=== PATIENT | female | born 1955 | race Caucasian/White ===

== ENCOUNTER 2019-04-13 07:10 | Outpatient (CLI) | payer MEDICARE, BC, SELFPAY ==
[2019-04-13 09:17] LABS: ALT 90 U/L (12-78); AST 57 U/L (15-37); Albumin 3.9 g/dL (3.4-5.0); Alkaline Phosphatase 153 U/L (46-116); Anion Gap 12.7 mmol/L (3-11); BUN 15 mg/dL (7-18); Bilirubin, Total 0.6 mg/dL (0.2-1.0); CO2 25.3 mmol/L (21.0-32.0); CREATININE 0.82 mg/dL (0.55-1.02); Calcium 9.5 mg/dL (8.5-10.1); Chloride 101 mmol/L (98-107); Cholesterol 261 mg/dL (50-200); GGT 368 U/L (5-55); Glucose 166 mg/dL (70-100); HDL Cholesterol 50 mg/dL (40-60); LDL CHOLESTEROL 171 mg/dL (<100); Potassium 4.4 mmol/L (3.5-5.1); Sodium 139 mmol/L (136-145); Total Protein 7.8 g/dL (6.4-8.2); Triglyceride 168 mg/dL (30-150)
[2019-04-13 15:01] LABS: HCT 42.1 % (36.0-46.0); HGB 14.2 g/dL (12.0-15.5); Mean Corp. HGB Concentration 33.7 g/dL (32.0-36.0); Mean Corpuscular Volume 100.7 fL (80-95); Platelet Count 162 x1000/uL (130-400); RBC 4.18 m/cumm (4.00-5.20); RBC Distribution Width 12.4 % (11.7-14.6); White Blood Cell Count 6.72 k/cumm (4.4-10.8)
== END 2019-04-13 07:30 ==
PROVIDERS: PCP Family Medicine; Visit Provider Family Medicine
DX: R03.0 Elevated blood-pressure reading, without diagnosis of hypertension (principal); R94.5 Abnormal results of liver function studies; R71.8 Other abnormality of red blood cells; R74.8 Abnormal levels of other serum enzymes; E78.89 Other lipoprotein metabolism disorders
CPT/HCPCS: 36415; 80053; 80061; 83721; 85027; 82977

== ENCOUNTER 2020-01-14 14:40 | Outpatient (CLI) | payer MEDICARE, BC, SELFPAY ==
--- NOTE | 2020-01-14 15:30 | DI.RAD_ITS ---
EXAM: XR HIP RT COMPLETE AP PELVIS INDICATION: PAIN. COMPARISON: LUMBAR SPINE COMPLETE from 06/22/2016 TECHNIQUE: 2D digital imaging was performed. FINDINGS: Hips show moderately severe degenerative changes characterized by joint space narrowing, subchondral sclerosis and periarticular spurring. No acute fracture or dislocation is present. The soft tissues are unremarkable. IMPRESSION: Osteoarthritis of the hips.
== END 2020-01-14 15:00 ==
PROVIDERS: PCP Family Medicine; Referring Provider Family Medicine; Visit Provider Student in an Organized Health Care Education/Training Program
DX: M25.551 Pain in right hip (principal); M16.11 Unilateral primary osteoarthritis, right hip
CPT/HCPCS: 99213; 73502

== ENCOUNTER 2020-01-30 13:50 | Outpatient (CLI) | payer MEDICARE, BC, SELFPAY | END 2020-01-30 14:10 | PROVIDERS: PCP Family Medicine; Visit Provider Student in an Organized Health Care Education/Training Program | DX: Z01.818 Encounter for other preprocedural examination (principal); M16.11 Unilateral primary osteoarthritis, right hip ==

== ENCOUNTER 2020-01-31 11:40 | Outpatient (CLI) | payer MEDICARE, BC, SELFPAY ==
[2020-01-31 12:18] LABS: HCT 40.8 % (36.0-46.0); Mean Corp. HGB Concentration 34.3 g/dL (32.0-36.0); Mean Corpuscular Hemoglobin 33.6 pg (27.0-33.0); Mean Corpuscular Volume 97.8 fL (80-95); Mean Platelet Volume 10.7 fL (8.0-11.0); Platelet Count 148 x1000/uL (130-400); RBC 4.17 m/cumm (4.00-5.20); RBC Distribution Width 12.1 % (11.7-14.6); White Blood Cell Count 6.86 k/cumm (4.4-10.8)
[2020-01-31 12:44] LABS: Anion Gap 10.4 mmol/L (3-11); BUN 13 mg/dL (7-18); CO2 26.6 mmol/L (21.0-32.0); CREATININE 0.78 mg/dL (0.55-1.02); Calcium 8.9 mg/dL (8.5-10.1); Chloride 97 mmol/L (98-107); Glucose 335 mg/dL (74-106); Potassium 4.1 mmol/L (3.5-5.1); Sodium 134 mmol/L (136-145)
[2020-01-31 17:01] LABS: ALT 69 U/L (14-59); AST 38 U/L (15-37); Albumin 3.8 g/dL (3.4-5.0); Alkaline Phosphatase 178 U/L (46-116); Anion Gap 12.7 mmol/L (3-11); BUN 14 mg/dL (7-18); Bilirubin, Total 0.8 mg/dL (0.2-1.0); CO2 25.3 mmol/L (21.0-32.0); CREATININE 0.84 mg/dL (0.55-1.02); Calcium 9.1 mg/dL (8.5-10.1); Chloride 96 mmol/L (98-107); GGT 346 U/L (5-55); Glucose 338 mg/dL (74-106); Potassium 4.1 mmol/L (3.5-5.1); Sodium 134 mmol/L (136-145); Total Protein 7.5 g/dL (6.4-8.2)
[2020-01-31 17:08] LABS: Hemoglobin A1C 7.9 % (3.8-5.6)
== END 2020-01-31 12:00 ==
PROVIDERS: PCP Family Medicine; Visit Provider Student in an Organized Health Care Education/Training Program
DX: M25.551 Pain in right hip (principal); M16.11 Unilateral primary osteoarthritis, right hip; R74.8 Abnormal levels of other serum enzymes; R71.8 Other abnormality of red blood cells; R94.5 Abnormal results of liver function studies; R73.9 Hyperglycemia, unspecified; Z01.818 Encounter for other preprocedural examination; Z01.812 Encounter for preprocedural laboratory examination
CPT/HCPCS: 36415; 80048; 80053; 85027; 86850; 86900; 86901; 82977; 83036; 85025

== ENCOUNTER 2020-03-31 09:29 | Outpatient (REF) | payer MEDICARE, BC, SELFPAY ==
--- NOTE | 2020-03-31 09:20 | PAPFT_PTH ---
PATIENT: Jennifer Traore LOC: [facility] U#:[id number] AGE/SX: 64/F ROOM: RE03/31/[address]: MERLE Gotti : 1955 BED: DIS: 03/31/2020 SPEC #: [id number] RECD: 03/31/20 12:57 STATUS: OTTONIEL REQ #: [id number] BREANNE: 03/31/20 09:[address]: Arelis Hameed DEPT: [facility] Cytology RECD BY: Turner Kohli ENTERED: 03/31/20 12:58 SP TYPE: PAPFT OTHR DR: Priscilla Brantley MD, DC Tissues: 1 - CX/ENDOCX FOR PAP SMEARS Procedures: PAP THIN PREP/UVM Screening HPV DNA PROBE Comments: [id number]
== END 2020-03-31 09:49 ==
LOC: LBN 09:29
PROVIDERS: PCP Family Medicine; Visit Provider Nurse Practitioner Family
DX: Z12.4 Encounter for screening for malignant neoplasm of cervix (principal)
CPT/HCPCS: 88142; 87624

== ENCOUNTER 2020-05-14 04:09 | Outpatient (CLI) | payer MEDICARE, BC, SELFPAY ==
[2020-05-14 11:23] LABS: Hemoglobin A1C 5.9 % (3.8-5.6)
[2020-05-14 12:26] LABS: COMMENT (LAB VIEW ONLY) 60.41 mg/dL; Microalb ug/mg Crea 4.6 ug/mg Cr
== END 2020-05-14 04:29 ==
PROVIDERS: PCP Family Medicine; Visit Provider Family Medicine
DX: E11.9 Type 2 diabetes mellitus without complications (principal)
CPT/HCPCS: 36415; 80053; 82043; 82570; 83036

== ENCOUNTER 2020-06-12 14:00 | Outpatient (CLI) | payer MEDICARE, BC, SELFPAY | END 2020-06-12 14:20 | PROVIDERS: PCP Family Medicine; Visit Provider Student in an Organized Health Care Education/Training Program | DX: Z01.818 Encounter for other preprocedural examination (principal); M16.11 Unilateral primary osteoarthritis, right hip; I10 Essential (primary) hypertension; E11.9 Type 2 diabetes mellitus without complications; Z79.84 Long term (current) use of oral hypoglycemic drugs ==

== ENCOUNTER 2020-06-14 07:00 | Outpatient (CLI) | payer MEDICARE, BC, SELFPAY | END 2020-06-14 07:20 | PROVIDERS: PCP Family Medicine; Visit Provider Student in an Organized Health Care Education/Training Program | DX: Z11.59 Encounter for screening for other viral diseases (principal) | CPT/HCPCS: U0003 ==

== ENCOUNTER 2020-06-16 02:11 | Outpatient (CLI) | payer MEDICARE, BC, SELFPAY ==
[2020-06-16 10:02] LABS: HCT 39.3 % (36.0-46.0); HGB 13.2 g/dL (12.0-15.5); Mean Corp. HGB Concentration 33.6 g/dL (32.0-36.0); Mean Corpuscular Hemoglobin 34.1 pg (27.0-33.0); Mean Corpuscular Volume 101.6 fL (80-95); Mean Platelet Volume 10.1 fL (8.0-11.0); Platelet Count 169 x1000/uL (130-400); RBC 3.87 m/cumm (4.00-5.20); RBC Distribution Width 12.3 % (11.7-14.6); White Blood Cell Count 6.42 k/cumm (4.4-10.8)
[2020-06-16 10:51] LABS: Anion Gap 11.8 mmol/L (3-11); BUN 14 mg/dL (7-18); CO2 24.2 mmol/L (21.0-32.0); CREATININE 0.99 mg/dL (0.55-1.02); Calcium 9.5 mg/dL (8.5-10.1); Chloride 100 mmol/L (98-107); Estimated GFR 55.95 (mL/min/1.73m2); Glucose 176 mg/dL (74-106); Potassium 4.5 mmol/L (3.5-5.1); Sodium 136 mmol/L (136-145)
== END 2020-06-16 02:31 ==
PROVIDERS: PCP Family Medicine; Visit Provider Student in an Organized Health Care Education/Training Program
DX: M16.11 Unilateral primary osteoarthritis, right hip (principal); R19.7 Diarrhea, unspecified; Z01.818 Encounter for other preprocedural examination
CPT/HCPCS: 36415; 80048; 85027; 86850; 86900; 86901; U0003

== ENCOUNTER 2020-06-16 08:59 | Outpatient (CLI) | payer MEDICARE, BC, SELFPAY ==
[2020-06-18 17:24] LABS: COVID-19 RT-PCR Result NEGATIVE (Negative)
== END 2020-06-16 09:19 ==
PROVIDERS: PCP Family Medicine; Visit Provider Student in an Organized Health Care Education/Training Program
DX: Z01.818 Encounter for other preprocedural examination (principal)
CPT/HCPCS: U0003

== ENCOUNTER 2020-06-18 06:15 | Observation (INO) | payer MEDICARE, BC, SELFPAY ==
[2020-06-18] VITALS (12 sets, daily range): BP systolic 83–168; BP diastolic 43–96; PULSE 65–86; RESP 10–20; TEMP 36–36.7; O2SAT 94–99
[2020-06-18] MEDS: Celecoxib 200 MG CAP 400 MG PO (07:07)
[2020-06-18] MEDS: Acetaminophen 500 MG TAB 1000 MG PO ×2 (07:08→13:46)
[2020-06-18] MEDS: Lactated Ringers 1,000 ML 80 ML IV (07:08)
--- NOTE | 2020-06-18 07:37 | W.PM.DS.N ---
Date of service: 06/18/20 DS: Diagnosis Discharge Diagnosis (1) Primary osteoarthritis of right hip: Status: Acute Discharge Plan Disposition Patient Disposition: HOME Condition: Good Discharge Details Reason For Visit: R HIP DJD Admit Date/Time: 06/18/20 06:15 Admit Provider: Chucky gN Attending Provider: Chucky Ng Primary Care Provider: Priscilla Brantley [facility] Hospital Course Hospital Course: Patient was admitted to the medical/surgical floor following the procedure. The surgery was tolerated well without any notable medical, surgical, or anesthetic complications. Mobilization began postoperatively. The clifford catheter was removed and voiding spontaneously. Vitals were stable. Physical therapy worked with the patient and was cleared for discharge home. No acute medical issues. Pain was controlled on oral regimen. Home Meds and New Rx's Prescriptions: New aspirin 81 mg tablet,delayed release (DR/EC) 81 mg PO BID Qty: 60 RF: 0 acetaminophen 500 mg tablet 1,000 mg PO Q8H PRN (Reason: pain) Qty: 90 RF: 3 pantoprazole 40 mg tablet,delayed release (DR/EC) 40 mg PO DAILY Qty: 30 RF: 0 docusate sodium [Colace] 100 mg capsule 100 mg PO BID PRNQty: 10 RF: 0 oxycodone 5 mg tablet 5 mg PO Q4H Qty: 15 RF: 0 Continued magnesium 250 mg tablet 250 mg PO .Every other day RF: 0 losartan 100 mg tablet 100 mg PO DAILY Qty: 90 RF: 4 metformin 500 mg tablet 500 mg PO BID Qty: 180 RF: 5 multivitamin [Daily Vitamin] 1 EACH tablet 1 tab PO DAILY RF: 0 betamethasone valerate 15 GM cream 15 gm Topical BID PRNQty: 80 RF: 2 lidocaine 5 % adhesive patch,medicated 1 patch TP DAILY Qty: 30 RF: 2 vitamin I56-qullw acid 500-400 mcg Tablet 1 tab PO DAILY RF: 0 ibuprofen 600 mg tablet 600 mg PO TID Qty: 270 RF: 1 Discontinued sulfamethoxazole-trimethoprim [Bactrim] 400-80 mg tablet 1 tab PO DAILY PRNRF: 0 No Action (DME) blood sugar diagnostic [Blood Glucose Test] Strip See Rx Instructions .ROUTE .MEDSUPPLY Qty: 100 RF: 5 Discharge Instructions Additional Instructions: Dr. Ng's Total Hip Discharge Instructions Activity: The most important activity is to walk. You should try to take short walks a few times a day. You have no restrictions on movement or positioning, but do not try to force what you do. You will find some stiffness and weakness with hip flexion (lifting your knee). Do not try to strengthen this too early, continue to practice walking and stairs and this will come. - Outpatient physical therapy can be helpful to help return you to a normal gait and improve your flexibility and strength. This can start around 2 weeks. For most patients, it?s not necessary. Usually this is determined at the time of discharge or at the first post-operative visit. - You should wear the JONAH hose on both legs for 2 weeks. You may remove those at night. These prevent blood pooling and swelling. Dressing: Keep the surgical dressing in place for at least one week, although it may stay in place untill follow-up. It may get wet after 3 days but avoid soaking the dressing. If it gets wet, just lightly pat dry. Most people prefer to cover the dressing with some ClingWrap, Saran Wrap, to keep it dry. After the first week it may be removed if desired and then replaced with light gauze and tape or nothing. It is important to always keep some gauze or the dressing between skin folds, especially when you are sitting, so the incision is not folded over on itself at the belly fold. Medications: - You should take Tylenol and an anti-inflammatory Ibuprofen as your primary pain control medications - You have been prescribed a stronger pain medication Oxycodone for breakthrough pain, take as needed as prescribed. - You have also been prescribed a stomach acid reduction agent Pantoprozole to help reduce stomach acid and reflux. - You will be taking Aspirin 81mg twice a day for DVT prevention unless instructed otherwise. - If you have constipation you should take Colace or Miralax (both [id number]). It takes most people 3-4 days to have a bowel movement. Follow-up: 2 weeks. If you have any acute concerns or questions, please do not hesitate to contact the office at [phone]. You may contact Dr. Ng with any questions after hours through the hospital at [phone] or on his cell phone at [phone]. Referrals: Chucky Ng MD [ [facility] STAFF PHYSICIAN] - Activity:: Activity as Tolerated Equipment/Supplies:: Walker Diet:: As Tolerated Discharge Orders Discharge Orders: Discharge Order (Routine); Ordered 06/18/20 Ordered By: Chucky Ng DS: Summary Status at Discharge Functional status at discharge: uses cane/walker Overall status at discharge: patient is progressing back to baseline Mental Status: mental status grossly normal Speech and Movement: speech and movement normal Mood: congruent mood Affect: normal affect Exam Psych Mental Status: mental status grossly normal Speech and Movement: speech and movement normal Mood: congruent mood Affect: normal affect DS: Data Vitals/I&O Vitals and I&O: Vital Signs Temperature 36.7 C 06/18/20 06:49 Pulse 86 06/18/20 06:49 Pulse Rhythm Regular 06/18/20 06:49 Respiratory Rate 18 06/18/20 06:49 Respiratory Effort 06/18/20 06:49 Blood Pressure 168/96 H 06/18/20 06:49 Pulse Oximetry 98 06/18/20 06:49 Oxygen Delivery Method Room Air 06/18/20 06:49 Oxygen Flow Rate 0 06/18/20 06:49 Intake & Output 06/17/20 06/17/20 06/18/20 11:59 23:59 11:59 Weight 76.5 kg [facility] Medical History Achilles tendinitis of left lower extremity (Resolved 09/11/15) Alcohol intake above recommended sensible limits (Chronic 01/07/17) elevated GGT, LFT and MCV Diverticulosis of colon without diverticulitis (Chronic) sigmoid colon Elevated LFTs (Chronic 01/06/17) Elevated MCV (Chronic 01/06/17) Epicondylitis (Resolved) History of ectopic (Resolved) right Hx of fracture of ankle (Acute) Hx of hypoglycemia (Acute) Hx of spina bifida (Acute) States hx of Spina Bifida Occulta Hx of tension headache (Acute) Hx of transient ischemic attack (TIA) (Acute) Pt. states she had a TIA when she was 22 that was control related Pt. states she has never had an recurrence, and does not f/u with a neurologist and states she never had to. Left foot pain (Resolved 08/05/15) Lichen planus (Chronic) Low back pain radiating to left leg (Chronic 06/10/16) Patellofemoral arthritis of right knee (Chronic 09/12/17) Shoulder pain (Chronic 03/24/15) Trochanteric bursitis of right hip (Resolved 09/11/15) bilateral Surgical History H/O section (Resolved) x2 History of back surgery (Acute) Microdisectomy, L5-S1. Pt. states nerves damage with numbness to left foot. History of bilateral ligation of fallopian tubes (Inactive) History of bilateral tubal ligation (Resolved) History of section (Inactive) History of ectopic (Inactive) History of open reduction and internal fixation (ORIF) procedure (Acute) left ankle with plates and screws present Hx of appendectomy (Chronic) Family History Mother , 54 Uterine cancer Colon cancer Father , 80 Prostate cancer Alcohol abuse Daughter Diabetes Depression Sister No problems noted. Sister No problems noted. Brother No problems noted. Son No problems noted. Brother Depression Social History Smoking/Tobacco Use Status: Never Alcohol Intake: current Alcohol Intake frequency: 0-2 drinks per day Alcohol type: wine Drug use: Occasionally Substance use type: unknown Caregiver/Support person: No Household members: spouse Housing: house Communication Needs: None Do you need help understanding health information?: Never Pets and animals: No Sexually active: Yes Do you think of yourself as: straight/heterosexual Current gender identity: female What is your relationship status?: How often do you talk on the phone with friends or family?: decline to answer How often do you get together with friends or relatives?: decline to answer How often do you attend scientology or yarsani services?: decline to answer Do you belong to any clubs or organized social groups?: decline to answer Panel score (0-1 are the most socially isolated patients): 1 What type of physical activity do you participate in: decline to answer Duration: decline to answer Frequency: decline to answer Niru/Hinduism: Restorationism Special niru needs: No Seatbelt use: always Drive intox or ride w/intox intermodal truck driver: No
[2020-06-18] MEDS: ceFAZolin 2 GM/50 ML BAG IVPB (07:41)
[2020-06-18] MEDS: Ketorolac 30 MG/ML VIAL (08:26)
[2020-06-18] MEDS: Bupivacaine 0.25% Pres-Free 30 ML VIAL (08:26)
--- NOTE | 2020-06-18 09:15 | DI.RAD_ITS ---
EXAM: XR HIP RT IN OR CLINICAL HISTORY: Primary osteoarthritis of right hip TECHNIQUE: 2D and realtime digital imaging was performed. CONTRAST MATERIAL: Refer to procedure report. COMPARISON: No exams were available for comparison FINDINGS: Fluoroscopy was provided for Dr. Ng during the performance of a right hip arthroplasty. Angelina friedman refer to the procedure report for complete details. Fluoro time: 53.8 seconds IMPRESSION: RADIATION DOSE DELIVERED:
--- NOTE | 2020-06-18 10:12 | ROE_ITS ---
Date of service: 06/18/20 Operative Note Operative Note DATE OF PROCEDURE: 06/18/20 PRE-OP DIAGNOSIS: Right Hip DJD POST-OP DIAGNOSIS: same PROCEDURE: Right Anterior Total Hip Arthroplasty SURGEON: Chucky Ng LOCOMOTIVE INSPECTOR: Rosalina Boyle ANESTHESIA: spinal ESTIMATED BLOOD LOSS: 250 PATHOLOGY: none sent TOURNIQUET TIME: 0 COMPLICATIONS: None Patient was transported to: PACU Patient's condition: stable Implants: 1. Depuy [place] Acetabular Component, 48mm 2. [employer]uy Acetabular Liner, [id number] 3. Depuy Corail Standard 125 Collared Femoral Stem, Size 9 4. Depuy Altrx Ceramic Femoral Head, Size 32+1mm Indications: I have seen Belinda in clinic for symptoms of hip arthritis, confirmed with radiographic findings. Belinda has exhausted nonoperative methods and was having significant limitations in daily function and desired better function and less pain. I discussed the technical details of a hip replacement. I explained the risks of the procedure to include, but not limited to, bleeding, infection, pain, stiffness, fracture, damage to nerves and vessels, damage to muscles and tendons, loosening, instability, leg length inequality, need for repeat procedure, blood clot and cardiopulmonary demise. Despite these risks, Belinda elected to proceed. Findings: There was significant signs of arthritis throughout the hip, mostly around the femoral neck and centrally within the acetabulum. Procedure Description: Belinda was greeted in the preoperative holding area where the correct side was identified and marked. The consent was reviewed with the patient and signed. The history and physical was updated. All questions were answered. She was taken back to the operating room. A spinal anesthestic was then administered. The patient was placed into the supine position on the operating room table. The patient was then positioned onto the ARCH table. Both feet were wrapped with Webrill cotton wrap along with Coban. The feet were placed in specialized boots for the ARCH table, well seated within the boot and secured. SCDs were applied. The patient was then slid down onto a peroneal post and the nonoperative leg was secured in a leg hallman attached to the table. The operative side was placed into the ARCH table attachment and bed height and positioning was secured. A preoperative AP pelvis was obtained to serve as a reference for determining leg lengths. Prophylactic antibiotics in the form of Cefazolin were administered. 1g of Tranxemic Acid was given intravenously within 30 minutes of incision. The right leg was then prepped with Chloraprep and draped in a standard fashion. A second prep with Chloraprep was performed prior to placement of a shower-curtain type drape with Iodine impregnated skin protection. A timeout to confirm correct identity, side and site, procedure, allergies, anesthesia, and medical concerns was performed. An obliquely oriented incision was made starting lateral to the ASIS and running distal over the Tensor Fascia More (TFL) muscle belly toward the fibular head, approximately 10cm. The skin and soft tissue was dissected sharply, through Nannette?s fascia, and to the fascia of the TFL. With the fascia and superior border of the IT band identified, the fascia was incised with a new knife just above any perforators from the IT band. The TFL muscle belly was bluntly dissected away from the fascia and moved laterally. The fat between TFL and rectus was identified to ensure the dissection was not within the TFL. Blunt dissection created space between abductors and the capsule and retractor was placed over the lateral femoral neck. The fibers of the rectus femoris tendon were identified and these were freed from the anterior capsule. A second cobra retractor was placed around the medial femoral neck. The TFL was further retracted laterally to show the deep fascia. Careful dissection through this layer identified three main crossing vessels of the lateral femoral circumflex. These were cauterized in multiple locations and then cut without any noticeable bleeding. The TFL was further released bluntly from the deep fascia to expose anterior hip capsule and fat The Sukhi orthopaedic retractor was then placed b eneath the TFL and against sartorius and medial soft tissues to protect and retract the soft tissues. A T-capsulotomy was then performed starting at the superior lateral acetabulum and moving distally to the intertrochanteric ridge. These capsular flaps were tagged with a No. 1 Ethibond and elevated from within. The capsular flaps were released to the shoulder of the lateral neck and to the lesser trochanter to give excellent visualization of the proximal femur. A neck osteotomy was performed using an oscillating saw based on preoperative templates. This cut started in the shoulder and of the lateral neck and exited medially. The saw was at all times directed medially to avoid injury to the greater trochanter. 6cm of traction was applied to the leg and the osteotomy opened. The femoral head was removed with a corkscrew, making sure to protect the TFL on its exit. This was measured on the back table to determing the starting reamer size. Portions of the rectus obscuring visualization were minimally elevated off the superior acetabulum. An anterior retractor was placed over the anterior wall between capsule and labrum and attached to the Gripper retraction system. A posterior retractor was placed similarly. This provided excellent visualization. The contents of the cotyloid fossa were removed with electrocautery and the labrum was removed with a knife. There was a notable floor osteophyte. Osteophytes were seen around the lateral femoral neck. Acetabular reaming began with a 44mm reamer. This first reaming was directed anterior to posterior and medial to get down to the true floor. This was inspected and reamed until the true floor was reached. The anterior retractor was then released and entry and exit was provided by traction on the capsular flaps. I then reamed sequentially up to a 48mm reamer where good fit was obtained. The larger reamers were oriented based on anatomical reference of the anterior and lateral unger to ensure proper abduction and anteversion. Positioning and size was confirmed with the fluoroscopy. A 48mm Depuy [place] acetabular component was selected. The acetabulum was reamed around the periphery with the selected acetabular size to prevent a rim fit. The deep tissues were irrigated. The acetabular component was then impacted in a position of about 40-45 degrees of abduction and 15-20 degrees of anteversion, using the patient?s anatomy as the ultimate landmark. Fluoroscopy was used to confirm this. Initially there was less than ideal telecommunications facility examiner and expected. Therefore, remove the acetabular component and ream the acetabulum once again. There was some remaining acetabular floor. So I medialized with a 46 mm reamer another 2 to 3 mm. I then reamed with a 47 mm reamer with excellent purchase. The 48 mm acetabular component was then once again inserted with excellent telecommunications facility examiner. The inserting handle was removed. The acetabular liner, Depuy 48x32 mm polyethylene liner, was inserted and lined up with the tines of the acetabular component. There was no soft tissue interposition. The liner was then impacted into position and confirmed to be well-seated. A portion of the erica-articular cocktail was then injected around the acetabulum into the capsule and periosteum. This cocktail consisted of 50cc of 0.25% Bupivicaine and 20cc of Exparel, expanded to a total of 120cc. Traction was released from the femur. The leg was rotated to 120 degrees. Any remaining medial capsule was released until the lesser trochanter was easily palpable. A Duncan retractor was placed medially. The lateral capsule was further released into the shoulder to allow access to the greater trochanter. A Duncan retractor was placed over the greater trochanter which allowed the trochanter to flip in front of the capsule for excellent exposure. The leg was brought down into maximal extension and 20 degrees of adduction while ensuring there was no impingement on the acetabulum. Any remnant capsule within the trochanter was released. Piriformis and obturator externis were identified and protected. There was excellent access to the proximal femur. The lateral neck remnant was removed with a rongeur. A blunt canal probe was used to identify the canal and trajectory for later broaching. A box osteotome initiated the broach course. A small curved rasp and a curved curette were used to work laterally. Broaching then began with a size 8 Corail broach. This was inserted manually around the trochanter and into the canal before mallet blows. The broach was seated to a few millimeters below the cut level based on the neck cut and the preoperative template. Sequential broaching was continued with the [employer] pneumatic broaching device until a tight fit was obtained with good rotational control of the femur. Upon broaching with the size 8 there is noted to be a small crack medially along the calcar. There is no gapping. There is no loose piece. It was inspected and seem to be contained. Broaching then continued manually. Throughout the entire broaching there was no displacement of the fracture fragment and no diastases of the fracture line. The neck was planed down without difficulty. A trial standard 125 neck was inserted along with a +1 trial head. The leg was brought out of extension and adduction and then reduced with traction and internal rotation. The leg was stable anteriorly in a position of 30 degrees of extension and 90 degrees of external rotation. Fluoroscopy was used to ensure there was no fracture and the stem was seated well. Leg lengths were checked with an AP pelvis and pelvic reference points. Xiam navigation system was used to confirm appropriate positioning and leg length and offset. Once content with the desired offset and leg lengths, the leg was brought back into extension, external rotation and adduction. The periosteum and surrounding tissue was injected with remaining portion of the erica-articular cocktail. The proximal femur was irrigated as well as the deep tissues. The Depuy Cor[place] standard 125 collared stem, size 9, was then manually inserted into the proximal femur making sure to control rotation. It was then malleted into position with light blows, giving breaks to allow bone expansion and decrease risk of fracture. There is no displacement of the fracture line. The selected Depuy Altrx Ceramic Head, size 32+1 mm, was then placed onto the clean and dry trunnion and secured with impaction onto the tapered fit. The leg was brought back out of extension and adduction and reduced with traction and internal rotation. Stability was confirmed with no shuck at 90 degrees of external rotation and 30 degrees of extension. No impingement through range of motion arc. Final x-ray images were obtained with fluoroscopy to confirm adequate positioning. There is no visible fracture line. The deep tissues were thoroughly irrigated with Irrisept chlorhexadine solution. The second dose of TXA 1g was administered intravenously. The capsule was then reapproximated with the previously placed Ethibond sutures. The TFL fascia was finally closed with a No. 2 Stratafix, barbed suture. Deep tissues were then reapproximated with 0 Vicryl and a running 2-0 Vicryl. The skin was closed with a running 4-0 Monocryl in a subcuticular fashion. This was reinforced with skin glue. A Mepilex silver dressing was applied. At the end of the case, all counts were correct. Belinda was transferred to the hospital bed without difficulty and suffering no apparent complication. Belinda has a good prognosis. Physical therapy will start today and without restrictions, weight-bearing as tolerated. Aspirin 81mg BID will be used for DVT prophylaxis.
--- NOTE | 2020-06-18 11:30 | PT.INIE ---
Date of service: 06/18/20 Time of Service: 11:30 PT Notes Visit Reasons: OA R HIP Physical Therapy Inpatient Initial Evaluation Date: 06/18/2020 Referring Doctor: Chucky Ng MD PT Orders: PT CONSULT: Status post Ortho surgery. Status was right WALT. Precautions: Fall. Standard. WBAT on right LE Patient Profile/Admitting Diagnosis: Belinda is a 65-year-old female with primary unilateral osteoarthritis of the right hip and is status post right total hip arthroplasty postoperative day 0. PMHX: Medical History Achilles tendinitis of left lower extremity (Resolved 09/11/15) Alcohol intake above recommended sensible limits (Chronic 01/07/17) elevated GGT, LFT and MCV Diverticulosis of colon without diverticulitis (Chronic) sigmoid colon Elevated LFTs (Chronic 01/06/17) Elevated MCV (Chronic 01/06/17) Epicondylitis (Resolved) History of ectopic (Resolved) right Hx of hypoglycemia (Acute) Hx of spina bifida (Acute) States hx of Spina Bifida Occulta Hx of tension headache (Acute) Hx of transient ischemic attack (TIA) (Acute) Pt. states she had a TIA when she was 22 that was control related Pt. states she has never had an recurrence, and does not f/u with a neurologist and states she never had to. Left foot pain (Resolved 08/05/15) Lichen planus (Chronic) Low back pain radiating to left leg (Chronic 06/10/16) Patellofemoral arthritis of right knee (Chronic 09/12/17) Shoulder pain (Chronic 03/24/15) Trochanteric bursitis of right hip (Resolved 09/11/15) bilateral Surgical History H/O section (Resolved) x2 History of back surgery (Acute) Microdisectomy, L5-S1. Pt. states nerves damage with numbness to left foot. History of bilateral ligation of fallopian tubes (Inactive) History of bilateral tubal ligation (Resolved) History of section (Inactive) History of ectopic (Inactive) Hx of appendectomy (Chronic) Social History/Home Situation: Lives alone with in a two-story private home to enter and a rail on the left side. Independent with all aspects of ADLs without the need for an assistive ambulatory device nor adaptive equipment. She states that her bedroom is on the second for but she has set up her residence so that everything she needs it is on the main floor. Works from home. Equipment Owned/DME: None Subjective: Prefers to be called Belinda. Belinda says she still could not feel her buttocks but was motivated to try sit up and get out of bed. She complained of mild dizziness upon sitting up on edge of bed but issue dissipated with ambulation activity. Denied headache, chest pain, and pain throughout PT consult. She hopes to go home today. Objective: General Observation: IV in the right UE. Bilateral TEDS on. Mepilex Ag over surgical incision. Mental Status: Alert and oriented x4 Pain: 0/10 Vital Signs: 116/60 8 mmHg, 98% oxygen saturation on room air, 82 bpm as measured by WHEELCHAIR RENTAL CLERK at the start of PT consult ROM: Right Upper Extremity: Shoulder Flexion WFL. Shoulder abduction WFL. Elbow flexion WFL. Wrist flexion WFL. Opening and closing of hand WFL. Left Upper Extremity: Shoulder Flexion WFL. Shoulder abduction WFL. Elbow flexion WFL. Wrist flexion WFL. Opening and closing of hand WFL. Right Lower Extremity: Hip flexion WFL. Hip abduction WFL. Knee flexion WFL. Ankle dorsiflexion WFL. Ankle plantarflexion WFL. Left Lower Extremity: Hip flexion WFL. Hip abduction WFL. Knee flexion WFL. Ankle dorsiflexion WFL. Ankle plantarflexion WFL. Strength: Right Upper Extremity: Shoulder flexors 5/5. Shoulder abductors 5/5. Elbow flexors 5/5. Elbow extensors 5/5. Child Protective Services Specialist strong. Left Upper Extremity: Shoulder flexors 5/5. Shoulder abductors 5/5. Elbow flexors 5/5. Elbow extensors 5/5. Child Protective Services Specialist strong. Right Lower Extremity: Hip flexors 4/5. Hip abductors 4/5. Knee flexors 5/5. Knee extensors 5/5. Ankle dorsiflexors 5/5. Ankle plantarflexors 5/5. Left Lower Extremity:Hip flexors 5/5. Hip abductors 5/5. Knee flexors 5/5. Knee extensors 5/5. Ankle dorsiflexors 5/5. Ankle plantarflexors 5/5. Sensation: Intact as to pain and pressure on bilateral lower extremities. No neuropathic pain complaint on left leg and foot from pre-existing L4-L5 microdiscectomy. Bed Mobility/Transfers: Supine to sit supervision Sit to supine supervision Sit to stand contact-guard assist Stand to sit contact-guard assist Bed to chair contact-guard assist Chair to bed contact-guard assist Gait: 120 feet using front wheeled walker with contact-guard assist. Step-through gait pattern. Mi reports increased control of legs but does not feel that she has achieved full control of them, states that her buttocks are still numb. Dizziness subsided with ambulation activity. Balance: Static Sitting: Normal Dynamic Sitting: Normal Static Standing: Fair Dynamic Standing: Fair Special Tests: Mobility Limitations Standardized Measure [facility] AM-PAC 6 clicks Basic Mobility Inpatient Short Form: Raw Score: 18 CMS Score: 42% deficit Informed Consent/Education: Patient instructed in purpose of PT consult and plan of care. Assessment: Belinda demonstrates functional mobility decline requiring the use of front wheeled walker for all mobility ADL performance, altered with, balance impairment, and weakness of right hip major muscle groups due to postoperative status. Belinda is a 65-year-old female with primary unilateral osteoarthritis of the right hip and is status post right total hip arthroplasty postoperative day 0. Patient presents with clinical signs and symptoms consistent with current/admitting diagnoses that have resulted to mobility limitations, gait instability, generalized weakness, and impairment of motor control as demonstrated by the following impairment level findings: 1. Decreased strength to right hip major muscle groups 2. Impaired tanding balance 3. Impaired activity tolerance Impairments are contributing to the following functional limitations: 1. Inability to safely ambulate without assistive device and physical assistance 2. Increase completion time for mobility ADL performance 3. Increased fall risk 4. Inability to negotiate steps alone safely Patient is assessed as a 55232 moderate 6-7 complexity based on the following: History: -year-old female with impairment level findings, functional limitations, and past medical history as indicated above Examination: Demonstrable impairment in strength, balance, and mobility level with underlying impairments and functional limitations as documented above Presentation: Evolving Decision Makin moderate complexity Goals: Goals X1 session today 1. Supine-Sit independent 2. Sit-Supine independent 3. Sit-Stand supervision 4. Stand-Sit supervision 5. Bed-Chair supervision 6. Chair-Bed supervision 7. Supervision gait on level surface with use of least restrictive device for at least 300 feet without report of pain nor dyspnea 8. Supervision stair negotiation while holding onto bilateral rails for at least 5 steps without report of pain nor dyspnea 9. Independent with home exercise program 10. Good static and dynamic standing balance/tolerance Plan of Care/Treatment Plan: 1-2x/day, 7 days/week x 1 week. Plan of care has been reviewed with the CASH APPLICATIONS ANALYST providing the service under Physical Therapy direction. Initiate Physical Therapy intervention for strengthening, bed mobility, transfers, gait, stairs, balance training, use of assistive device. PT intervention: Session today consisted of initial physical therapy evaluation as well as education and training on mobility ADL performance using front wheeled walker. Patient was also instructed to do room seated level exercises consisting of LAQs x10 and gluteal sets x10 every hour or so. DISCHARGE RECOMMENDATIONS: Home when medically cleared by orthopedic surgeon. May benefit from OP PT services to regain independent premorbid level. TREATMENT CODE/TIME: 70721 x 25 minutes, 56144 x 15 minutes beginning at 11:30 AM. Thank you for the opportunity to participate in the care of this patient. Jessie Rush PT, DPT, CLT [facility] [place], [place]
[2020-06-18] MEDS: ceFAZolin 1 GM/50 ML BAG IVPB (13:46)
--- NOTE | 2020-06-18 15:06 | PT.INTREAT ---
Date of service: 06/18/20 Time of Service: 15:06 PT Notes Visit Reasons: R HIP DJD Inpatient Physical Therapy Treatment Note [facility] Date: 06/18/20 PRECAUTIONS: Fall, WBAT R SUBJECTIVE: Belinda is pleasant and agreeable to PT. She is excited to be going home today. OBJECTIVE: PAIN: Minimal c/o muscle soreness on R LE BED MOBILITY/TRANSFERS Sit-stand: I Stand-sit: I Bed?chair: I Chair?bed: I GAIT: Assistive Device: FWW Weight Bearing: WBAT R Assist: S Distance: 250' Deviation: Step-through gait pattern utilized STAIRS: Up/down 3x4 and 2x6 using L rail and a step-to pattern with supervision TOILETING: Patient toileted independently ASSESSMENT: Patient tolerated session well with minimal complaints of muscle soreness on right LE. She tolerated a progression in gait distance with FWW support and supervision. She would benefit from continued mobilization and strengthening to return to baseline level of function. PLAN: As per primary PT TREATMENT CODE/TIME: 30 minutes; 12828, [id number]
--- NOTE | 2020-06-18 15:06 | PDOC.CMPRO ---
- If Service Date Differs Date of service: 06/18/20 Time of Service: 15:06 Care Management Progress Note Pt requested that CM provide Jennifer with a walker, which was done. Jennifer was sitting up in bed, smiling when CM entered the room and said she feels great. She stated that she anticipates being discharged today and does not feel she needs any services.
--- NOTE | 2020-06-20 17:38 | INDS_ITS ---
Date of service: 06/20/20 PT Notes Visit Reasons: R HIP DJD Inpatient Physical Therapy Discharge Summary Dates: 06/20/2020 Dates of Service: 06/18/2020 only This is a clinical summary of care provided on the duration of dates listed above. No charge was made in the completion of this documentation. Referring Doctor: Chucky Ng MD PT Orders: PT CONSULT: Status post Ortho surgery. Status was right WALT. Precautions: Fall. Standard. WBAT on right LE Patient Profile/Admitting Diagnosis: Belinda is a 65-year-old female with primary unilateral osteoarthritis of the right hip and is status post right total hip arthroplasty postoperative day 0. PMHX: Medical History Achilles tendinitis of left lower extremity (Resolved 09/11/15) Alcohol intake above recommended sensible limits (Chronic 01/07/17) elevated GGT, LFT and MCV Diverticulosis of colon without diverticulitis (Chronic) sigmoid colon Elevated LFTs (Chronic 01/06/17) Elevated MCV (Chronic 01/06/17) Epicondylitis (Resolved) History of ectopic (Resolved) right Hx of hypoglycemia (Acute) Hx of spina bifida (Acute) States hx of Spina Bifida Occulta Hx of tension headache (Acute) Hx of transient ischemic attack (TIA) (Acute) Pt. states she had a TIA when she was 22 that was control related Pt. states she has never had an recurrence, and does not f/u with a neurologist and states she never had to. Left foot pain (Resolved 08/05/15) Lichen planus (Chronic) Low back pain radiating to left leg (Chronic 06/10/16) Patellofemoral arthritis of right knee (Chronic 09/12/17) Shoulder pain (Chronic 03/24/15) Trochanteric bursitis of right hip (Resolved 09/11/15) bilateral Surgical History H/O section (Resolved) x2 History of back surgery (Acute) Microdisectomy, L5-S1. Pt. states nerves damage with numbness to left foot. History of bilateral ligation of fallopian tubes (Inactive) History of bilateral tubal ligation (Resolved) History of section (Inactive) History of ectopic (Inactive) Hx of appendectomy (Chronic) Social History/Home Situation: Lives alone with in a two-story private home to enter and a rail on the left side. Independent with all aspects of ADLs without the need for an assistive ambulatory device nor adaptive equipment. She states that her bedroom is on the second for but she has set up her residence so that everything she needs it is on the main floor. Works from home. Equipment Owned/DME: None Subjective: NT. See most recent BIOINFORMATICS TECHNICIAN notes. Objective: General Observation: NT. See most recent BIOINFORMATICS TECHNICIAN notes. Mental Status: NT. See most recent BIOINFORMATICS TECHNICIAN notes. Pain: NT. See most recent BIOINFORMATICS TECHNICIAN notes. Vital Signs: NT. See most recent BIOINFORMATICS TECHNICIAN notes. ROM: Right Upper Extremity: Shoulder Flexion WFL. Shoulder abduction WFL. Elbow flexion WFL. Wrist flexion WFL. Opening and closing of hand WFL. Left Upper Extremity: Shoulder Flexion WFL. Shoulder abduction WFL. Elbow flexion WFL. Wrist flexion WFL. Opening and closing of hand WFL. Right Lower Extremity: Hip flexion WFL. Hip abduction WFL. Knee flexion WFL. Ankle dorsiflexion WFL. Ankle plantarflexion WFL. Left Lower Extremity: Hip flexion WFL. Hip abduction WFL. Knee flexion WFL. Ankle dorsiflexion WFL. Ankle plantarflexion WFL. Strength: Right Upper Extremity: Shoulder flexors 5/5. Shoulder abductors 5/5. Elbow flexors 5/5. Elbow extensors 5/5. Tank Builder Helper strong. Left Upper Extremity: Shoulder flexors 5/5. Shoulder abductors 5/5. Elbow flexors 5/5. Elbow extensors 5/5. Tank Builder Helper strong. Right Lower Extremity: Hip flexors 4/5. Hip abductors 4/5. Knee flexors 5/5. Knee extensors 5/5. Ankle dorsiflexors 5/5. Ankle plantarflexors 5/5. Left Lower Extremity:Hip flexors 5/5. Hip abductors 5/5. Knee flexors 5/5. Knee extensors 5/5. Ankle dorsiflexors 5/5. Ankle plantarflexors 5/5. Sensation: Intact as to pain and pressure on bilateral lower extremities. No neuropathic pain complaint on left leg and foot from pre-existing L4-L5 microdiscectomy. Bed Mobility/Transfers: Supine to sit independent Sit to supine independent Sit to stand independent Stand to sit independent Bed to chair independent Chair to bed independent Gait: 250 feet using front wheeled walker with supervision. Step-through gait pattern. Balance: Static Sitting: Normal Dynamic Sitting: Normal Static Standing: Fair Dynamic Standing: Fair Assessment: Belinda demonstrates functional mobility decline requiring the use of front wheeled walker for all mobility ADL performance, altered with, balance impairment, and weakness of right hip major muscle groups due to postoperative status. Belinda is a 65-year-old female with primary unilateral osteoarthritis of the right hip and is status post right total hip arthroplasty postoperative day 0. Patient continues to present with clinical signs and symptoms consistent with current/admitting diagnoses that have resulted to mobility limitations, gait instability, generalized weakness, and impairment of motor control as demonstrated by the following impairment level findings: 1. Decreased strength to right hip major muscle groups 2. Impaired tanding balance 3. Impaired activity tolerance Impairments are continuing to contribute to the following functional limitations: 1. Inability to safely ambulate without assistive device and physical assistance 2. Increase completion time for mobility ADL performance 3. Increased fall risk 4. Inability to negotiate steps alone safely Goals: Goals X1 session today 1. Supine-Sit independent MET 2. Sit-Supine independent MET 3. Sit-Stand supervision MET 4. Stand-Sit supervision MET 5. Bed-Chair supervision MET 6. Chair-Bed supervision MET 7. Supervision gait on level surface with use of least restrictive device for at least 300 feet without report of pain nor dyspnea MET 8. Supervision stair negotiation while holding onto bilateral rails for at least 5 steps without report of pain nor dyspnea MET 9. Independent with home exercise program MET 10. Good static and dynamic standing balance/tolerance NOT MET DISCHARGE RECOMMENDATIONS: Home when medically cleared by orthopedic surgeon. May benefit from OP PT services to regain independent premorbid level. TREATMENT CODE/TIME: NC. Thank you for the opportunity to participate in the care of this patient. Jesise Rush PT, DPT, CLT [facility] [place], [place]
== END 2020-06-18 17:26 | disposition home or self-care (01) ==
LOC: PDS 10:24 → MS 10:25
PROVIDERS: Admitting Provider Student in an Organized Health Care Education/Training Program; PCP Family Medicine; Visit Provider Student in an Organized Health Care Education/Training Program
PROC: 0SR904A Replacement of Right Hip Joint with Ceramic on Polyethylene Synthetic Substitute, Uncemented, Open Approach (ICD-10-PCS; CPT 27130; principal; 2020-06-18 07:30)
DX: M16.11 Unilateral primary osteoarthritis, right hip (principal); M25.551 Pain in right hip; Z96.641 Presence of right artificial hip joint; Q05.9 Spina bifida, unspecified; I10 Essential (primary) hypertension; E11.9 Type 2 diabetes mellitus without complications
CPT/HCPCS: 27130; C1776; 97110; 97162; 97530; NC; 73501; G0378; J0690; J1100; J1885; J2001; J2250; J2370; J2405; J2704

== ENCOUNTER 2020-07-04 12:22 | Outpatient (CLI) | payer MEDICARE, BC, SELFPAY ==
--- NOTE | 2020-07-04 12:00 | DI.RAD_ITS ---
EXAM: XR HIP RT COMPLETE AP PELVIS CLINICAL HISTORY: 1st post op TECHNIQUE: COMPARISON: CR XR HIP RT COMPLETE AP PELVIS from 01/14/2020 FINDINGS: Two views were obtained and show total hip joint replacement in position the right. The components a ppear well seated. Note is made of severe degenerative change of the left hip with marked loss of the cartilaginous join t space, prominent osteophyte formation, and subchondral sclerosis of femoral head and acetabulum. IMPRESSION:
== END 2020-07-04 12:42 ==
PROVIDERS: PCP Family Medicine; Referring Provider Family Medicine; Visit Provider Student in an Organized Health Care Education/Training Program
DX: Z96.641 Presence of right artificial hip joint (principal); M16.2 Bilateral osteoarthritis resulting from hip dysplasia; Z47.1 Aftercare following joint replacement surgery
CPT/HCPCS: 73502

== ENCOUNTER 2020-07-14 09:11 | Outpatient (CLI) | payer MEDICARE, BC, SELFPAY ==
[2020-07-16 21:32] LABS: SARS-CoV-2 RNA Undetected (Undetected); SARS-CoV-2 Specimen Source Nasopharynx
== END 2020-07-14 09:31 ==
PROVIDERS: PCP Family Medicine; Visit Provider Family Medicine
DX: Z11.59 Encounter for screening for other viral diseases (principal)
CPT/HCPCS: U0003

== ENCOUNTER 2020-07-14 11:45 | Outpatient (REF) | payer MEDICARE, BC, SELFPAY | END 2020-07-14 12:05 | LOC: LBN 11:45 | PROVIDERS: PCP Family Medicine; Visit Provider Family Medicine | DX: R19.7 Diarrhea, unspecified (principal) | CPT/HCPCS: 87329; 87324; 87798 ==

== ENCOUNTER → 2020-08-01 08:34 | Outpatient (BNVA) | payer MEDICARE, BC, SELFPAY | PROVIDERS: PCP Family Medicine; Referring Provider Family Medicine; Visit Provider Student in an Organized Health Care Education/Training Program | DX: Z96.641 Presence of right artificial hip joint (principal); Z47.1 Aftercare following joint replacement surgery ==

== ENCOUNTER 2020-10-02 00:51 | Outpatient (CLI) | payer MEDICARE, BC, SELFPAY | END 2020-10-02 01:11 | PROVIDERS: PCP Family Medicine; Visit Provider Family Medicine | DX: E11.9 Type 2 diabetes mellitus without complications (principal) | CPT/HCPCS: 36415; 83036 ==

== ENCOUNTER 2021-03-23 09:38 | Outpatient (CLI) | payer MEDICARE, BC, SELFPAY ==
--- NOTE | 2021-03-23 13:30 | DI.RAD_ITS ---
EXAM: XR RIBS RT W PA LAT CHEST CLINICAL HISTORY: fall on r ribs. Hurting more - 7 days later, [id number] TECHNIQUE: 2D digital imaging was performed. COMPARISON: No exams were available for comparison FINDINGS: There are no obvious acute rib fractures evident. No lytic rib lesions identified. No lung contusion or pneumothorax. There is no pleural effusion evident. Heart size is normal and there is no significant mediastinal widening. IMPRESSION: 1. No rib fractures evident. Also no obvious rib lesions. 2. No ipsilateral lung nor pleural abnormality evident. No pneumothorax. DATA REPOSITORY: RADIATION DOSE DELIVERED:
== END 2021-03-23 09:58 ==
PROVIDERS: PCP Family Medicine; Visit Provider Family Medicine
DX: R07.81 Pleurodynia (principal); Z91.81 History of falling
CPT/HCPCS: 71046; 71100

== ENCOUNTER → 2021-03-26 08:52 | Outpatient (BNVA) | payer MEDICARE, BC, SELFPAY | PROVIDERS: PCP Family Medicine; Referring Provider Family Medicine; Visit Provider Student in an Organized Health Care Education/Training Program | DX: M17.11 Unilateral primary osteoarthritis, right knee (principal) | CPT/HCPCS: 20610; J1040 ==

== ENCOUNTER 2021-06-19 08:52 | Outpatient (CLI) | payer MEDICARE, BC, SELFPAY ==
--- NOTE | 2021-06-19 08:30 | DI.RAD_ITS ---
Exam(s) XR HIP RT AP LAT ONLY EXAM: XR HIP RT AP LAT ONLY INDICATION: annual f/u R WALT. COMPARISON: No exams were available for comparison TECHNIQUE: 2D digital imaging was performed. FINDINGS: There has been no change in the right total hip prosthesis or appearance of the surrounding bone. No new abnormalities. DATA REPOSITORY: RADIATION DOSE DELIVERED:
== END 2021-06-19 08:53 | disposition home or self-care (01) ==
LOC: DIORS 08:52
PROVIDERS: PCP Family Medicine; Referring Provider Family Medicine; Visit Provider Student in an Organized Health Care Education/Training Program
DX: Z47.1 Aftercare following joint replacement surgery (principal); Z96.641 Presence of right artificial hip joint
CPT/HCPCS: 99212; 73502

== ENCOUNTER 2021-07-31 03:05 | Outpatient (CLI) | payer MEDICARE, BC, SELFPAY ==
[2021-07-31 13:36] LABS: Hemoglobin A1C 5.5 % (<5.7)
[2021-07-31 13:57] LABS: COMMENT (LAB VIEW ONLY) 142.81 mg/dL; Microalb ug/mg Crea 4.8 ug/mg Cr
[2021-07-31 14:26] LABS: ALT 54 U/L (14-59); AST 33 U/L (15-37); Albumin 4.1 g/dL (3.4-5.0); Alkaline Phosphatase 134 U/L (46-116); Anion Gap 9.3 mmol/L (3-11); BUN 19 mg/dL (7-18); Bilirubin, Total 0.5 mg/dL (0.2-1.0); CO2 26.7 mmol/L (21.0-32.0); CREATININE 1.2 mg/dL (0.55-1.02); Calcium 9.3 mg/dL (8.5-10.1); Calculated LDL 156 mg/dL (<100); Chloride 103 mmol/L (98-107); Cholesterol 251 mg/dL (<200); Estimated GFR 44.68 (mL/min/1.73m2); Glucose 92 mg/dL (74-106); HDL Cholesterol 57 mg/dL (40-60); Potassium 4.2 mmol/L (3.5-5.1); Sodium 139 mmol/L (136-145); Total Protein 7.8 g/dL (6.4-8.2); Triglyceride 192 mg/dL (<150)
== END 2021-07-31 03:06 | disposition home or self-care (01) ==
LOC: LBO 03:05
PROVIDERS: PCP Family Medicine; Visit Provider Family Medicine
DX: E11.9 Type 2 diabetes mellitus without complications (principal); R94.5 Abnormal results of liver function studies; Z00.00 Encounter for general adult medical examination without abnormal findings
CPT/HCPCS: 36415; 80053; 80061; 82043; 82570; 83036

== ENCOUNTER 2022-02-23 02:49 | Outpatient (CLI) | payer MEDICARE, BC, SELFPAY ==
[2022-02-23 11:50] LABS: Hemoglobin A1C 6.3 % (<5.7)
== END 2022-02-23 02:50 | disposition home or self-care (01) ==
LOC: LBO 02:50
PROVIDERS: PCP Family Medicine; Visit Provider Family Medicine
DX: E11.9 Type 2 diabetes mellitus without complications (principal)
CPT/HCPCS: 36415; 83036

== ENCOUNTER 2022-03-26 00:29 | Outpatient (CLI) | payer MEDICARE, BC, SELFPAY ==
--- NOTE | 2022-03-26 06:45 | DI.DEXA_ITS ---
Exam(s) XR DEXA BONE DENSITY W/WO PORSHA EXAM: XR DEXA BONE DENSITY W/WO PORSHA CLINICAL HISTORY: OSTEOPOROSIS,M81.0 TECHNIQUE: [employer] C densitometer COMPARISON: CR XR HIP RT COMPLETE AP PELVIS from 07/04/2020 CR XR HIP RT AP LAT ONLY from 06/19/2021 FINDINGS: Lateral view of the thoracic and lumbar spine shows no evidence of compression fractures. Bone mineral density measurements of the lumbar spine correspond to a total T-score of 1.1, in the n ormal range. Bone mineral density measurements of the left hip correspond to a total T-score of 0.9. The femoral neck T-score is 0.9 . There is severe degenerative changes of the left hip which could falsely elev ate bone mineral density measurements. The left forearm bone mineral density measurements correspond to a T-score of the distal 3rd of -0.6 , in the normal range.. IMPRESSION: Normal bone mineral density.
== END 2022-03-26 00:49 ==
PROVIDERS: PCP Family Medicine; Visit Provider Family Medicine
DX: M81.0 Age-related osteoporosis without current pathological fracture (principal); M16.12 Unilateral primary osteoarthritis, left hip
CPT/HCPCS: 77080

== ENCOUNTER → 2022-05-10 14:38 | Outpatient (BNVA) | payer MEDICARE, BC, SELFPAY | PROVIDERS: PCP Family Medicine; Referring Provider Family Medicine; Visit Provider Student in an Organized Health Care Education/Training Program | DX: M16.12 Unilateral primary osteoarthritis, left hip (principal) | CPT/HCPCS: 99214 ==

== ENCOUNTER 2022-07-28 08:57 | Outpatient (CLI) | payer MEDICARE, BC, SELFPAY ==
--- NOTE | 2022-07-28 08:30 | DI.RAD_ITS ---
Exam(s) XR PELVIS AP EXAM: XR PELVIS AP CLINICAL HISTORY: left hip pain. TECHNIQUE: 2D digital imaging was performed. COMPARISON: CR XR HIP RT COMPLETE AP PELVIS from 07/04/2020 FINDINGS: There are no pelvic nor hip fractures. Right hip prosthesis appears stable. Advanced degenerative o steoarthritic changes in the left hip are again noted, unchanged from 2 years ago. IMPRESSION: Advanced OA left hip. DATA REPOSITORY: RADIATION DOSE DELIVERED:
== END 2022-07-28 08:58 | disposition home or self-care (01) ==
LOC: DIORS 08:58
PROVIDERS: PCP Family Medicine; Referring Provider Family Medicine; Visit Provider Physician Assistant
DX: M16.12 Unilateral primary osteoarthritis, left hip (principal); Z01.818 Encounter for other preprocedural examination; M16.11 Unilateral primary osteoarthritis, right hip; E11.9 Type 2 diabetes mellitus without complications
CPT/HCPCS: 72170

== ENCOUNTER 2022-08-16 03:26 | Outpatient (CLI) | payer MEDICARE, BC, SELFPAY ==
[2022-08-16 09:56] LABS: HCT 32.4 % (36.0-46.0); HGB 10.1 g/dL (11.2-15.7); MCH 27.1 pg (27.0-33.0); MCHC 31.2 % (32.0-36.0); MCV 87 fL (80-95); MPV 10.3 fL (8.0-11.0); Platelet Count 198 10^3/uL (130-400); RBC 3.73 10^6/uL (3.93-5.22); RDW 13.7 % (11.7-14.6); RDW-SD 42.8 fL; WBC 6.58 10^3/uL (4.4-10.8)
[2022-08-16 10:16] LABS: Hemoglobin A1C 6.3 % (<5.7)
[2022-08-16 10:27] LABS: Anion Gap 8.9 mmol/L (3-11); BUN 15 mg/dL (7-18); CO2 28.1 mmol/L (21.0-32.0); Calcium 9.5 mg/dL (8.5-10.1); Chloride 101 mmol/L (98-107); Estimated GFR 60.98 (mL/min/1.73m2); Glucose 119 mg/dL (74-106); Sodium 138 mmol/L (136-145)
== END 2022-08-16 03:27 | disposition home or self-care (01) ==
LOC: LBO 03:26
PROVIDERS: Physician Assistant; PCP Family Medicine; Visit Provider Student in an Organized Health Care Education/Training Program
DX: E11.9 Type 2 diabetes mellitus without complications (principal); M16.12 Unilateral primary osteoarthritis, left hip; Z01.818 Encounter for other preprocedural examination
CPT/HCPCS: 36415; 80048; 85027; 83036

== ENCOUNTER 2022-08-17 05:52 | Day surgery (SDC) | payer MEDICARE, BC, SELFPAY ==
[2022-08-17] VITALS (8 sets, daily range): BP systolic 99–142; BP diastolic 50–72; PULSE 61–78; RESP 15–18; TEMP 36–36.7; O2SAT 93–98; BMI 25.7
[2022-08-17] MEDS: Celecoxib 200 MG CAP 400 MG PO (06:32)
[2022-08-17] MEDS: Acetaminophen 500 MG TAB 1000 MG PO (06:32)
--- NOTE | 2022-08-17 06:57 | W.ANESPRE ---
General Info Date of Service Date Performed: 08/17/22 Height: 5 ft 7 in Weight: 74.4 kg Body Mass Index (BMI): 25.7 Surgical Procedure: Operation Date: 08/17/22 07:50 Proposed Procedure Side Surgeon p Hip Total Hip Anterior Left Chucky Ng MD s Knee Injection Right Chucky Ng MD Meds Allergies and Home Medications Allergies Allergy/AdvReac Type Severity Reaction Status Date / Time amoxicillin trihydrate AdvReac Intermediate itching Unverified 08/17/22 06:12 [From Augmentin] and swelling of palms and soles of feet potassium clavulanate AdvReac Intermediate itching Unverified 08/17/22 06:12 [From Augmentin] and swelling of palms and soles of feet Home Medication Medication Instructions Recorded multivitamin (Daily Vitamin tablet) 1 tab PO DAILY 07/10/13 betamethasone valerate 0.1 % 15 gm topical BID PRN #80 grams 06/27/17 topical cream losartan 100 mg tablet 50 mg PO DAILY 07/28/22 acetaminophen 500 mg tablet 1,000 mg PO Q8H PRN pain #90 tabs 08/17/22 aspirin 81 mg tablet,delayed 81 mg PO BID #60 tabs 08/17/22 release ibuprofen 600 mg tablet 600 mg PO TID PRN pain #100 tabs 08/17/22 oxycodone 5 mg tablet 5 mg PO Q4H #15 tabs 08/17/22 pantoprazole 40 mg tablet,delayed 40 mg PO DAILY #30 tabs 08/17/22 release Current Visit Medications: Current Medications Generic Name Dose Route Start Last Admin Trade Name Abril PRN Reason Stop Dose Admin Acetaminophen 1,000 mg 08/17/22 06:00 08/17/22 06:32 Acetaminophen 500 Mg Tab PO 08/17/22 16:00 1,000 mg PREOP REBEKAH Administration Acetaminophen 1,000 mg 08/17/22 08:30 Acetaminophen 500 Mg Tab PO TID REBEKAH Aspirin 81 mg 08/17/22 08:30 Aspirin E.C. 81 Mg Tabec PO BID REBEKAH Celecoxib 400 mg 08/17/22 06:00 08/17/22 06:32 Celecoxib 200 Mg Cap PO 08/17/22 16:00 400 mg PREOP REBEKAH Administration Celecoxib 200 mg 08/17/22 08:30 Celecoxib 200 Mg Cap PO BID REBEKAH Docusate Sodium 100 mg 08/17/22 06:42 Docusate Sodium 100 Mg Cap PO BID PRN PRN Constipation Hydromorphone HCl 0.5 mg 08/17/22 06:42 Hydromorphone 2 Mg/Ml Syr IVP Q2H PRN PRN Tranexamic Acid 1,000 mg/ 60 mls @ 360 mls/hr 08/17/22 06:00 Sodium Chloride IV 08/17/22 16:00 PREOP REBEKAH Ringer's Solution 1,000 mls @ 80 mls/hr 08/17/22 06:00 IV 09/15/22 23:59 INFUSION REBEKAH Cefazolin Sodium/Dextrose 2 gm in 50 mls @ 100 mls/hr 08/17/22 06:00 Ancef Duplex IVPB 08/17/22 16:00 PREOP REBEKAH Cefazolin Sodium/Dextrose 1 gm in 50 mls @ 100 mls/hr 08/17/22 15:30 Ancef Duplex IVPB 08/18/22 07:59 Q8H REBEKAH IV Miscellaneous Supplies 1 each 08/17/22 06:00 Iv Access IV 09/15/22 23:59 DIRECTED REBEKAH Ondansetron HCl 4 mg 08/17/22 06:42 Ondansetron 4 Mg/2 Ml Vial IVP Q6H PRN PRN Nausea Oxycodone HCl 0 mg 08/17/22 06:42 Oxycodone 5 Mg Tab PO Q3H PRN PRN Pain Pantoprazole Sodium 40 mg 08/17/22 07:30 Pantoprazole 40 Mg Tabcr PO DAILY@0730 REBEKAH Sodium Chloride 0 ml 08/17/22 06:00 Normal Saline Flush 10 Ml Syr IV 09/15/22 23:59 PRN PRN Sodium Chloride 0 ml 08/17/22 06:00 Normal Saline 10 Ml Vial IJ 09/15/22 23:59 DIRECTED PRN Sterile Water 0 ml 08/17/22 06:00 Water,Injection,Sterile 10 Ml Vial IJ 09/15/22 23:59 DIRECTED PRN PFSH Active Problems Active Problems: Problem Status Onset Code Alcohol intake above recommended sensible limits 01/07/17 Z72.89 Diverticulosis of colon without diverticulitis K57.30 Elevated LFTs 01/06/17 R94.5 Elevated MCV 01/06/17 R71.8 Lichen planus L43.9 Low back pain radiating to left leg 06/10/16 M54.5, M79.605 Patellofemoral arthritis of right knee 09/12/17 M17.11 Shoulder pain 03/24/15 M25.519 Elevated blood pressure reading R03.0 Diabetes mellitus E11.9 Status post total hip replacement, right Z96.641 Diarrhea R19.7 Encounter for annual physical exam Z00.00 Encounter for screening colonoscopy Z12.11 Hypertension I10 Osteoarthritis of left hip M16.12 Medical History Medical History Achilles tendinitis of left lower extremity (09/11/15) Epicondylitis History of ectopic right Hx of fracture of ankle Hx of hypoglycemia Hx of spina bifida States hx of Spina Bifida Occulta Hx of tension headache 1 time event Hx of transient ischemic attack (TIA) Pt. states she had a TIA when she was 22 that was control related Pt. states she has never had an recurrence, and does not f/u with a neurologist and states she never had to. Left foot pain (08/05/15) Trochanteric bursitis of right hip (09/11/15) bilateral Medical History Comments:: 1 st c section came out uneven, unable to move Surgical History Surgical History (Updated 08/17/22 @ 06:17 by Cassidy Mcrae) H/O section x2 History of back surgery Microdisectomy, L5-S1. Pt. states nerves damage with numbness to left foot. History of bilateral tubal ligation History of ectopic History of open reduction and internal fixation (ORIF) procedure left ankle with plates and screws present Some hardware was removed History of total right hip replacement Hx of appendectomy Hx of section x 2 Hx of exploratory laparotomy ectopic S/P tonsillectomy Status post arthroscopy of right knee Tobacco Smoking/Tobacco Use Status: Never Passive smoking exposure: Yes Second hand exposure: Yes Alcohol Alcohol Intake: current Alcohol intake frequency: 0-2 drinks per day Alcohol type: wine Substance Use Substance use: Rarely Substance use type: marijuana Details: alcohol: t-3, couple. Marijuana: 6 months, smoking Vital Signs and Lab Results Vital Signs Most Recent Vital Signs in EMR: Most Recent Vital Signs Temp Pulse Resp BP Pulse Ox 36.7 C 78 16 132/66 98 08/17/22 06:25 08/17/22 06:25 08/17/22 06:25 08/17/22 06:25 08/17/22 06:25 Lab Results Blood Type / Crossmatch: No Data to Display Complete Blood Count: White Blood Count 6.58 10^3/uL (4.4-10.8) 08/16/22 09:40 Red Blood Count 3.73 10^6/uL (3.93-5.22) L 08/16/22 09:40 Hemoglobin 10.1 g/dL (11.2-15.7) L 08/16/22 09:40 Hematocrit 32.4 % (36.0-46.0) L 08/16/22 09:40 Platelet Count 198 10^3/uL (130-400) 08/16/22 09:40 Complete Metabolic Panel: Sodium Level 138 mmol/L (136-145) 08/16/22 09:40 Potassium Level 4.0 mmol/L (3.5-5.1) 08/16/22 09:40 Chloride Level 101 mmol/L (98-107) 08/16/22 09:40 Carbon Dioxide Level 28.1 mmol/L (21.0-32.0) 08/16/22 09:40 Blood Urea Nitrogen 15 mg/dL (7-18) 08/16/22 09:40 Creatinine 1.0 mg/dL (0.55-1.02) 08/16/22 09:40 Calcium Level 9.5 mg/dL (8.5-10.1) 08/16/22 09:40 Glucose Level 119 mg/dL (74-106) H 08/16/22 09:40 Hemoglobin A1c 6.3 % (<5.7) H 08/16/22 09:40 Liver Function Panel: No Data to Display Coagulation Panel: No Data to Display Cardiac Panel: No Data to Display Arterial Blood Gas: No Data to Display Venous Blood Gas: No Data to Display Pancreas Panel: No Data to Display Thyroid Panel: No Data to Display Infectious Disease: No Data to Display Blood Cultures: No Data to Display Toxicology Panel: No Data to Display Imaging and Studies Imaging and Studies Study information below may be from another EMR and interpreted by another provider. Please see original notes in EMR for more complete details. EKG Summary: Conclusion Sinus rhythm...normal P axis, V-rate 50- 99 Normal Electrocardiogram 08/16/22 Anesthesia Assessment and Plan Anesthesia History Personal History: No History of Anesthesia Complications Family History: No Family History of Anesthesia Complications Exercise Tolerance Exercise Tolerance: Metabolic Equivalents>4 Pertinent Negatives Pertinent Negatives: No Symptoms of GERD, No Major Cardiovascular Symptoms or Complaints, No Major Pulmonary Symptoms or Complaints and Other (TIA age 22, control related, no symptoms) Cardiac & Pulmonary Exam Cardiac Exam: Normal S1/S2 Heart Sounds Pulmonary Exam: Clear Bilateral Breath Sounds Implantable Cardiac Device Does patient have a Pacemaker or an ICD?: No Airway Exam Known Difficult Airway: No Mallampati Class: 2 Mouth Opening: Normal (> 3cm) Thyromental Distance: Greater than 3 cm Neck Range of Motion: Full ROM Neck Circumference: Normal Teeth Condition: Normal Dentition ASA Classification ASA Score: ASA 2 Emergency Case?: No NPO Status NPO Status: NPO Clears >2 hours, Solids >8 hours Anesthesia Plan Resuscitation Status: Full Code Anesthesia Technique: Spinal Anesthesia Airway Planned: Natural Airway Monitors Used: Standard Monitors
--- NOTE | 2022-08-17 07:00 | DI.RAD_ITS ---
Exam(s) XR HIP LT IN OR EXAM: XR HIP LT IN OR CLINICAL HISTORY: left total hip. TECHNIQUE: 2D digital imaging was performed. COMPARISON: No exams were available for comparison FINDINGS: Intraoperative fluoroscopy was provided during left hip arthroplasty. See procedure report for details. Total fluoroscopy time 21.8 seconds. Total cumulative dose 2.12mGy IMPRESSION: As above. DATA REPOSITORY: RADIATION DOSE DELIVERED:
[2022-08-17] MEDS: Lactated Ringers 1,000 ML 80 ML IV (07:15)
--- NOTE | 2022-08-17 07:18 | W.PM.DSUDISC ---
Discharge Plan Disposition Patient Disposition: HOME Condition: Good Discharge Details Reason For Visit: Left hip DJD Attending Provider: Chucky Ng Primary Care Provider: Priscilla Brantley Home Meds and New Rx's Prescriptions: New aspirin 81 mg tablet,delayed release (DR/EC) 81 mg PO BID Qty: 60 0RF acetaminophen 500 mg tablet 1,000 mg PO Q8H PRN (Reason: pain) Qty: 90 3RF pantoprazole 40 mg tablet,delayed release (DR/EC) 40 mg PO DAILY Qty: 30 0RF oxycodone 5 mg tablet 5 mg PO Q4H Qty: 15 0RF Continued losartan 100 mg tablet 50 mg PO DAILY multivitamin [Daily Vitamin] 1 EACH tablet 1 tab PO DAILY betamethasone valerate 15 GM cream 15 gm Topical BID PRNQty: 80 Rx Instructions: dispense large tube; lichen planus ibuprofen 600 mg tablet 600 mg PO TID PRN (Reason: pain) Qty: 100 1RF Discontinued ibuprofen [Advil] 200 mg tablet 200 mg PO Q6H PRN Discharge Instructions Additional Instructions: Total Hip Discharge Instructions Activity: The most important activity is to walk. You should try to take short walks a few times a day. You have no restrictions on movement or positioning, but do not try to force what you do. You will find some stiffness and weakness with hip flexion (lifting your knee). Do not try to strengthen this too early, continue to practice walking and stairs and this will come. - Outpatient physical therapy can be helpful to help return you to a normal gait and improve your flexibility and strength. This can start around 2 weeks. For some patients, it?s not necessary. Usually this is determined at the time of discharge or at the first post-operative visit. - You should wear the JONAH hose on both legs for 2 weeks. Dressing: Keep the surgical dressing in place for at least one week. After the first week it may be removed and replace with light gauze and tape or nothing. It may get wet after 3 days but avoid soaking the dressing. If it gets wet, just lightly pat dry. It is important to always keep some gauze between skin folds, especially when you are sitting. Spend some time with the wound exposed when you are lying flat as the incision does wrinkle onto itself. Medications: - You should take Tylenol and an anti-inflammatory Ibuprofen as your primary pain control medications. - You have been prescribed a stronger pain medication Oxycodone for breakthrough pain, take as needed as prescribed. - You have also been prescribed a stomach acid reduction agent Pantoprozole to help reduce stomach acid and reflux. - You will be taking Aspirin 81mg twice a day for DVT prevention unless instructed otherwise. - If you have constipation you should take Colace or Miralax (both [id number]). It takes most people 3-4 days to have a bowel movement. Follow-up: 2 weeks If you have any acute concerns or questions, please do not hesitate to contact the office at [phone]. You may contact Dr. Ng with any questions after hours through the hospital at [phone] or on his cell phone at [phone]. Referrals: Chucky Ng MD [ [facility] STAFF PHYSICIAN] - Equipment/Supplies: Walker Activity:: Activity as Tolerated Remove Dressings/Wound Care:: Do Not Remove Shower/Bathe:: Cover Diet:: As Tolerated Discharge Orders Discharge Orders: Discharge Order (Routine); Ordered 08/17/22 Ordered By: Chucky Ng
[2022-08-17] MEDS: ceFAZolin 2 GM/50 ML BAG IVPB (07:28)
[2022-08-17] MEDS: Bupivacaine 0.5% Pres-Free 30 ML VIAL (08:03)
[2022-08-17] MEDS: methylPREDNISolone ACETATE 80 MG/ML VIAL (08:04)
--- NOTE | 2022-08-17 09:06 | ROE_ITS ---
Date of service: 08/17/22 Time of Service: 08:50 Operative Note Operative Note DATE OF PROCEDURE: 08/17/22 PRE-OP DIAGNOSIS: Left Hip Osteoarthritis POST-OP DIAGNOSIS: same PROCEDURE: Left Anterior Total Hip Arthroplasty with Intraoperative Navigation SURGEON: Chucky Ng RN ADVICE: Val Alcantar ANESTHESIA TYPE: Spinal Refer to Anesthesia Record ESTIMATED BLOOD LOSS: 100 PATHOLOGY: none sent TOURNIQUET TIME: 0 COMPLICATIONS: None Patient was transported to: PACU Patient's condition: stable Implants: 1. Depuy [place] Acetabular Component, 48mm 2. Depuy Acetabular Liner, [id number] 3. Depuy Corail Standard 125 degree Collared Femoral Stem, Size 9 4. Depuy Altrx Ceramic Femoral Head, Size 32+1mm Indications: I have seen Belinda in clinic for symptoms of hip arthritis, confirmed with radiographic findings. She has exhausted nonoperative methods and was having significant limitations in daily function and desired better function and less pain. I discussed the technical details of a hip replacement. I explained the risks of the procedure to include, but not limited to, bleeding, infection, pain, stiffness, fracture, damage to nerves and vessels, damage to muscles and tendons, loosening, instability, leg length inequality, need for repeat procedure, blood clot and cardiopulmonary demise. Despite these risks, Belinda elected to proceed. Findings: There was significant signs of arthritis throughout the hip with large osteophytes about the acetabulum and deformity of the femoral head with medialization. Procedure Description: Belinda was greeted in the preoperative holding area where the correct side was identified and marked. The consent was reviewed with the patient and signed. The history and physical was updated. All questions were answered. She was taken back to the operating room. A spinal anesthestic was then administered. The feet were wrapped with cast padding and Coban and then placed into the boot liners and then into the boots. Care was taken to protect the skin and make sure the heels were fully down and the boots were stable. The patient was then positioned onto the HANA table. Both legs were held in a neutral position. SCDs were applied. The patient was then slid down onto a peroneal post. Prophylactic antibiotics in the form of Cefazolin were administered. 1g of Tranxemic Acid was given intravenously within 30 minutes of incision. The left leg was then prepped with Chloraprep and draped in a standard fashion. A second prep with Chloraprep was performed prior to placement of a shower-curtain type drape with Iodine impregnated skin protection. A timeout to confirm correct identity, side and site, procedure, allergies, anesthesia, and medical concerns was performed. An obliquely oriented incision was made starting lateral to the ASIS and running distal over the Tensor Fascia More (TFL) muscle belly toward the fibular head, approximately 10cm. The skin and soft tissue was dissected sharply, through Nannette?s fascia, and to the fascia of the TFL. With the fascia and superior border of the IT band identified, the fascia was incised with a new knife just above any perforators from the IT band. The TFL muscle belly was bluntly dissected away from the fascia and moved laterally. The fat between TFL and rectus was identified to ensure the dissection was not within the TFL. Blunt dissection created space between abductors and the capsule and retractor was placed over the lateral femoral neck. The fibers of the rectus femoris tendon were identified and these were freed from the anterior capsule. A second cobra retractor was placed around the medial femoral neck. The TFL was further retracted laterally to show the deep fascia. Careful dissection through this layer identified three main crossing vessels of the lateral femoral circumflex. These were cauterized in multiple locations and then cut without any noticeable bleeding. The TFL was further released bluntly from the deep fascia to expose anterior hip capsule and fat The Sukhi orthopaedic retractor was then placed beneath the TFL and against sartorius and medial soft tissues to protect and retract the soft tissues. A T-capsulotomy was then performed starting at the superior lateral acetabulum and moving distally to the intertrochanteric ridge. These capsular flaps were tagged with a No. 1 Ethibond and elevated from within. The capsular flaps were released to the shoulder of the lateral neck and to the lesser trochanter to give excellent visualization of the proximal femur. A neck osteotomy was performed using an oscillating saw based on preoperative templates. This cut started in the shoulder and of the lateral neck and exited medially. The saw was at all times directed medially to avoid injury to the greater trochanter. Gross traction was applied to the leg and the osteotomy opened. The femoral head was removed with a corkscrew, making sure to protect the TFL on its exit. The femoral head had a bullet type shape to it with complete loss of cartilage throughout. Traction was released after head removal. This was measured on the back table to determine the starting reamer size. Portions of the rectus obscuring visualization were minimally elevated off the superior acetabulum. An anterior retractor was placed over the anterior wall between capsule and labrum and attached to the Gripper retraction system. The femur was rotated to 90 degrees and medial capsule was fully released until the lesser trochanter was palpable and visible; the femur was returned to 30 degrees. A posterior retractor was placed similarly between capsule and labrum. This provided excellent visualization. The contents of the cotyloid fossa were removed with electrocautery and the labrum was removed with a knife. There was significant chondromalacia of the superior acetabulum. Calcified portions of labrum and acetabular osteophytes were removed with a rongeur. Acetabular reaming began with a 42mm reamer. This first reaming was directed anterior to posterior and medial to get down to the true floor. This was inspected and reamed until the true floor was reached. The anterior retractor was then released and entry and exit was provided by traction on the capsular flaps. I then reamed sequentially up to a 48mm reamer where good fit was obtained. The larger reamers were oriented based on anatomical reference of the anterior and lateral unger to ensure proper abduction and anteversion. Positioning and size was confirmed with the fluoroscopy. A 48mm Depuy [place] acetabular component was selected. The acetabulum was reamed around the periphery with the selected acetabular size to prevent a rim fit. The deep tissues were irrigated. The acetabular component was then impacted in a position of about 40-45 degrees of abduction and 15-20 degrees of anteversion, using the patient?s anatomy as the ultimate landmark. Fluoroscopy was used to confirm this. There was excellent transaction coordinator of the acetabular component and the inserting handle was removed. The acetabular liner, Depuy [id number] polyethylene liner, was inserted and lined up with the tines of the acetabular component. There was no soft tissue interposition. The liner was then impacted into position and confirmed to be well-seated. A portion of the erica-articular cocktail was then injected around the acetabulum into the capsule and periosteum. This cocktail consisted of 123mg of Ropivacaine, 0.25mg of Epinephrine, 0.04mg of Clonidine, and 15mg of Ketorolac, diluted to 50cc. The leg was rotated to 120 degrees. Any remaining medial capsule was released until the lesser trochanter was easily palpable. A retractor was placed medially. The lateral capsule was further released into the shoulder to allow access to the greater trochanter. A Duncan retractor was placed over the greater trochanter which allowed the trochanter to flip in front of the capsule for excellent exposure. The leg was brought down into maximal extension and 20 degrees of adduction while ensuring there was no impingement on the acetabulum. Any remnant capsule within the trochanter was released. Piriformis and obturator externis were identified and protected. There was excellent access to the proximal femur. The lateral neck remnant was removed with a rongeur. A blunt canal probe was used to identify the canal and trajectory for later broaching. A box osteotome initiated the broach course. A small curved rasp and a curved curette were used to work laterally. Broaching then began with a size 8 Corail broach. This was inserted manually around the trochanter and into the canal before mallet blows. The broach was seated to a few millimeters below the cut level based on the neck cut and the preoperative template. Sequential broaching was continued with the [employer] pneumatic broaching device until a tight fit was obtained with good rotational control of the femur. A trial stand garrett 125 degree neck was inserted along with a +5 trial head. The leg was brought out of extension and adduction and then reduced with traction and internal rotation. The leg was stable anteriorly in a position of 30 degrees of extension and 90 degrees of external rotation. Fluoroscopy was used to ensure there was no fracture and the stem was seated well. Leg lengths were checked with an AP pelvis and pelvic reference points. [employer] navigation system was used to confirm appropriate positioning and leg length and offset. This slightly over-corrected the offset and leg length but would be as desired with a +1 head. Once content with the desired offset and leg lengths, the leg was brought back into extension, external rotation and adduction. The periosteum and surrounding tissue was injected with remaining portion of the erica-articular cocktail. The proximal femur was irrigated as well as the deep tissues. The [employer] Corail standard 125 degee collared stem, size 9, was then manually inserted into the proximal femur making sure to control rotation. It was then malleted into position with light blows, giving breaks to allow bone expansion and decrease risk of fracture. The selected Depuy Altrx Ceramic Head, size 32+1mm, was then placed onto the clean and dry trunnion and secured with impaction onto the tapered fit. The leg was brought back out of extension and adduction and reduced with traction and internal rotation. Stability was confirmed with no shuck at 90 degrees of external rotation and 30 degrees of extension. No impingement through range of motion arc. Final x-ray images were obtained with fluoroscopy to confirm adequate positioning and no intraoperative fracture. The deep tissues were thoroughly irrigated with Surgiphor, betadine solution. This was allowed to sit in the wound for 3 minutes before being thoroughly irrigated out with normal saline. The capsule was then reapproximated with the previously placed Ethibond sutures. The TFL fascia was finally closed with a No. 2 Stratafix, barbed suture. Deep tissues were then reapproximated with 0 Vicryl and a running 2-0 Vicryl. The skin was closed with a running 4-0 Monocryl in a subcuticular fashion. This was reinforced with skin glue. A Mepilex silver dressing was applied. At the end of the case, all counts were correct. Belinda was transferred to the hospital bed without difficulty and suffering no apparent complication. Belinda has a good prognosis. Physical therapy will start today and without restrictions, weight-bearing as tolerated. Aspirin 81mg BID will be used for DVT prophylaxis.
--- NOTE | 2022-08-17 10:38 | PT.INIE ---
Date of service: 08/17/22 Time of Service: 10:38 PT Notes Visit Reasons: Left hip DJD Physical Therapy Day Surgery Initial Evaluation Date: 08/25/2022 Referring Doctor: ANGEL Leon PT Orders: PT CONSULT: S/p Ortho surgery Precautions: WBAT on left LE with AD. Patient Profile/Admitting Diagnosis: Belinda is a 67-year-old female patient with degenerative joint disease of the left hip and patella pain femoral arthritis of the right knee status post left hip anterior total hip arthroplasty and R knee injection on postoperative day 0. PMHX: Medical History?(Updated 07/28/22 @ 08:25 by Rosalina Boyle) Achilles tendinitis of left lower extremity (09/11/15) Epicondylitis History of ectopic rightHx of fracture of ankle Hx of hypoglycemia Hx of spina bifida States hx of Spina Bifida Occulta Hx of tension headache 1 time event Hx of transient ischemic attack (TIA) Pt. states she had a TIA when she was 22 that was control related Pt. states she has never had an recurrence, and does not f/u with a neurologist and states she never had to.Left foot pain (08/05/15) Trochanteric bursitis of right hip (09/11/15) bilateral Surgical History?(Updated 07/28/22 @ 08:26 by Rosalina Boyle) H/O section x2 History of back surgery Microdisectomy, L5-S1. Pt. states nerves damage with numbness to left foot. History of bilateral tubal ligation History of ectopic History of open reduction and internal fixation (ORIF) procedure left ankle with plates and screws present Some hardware was removed History of total right hip replacement Hx of appendectomy S/P tonsillectomy Status post arthroscopy of right knee Social History/Home Situation: Lives with hubby in a private home with 4 steps to enter with 1 rail. Has 13 steps to the bedroom but patient states that she will be staying in a makeshift bedroom on the main floor. 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 Denies headache, chest pain, and lightheadedness throughout session. Objective: General Observation: Supin in bed. Mepilex Ag over surgical incision. TEDS to B legs. Mental Status: A and O x 4 Pain: 4/10 in L hip and L lateral thigh, R knee 0/10 ROM: Right Lower Extremity: Hip flexion WFL. Hip abduction WFL. Knee flexion WFL. Ankle dorsiflexion WFL. Ankle plantarflexion WFL. Left Lower Extremity: Hip flexion WFL. Hip abduction WFL. Knee flexion WFL. Ankle dorsiflexion WFL. Ankle plantarflexion WFL. Strength: Right Lower Extremity: Hip flexors 5/5. Hip abductors 5/5. Knee flexors 5/5. Knee extensors 5/5. Ankle dorsiflexors 5/5. Ankle plantarflexors 5/5. Left Lower Extremity:Hip flexors 4/5. Hip abductors 4/5. Knee flexors 5/5. Knee extensors 4/5. Ankle dorsiflexors 5/5. Ankle plantarflexors 5/5. Sensation: Intact as to pain and light pressure in B LE Bed Mobility/Transfers: Supine to sit standby assist Sit to stand contact-guard assist Stand to sit standby assist Bed to chair standby assist Gait: Able to tolerate level surface ambulation of 150 feet using front wheeled walker with step through gait pattern with report of 2/10 pain in the left hip and lateral thigh. Denies headache, chest pain, and lightheadedness throughout activity. Balance: Static Sitting: Normal Dynamic Sitting: Normal Static Standing: Fair Dynamic Standing: Fair Special Tests: Mobility Limitations Standardized Measure [facility] 6 clicks Basic Mobility Inpatient Short Form: Raw Score: 23 CMS Score: 11% deficit Informed Consent/Education: Patient instructed in purpose of PT consult. Education and training on initial set of exercises that can be done at home have been completed with patient with reference to the [employer] yolette. Assessment: Patient requires the use of front wheeled walker to maximize independence and reduce fall risk. Patient presents with clinical signs and symptoms consistent with current/admitting diagnoses that have resulted to mobility limitations, gait instability, generalized weakness, and impairment of motor control as demonstrated by the following impairment level findings: 1. Decreased strength to left hip major muscle groups 2. Impaired standing balance Impairments are contributing to the following functional limitations: 1. Inability to safely ambulate without assistive device 2. Increase completion time for mobility ADL performance 3. Increased fall risk Patient is assessed as a 19025 moderate complexity based on the following: History: 67-year-old female with impairment level findings, functional limitations, and past medical history as indicated above Examination: Demonstrable impairment in strength, balance, and mobility level with underlying impairments and functional limitations as documented above Presentation: Evolving Decision Makin moderate complexity Goals: N/A. PT evaluation and 1-2 treatment sessions only for functional mobility training using recommended AD and for HEP instruction. Plan of Care/Treatment Plan: N/A. PT evaluation and 1-2 treatment session only for functional mobility training using recommended AD and for HEP instruction. DISCHARGE RECOMMENDATIONS: [] Home with no services [] [X] Home with services. Home when medically cleared by orthopedic surgeon. Patient will benefit from outpatient PT services in order to maximize functional outcomes and facilitate independent community ambulation without an assistive device. [] Home with outpatient PT [] [] SNF for continued rehabilitation [] [] [facility] Care [] [] SNF versus LTC based on ability to participate and progress [] TREATMENT CODE/TIME: 73676 x 26 minutes beginning at 10:38 AM. Thank you for the opportunity to participate in the care of this patient. Jessie Rush PT, DPT, CLT [facility] [place], [place]
--- NOTE | 2022-08-17 11:07 | W.ANESPOSTOP ---
Postoperative Evaluation Date, Time and Location Date Performed: 08/17/22 Time Performed: 10:14 Patient Location: Day Surgery Unit Vital Signs Most Recent Imported Vital Signs: Most Recent Vital Signs Temp Pulse Resp BP Pulse Ox 36.0 C L 61 16 142/72 H 98 08/17/22 10:05 08/17/22 10:05 08/17/22 10:05 08/17/22 10:05 08/17/22 10:05 Pain Score Most Recent Pain Score: Most Recent Pain Score Pain Level 3 08/17/22 10:05 Assessment Mental Status: Awake (Alert & Oriented to Patient Baseline) Airway and Respiratory Function: Patent airway with normal (patient baseline) respiratory exam Cardiovascular Function: Hemodynamically Stable Hydration Status: Adequately Hydrated Nausea & Vomiting: No Nausea or Vomiting Pain: Pain is tolerable per patient Peripheral Nerve Block: Patient did not receive a nerve block
== END 2022-08-17 12:12 | disposition home or self-care (01) ==
PROVIDERS: PCP Family Medicine; Visit Provider Student in an Organized Health Care Education/Training Program
PROC: (CPT 27130; principal; 2022-08-17 07:30)
PROC: (CPT 20985; 2022-08-17 07:30)
DX: M16.12 Unilateral primary osteoarthritis, left hip (principal); I10 Essential (primary) hypertension; E11.9 Type 2 diabetes mellitus without complications
CPT/HCPCS: 20985; 27130; C1776; 97162; 73501; J0690; J1040; J2250; J2370; J2405

== ENCOUNTER 2022-08-30 11:39 | Outpatient (CLI) | payer MEDICARE, BC, SELFPAY ==
--- NOTE | 2022-08-30 10:45 | DI.RAD_ITS ---
Exam(s) XR HIP LT COMPLETE AP PELVIS EXAM: XR HIP LT COMPLETE AP PELVIS INDICATION: 1st post op. COMPARISON: CR XR PELVIS AP from 07/28/2022 XA XR HIP LT IN OR from 08/17/2022 TECHNIQUE: 2D digital imaging was performed. Three views. FINDINGS: There has been no change in the alignment of the bilateral hip prostheses or appearance of bone. DATA REPOSITORY: RADIATION DOSE DELIVERED:
== END 2022-08-30 11:40 | disposition home or self-care (01) ==
LOC: DIORS 11:40
PROVIDERS: PCP Family Medicine; Referring Provider Family Medicine; Visit Provider Physician Assistant Surgical
DX: Z96.642 Presence of left artificial hip joint (principal); Z47.1 Aftercare following joint replacement surgery
CPT/HCPCS: 73502

== ENCOUNTER 2022-09-27 11:45 | Outpatient (CLI) | payer MEDICARE, BC, SELFPAY ==
--- NOTE | 2022-09-27 11:00 | DI.RAD_ITS ---
Exam(s) XR KNEE RT 3V AP,LAT,LELA EXAM: XR KNEE RT 3V AP,LAT,LELA CLINICAL HISTORY: eval R knee pain. TECHNIQUE: 2D digital imaging was performed. Three views. COMPARISON: CR RIGHT KNEE 3 VIEWS from 06/06/2017 FINDINGS: BONES: No acute fracture is present. No bony destructive lesion is seen. JOINTS: Is severe narrowing of the patellofemoral joint.. Femoral tibial joint spaces are well maint ained. There is mild periarticular spurring. Chondrocalcinosis is present. A small joint effusion is seen. SOFT TISSUE: Normal. IMPRESSION: Severe degenerative changes of the patellofemoral joint. Chondrocalcinosis. DATA REPOSITORY: RADIATION DOSE DELIVERED:
== END 2022-09-27 11:46 | disposition home or self-care (01) ==
LOC: DIORS 11:46
PROVIDERS: PCP Family Medicine; Referring Provider Family Medicine; Visit Provider Student in an Organized Health Care Education/Training Program
DX: Z47.1 Aftercare following joint replacement surgery (principal); Z96.642 Presence of left artificial hip joint; M17.11 Unilateral primary osteoarthritis, right knee
CPT/HCPCS: 73562

== ENCOUNTER 2022-11-05 01:41 | Outpatient (CLI) | payer MEDICARE, BC, SELFPAY ==
[2022-11-05 10:56] LABS: HCT 27.6 % (36.0-46.0); HGB 8.5 g/dL (11.2-15.7); MCH 24.5 pg (27.0-33.0); MCHC 30.8 % (32.0-36.0); MCV 80 fL (80-95); MPV 9.4 fL (8.0-11.0); Platelet Count 230 10^3/uL (130-400); RBC 3.47 10^6/uL (3.93-5.22); RDW 15.5 % (11.7-14.6); WBC 7.62 10^3/uL (4.4-10.8)
== END 2022-11-05 01:42 | disposition home or self-care (01) ==
LOC: LBO 01:41
PROVIDERS: PCP Family Medicine; Visit Provider Family Medicine
DX: D64.9 Anemia, unspecified (principal); R71.8 Other abnormality of red blood cells
CPT/HCPCS: 36415; 85027

== ENCOUNTER 2022-11-08 03:15 | Outpatient (CLI) | payer MEDICARE, BC, SELFPAY ==
[2022-11-08 15:22] LABS: Abs Immature Grans 0.02 10^3/uL (0.0-0.06); Absolute Basophil Count 0.04 10^3/uL (0.0-0.2); Absolute Eosinophil Count 0.16 10^3/uL (0.0-0.7); Absolute Lymphocyte Count 2.39 10^3/uL (1.2-3.4); Absolute Neutrophil Count 4.19 10^3/uL (1.2-6.7); Basophils % 0.5; Eosinophils % 2.1; HCT 28.2 % (36.0-46.0); HGB 8.5 g/dL (11.2-15.7); Immature Grans % 0.3; MCH 23.9 pg (27.0-33.0); MCHC 30.1 % (32.0-36.0); MCV 79 fL (80-95); MPV 9.6 fL (8.0-11.0); Monocytes % 11.7; Neutrophils % 54.4; Platelet Count 236 10^3/uL (130-400); RBC 3.56 10^6/uL (3.93-5.22); RDW 15.5 % (11.7-14.6); RDW-SD 44.9 fL; Reticulocyte 1.8 % (0.5-2.4)
[2022-11-08 15:37] LABS: Prothrombin Time 10.4 sec (9.3-11.0)
[2022-11-08 15:48] LABS: Diff Comment RBC Morph Reviewed; Hypochromasia 1+; Microcytosis 1+; Polychromasia Present
[2022-11-08 15:49] LABS: Poikilocytes 1+
[2022-11-08 16:08] LABS: Hemoglobin A1C 6.8 % (<5.7)
[2022-11-08 16:25] LABS: Iron 15 ug/dL (50-170)
[2022-11-08 16:28] LABS: ALT 51 U/L (14-59); AST 45 U/L (15-37); Albumin 3.7 g/dL (3.4-5.0); Alkaline Phosphatase 177 U/L (46-116); Anion Gap 10.1 mmol/L (3-11); BUN 20 mg/dL (7-18); Bilirubin, Total 0.4 mg/dL (0.2-1.0); CO2 25.9 mmol/L (21.0-32.0); Calcium 9.5 mg/dL (8.5-10.1); Chloride 99 mmol/L (98-107); Estimated GFR 60.98 (mL/min/1.73m2); GGT 290 U/L (5-55); Glucose 122 mg/dL (74-106); Potassium 3.9 mmol/L (3.5-5.1); Sodium 135 mmol/L (136-145); Total Protein 8.3 g/dL (6.4-8.2)
[2022-11-08 16:53] LABS: Ferritin 14 ng/mL (8-252)
[2022-11-11 13:48] LABS: Helicobacter pylori Ag, Feces Negative (Negative)
== END 2022-11-08 03:16 | disposition home or self-care (01) ==
PROVIDERS: PCP Family Medicine; Visit Provider Family Medicine
DX: E11.9 Type 2 diabetes mellitus without complications (principal); D64.9 Anemia, unspecified; I10 Essential (primary) hypertension; R94.5 Abnormal results of liver function studies
CPT/HCPCS: 36415; 80053; 87338; 82728; 82977; 83036; 83540; 85025; 85045; 85610

== ENCOUNTER 2022-11-18 02:20 | Outpatient (CLI) | payer MEDICARE, BC, SELFPAY ==
[2022-11-18 09:20] LABS: Abs Immature Grans 0.05 10^3/uL (0.0-0.06); Absolute Basophil Count 0.03 10^3/uL (0.0-0.2); Absolute Eosinophil Count 0.17 10^3/uL (0.0-0.7); Absolute Lymphocyte Count 2.41 10^3/uL (1.2-3.4); Absolute Monocyte Count 0.59 10^3/uL (0.1-0.8); Absolute Neutrophil Count 3.86 10^3/uL (1.2-6.7); Basophils % 0.4; Eosinophils % 2.4; HCT 31.8 % (36.0-46.0); HGB 9.6 g/dL (11.2-15.7); Immature Grans % 0.7; Lymphocytes % 33.9; MCH 24.9 pg (27.0-33.0); MCHC 30.2 % (32.0-36.0); MCV 83 fL (80-95); MPV 9.5 fL (8.0-11.0); Monocytes % 8.3; Neutrophils % 54.3; Nucleated RBC 0.3 % (0.0-0.3); Platelet Count 264 10^3/uL (130-400); RBC 3.85 10^6/uL (3.93-5.22); RDW 20.6 % (11.7-14.6); RDW-SD 47.4 fL; WBC 7.11 10^3/uL (4.4-10.8)
[2022-11-18 09:38] LABS: Anisocytosis 2+; Diff Comment RBC Morph Reviewed
== END 2022-11-18 02:21 | disposition home or self-care (01) ==
LOC: LBO 02:20
PROVIDERS: PCP Family Medicine; Visit Provider Surgery
DX: D64.9 Anemia, unspecified (principal)
CPT/HCPCS: 36415; 85025

== ENCOUNTER → 2022-11-19 09:45 | Outpatient (BNVA) | payer MEDICARE, BC, SELFPAY | PROVIDERS: PCP Family Medicine; Referring Provider Family Medicine; Visit Provider Surgery | DX: D50.9 Iron deficiency anemia, unspecified (principal); E11.9 Type 2 diabetes mellitus without complications | CPT/HCPCS: 99204; 99243 ==

== ENCOUNTER 2022-12-17 01:23 | Outpatient (CLI) | payer MEDICARE, BC, SELFPAY ==
[2022-12-17 08:58] LABS: Abs Immature Grans 0.05 10^3/uL (0.0-0.06); Absolute Basophil Count 0.05 10^3/uL (0.0-0.2); Absolute Eosinophil Count 0.28 10^3/uL (0.0-0.7); Absolute Lymphocyte Count 1.97 10^3/uL (1.2-3.4); Absolute Monocyte Count 1.06 10^3/uL (0.1-0.8); Absolute Neutrophil Count 5.56 10^3/uL (1.2-6.7); Basophils % 0.6; Eosinophils % 3.1; HCT 36.6 % (36.0-46.0); HGB 12.2 g/dL (11.2-15.7); Immature Grans % 0.6; MCH 29.5 pg (27.0-33.0); MCHC 33.3 % (32.0-36.0); MCV 89 fL (80-95); MPV 9.6 fL (8.0-11.0); Monocytes % 11.8; Neutrophils % 61.9; Platelet Count 227 10^3/uL (130-400); RBC 4.13 10^6/uL (3.93-5.22); WBC 8.97 10^3/uL (4.4-10.8)
[2022-12-17 09:31] LABS: ALT 110 U/L (14-59); AST 118 U/L (15-37); Albumin 3.2 g/dL (3.4-5.0); Alkaline Phosphatase 206 U/L (46-116); Bilirubin, Direct 0.3 mg/dL (0.0-0.2); Bilirubin, Total 0.7 mg/dL (0.2-1.0); C-Reactive Protein 4.78 mg/dL (0.0-0.3); LDH 178 U/L (81-234); TSH (W/Ref FT4) 2.36 uIU/mL (0.36-3.74); Total Protein 8.1 g/dL (6.4-8.2)
[2022-12-17 10:08] LABS: Anisocytosis 1+; Diff Comment Diff Reviewed; Folate 15.7 ng/mL (8.6-20.0); Vitamin B12 928 pg/mL (193-986)
[2022-12-20 09:24] LABS: Haptoglobin 271 mg/dL (32-197)
[2022-12-20 14:00] LABS: ANA Interpretation Positive (Negative); ANA Titer Pattern 1:80 Homogeneous
== END 2022-12-17 01:24 | disposition home or self-care (01) ==
LOC: LBO 01:24
PROVIDERS: PCP Family Medicine; Visit Provider Surgery
DX: D64.9 Anemia, unspecified (principal); D50.9 Iron deficiency anemia, unspecified; E11.9 Type 2 diabetes mellitus without complications; R94.5 Abnormal results of liver function studies; K74.60 Unspecified cirrhosis of liver; Z79.899 Other long term (current) drug therapy; R79.89 Other specified abnormal findings of blood chemistry
CPT/HCPCS: 36415; 80076; 82607; 82746; 83010; 83615; 84443; 85025; 86038; 86140; 86880

== ENCOUNTER 2022-12-17 10:13 | Emergency (ER) | payer MEDICARE, BC, SELFPAY ==
[2022-12-17 10:21] VITALS: BP 156/70; PULSE 60; RESP 16; TEMP 36.9; O2SAT 100
[2022-12-17 10:41] LABS: Bilirubin Negative (Negative); Blood Negative (Negative); Clarity Clear (Clear); Glucose Negative (Negative); Ketones Negative (Negative); Leukocyte Esterase Negative (Negative); Nitrite Negative (Negative); Specific Gravity 1.015 (1.005-1.025)
--- NOTE | 2022-12-17 10:45 | DI.US_ITS ---
Exam(s) US ABDOMEN LIMITED EXAM: US ABDOMEN LIMITED CLINICAL HISTORY: ruq pain high lfts TECHNIQUE: Ultrasound abdomen performed using standard protocol. COMPARISON: No exams were available for comparison FINDINGS: PANCREAS: Normal where visualized. LIVER: There is increased echogenicity of the liver suggesting fatty infiltration. Hepatopedal flow in the Portal Vein. The liver measures in 15.1 cm length. GALLBLADDER: No evidence of cholelithiasis. No evidence of wall thickening. No pericholecystic fluid identified. BILIARY SYSTEM: Common bile duct measures < 7 mm. No intrahepatic biliary ductal dilation. WADSWORTH'S SIGN: Negative. RIGHT KIDNEY: Kidney is normal in size. No evidence of renal calculi. No evidence of hydronephrosis. No renal mass or cyst identified. ASCITES: None seen. IMPRESSION: 1. Hepatic steatosis. 2. No evidence of cholelithiasis or biliary ductal dilatation. DATA REPOSITORY:
--- NOTE | 2022-12-17 10:45 | DI.CT_ITS ---
Exam(s) CT ABDOMEN PELVIS W EXAM: CT ABDOMEN PELVIS W CLINICAL HISTORY: rlq pain TECHNIQUE: Imaging Protocol: Axial computed tomography images with coronal and sagittal reformatted images were created and reviewed CONTRAST MATERIAL: Intravenous: Omnipaque 350 Contrast volume:100 mL Oral: No COMPARISON: US US ABDOMEN LIMITED from 12/17/2022 FINDINGS: ABDOMEN: Lung Bases: There is mild dependent atelectasis. Liver: The liver has a nodular contour raising the question of hepatic cirrhosis. There is an enlarg ed left lobe of the liver. No measurable mass. Portal, Superior Mesenteric, and Splenic Veins: Unremarkable. Gallbladder and Biliary Tract: No radiodense calculus or dilation. Pancreas: Normal density, no abnormal calcifications or inflammatory process. Spleen: Normal. Adrenals: There is nodularity of the left adrenal gland. The right adrenal gland is unremarkable. Kidneys: Normal size, contour and axis. No radiodense stones or obstructive uropathy. No masses seen. Abdominal Aorta: Abdominal portion non-dilated. Atherosclerosis is present. Bowel: There is diverticulosis seen in the colon. There is bowel wall thickening seen in the termina l ileum cecum and there is surrounding inflammation. Proximal ascending colon. No focal fluid colle ction is seen to suggest an abscess. No evidence of appendicitis. Peritoneal Cavity: No ascites, collection or mesenteric inflammatory response. No free air. Lymph Nodes: Mildly enlarged lymph nodes seen in the right lower quadrant which are likely reactive. Bones: Within normal limits for the patient's age. The patient has bilateral total hip replacements. Soft Tissues: There is a small umbilical hernia. PELVIS: Bladder: The urinary bladder is largely obscured by artifact from the patient's orthopedic hardware. Reproductive Organs: Unremarkable as visualized. Lymph Nodes: Within normal limits. Bones: Within normal limits for the patient's age. IMPRESSION: 1. Bowel wall thickening involving the cecum and the terminal ileum. There are surrounding inflammat ory changes in the soft tissues and mildly enlarged lymph nodes in the region. Primary concern is fo r an infectious/inflammatory colitis or diverticulitis. Neoplasm cannot be entirely excluded. Follo wing treatment, colonoscopy or barium enema should be considered for further evaluation. 2. Status post appendectomy. 3. Findings in the liver suggestive of hepatic cirrhosis. 4. Findings were discussed with Dr. Landeros at 1:07 p.m. on 12/17/2022. RADIATION DOSE DELIVERED: 923.03mGy.cm Total DLP DATA REPOSITORY: All CT scans at this facility are submitted to the National Radiology Data Registry (NRDR) Dose Index Registry (DIR) with the [employer] (ACR). RADIATION OPTIMIZATION: All CT scans at this facility use at least one of these dose optimization te chniques: automated exposure control; mA and/or kV adjustment per patient size (includes targeted exa ms where dose is matched to clinical indication); or iterative reconstruction.
--- NOTE | 2022-12-17 10:45 | W.ED.GENAD ---
Discharge Plan Discharge Details Chief Complaint: Abd Prob Primary Care Provider: Priscilla Brantley ED Provider: Long Landerso Home Meds and New Rx's Prescriptions: No Action polyethylene glycol 3350 17 gram/dose powder 238 g PO ONCE Qty: 238 0RF Rx Instructions: take per colonoscopy instructions bisacodyl [Dulcolax (bisacodyl)] 5 mg tablet,delayed release (DR/EC) 5 mg PO ONCE Qty: 4 0RF Rx Instructions: take per colonoscopy instructions losartan 100 mg tablet 100 mg PO DAILY Qty: 90 5RF ibuprofen 600 mg tablet 600 mg PO TID PRN (Reason: pain) Qty: 100 1RF Medical Decision Making The patient's left from this morning was removed to be retrieved. This a normal CBC but liver function tests demonstrated elevation of the transaminases. Given these findings, the ultrasound of the right upper quadrant was ordered. The ultrasound resulted negative. As such a CT scan of abdomen pelvis was ordered and a BNP was added to the work-up. The patient creatinine returned at 1.1. CT scan of the abdomen pelvis with IV contrast demonstrated bowel wall thickening involving the cecum and the terminal ileum. This raises concern of infectious versus inflammatory colitis or diverticulitis. Given the history of diverticulosis I think it is prudent to start the patient on antibiotic. Unfortunately she is allergic to amoxicillin therefore medicine cannot be used. She will be sent home with a course of ciprofloxacin with Flagyl. The patient does endorse a history of alcohol consumption. She states that she usually would drink 2 alcoholic beverages a day. Approximately 10 days ago she decided to cut down on this. She has had 1 drink in the past 10 days. This ordered plain the elevated LFTs in the fatty liver and changes seen on the CAT scan in regards to the nodular contour suggestive of hepatic cirrhosis. HPI General Date/Time Provider Initiated Documentation: 12/17/22 10:44. HPI Narrative: Patient presents to the emergency department with a 5-day history of diffuse abdominal pain that became localized to the right lower quadrant 2 days ago. This has been associated with fevers and chills the first 2 days. She has been afebrile for the past 3 days. Decreased appetite for the past week. Decreased weight this past week. No radiation of the pain. No nausea no vomiting Did notice an increase in her cough which is chronic approximately 5 days ago but that has seemed to calm down. She gets a daily morning productive cough secondary to her postnasal drip. She is being worked up by her primary care doctor for some anemia and had blood work done prior to being sent to the emergency department by the urgent care Related Data Home Medications Medication Instructions Recorded Confirmed ibuprofen 600 mg tablet 600 mg PO TID PRN pain #100 tabs 08/17/22 12/17/22 bisacodyl 5 mg tablet,delayed 5 mg PO ONCE colonscopy bowel prep 11/24/22 12/17/22 release (Dulcolax (bisacodyl)) #4 tabs polyethylene glycol 3350 17 238 g PO ONCE colonoscopy prep 11/24/22 12/17/22 gram/dose oral powder #238 grams losartan 100 mg tablet 100 mg PO DAILY #90 tabs 12/13/22 12/17/22 Previous Rx's Medication Instructions Recorded ibuprofen 600 mg tablet 600 mg PO TID PRN pain #100 tabs 08/17/22 bisacodyl 5 mg tablet,delayed 5 mg PO ONCE colonscopy bowel prep 11/24/22 release (Dulcolax (bisacodyl)) #4 tabs polyethylene glycol 3350 17 238 g PO ONCE colonoscopy prep 11/24/22 gram/dose oral powder #238 grams losartan 100 mg tablet 100 mg PO DAILY #90 tabs 12/13/22 Allergies Allergy/AdvReac Type Severity Reaction Status Date / Time amoxicillin trihydrate AdvReac Intermediate itching Verified 12/17/22 09:22 [From Augmentin] and swelling of palms and soles of feet potassium clavulanate AdvReac Intermediate itching Verified 12/17/22 09:22 [From Augmentin] and swelling of palms and soles of feet General Stated Complaint: Abd Prob NIRANJAN: 3 Review of Systems Narrative: Constitutional see HPI HEENT negative Cardiovascular no chest pain no chest pressure Respiratory no shortness of breath see HPI GI see HPI no dysuria no frequency no hematuria MSK no myalgias or arthralgias Skin no rashes Neuro no headaches. No focal weakness no paresthesias Psych normal mood and affect Endocrine see HPI Hematological no blood thinners PFSH All Active Problems Chronic iron deficiency anemia (Acute) Anemia (Chronic) Degenerative joint disease of right knee (Acute) Injection 08/17/2022 Right knee pain (Acute) Status post total hip replacement, left (Acute 08/17/22) Anemia (Chronic) Alcohol intake above recommended sensible limits (Chronic 01/07/17) elevated GGT, LFT and MCV Diverticulosis of colon without diverticulitis (Chronic) sigmoid colon Elevated LFTs (Chronic 01/06/17) Elevated MCV (Chronic 01/06/17) Lichen planus (Chronic) Low back pain radiating to left leg (Chronic 06/10/16) Patellofemoral arthritis of right knee (Chronic 09/12/17) Shoulder pain (Chronic 03/24/15) Elevated blood pressure reading (Acute) Diabetes mellitus (Chronic) Status post total hip replacement, right (Acute) Diarrhea (Acute) Encounter for annual physical exam (Acute) Encounter for screening colonoscopy (Acute) Hypertension (Chronic) Osteoarthritis of left hip (Acute) Medical History Achilles tendinitis of left lower extremity (09/11/15) Epicondylitis History of ectopic right Hx of fracture of ankle Hx of hypoglycemia Hx of spina bifida States hx of Spina Bifida Occulta Hx of tension headache 1 time event Hx of transient ischemic attack (TIA) Pt. states she had a TIA when she was 22 that was control related Pt. states she has never had an recurrence, and does not f/u with a neurologist and states she never had to. Left foot pain (08/05/15) Trochanteric bursitis of right hip (09/11/15) bilateral Surgical History H/O section x2 History of back surgery Microdisectomy, L5-S1. Pt. states nerves damage with numbness to left foot. History of bilateral tubal ligation History of ectopic History of open reduction and internal fixation (ORIF) procedure left ankle with plates and screws present Some hardware was removed History of total right hip replacement Hx of appendectomy Hx of section x 2 Hx of exploratory laparotomy ectopic S/P tonsillectomy Status post arthroscopy of right knee Family History Mother , 54 Uterine cancer Colon cancer Father , 80 Prostate cancer Alcohol abuse Daughter Diabetes Depression Sister No problems noted. Sister No problems noted. Brother No problems noted. Son No problems noted. Brother Depression Social History Smoking/Tobacco Use Status: Never Second Hand Exposure: Yes Smoking risk assessment performed?: Yes Alcohol Intake: current Alcohol Intake frequency: 0-2 drinks per day Alcohol type: wine Drug use: Rarely Substance use type: marijuana Details: alcohol: t-3, couple. Marijuana: 6 months, smoking Caregiver/Support person: No Household members: spouse Housing: house Communication Needs: None Do you need help understanding health information?: Never Pets and animals: No Sexually active: Yes Do you think of yourself as: straight/heterosexual Current gender identity: female What is your relationship status?: How often do you talk on the phone with friends or family?: decline to answer How often do you get together with friends or relatives?: decline to answer How often do you attend cheondoism or christian services?: decline to answer Do you belong to any clubs or organized social groups?: decline to answer Panel score (0-1 are the most socially isolated patients): 1 What type of physical activity do you participate in: decline to answer Duration: decline to answer Frequency: decline to answer Niru/Judaism: Jehovah'S Witness Special niru needs: No Seatbelt use: always Drive intox or ride w/intox wheelchair van driver: No Do you feel safe at home: Yes Do you feel safe in your relationship?: Yes Additional Social history: unable assess privately Exam Narrative Exam Narrative: Awake alert [place] x3 calm no acute distress pleasant cooperative Normocephalic atraumatic PERRLA EOMI MMM anicteric Heart regular rhythm and rate Chest is clear to auscultation bilaterally Abdomen soft nondistended. Positive right-sided discomfort no rebound Back no CVAT Extremities no edema full range of motion Neuro grossly intact Psych normal mood and affect Course Vital Signs Vital signs: Vital Signs Temperature 36.9 C 12/17/22 10:21 Pulse 60 12/17/22 10:21 Respiratory Rate 16 12/17/22 10:21 Blood Pressure 156/70 H 12/17/22 10:21 Pulse Oximetry 100 12/17/22 10:21 Temperature 36.9 C 12/17/22 10:21 Temperature Source Temporal Artery Scan 12/17/22 10:21 Pulse 60 12/17/22 10:21 Respiratory Rate 16 12/17/22 10:21 Blood Pressure 156/70 H 12/17/22 10:21 Pulse Oximetry 100 12/17/22 10:21 Oxygen Delivery Method Room Air 12/17/22 10:21 Oxygen Flow Rate 0 12/17/22 10:21
[2022-12-17 11:12] LABS: Anion Gap 11.1 mmol/L (3-11); BUN 12 mg/dL (7-18); CO2 23.9 mmol/L (21.0-32.0); CREATININE 1.1 mg/dL (0.55-1.02); Calcium 9.3 mg/dL (8.5-10.1); Chloride 101 mmol/L (98-107); Estimated GFR 54.39 (mL/min/1.73m2); Glucose 177 mg/dL (74-106); Potassium 3.5 mmol/L (3.5-5.1); Sodium 136 mmol/L (136-145)
[2022-12-17 11:13] LABS: Lipase 121 U/L (73-393)
[2022-12-17] MEDS: Normal Saline 1,000 ML 1000 ML IV (11:34)
[2022-12-17] MEDS: Normal Saline - Diluent 50 ML VIAL IV (12:57)
[2022-12-17] MEDS: Omnipaque 350 MG/ML 100 ML BTL IV (12:57)
[2022-12-17] MEDS: Normal Saline Flush 10 ML SYR IVP (12:58)
[2022-12-17] MEDS: metroNIDAZOLE 500 MG TAB PO (13:29)
[2022-12-17] MEDS: Ciprofloxacin 500 MG TAB PO (13:29)
[2022-12-17 13:35] VITALS: BP 147/72; PULSE 90; RESP 12; O2SAT 97
== END 2022-12-17 18:25 | disposition home or self-care (01) ==
PROVIDERS: Emergency Provider Emergency Medicine; PCP Family Medicine
DX: K57.12 Diverticulitis of small intestine without perforation or abscess without bleeding (principal); R79.89 Other specified abnormal findings of blood chemistry; D64.9 Anemia, unspecified; D50.9 Iron deficiency anemia, unspecified; E11.9 Type 2 diabetes mellitus without complications; R94.5 Abnormal results of liver function studies; K74.60 Unspecified cirrhosis of liver; Z79.899 Other long term (current) drug therapy
CPT/HCPCS: 36415; 80048; 80076; 83690; 96360; 96361; 99285; 74177; 76705; 81003; 82607; 82746; 83010; 83615; 84443; 85025; 86038; 86140; 86880; 99284; J3490

== ENCOUNTER 2022-12-23 09:06 | Outpatient (CLI) | payer MEDICARE, BC, SELFPAY ==
[2022-12-23 08:55] LABS: HGB 12.1 g/dL (11.2-15.7); MCH 29.5 pg (27.0-33.0); MCHC 32.7 % (32.0-36.0); MCV 90 fL (80-95); MPV 9.4 fL (8.0-11.0); Platelet Count 254 10^3/uL (130-400); WBC 8.52 10^3/uL (4.4-10.8)
[2022-12-23 09:26] LABS: ALT 53 U/L (14-59); AST 59 U/L (15-37); Albumin 3.1 g/dL (3.4-5.0); Alkaline Phosphatase 139 U/L (46-116); Anion Gap 10.2 mmol/L (3-11); BUN 12 mg/dL (7-18); Bilirubin, Total 0.4 mg/dL (0.2-1.0); CO2 23.8 mmol/L (21.0-32.0); CREATININE 1.2 mg/dL (0.55-1.02); Calcium 9.1 mg/dL (8.5-10.1); Chloride 101 mmol/L (98-107); Ferritin 210 ng/mL (8-252); Glucose 148 mg/dL (74-106); Potassium 3.5 mmol/L (3.5-5.1); Sodium 135 mmol/L (136-145); Total Protein 7.6 g/dL (6.4-8.2)
[2022-12-23 10:03] LABS: Iron 64 ug/dL (50-170)
== END 2022-12-23 09:07 | disposition home or self-care (01) ==
LOC: LBO 09:07
PROVIDERS: PCP Family Medicine; Visit Provider Family Medicine
DX: D50.9 Iron deficiency anemia, unspecified (principal); K74.60 Unspecified cirrhosis of liver
CPT/HCPCS: 36415; 80053; 85027; 82728; 83540

== ENCOUNTER → 2023-01-13 10:49 | Outpatient (BNVA) | payer MEDICARE, BC, SELFPAY | PROVIDERS: PCP Family Medicine; Referring Provider Family Medicine; Visit Provider Physical Therapy Assistant | DX: Z12.11 Encounter for screening for malignant neoplasm of colon (principal) ==

== ENCOUNTER 2023-02-17 06:09 | Day surgery (SDC) | payer MEDICARE, BC, SELFPAY ==
--- NOTE | 2023-02-16 20:45 | HPE_ITS ---
Date of service: 02/17/23 Time of Service: 07:27 Assessment and Plan Assessment and plan (1) Encounter for screening colonoscopy: Status: Acute Assessment and plan: We discussed the role of screening colonoscopy in routine health maintenance. We discussed the risks and the benefits of the proceedure. We can proceed with colonoscopy today History of Present Illness History of Present Illness Chief Complaint: Screening colonoscopy Narrative: 67 y/o female with history of cirrhosis, chronic anemia, diverticulosis, DM type 2, distant hx of TIA (secondary to oral contraceptive)? and HTN presents for colonoscopy screening pre-op. Her last screening was in 2010 , which was unremarkable. She denies a family history of colon cancer. She denies any changes in bowel habits including bloody or black tarry stools, abdominal pain, diarrhea or constipation. She denies constitutional symptoms. Denies use of marijuana or any other recreational or illegal drugs. Of note patient was seen in the ER in 2022 for a 5 day history of abdominal pain at which time abd/pelvis CT scan showed bowel wall thickening at the cecum and terminal ileum.? Surrounding inflammatory changes was noted in the soft tissues and mildly enlarged lymph nodes in the region. She was treated w ith a 10 day course of cipro and metronidazole. Her symptoms have improved with some residual RLQ soreness. She denies chest pain, palpitations, dyspnea or dyspnea with exertion. She denies prior history or family history of adverse reactions or complications with anesthesia. The patient denies any history of stroke, SD, seizures, bleeding or clotting disorders. She has metal implanted in bilateral hips and left ankle. We talked for a while about the previous plan to proceed with gastroscopy to help with her diagnosis of iron deficiency anemia. Belinda has had a favorable response to treatment, and she denies any worrisome symptoms of gastritis or gastroesophageal disease. Even in the absence of medical therapy. In that regard, I think it is reasonable to forego gastroscopy today. She is in agreement with Plan. PFSH All Active Problems Alcohol intake above recommended sensible limits (Chronic 01/07/17) elevated GGT, LFT and MCV Diverticulosis of colon without diverticulitis (Chronic) sigmoid colon Elevated LFTs (Chronic 01/06/17) Elevated MCV (Chronic 01/06/17) Lichen planus (Chronic) Low back pain radiating to left leg (Chronic 06/10/16) Patellofemoral arthritis of right knee (Chronic 09/12/17) Shoulder pain (Chronic 03/24/15) Elevated blood pressure reading (Acute) Diabetes mellitus (Chronic) Status post total hip replacement, right (Acute) Diarrhea (Acute) Encounter for annual physical exam (Acute) Encounter for screening colonoscopy (Acute) Hypertension (Chronic) Osteoarthritis of left hip (Acute) Anemia (Chronic) Status post total hip replacement, left (Acute 08/17/22) Right knee pain (Acute) Degenerative joint disease of right knee (Acute) Injection 08/17/2022 Anemia (Chronic) Chronic iron deficiency anemia (Acute) Fatty liver (Acute) Cirrhosis (Acute) Screening for colon cancer (Acute) Medical History Achilles tendinitis of left lower extremity (09/11/15) Diverticulitis was in ER 11/2022 Epicondylitis History of ectopic right Hx of fracture of ankle Hx of hypoglycemia Hx of spina bifida States hx of Spina Bifida Occulta Hx of tension headache 1 time event Hx of transient ischemic attack (TIA) Pt. states she had a TIA when she was 22 that was control related Pt. states she has never had an recurrence, and does not f/u with a neurologist and states she never had to. Left foot pain (08/05/15) Trochanteric bursitis of right hip (09/11/15) bilateral Surgical History H/O section x2 History of back surgery Microdisectomy, L5-S1. Pt. states nerves damage with numbness to left foot. History of bilateral tubal ligation History of ectopic History of left hip replacement History of open reduction and internal fixation (ORIF) procedure left ankle with plates and screws present Some hardware was removed History of total right hip replacement Hx of appendectomy Hx of section x 2 Hx of exploratory laparotomy ectopic S/P tonsillectomy Status post arthroscopy of right knee Family History Mother , 54 Uterine cancer Colon cancer Father , 80 Prostate cancer Alcohol abuse Daughter Diabetes Depression Sister No problems noted. Sister No problems noted. Brother No problems noted. Son No problems noted. Brother Depression Social History Smoking/Tobacco Use Status: Never Second Hand Exposure: Yes Smoking risk assessment performed?: Yes Alcohol Intake: current Alcohol Intake frequency: 0-2 drinks per day Alcohol type: wine Details: Recently stopped ETOH use since Drug use: Rarely Substance use type: marijuana Caregiver/Support person: No Household members: spouse Housing: house Communication Needs: None Do you need help understanding health information?: Never Pets and animals: No Sexually active: Yes Do you think of yourself as: straight/heterosexual Current gender identity: female What is your relationship status?: How often do you talk on the phone with friends or family?: decline to answer How often do you get together with friends or relatives?: decline to answer How often do you attend yazdanism or bahai services?: decline to answer Do you belong to any clubs or organized social groups?: decline to answer Panel score (0-1 are the most socially isolated patients): 1 What type of physical activity do you participate in: decline to answer Duration: decline to answer Frequency: decline to answer Niru/Moravian: Evangelical Special niru needs: No Seatbelt use: always 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 Do you feel safe at home: Yes Do you feel safe in your relationship?: Yes Meds Allergies and Home Medications Allergies Allergy/AdvReac Type Severity Reaction Status Date / Time amoxicillin trihydrate AdvReac Intermediate itching Verified 02/17/23 06:29 [From Augmentin] and swelling of palms and soles of feet potassium clavulanate AdvReac Intermediate itching Verified 02/17/23 06:29 [From Augmentin] and swelling of palms and soles of feet Home Medications Medication Instructions Recorded Confirmed Type ibuprofen 600 mg tablet 600 mg PO TID PRN pain #100 tabs 08/17/22 02/16/23 Rx bisacodyl 5 mg tablet,delayed 5 mg PO ONCE colonscopy bowel prep 11/24/22 02/17/23 Rx release (Dulcolax (bisacodyl)) #4 tabs polyethylene glycol 3350 17 238 g PO ONCE colonoscopy prep 11/24/22 02/17/23 Rx gram/dose oral powder #238 grams losartan 100 mg tablet 100 mg PO DAILY #90 tabs 01/16/23 03/23/23 Rx Exam Const General: cooperative, healthy appearing and comfortable Orientation: awake and oriented x3 Eyes General: appearance normal, both eyes and all related structures Conjunctivae: conjunctivae normal Sclera: sclerae normal Resp Effort & Inspection: normal respiratory effort and able to speak in complete sentences Auscultation: clear to auscultation bilaterally Cardio Jugular venous pressure: no JVD Rate: regular rate Rhythm: regular rhythm Heart Sounds: S1 normal and S2 normal GI Inspection: non-distended Palpation: soft, no guarding, no hernias and nontender Auscultation: normal bowel sounds Skin General skin exam: normal turgor Neuro General: patient alert, patient awake and patient oriented x3 Cognition: normal cognition Extrem Right lower extremity: no edema Left lower extremity: no edema Time Spent Time spent with Patient: 40-54 minutes Time was spent: preparing to see the patient(eg.review tests) and care coordination
--- NOTE | 2023-02-16 20:48 | W.PM.DSUDISC ---
Date of service: 02/17/23 Time of Service: 08:23 Discharge Plan Disposition Patient Disposition: Home Condition: Good Discharge Details Reason For Visit: Screening colonoscopy Attending Provider: Bret Diego Primary Care Provider: Priscilla Brantley Home Meds and New Rx's Prescriptions: Continued losartan 100 mg tablet 100 mg PO DAILY Qty: 90 5RF ibuprofen 600 mg tablet 600 mg PO TID PRN (Reason: pain) Qty: 100 1RF Discontinued polyethylene glycol 3350 17 gram/dose powder 238 g PO ONCE Qty: 238 0RF Rx Instructions: take per colonoscopy instructions bisacodyl [Dulcolax (bisacodyl)] 5 mg tablet,delayed release (DR/EC) 5 mg PO ONCE Qty: 4 0RF Rx Instructions: take per colonoscopy instructions Discharge Instructions Instructions: Colorectal Polyps (GEN) Additional Instructions: Belinda, we were able to complete your colonoscopy without any difficulty today. The quality of your preparation was excellent. Like we talked about, I found a mass in the cecum (which is the first part of your large intestine). It is too large to remove with a colonoscope, and as I mentioned, I have some concerns that this may represent a colon cancer. I was able to obtain a good piece of tissue to help clarify the diagnosis. You also had a polyp in your rectum that I was able to remove completely. As I mentioned, I would like to see you in the office on March 02 at 1:15 PM to discuss the next steps in your care. If I have the pathology results prior to that I will call you. 1. If tolerated, consume a soft, low fiber diet for 1-2 days. 2[address] Do not drive, drink alcohol, operate machinery, make critical decisions, or do activities that require coordination or balance for 24 hours. 3. Because air was put into your colon during the procedure, expelling air from your rectum (passing gas or farting) is normal. 4. You may not have a bowel movement for 1-3 days because of the colonoscopy prep. This is normal. 5. Go directly to the emergency room if you notice any of the following: Develop chills (warm to touch), or if you have a thermometer and your temperature is above 101 Difficulty breathing or difficultly swallowing Persistent vomiting Severe abdominal pain, other than gas cramps Severe chest pain Black, tarry stools Any bleeding ? exceeding one tablespoon 6. Call your physician if the site where your intravenous was started becomes red, swollen, painful, and warm to touch. 7. Your physician has reviewed your pre-procedure medications. Please continue to take those medications as previously ordered. You will be given specific information/education regarding any changes to your medications before leaving. Stand Alone Forms: Anesthesia Discharge InstTracee Barfield (DSU) Activity:: Activity as Tolerated Diet:: As Tolerated Discharge Orders Discharge Orders: Discharge Order (Routine); Ordered 02/16/23 Ordered By: Bret Diego DS: Diagnosis Discharge Diagnosis (1) Encounter for screening colonoscopy: Status: Acute Asessment and Plan: Follow-up on pathology results
--- NOTE | 2023-02-16 20:49 | COLE_ITS ---
Date of service: 02/17/23 Time of Service: 08:15 Colonoscopy Report Date of procedure: 02/17/23 Pre-op diagnosis general: Screening colonoscopy Post-op diagnosis procedure note: other (Colorectal polyps) Procedure: Colonoscopy with polypectomy Surgeon: Bret Diego Anesthesia Type: General:No Airway Estimated blood loss (mL): 15 Pathology: other (Rectal polyp, cecal mass) Complications: None Disposition: same day Indications: Jennifer is a 67 year old woman here for follow up screening colonoscopy Prep: Miralax/Dulcolax Procedure Start Time: 07:47 Procedure End Time: 08:12 Retraction Time: 16 Findings: Rectal polyp, cecal mass Procedure Description: After the induction of monitored anesthetic care, and with the patient in left lateral decubitus position, I began by performing an external anorectal exam.? Perineum and skin were normal, as was the anal verge.? There was no evidence of external hemorrhoids.? Next, I performed a digital rectal exam.? I did not appreciate any abnormal findings.? Next, I advanced a colonoscope into the rectal vault.? I performed retroflexion.? This appeared normal to me. As I advanced the scope into the rectum, there was a single pedunculated polyp. It was approximately 0.75 cm. I removed it with snare polypectomy without any difficulty. There was minimal bleeding.? Using insufflation, I then advanced the colonoscope beyond the rectal folds and into the sigmoid colon before a dvancing towards the cecum.? The quality of the prep was excellent.? The scope was noted to be in the cecum by identification of the ileocecal valve and appendiceal orifice.? Just above the cecum, essentially at the junction between the cecum and the ascending colon was a large slightly fungating sessile mass that accounted for nearly 75% of the circumference of the colon at this point. The central lumen was preserved. I was able to navigate beyond it without any difficulty. Clinical features are suspicious for cancer. Certainly, based on the size of this, it is not amenable to colonoscopic resection. Therefore, I obtained a large specimen of it using energized snare polypectomy. I also tattooed the area. I then began withdrawing the colonoscope using repeated irrigation as necessary for full evaluation of the colonic mucosa. ?Once the scope was withdrawn to the level of the rectum, great care was taken to examine portions of the rectal folds.? Finally, the scope was withdrawn and the patient was brought to the same-day surgery recovery unit as the anesthetic wore off. ?The findings and instructions were shared with the patient prior to discharge.
[2023-02-17 06:15] VITALS: BP 115/79; PULSE 88; RESP 18; TEMP 36.3; O2SAT 99
[2023-02-17] MEDS: Lactated Ringers 1,000 ML 80 ML IV (06:36)
--- NOTE | 2023-02-17 07:06 | W.ANESPRE ---
General Info Date of Service Date Performed: 02/17/23 Height: 5 ft 7.5 in Weight: 72.8 kg Body Mass Index (BMI): 24.7 Surgical Procedure: Operation Date: 02/17/23 07:35 Proposed Procedure Side Surgeon p Colonoscopy/Gastroscopy Bret Diego MD Meds Allergies and Home Medications Allergies Allergy/AdvReac Type Severity Reaction Status Date / Time amoxicillin trihydrate AdvReac Intermediate itching Verified 02/17/23 06:29 [From Augmentin] and swelling of palms and soles of feet potassium clavulanate AdvReac Intermediate itching Verified 02/17/23 06:29 [From Augmentin] and swelling of palms and soles of feet Home Medication Medication Instructions Recorded ibuprofen 600 mg tablet 600 mg PO TID PRN pain #100 tabs 08/17/22 bisacodyl 5 mg tablet,delayed 5 mg PO ONCE colonscopy bowel prep 11/24/22 release (Dulcolax (bisacodyl)) #4 tabs polyethylene glycol 3350 17 238 g PO ONCE colonoscopy prep 11/24/22 gram/dose oral powder #238 grams losartan 100 mg tablet 100 mg PO DAILY #90 tabs 12/13/22 Current Visit Medications: Current Medications Generic Name Dose Route Start Last Admin Trade Name Freq PRN Reason Stop Dose Admin Hyoscyamine Sulfate 0.125 mg 02/16/23 20:50 Hyoscyamine 0.125 Mg Sl/Oral/Chew SL DIRECTED PRN Ringer's Solution 1,000 mls @ 80 mls/hr 02/17/23 06:00 02/17/23 06:36 IV 03/18/23 23:59 80 mls/hr INFUSION REBEKAH Administration IV Miscellaneous Supplies 1 each 02/17/23 06:00 Iv Access IV 03/18/23 23:59 DIRECTED REBEKAH Ondansetron HCl 4 mg 02/16/23 20:50 Ondansetron 4 Mg/2 Ml Vial IVP Q4H PRN PRN Nausea / Vomiting Sodium Chloride 0 ml 02/17/23 06:00 Normal Saline Flush 10 Ml Syr IV 03/18/23 23:59 PRN PRN Sodium Chloride 0 ml 02/17/23 06:00 Normal Saline 10 Ml Vial IJ 03/18/23 23:59 DIRECTED PRN Sterile Water 0 ml 02/17/23 06:00 Water,Injection,Sterile 10 Ml Vial IJ 03/18/23 23:59 DIRECTED PRN PFSH Active Problems Active Problems: Problem Status Onset Code Alcohol intake above recommended sensible limits 01/07/17 Z72.89 Diverticulosis of colon without diverticulitis K57.30 Elevated LFTs 01/06/17 R94.5 Elevated MCV 01/06/17 R71.8 Lichen planus L43.9 Low back pain radiating to left leg 06/10/16 M54.5, M79.605 Patellofemoral arthritis of right knee 09/12/17 M17.11 Shoulder pain 03/24/15 M25.519 Elevated blood pressure reading R03.0 Diabetes mellitus E11.9 Status post total hip replacement, right Z96.641 Diarrhea R19.7 Encounter for annual physical exam Z00.00 Encounter for screening colonoscopy Z12.11 Hypertension I10 Osteoarthritis of left hip M16.12 Anemia D64.9 Status post total hip replacement, left 08/17/22 Z96.642 Right knee pain M25.561 Degenerative joint disease of right knee M17.11 Anemia D64.9 Chronic iron deficiency anemia D50.9 Fatty liver K76.0 Cirrhosis K74.60 Screening for colon cancer Z12.11 Medical History Medical History Achilles tendinitis of left lower extremity (09/11/15) Diverticulitis was in ER 11/2022 Epicondylitis History of ectopic right Hx of fracture of ankle Hx of hypoglycemia Hx of spina bifida States hx of Spina Bifida Occulta Hx of tension headache 1 time event Hx of transient ischemic attack (TIA) Pt. states she had a TIA when she was 22 that was control related Pt. states she has never had an recurrence, and does not f/u with a neurologist and states she never had to. Left foot pain (08/05/15) Trochanteric bursitis of right hip (09/11/15) bilateral Surgical History Surgical History H/O section x2 History of back surgery Microdisectomy, L5-S1. Pt. states nerves damage with numbness to left foot. History of bilateral tubal ligation History of ectopic History of left hip replacement History of open reduction and internal fixation (ORIF) procedure left ankle with plates and screws present Some hardware was removed History of total right hip replacement Hx of appendectomy Hx of section x 2 Hx of exploratory laparotomy ectopic S/P tonsillectomy Status post arthroscopy of right knee Tobacco Smoking/Tobacco Use Status: Never Passive smoking exposure: Yes Second hand exposure: Yes Alcohol Alcohol Intake: current Alcohol intake frequency: 0-2 drinks per day Alcohol type: wine Details: Recently stopped ETOH use since Substance Use Substance use: Rarely Substance use type: marijuana Vital Signs and Lab Results Vital Signs Most Recent Vital Signs in EMR: Most Recent Vital Signs Temp Pulse Resp BP Pulse Ox 36.3 C L 88 18 115/79 99 02/17/23 06:15 02/17/23 06:15 02/17/23 06:15 02/17/23 06:15 02/17/23 06:15 Lab Results Blood Type / Crossmatch: No Data to Display Complete Blood Count: No Data to Display Complete Metabolic Panel: No Data to Display Liver Function Panel: No Data to Display Coagulation Panel: No Data to Display Cardiac Panel: No Data to Display Arterial Blood Gas: No Data to Display Venous Blood Gas: No Data to Display Pancreas Panel: No Data to Display Thyroid Panel: No Data to Display Infectious Disease: No Data to Display Blood Cultures: No Data to Display Toxicology Panel: No Data to Display Imaging and Studies Imaging and Studies Study information below may be from another EMR and interpreted by another provider. Please see original notes in EMR for more complete details. EKG Summary: Conclusion Sinus rhythm...normal P axis, V-rate 50- 99 Normal Electrocardiogram 08/16/22 Anesthesia Assessment and Plan Anesthesia History Personal History: No History of Anesthesia Complications Family History: No Family History of Anesthesia Complications Exercise Tolerance Exercise Tolerance: Metabolic Equivalents>4 Pertinent Negatives Pertinent Negatives: No Symptoms of GERD, No Major Cardiovascular Symptoms or Complaints and No Major Pulmonary Symptoms or Complaints Cardiac & Pulmonary Exam Cardiac Exam: Normal S1/S2 Heart Sounds Pulmonary Exam: Clear Bilateral Breath Sounds Implantable Cardiac Device Does patient have a Pacemaker or an ICD?: No Airway Exam Known Difficult Airway: No Mallampati Class: 2 Mouth Opening: Normal (> 3cm) Thyromental Distance: Greater than 3 cm Neck Range of Motion: Full ROM Neck Circumference: Normal Teeth Condition: Normal Dentition ASA Classification ASA Score: ASA 3 Emergency Case?: No NPO Status NPO Status: NPO Clears >2 hours, Solids >8 hours Anesthesia Plan Resuscitation Status: Full Code Anesthesia Technique: General Anesthesia Airway Planned: Natural Airway Monitors Used: Standard Monitors Preoperative Comments:: Chronic nerve pain and parenthesis to left leg, also get shoulder pain, may be due to cervical issue. Will get comfortable before going to sleep.
[2023-02-17 07:11] VITALS: BMI 24.7
--- NOTE | 2023-02-17 08:00 | BOWEL_PTH ---
PATIENT: Jennifer Traore LOC: [facility] U#:[id number] AGE/SX: 67/F ROOM: RE02/17/[address]: Bret Diego MD : 1955 BED: DIS: 02/17/2023 SPEC #: [id number] RECD: 02/17/23 12:26 STATUS: OTTONIEL REQ #: [id number] BREANNE: 02/17/23 08:[address]: Bret Diego DEPT: Surgical Specimen RECD BY: Conchis Hutson ENTERED: 02/17/23 12:27 SP TYPE: Bowel OTHR DR: Priscilla Brantley MD, DC Tissues: 1 - BIOPSY BOWEL 2 - BIOPSY BOWEL Procedures: GROSS AND MICRO LEVEL 4 Comments: [id number]
[2023-02-17] MEDS: Endoscopic Tattoo 5 ML SYR IJ (08:10)
[2023-02-17 08:22] VITALS: BP 96/63; PULSE 90; RESP 14; TEMP 36.2; O2SAT 97
[2023-02-17 08:52] VITALS: BP 112/65; PULSE 68; RESP 18; TEMP 36.4; O2SAT 98
--- NOTE | 2023-02-17 08:59 | W.ANESPOSTOP ---
Postoperative Evaluation Date, Time and Location Date Performed: 02/17/23 Time Performed: 08:33 Patient Location: Day Surgery Unit Vital Signs Most Recent Imported Vital Signs: Most Recent Vital Signs Temp Pulse Resp BP Pulse Ox 36.2 C L 90 14 96/63 L 97 02/17/23 08:22 02/17/23 08:22 02/17/23 08:22 02/17/23 08:22 02/17/23 08:22 Pain Score Most Recent Pain Score: Most Recent Pain Score Pain Level 0 02/17/23 08:22 Assessment Mental Status: Arousable with meaningful communication Airway and Respiratory Function: Patent airway with normal (patient baseline) respiratory exam Cardiovascular Function: Hemodynamically Stable Hydration Status: Adequately Hydrated Nausea & Vomiting: No Nausea or Vomiting Pain: Pt. Denies Any Pain Peripheral Nerve Block: Patient did not receive a nerve block
== END 2023-02-17 09:40 | disposition home or self-care (01) ==
PROVIDERS: PCP Family Medicine; Visit Provider Surgery
PROC: (CPT 45385; principal; 2023-02-17 07:30)
DX: Z12.11 Encounter for screening for malignant neoplasm of colon (principal); K63.5 Polyp of colon
CPT/HCPCS: 45385; 45381; 88305; J2704

== ENCOUNTER → 2023-03-02 13:02 | Outpatient (BNVA) | payer MEDICARE, BC, SELFPAY | PROVIDERS: PCP Family Medicine; Referring Provider Family Medicine; Visit Provider Surgery | DX: K63.5 Polyp of colon (principal) | CPT/HCPCS: 99215 ==

== ENCOUNTER 2023-03-30 02:31 | Outpatient (CLI) | payer MEDICARE, BC, SELFPAY | END 2023-03-30 02:32 | disposition home or self-care (01) | LOC: LBO 02:31 | PROVIDERS: PCP Family Medicine; Visit Provider Family Medicine | DX: D36.9 Benign neoplasm, unspecified site (principal); Z01.818 Encounter for other preprocedural examination; Z90.49 Acquired absence of other specified parts of digestive tract | CPT/HCPCS: 36415; 86850; 86900; 86901 ==

== ENCOUNTER 2023-04-01 06:13 | Inpatient (IN) | payer MEDICARE, BC, SELFPAY ==
--- NOTE | 2023-03-31 15:14 | ROE_ITS ---
Date of service: 04/01/23 Time of Service: 10:35 Operative Note Operative Note DATE OF PROCEDURE: 04/01/23 PRE-OP DIAGNOSIS: Tubular ademona POST-OP DIAGNOSIS: same PROCEDURE: Open right hemicolectomy SURGEON: Bret Diego ASSISTING SURGEON: Estephania Infante PAPER NOVELTY MAKER: Dina Tatum ANESTHESIA TYPE: General LMA/ETT and Other (Intraoperative open tap blocks) Refer to Anesthesia Record ESTIMATED BLOOD LOSS: 100 PATHOLOGY: other (Right colon) COMPLICATIONS: None Patient was transported to: PACU Patient's condition: stable Indications: Belinda is a 67-year-old woman who was undergoing colonoscopy when a large mass was found in the cecum adjacent to the ileocecal valve. It was not amenable to colonoscopic resection. Multiple biopsies were taken, and a tattoo was used to alexsandra the location. Pathology results demonstrated tubular adenoma. We talked about the risks and benefits of referral for advanced colonoscopic resection, versus an operation to remove the right side of her colon. She prefers to proceed with surgery with a planned right hemicolectomy. Findings: Large cecal mass with serosal inflammatory changes adherent to the right anterior abdominal wall, and terminal ileum Procedure Description: After the induction of general endotracheal anesthesia, and the insertion of a Pisano using aseptic technique, I prepped and draped the anterior abdominal wall in the usual fashion. I started with a supraumbilical midline incision. I dissected down to the fascia and grasped it with Michael clamps. This was elevated into the operative field and incised sharply. The peritoneum was enter ed under direct vision. A 12 mm Mobley operating port was affixed to the fascia with an interrupted Vicryl stitch. Pneumoperitoneum was established, and a 5 mm 30 degree scope was gently advanced. There was no injury to the underlying viscera from insertion of the port. The abdomen was quickly surveyed. There was macronodular cirrhosis. There were no other gross lesions. Next, under the vision laparoscope, a 5 mm suprapubic position, as well as 1 in the left lower quadrant. The patient was placed in some gentle Trendelenburg positioning, with the left side down. Began dissecting the right hemiabdomen. As previously mentioned, there were thick inflammatory adhesions to the anterior abdominal wall and lateral sidewall. These were divided with the LigaSure device, taking great care to ensure appropriate dissection away from the cecum. Once this was mobilized, I attempted to pull the cecum medially. However, there was some inflammation on the medial side as well, and what appeared to be a loop of small bowel densely adherent to the terminal ileum. It was difficult to identify the true terminal ileum, in which a loop of bowel was adherent to this. Gentle dissection was used to explore it, but the inflammation was quite thick, and it was clear that the adhesion of the small bowel to the cecum would not be easily taken down. Furthermore, given ongoing concerns that this may represent malignancy, I felt the safest thing to do at this point was open, for better visualization and mobilization. Therefore, the 5 mm ports were removed, the 12 mm Mobley port was used, and the midline fascia was opened enough for adequate exposure. A wound protector was then placed. The transverse colon was reflected cephalad, and the small bowel was run along its length. The adhesions of the small bowel to the cecum appeared to involve the terminal ileum, essentially creating a loop several centimeters proximal to where the terminal ileum inserts onto the cecum. In light of the planned right hemicolectomy, we were able to identify an appropriate to divide the distal ileum. Small defect was created in the mesenteric border, and the bowel was divided with a single fire of the JIMMY stapler. Next, the LigaSure device was used to divide the mesentery of the small bowel towards its root. Dissection was carried down around the cecum and the ascending colon, elevating it off the retroperitoneal structures including the duodenum. Great care was taken to avoid injury to the ureter or other aspects of the retroperitoneum. Again, the mesentery of the colon was divided with the LigaSure device. The ileocecal pedicle was identified and suture controlled. The dissection continued up just to the right side of the middle colic artery. The greater omentum was gently dissected off of the antimesenteric border of the large intestine. The mid transverse colon was divided with a JIMMY stapler. The remainder of the attachments were dissected with the LigaSure device, and the specimen of the right colon which included the terminal ileum was passed off the field. The surgical field was examined. It was hemostatic. Small bowel was gently reoriented to ensure an appropriate anastomosis. It was well-seated with [id number] antimesenteric anastomosis. Therefore the JIMMY staple lines were grasped, and the corners were cut free. A 60 mm JIMMY stapler was used to create the enteroenterostomy. There was no significant bleeding. Common enterotomy was closed in 2 layers with a running Vicryl stitch, and interrupted silk sutures the mesenteric defect was closed with a running Vicryl stitch. The surgical field was irrigated. It was hemostatic. Gloves were changed. again, attention was paid to the orientation of the small bowel to ensure that it was all appropriate. The greater omentum was then laid over the viscera, and the fascia was closed with running 2-0 PDS stitches. The superficial soft tissue was irrigated, and the deep skin and soft tissue was approximated with interrupted Vicryl stitches. Skin was closed with a running Monocryl suture, and the 2 other port sites were also closed after irrigation. Bandages were applied, the patient was allowed awaken from anesthesia and transferred to the recovery unit. Pisano catheter was also removed prior to transfer.
[2023-04-01] VITALS (44 sets, daily range): BP systolic 81–144; BP diastolic 44–81; PULSE 68–97; RESP 14–24; TEMP 36.5–36.8; O2SAT 90–100; BMI 25.2
[2023-04-01] MEDS: Lactated Ringers 1,000 ML 80 ML IV (07:00)
--- NOTE | 2023-04-01 07:00 | ANES.PREOP_ITS ---
General Info Date of Service Date Performed: 04/01/23 Height: 5 ft 7.5 in Weight: 74.1 kg Body Mass Index (BMI): 25.2 Surgical Procedure: Operation Date: 04/01/23 07:50 Proposed Procedure Side Surgeon p Right Hemicolectomy Laparoscopic Right Bret Diego MD Meds Allergies and Home Medications Allergies Allergy/AdvReac Type Severity Reaction Status Date / Time amoxicillin trihydrate AdvReac Intermediate itching Verified 04/01/23 06:33 [From Augmentin] and swelling of palms and soles of feet potassium clavulanate AdvReac Intermediate itching Verified 04/01/23 06:33 [From Augmentin] and swelling of palms and soles of feet Home Medication Medication Instructions Recorded ibuprofen 600 mg tablet 600 mg PO TID PRN pain #100 tabs 08/17/22 losartan 100 mg tablet 100 mg PO DAILY #90 tabs 12/13/22 bisacodyl 5 mg tablet,delayed 5 mg PO ONCE colonscopy bowel prep 03/08/23 release (Dulcolax (bisacodyl)) #8 tabs metronidazole 500 mg tablet 500 mg PO .COMPLEX #8 tabs 03/08/23 neomycin 500 mg tablet 500 mg PO .COMPLEX #8 tabs 03/08/23 ondansetron HCl 8 mg tablet 8 mg PO Q12H #3 tabs 03/08/23 polyethylene glycol 3350 17 238 g PO ONCE colonoscopy prep 03/08/23 gram/dose oral powder #238 grams Current Visit Medications: Current Medications Generic Name Dose Route Start Last Admin Trade Name Freq PRN Reason Stop Dose Admin Acetaminophen 1,000 mg 04/01/23 06:00 Acetaminophen 500 Mg Tab PO 04/01/23 23:59 PREOP REBEKAH Celecoxib 200 mg 04/01/23 06:00 Celecoxib 200 Mg Cap PO 04/01/23 23:59 PREOP REBEKAH Gabapentin 600 mg 04/01/23 06:00 Gabapentin 300 Mg Cap PO 04/01/23 23:59 PREOP REBEKAH Heparin Sodium (Porcine) 5,000 units 04/01/23 06:00 Heparin 5,000 Units/Ml Vial SC 04/01/23 16:00 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 [facility] Ringer's Solution 1,000 mls @ 80 mls/hr 04/01/23 06:00 IV 04/01/23 23:59 INFUSION [facility] Cefazolin Sodium/Dextrose 2 gm in 50 mls @ 100 mls/hr 04/01/23 06:00 Ancef Duplex IVPB 04/01/23 16:00 PREOP REBEKAH IV Miscellaneous Supplies 1 each 04/01/23 06:00 Iv Access IV 04/01/23 23:59 DIRECTED REBEKAH Sodium Chloride 0 ml 04/01/23 06:00 Normal Saline Flush 10 Ml Syr IV 04/01/23 23:59 PRN PRN Sodium Chloride 0 ml 04/01/23 06:00 Normal Saline 10 Ml Vial IJ 04/01/23 23:59 DIRECTED PRN Sterile Water 0 ml 04/01/23 06:00 Water,Injection,Sterile 10 Ml Vial IJ 04/01/23 23:59 DIRECTED PRN PFSH Active Problems Active Problems: Problem Status Onset Code Alcohol intake above recommended sensible limits 01/07/17 Z72.89 Diverticulosis of colon without diverticulitis K57.30 Elevated LFTs 01/06/17 R94.5 Elevated MCV 01/06/17 R71.8 Lichen planus L43.9 Low back pain radiating to left leg 06/10/16 M54.5, M79.605 Patellofemoral arthritis of right knee 09/12/17 M17.11 Shoulder pain 03/24/15 M25.519 Elevated blood pressure reading R03.0 Diabetes mellitus E11.9 Status post total hip replacement, right Z96.641 Diarrhea R19.7 Encounter for annual physical exam Z00.00 Encounter for screening colonoscopy Z12.11 Hypertension I10 Osteoarthritis of left hip M16.12 Anemia D64.9 Status post total hip replacement, left 08/17/22 Z96.642 Right knee pain M25.561 Degenerative joint disease of right knee M17.11 Anemia D64.9 Chronic iron deficiency anemia D50.9 Fatty liver K76.0 Cirrhosis K74.60 Screening for colon cancer Z12.11 Medical History Medical History Achilles tendinitis of left lower extremity (09/11/15) Diverticulitis was in ER 11/2022 Epicondylitis History of ectopic right Hx of fracture of ankle Hx of hypoglycemia Hx of spina bifida States hx of Spina Bifida Occulta Hx of tension headache 1 time event Hx of transient ischemic attack (TIA) Pt. states she had a TIA when she was 22 that was control related Pt. states she has never had an recurrence, and does not f/u with a neurologist and states she never had to. Left foot pain (08/05/15) Trochanteric bursitis of right hip (09/11/15) bilateral Surgical History Surgical History H/O section x2 History of back surgery Microdisectomy, L5-S1. Pt. states nerves damage with numbness to left foot. History of bilateral tubal ligation History of ectopic History of left hip replacement bilat History of open reduction and internal fixation (ORIF) procedure left ankle with plates and screws present Some hardware was removed History of total right hip replacement Hx of appendectomy Hx of section x 2 Hx of exploratory laparotomy ectopic S/P tonsillectomy Status post arthroscopy of right knee Tobacco Smoking/Tobacco Use Status: Never Passive smoking exposure: Yes Second hand exposure: Yes Alcohol Alcohol Intake: current Alcohol intake frequency: a few times a week Alcohol type: wine Details: Recently stopped ETOH use since Substance Use Substance use: Rarely Substance use type: marijuana Vital Signs and Lab Results Vital Signs Most Recent Vital Signs in EMR: Most Recent Vital Signs Temp Pulse Resp BP Pulse Ox 36.5 C 89 18 127/73 100 04/01/23 06:15 04/01/23 06:15 04/01/23 06:15 04/01/23 06:15 04/01/23 06:15 Lab Results Blood Type / Crossmatch: Patient ABO/Rh AB Positive 03/30/23 Antibody Screen NEGATIVE 03/30/23 Complete Blood Count: No Data to Display Complete Metabolic Panel: No Data to Display Liver Function Panel: No Data to Display Coagulation Panel: 2 No Data to Display Cardiac Panel: No Data to Display Arterial Blood Gas: No Data to Display Venous Blood Gas: No Data to Display Pancreas Panel: No Data to Display Thyroid Panel: No Data to Display Infectious Disease: No Data to Display Blood Cultures: No Data to Display Toxicology Panel: No Data to Display Imaging and Studies Imaging and Studies Study information below may be from another EMR and interpreted by another provider. Please see original notes in EMR for more complete details. EKG Summary: Conclusion Sinus rhythm...normal P axis, V-rate 50- 99 Normal Electrocardiogram 08/16/22 Anesthesia Assessment and Plan Anesthesia History Personal History: No History of Anesthesia Complications Family History: No Family History of Anesthesia Complications Exercise Tolerance Exercise Tolerance: Metabolic Equivalents>4 Pertinent Negatives Pertinent Negatives: No Major Cardiovascular Symptoms or Complaints and No Major Pulmonary Symptoms or Complaints Cardiac & Pulmonary Exam Cardiac Exam: Normal S1/S2 Heart Sounds Pulmonary Exam: Clear Bilateral Breath Sounds Implantable Cardiac Device Does patient have a Pacemaker or an ICD?: No Airway Exam Known Difficult Airway: No Mallampati Class: 2 Mouth Opening: Normal (> 3cm) Thyromental Distance: Greater than 3 cm Neck Range of Motion: Full ROM Neck Circumference: Normal Teeth Condition: Normal Dentition ASA Classification ASA Score: ASA 2 Emergency Case?: No NPO Status NPO Status: NPO Clears >2 hours, Solids >8 hours Anesthesia Plan Resuscitation Status: Full Code Anesthesia Technique: General Anesthesia Airway Planned: Endotracheal Tube Monitors Used: Standard Monitors and SedLine
[2023-04-01] MEDS: Gabapentin 300 MG CAP 600 MG PO (07:01)
[2023-04-01] MEDS: Celecoxib 200 MG CAP PO (07:01)
[2023-04-01] MEDS: ceFAZolin 2 GM/50 ML BAG IVPB (07:58)
--- NOTE | 2023-04-01 09:04 | BOWEL_PTH ---
PATIENT: Jennifer Traore LOC: U#:[id number] AGE/SX: 67/F [facility]: Bret Diego MD : [id number] BED: A DIS: 04/04/2023 SPEC #: [id number] RECD: 04/01/23 12:46 STATUS: OTTONIEL REQ #: [id number] BREANNE: 04/01/23 09:[address]: Bret Diego DEPT: Surgical Specimen RECD BY: Conchis Hutson ENTERED: 04/01/23 12:47 SP TYPE: Bowel OTHR DR: Priscilla Brantley MD, DC Tissues: 1 - BOWEL RESECTION(OTHER) Procedures: IMMUNOPEROXIDASE STAIN GROSS AND MICRO LEVEL 5 Comments: [id number]
[2023-04-01] MEDS: Bupivacaine 0.25% Pres-Free 30 ML VIAL ×2 (09:24→09:46)
[2023-04-01] MEDS: Bupivacaine LIPOSOME/PF 133 MG/10 ML VIAL IJ (09:46)
--- NOTE | 2023-04-01 12:15 | W.ANESPOSTOP ---
Postoperative Evaluation Date, Time and Location Date Performed: 04/01/23 Time Performed: 10:55 Patient Location: PACU Vital Signs Most Recent Imported Vital Signs: Most Recent Vital Signs Temp Pulse Resp BP Pulse Ox 36.6 C 71 16 94/44 L 98 04/01/23 11:35 04/01/23 11:35 04/01/23 11:35 04/01/23 11:05 04/01/23 11:35 Pain Score Most Recent Pain Score: Most Recent Pain Score Pain Level 4 04/01/23 11:35 Assessment Mental Status: Arousable with meaningful communication Airway and Respiratory Function: Patent airway with normal (patient baseline) respiratory exam Cardiovascular Function: Hemodynamically Stable and Receiving care as an inpatient Hydration Status: Adequately Hydrated Nausea & Vomiting: No Nausea or Vomiting Pain: Pain is tolerable per patient Peripheral Nerve Block: Patient did not receive a nerve block
[2023-04-01] MEDS: Lactated Ringers 1,000 ML 75 ML IV (15:35)
[2023-04-01] MEDS: Heparin 5,000 UNITS/ML VIAL 5000 UNITS SC (21:44)
[2023-04-01] MEDS: Normal Saline Flush 10 ML SYR IV (21:46)
[2023-04-02] VITALS (11 sets, daily range): BP systolic 90–137; BP diastolic 54–83; PULSE 68–91; RESP 15–20; TEMP 36.5–37.4; O2SAT 86–96
[2023-04-02] MEDS: MORPHine 2 MG/ML SYR IVP (03:08)
[2023-04-02 06:48] LABS: HCT 33.6 % (36.0-46.0); HGB 11.5 g/dL (11.2-15.7); MCH 32.9 pg (27.0-33.0); MCHC 34.2 % (32.0-36.0); MCV 96 fL (80-95); Platelet Count 220 10^3/uL (130-400); RDW 13.3 % (11.7-14.6); RDW-SD 46.9 fL; WBC 10.92 10^3/uL (4.4-10.8)
[2023-04-02 08:01] LABS: Anion Gap 8.9 mmol/L (3-11); BUN 14 mg/dL (7-18); CO2 23.1 mmol/L (21.0-32.0); CREATININE 1.2 mg/dL (0.55-1.02); Calcium 8.8 mg/dL (8.5-10.1); Chloride 101 mmol/L (98-107); Glucose 156 mg/dL (74-106); Potassium 4.1 mmol/L (3.5-5.1); Sodium 133 mmol/L (136-145)
--- NOTE | 2023-04-02 08:53 | PDOC.CMIN ---
- If Service Date Differs Date of service: 04/02/23 Time of Service: 08:53 Care Management Initial Assess REASON FOR HOSPITALIZATION:: Colon Mass PAST MEDICAL HISTORY/PAST SURGICAL HISTORY:: All Active Problems: Anemia (Chronic), Degenerative joint disease of right knee (Acute), Injection 08/17/2022, Right knee pain (Acute), Status post total hip replacement, left (Acute 08/17/22), Alcohol intake above recommended sensible limits (Chronic 01/07/17), Diverticulosis of colon without diverticulitis (Chronic) - sigmoid colon, Elevated LFTs (Chronic 01/06/17), Elevated MCV (Chronic 01/06/17), Lichen planus (Chronic),. Low back pain radiating to left leg (Chronic 06/10/16), Patellofemoral arthritis of right knee (Chronic 09/12/17), Shoulder pain (Chronic 03/24/15), Diabetes mellitus (Chronic), Status post total hip replacement, right (Acute), Diarrhea (Acute), Encounter for annual physical exam (Acute), Encounter for screening colonoscopy (Acute), Hypertension (Chronic), and Osteoarthritis of left hip (Acute). Medical History: Achilles tendinitis of left lower extremity (09/11/15), Epicondylitis, History of ectopic - right, Hx of fracture of ankle,. Hx of hypoglycemia, Hx of spina bifida, States hx of Spina Bifida Occulta,. Hx of tension headache - 1 time event, Hx of transient ischemic attack (TIA), Pt. states she had a TIA when she was 22 that was control related Pt. states she has never had an recurrence, and does not f/u with a neurologist and states she never had to, Left foot pain (08/05/15), and. Trochanteric bursitis of right hip (09/11/15) - bilateral. Surgical History: H/O section x2, History of back surgery,. Microdisectomy, L5-S1. Pt. states nerves damage with numbness to left foot, History of bilateral tubal ligation, History of ectopic ,. History of open reduction and internal fixation (ORIF) procedure. left ankle with plates and screws present, Some hardware was removed,. History of total right hip replacement, Hx of appendectomy, Hx of section x 2, Hx of exploratory laparotomy, ectopic , S/P tonsillectomy, and Status post arthroscopy of right knee. PREVIOUS FUNCTIONAL STATUS/SOCIAL/FAMILY SUPPORTS:: Belinda lives in [place] with her Franklyn. She has two adult children: a daughter in [facility] and a son in [place], [place]. 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 She is independent at baseline and she names her and children as her supports. CURRENT FUNCTIONAL STATUS:: Belinda is lying in bed when CM meets with her. She is pleasant and easily engages in conversation. She states she had surgery yesterday and says she is feeling better. She hopes to be able to go home tomorrow. She met with Dr. Diego from [facility] this morning and says he is in agreement with this plan as long as she continues to do well. ADVANCE DIRECTIVES:: Appointment of a [facility] Care Agent on file; Franklyn Traore is [facility]. Has patient been provided with info about the portal/API?: Yes Did the patient sign up for the portal?: Yes (Previously enrolled) CODE STATUS:: Full Code INSURANCE COVERAGE / FINANCIAL ISSUES:: [facility] ([facility] supplement) and Medicare. CURRENT HOME/COMMUNITY SERVICES/EQUIPMENT:: No home/community services. Belinda has a walker in her basement but does not use it. She needed the walker post-hip replacement surgery a few years ago. PRIMARY CARE PHYSICIAN:: Priscilla Brantley MD POTENTIAL DISCHARGE NEEDS:: Follow up appointments with PCP and surgeon. PATIENT/FAMILY EDUCATION NEEDS:: Review of discharge instructions including medication, limitations and follow up plan of care; discuss Ask Me Three and self management. ANTICIPATED BARRIERS TO DISCHARGE:: None identified at this time. TRANSPORTATION:: Via private vehicle with . PLAN:: Belinda will likely discharge home with no services when medically cleared by provider. She will follow up with her PCP, surgeon, and plan of care as instructed. She will be transported home by her via private vehicle when ready. CM will continue to follow.
[2023-04-02] MEDS: Heparin 5,000 UNITS/ML VIAL 5000 UNITS SC ×2 (09:13→19:30)
[2023-04-02] MEDS: Losartan 50 MG TAB 100 MG PO (09:13)
[2023-04-02] MEDS: Omeprazole 20 MG CAPCR PO (09:14)
--- NOTE | 2023-04-02 12:02 | PGE_ITS ---
Date of Service Date of service: 04/02/23 Time of Service: 12:03 Assessment and Plan Assessment and plan (1) Tubular adenoma: Status: Acute Assessment and plan: Belinda is doing well after her right hemicolectomy. We will make available some nonsteroidal anti-inflammatories today if she needs them for discomfort. I will repeat a CBC and basic met tomorrow to make sure the anemia is stable, and to check on creatinine and electrolytes. Subjective Subjective Interval history since last seen: Belinda is doing great after open right hemicolectomy. She has been up and out of bed. She is tolerating some diet. She denies any nausea or vomiting. She had a small bowel movement, that seems most consistent with evacuation of previous prep. Otherwise not passing flatus yet. Exam GI Other: Abdomen is soft, mildly distended, and a little bit tympanitic. Bandages are all clean. She is not very tender. Objective Last Vital Signs Temp 98.1 F 04/02/23 11:25 Pulse 80 04/02/23 11:25 Resp 18 04/02/23 11:26 BP 113/57 L 04/02/23 11:25 Pulse Ox 93 04/02/23 11:26 Laboratory Results - last 24 hr 04/01/23 04/02/23 07:15 05:40 WBC 10.92 H RBC 3.50 L Hgb 11.5 Hct 33.6 L MCV 96 H MCH 32.9 MCHC 34.2 RDW 13.3 Plt Count 220 MPV 12.0 H Sodium 133 L Potassium 4.1 Chloride 101 Carbon Dioxide 23.1 Anion Gap 8.9 BUN 14 Creatinine 1.2 H Est GFR (CKD-EPI 2020) 49.00 Glucose 156 H Calcium 8.8 PAWSS Have you Been Recently Intoxicated or Drunk Within the Last 30 days?: No Have you Ever Experienced Previous Episodes of Alcohol Withdrawal?: No Have you ever Experienced Withdrawal Seizures?: No Have you ever Experienced Delirium Tremens(DT)s?: No Have you ever undergone Alcohol Rehabilitation Treatment (i.e, inpt ot outpatient treatment programs)?: No Have you ever Experienced Blackouts?: No Have you ever Combined Alcohol with other Downers within the last 90 days?: No Have you ever Combined Alcohol with any other Substance of Abuse during the last 90 days?: No Positive Blood Alcohol level on Presentation? [PCS.BAL]: No Evidence of Increased Autonomic Activity (i.e. HR>120, tremor, sweating, jennifer tation, nausea)?: No Result: 0 Time Spent with Patient Time Spent with Patient: 25-34 minutes Time was spent: preparing to see the patient(eg.review tests), ordering medications,tests, procedures and counseling the patient
[2023-04-02] MEDS: Ketorolac 15 MG/ML VIAL IVP ×2 (13:29→19:57)
[2023-04-02] MEDS: Normal Saline Flush 10 ML SYR (13:34)
--- NOTE | 2023-04-02 13:41 | NUR.NOTE ---
Patient's visits.Nursing Note:
--- NOTE | 2023-04-02 18:11 | NUR.NOTE ---
Report given to Valencia Disla RN. Patient's belongings collected by several RATE CLERK's and taken to room 207. Patient pleased with care in ICU and wanted to remain on the ICU but staffing prohibited same. Patient stable and looking for to discharge in the a.m. tomorrow.Nursing Note:
[2023-04-03 01:10] VITALS: BP 102/65
[2023-04-03 06:22] LABS: HCT 37.5 % (36.0-46.0); HGB 12.6 g/dL (11.2-15.7); MCH 32.2 pg (27.0-33.0); MCHC 33.6 % (32.0-36.0); MCV 96 fL (80-95); MPV 9.8 fL (8.0-11.0); Platelet Count 230 10^3/uL (130-400); RBC 3.91 10^6/uL (3.93-5.22); RDW 13.6 % (11.7-14.6); WBC 11.24 10^3/uL (4.4-10.8)
[2023-04-03 06:37] VITALS: BP 107/71; PULSE 88; RESP 19; TEMP 37.1; O2SAT 94
[2023-04-03 06:50] LABS: Anion Gap 10.8 mmol/L (3-11); BUN 21 mg/dL (7-18); CO2 21.2 mmol/L (21.0-32.0); CREATININE 1.3 mg/dL (0.55-1.02); Calcium 9.2 mg/dL (8.5-10.1); Chloride 100 mmol/L (98-107); Estimated GFR 44.51 (mL/min/1.73m2); Glucose 175 mg/dL (74-106); Potassium 4.3 mmol/L (3.5-5.1); Sodium 132 mmol/L (136-145)
[2023-04-03] MEDS: Omeprazole 20 MG CAPCR PO (08:09)
[2023-04-03] MEDS: Losartan 50 MG TAB 100 MG PO (08:10)
[2023-04-03] MEDS: Heparin 5,000 UNITS/ML VIAL 5000 UNITS SC ×2 (08:11→20:12)
[2023-04-03 11:42] VITALS: BP 125/80; PULSE 100; RESP 20; TEMP 36.6; O2SAT 92
--- NOTE | 2023-04-03 11:52 | PGE_ITS ---
Date of Service Date of service: 04/03/23 Time of Service: 11:54 Assessment and Plan Assessment and plan (1) S/P right hemicolectomy: Status: Acute Assessment and plan: I will give a 500 cc fluid bolus today for the slight elevation in her serum creatinine. Repeat CBC and add CRP tomorrow Requested switching over to Protonix from omeprazole, which I will order, and I will add Tums and Zofran if needed. I will also add some melatonin tonight to help initiate sleep. Subjective Subjective Interval history since last seen: Belinda complains of a little bit of dyspepsia today, with some sour brash type reflux. She also has a little increase in her abdominal pain. However, she has been up and moving around quite a bit. She is having some liquid bowel movements, that are starting to get back to some normal color. Exam GI Other: Abdomen is soft, and remains a little bit distended and tympanitic. However, she feels it is a little less so than yesterday. It seems about the same to me. Bandages are all clean and dry. Objective Last Vital Signs Temp 97.9 F 04/03/23 11:42 Pulse 100 H 04/03/23 11:42 Resp 20 04/03/23 11:42 BP 125/80 04/03/23 11:42 Pulse Ox 92 04/03/23 11:42 Laboratory Results - last 24 hr 04/03/23 04/03/23 06:06 06:06 WBC 11.24 H RBC 3.91 L Hgb 12.6 Hct 37.5 MCV 96 H MCH 32.2 MCHC 33.6 RDW 13.6 Plt Count 230 MPV 9.8 Sodium 132 L Potassium 4.3 Chloride 100 Carbon Dioxide 21.2 Anion Gap 10.8 BUN 21 H Creatinine 1.3 H Est GFR (CKD-EPI 2020) 44.51 Glucose 175 H Calcium 9.2 PAWSS Have you Been Recently Intoxicated or Drunk Within the Last 30 days?: No Have you Ever Experienced Previous Episodes of Alcohol Withdrawal?: No Have you ever Experienced Withdrawal Seizures?: No Have you ever Experienced Delirium Tremens(DT)s?: No Have you ever undergone Alcohol Rehabilitation Treatment (i.e, inpt ot outpatient treatment programs)?: No Have you ever Experienced Blackouts?: No Have you ever Combined Alcohol with other Downers within the last 90 days?: No Have you ever Combined Alcohol with any other Substance of Abuse during the last 90 days?: No Positive Blood Alcohol level on Presentation? [PCS.BAL]: No Evidence of Increased Autonomic Activity (i.e. HR>120, tremor, sweating, agitation, nausea)?: No Result: 0 Time Spent with Patient Time Spent with Patient: 25-34 minutes Time was spent: preparing to see the patient(eg.review tests), ordering m edications,tests, procedures and counseling the patient
[2023-04-03] MEDS: Lactated Ringers 500 ML IV (12:08)
[2023-04-03] MEDS: Calcium Carbonate *TUMS* 500 MG CHEW PO ×2 (12:18→18:31)
[2023-04-03 12:49] LABS: C-Reactive Protein 4.88 mg/dL (0.0-0.3)
[2023-04-03 14:51] VITALS: BP 115/70; PULSE 105; RESP 18; TEMP 37.5; O2SAT 96
[2023-04-03] MEDS: Ketorolac 15 MG/ML VIAL IVP ×2 (15:06→21:08)
[2023-04-03] MEDS: Normal Saline Flush 10 ML SYR IVP ×2 (15:06→21:08)
[2023-04-03 19:53] VITALS: BP 133/83; PULSE 102; RESP 16; TEMP 37.1; O2SAT 94
[2023-04-03] MEDS: Melatonin 3 MG TAB PO (21:08)
[2023-04-04 00:09] VITALS: BP 113/66; PULSE 90; RESP 18; TEMP 36.5; O2SAT 95
[2023-04-04] MEDS: Ondansetron 4 MG/2 ML VIAL IVP (02:28)
[2023-04-04] MEDS: Normal Saline Flush 10 ML SYR IVP (02:29)
[2023-04-04 03:45] VITALS: BP 121/73; PULSE 92; RESP 17; TEMP 36.9; O2SAT 96
[2023-04-04 06:44] LABS: HCT 39.9 % (36.0-46.0); HGB 13.4 g/dL (11.2-15.7); MCH 32.2 pg (27.0-33.0); MCHC 33.6 % (32.0-36.0); MCV 96 fL (80-95); MPV 10.2 fL (8.0-11.0); Platelet Count 287 10^3/uL (130-400); RBC 4.16 10^6/uL (3.93-5.22); RDW 13.3 % (11.7-14.6); RDW-SD 47.9 fL
[2023-04-04 07:14] LABS: Anion Gap 10.5 mmol/L (3-11); BUN 21 mg/dL (7-18); CO2 21.5 mmol/L (21.0-32.0); CREATININE 1.3 mg/dL (0.55-1.02); Calcium 9.7 mg/dL (8.5-10.1); Chloride 97 mmol/L (98-107); Estimated GFR 44.51 (mL/min/1.73m2); Glucose 176 mg/dL (74-106); Sodium 129 mmol/L (136-145)
--- NOTE | 2023-04-04 07:28 | W.PM.PROGNOT ---
Date of Service Date of service: 04/04/23 Time of Service: 07:28 Assessment and Plan Assessment and plan (1) S/P right hemicolectomy: Status: Acute Assessment and plan: CRP yesterday was only 4, and white blood cell count trend has been reassuring. I will repeat her labs today. If everything is normal, we can work to get her home today. Subjective Subjective Interval history since last seen: Belinda feels pretty good this morning. She was able to sleep better last night. She is more comfortable this morning. She did have an episode of nausea, and bilious emesis today. She felt better immediately afterwards. She also had a large bowel movement. Exam GI Other: Bandages are clean and dry. Abdomen is soft and less distended. She is less tympanitic today. Objective Last Vital Signs Temp 98.4 F 04/04/23 03:45 Pulse 92 H 04/04/23 03:45 Resp 17 04/04/23 03:45 BP 121/73 04/04/23 03:45 Pulse Ox 96 04/04/23 03:45 Laboratory Results - last 24 hr 04/03/23 04/04/23 06:06 06:07 WBC 11.10 H RBC 4.16 Hgb 13.4 Hct 39.9 MCV 96 H MCH 32.2 MCHC 33.6 RDW 13.3 Plt Count 287 MPV 10.2 C-Reactive Protein 4.88 H PAWSS Have you Been Recently Intoxicated or Drunk Within the Last 30 days?: No Have you Ever Experienced Previous Episodes of Alcohol Withdrawal?: No Have you ever Experienced Withdrawal Seizures?: No Have you ever Experienced Delirium Tremens(DT)s?: No Have you ever undergone Alcohol Rehabilitation Treatment (i.e, inpt ot outpatient treatment programs)?: No Have you ever Experienced Blackouts?: No Have you ever Combined Alcohol with other Downers within the last 90 days?: No Have you ever Combined Alcohol with any other Substance of Abuse during the last 90 days?: No Positive Blood Alcohol level on Presentation? [PCS.BAL]: No Evidence of Increased Autonomic Activity (i.e. HR>120, tremor, sweating, agitation, nausea)?: No Result: 0 Time Spent with Patient Time Spent with Patient: 25-34 minutes Time was spent: preparing to see the patient(eg.review tests), indepentently interpreting results and counseling the patient
[2023-04-04 07:30] VITALS: BP 105/68; PULSE 84; RESP 16; TEMP 36.7; O2SAT 96
[2023-04-04] MEDS: Heparin 5,000 UNITS/ML VIAL 5000 UNITS SC (07:44)
[2023-04-04] MEDS: Pantoprazole 20 MG TABCR PO (07:44)
[2023-04-04] MEDS: Losartan 50 MG TAB 100 MG PO (08:26)
--- NOTE | 2023-04-04 09:22 | PDOC.CMPRO ---
Date of service: 04/04/23 Time of Service: 09:24 Care Management Progress Note Progress Note Text Progress Note Text: S/O:Belinda was sitting up in a chair when CM met with her. She was smiling and engaged easily with CM. Belinda stated that she is feeling much better than she was last night. When CM asked her what happened, she explained that she had terrible heartburn last night then vomited this morning. She added that after vomiting she felt a lot better, and continues to do so. Belinda informed CM that she hopes to be able to go home soon unless there is evidence of a collection in her abdomen. Her provider has ordered additional tests which should help make that determination. In the meantime she is tolerating a liquid diet which is likely to be advanced later today. A: Belinda is a 67 year old woman admitted with a mass in her colon on 04/01/23 P:Belinda will likely discharge home with no services when medically cleared by provider.? She will follow up with her PCP, surgeon, and plan of care as instructed.? She will be transported home by her via private vehicle when ready.? CM will continue to follow.
[2023-04-04 11:00] VITALS: BP 118/77; PULSE 104; RESP 16; TEMP 37.3; O2SAT 97
--- NOTE | 2023-04-04 13:13 | DSE_ITS ---
Date of service: 04/04/23 Time of Service: 13:13 DS: Diagnosis Discharge Diagnosis (1) S/P right hemicolectomy: Status: Acute Discharge Plan Disposition Condition: Good Condition: Good Discharge Details Reason For Visit: Colon Mass Admit Date/Time: 04/01/23 06:13 Admit Provider: Bret Diego Attending Provider: Bret Diego Primary Care Provider: Priscilla Brantley [facility] Hospital Course Hospital Course: Belinda is a 67-year-old woman with a large tubular adenoma found on colonoscopy. It was not amenable to colonoscopic resection. Therefore, she underwent a hemicolectomy with primary anastomosis. She did well postoperatively, diet was advanced, and her labs were all reassuring. She was discharged home on the [facility] with outpatient follow-up scheduled Home Meds and New Rx's Prescriptions: Continued losartan 100 mg tablet 100 mg PO DAILY Qty: 90 5RF ibuprofen 600 mg tablet 600 mg PO TID PRN (Reason: pain) Qty: 100 1RF Discontinued polyethylene glycol 3350 17 gram/dose powder 238 g PO ONCE Qty: 238 0RF Rx Instructions: take per colonoscopy instructions bisacodyl [Dulcolax (bisacodyl)] 5 mg tablet,delayed release (DR/EC) 5 mg PO ONCE Qty: 8 0RF Rx Instructions: take per colonoscopy instructions neomycin 500 mg tablet 500 mg PO .COMPLEX Qty: 8 0RF Rx Instructions: 500 mg orally Per bowel surgery instructions; metronidazole 500 mg tablet 500 mg PO .COMPLEX Qty: 8 0RF Rx Instructions: 500 mg orally Per bowel surgery instructions; ondansetron HCl 8 mg tablet 8 mg PO Q12H Qty: 3 0RF Discharge Instructions Additional Instructions: Belinda, you are making a nice recovery from your right hemicolectomy. Like we talked about while you are in the hospital, I hope you have a good transition to home. You should be up and walking around every day, and feeling a little bit stronger day by day. Expect to have some abdominal discomfort, and it would be fine to use the ibuprofen to help treat that pain. If you need a little bit of Tylenol as well I think that would be very reasonable. If you find that the pain is more severe than you anticipated, please let me know, and we can provide another prescription. Please be mindful of your lifting, and strenuous activity across her torso. You can remove the 2 small Band-Aids, and leave the larger white suction dressing in place. You should shower at least once daily with warm soapy water and pat the incision sites dry. If you notice that the blinking light on the dressing changes from green to orange, please give us a call in the office and we can walk you through if you need to make any changes. We have made an appointment for you at 1 PM this upcoming Tuesday. We will remove the white dressing at that time. It is fine for you to resume your multivitamin. Call the office (or go directly to the emergency room after hours) if you notice any of the following: Develop chills (warm to touch), or if you have a thermometer and your temperature is above 101 Difficulty breathing or difficultly swallowing Persistent vomiting Any bleeding ? exceeding one tablespoon Referrals: Dina Tatum PA [PH[facility]ICI[facility] FINISHED GARMENT INSPECTOR] - (April 08 at 1 PM) Activity:: No heavy lifting Equipment/Supplies:: No Equipment Needed Diet:: As Tolerated Discharge Data Discharge Physician: Bret Diego DS: Summary Time Spent with Patient providing and/or coordinating discharge services: Less than 30 minutes Status at Discharge Functional status at discharge: independent ambulation Overall status at discharge: patient is progressing back to baseline Mental Status: mental status grossly normal Speech and Movement: speech and movement normal Mood: congruent mood Affect: normal affect Exam Const General: cooperative, healthy appearing and comfortable Orientation: alert, awake and oriented x3 Neck Neck: normal visual inspection and full ROM Cardio Rate: regular rate Rhythm: regular rhythm GI Inspection: normal to inspection and incision Palpation: soft and nontender Percussion: normal to percussion Other: Dressings are clean Extrem Right lower extremity: no edema Left lower extremity: no edema Psych Mental Status: mental status grossly normal Speech and Movement: speech and movement normal Mood: congruent mood Affect: normal affect DS: Data Vitals/I&O Vitals and I&O: Vital Signs Temperature 99.1 F 04/04/23 11:00 Temperature Source Tympanic 04/04/23 11:00 Pulse 104 H 04/04/23 11:00 Pulse Rhythm Regular 04/04/23 07:12 Pulse 68 04/02/23 00:00 Respiratory Rate 16 04/04/23 11:00 Respiratory Effort Normal 04/04/23 07:12 Respiratory Depth Normal 04/04/23 07:12 Respiratory Pattern Normal 04/04/23 07:12 Blood Pressure 118/77 04/04/23 11:00 Blood Pressure Mean 79 04/02/23 07:49 Blood Pressure Position Supine 04/01/23 15:30 Pulse Oximetry 97 04/04/23 11:00 Respiratory End-tidal CO2 27 04/01/23 11:05 Oxygen Delivery Method Room Air 04/04/23 11:00 Oxygen Flow Rate 0 04/04/23 11:00 Pain Level 0 04/04/23 11:00 Comment RN Notified 04/03/23 01:10 Intake & Output 04/03/23 04/04/23 04/04/23 23:59 11:59 23:59 Intake Total 1490 / 1490 500 / 500 Output Total 300 / 900 200 / 200 Balance 1190 / 590 300 / 300 Intake: IV 1000 / 1000 500 / 500 Oral 490 / 490 Output: Urine 300 / 600 100 / 100 Emesis 100 / 100 Other: Urine Color Yellow Yellow Urine Appearance Cloudy Clear Comment Emptied 125cc's from hat in toilet. Some BM mixed in. Stool Size Small Large Stool Characteristics Liquid Liquid Emesis Description Bile Voiding Methods Toilet Toilet Data Completed and Pending Labs on day of discharge: Labs from last 24 hours 04/04/23 04/04/23 06:07 06:07 WBC 11.10 H RBC 4.16 Hgb 13.4 Hct 39.9 MCV 96 H MCH 32.2 MCHC 33.6 RDW 13.3 Plt Count 287 MPV 10.2 Sodium 129 L Potassium 4.0 Chloride 97 L Carbon Dioxide 21.5 Anion Gap 10.5 BUN 21 H Creatinine 1.3 H Est GFR (CKD-EPI 2020) 44.51 Glucose 176 H Calcium 9.7 PFSH All Active Problems S/P right hemicolectomy (Acute) Alcohol intake above recommended sensible limits (Chronic 01/07/17) elevated GGT, LFT and MCV Diverticulosis of colon without diverticulitis (Chronic) sigmoid colon Elevated LFTs (Chronic 01/06/17) Elevated MCV (Chronic 01/06/17) Lichen planus (Chronic) Low back pain radiating to left leg (Chronic 06/10/16) Patellofemoral arthritis of right knee (Chronic 09/12/17) Shoulder pain (Chronic 03/24/15) Elevated blood pressure reading (Acute) Diabetes mellitus (Chronic) Status post total hip replacement, right (Acute) Diarrhea (Acute) Encounter for annual physical exam (Acute) Encounter for screening colonoscopy (Acute) Hypertension (Chronic) Osteoarthritis of left hip (Acute) Anemia (Chronic) Status post total hip replacement, left (Acute 08/17/22) Right knee pain (Acute) Degenerative joint disease of right knee (Acute) Injection 08/17/2022 Anemia (Chronic) Chronic iron deficiency anemia (Acute) Fatty liver (Acute) Cirrhosis (Acute) Screening for colon cancer (Acute) Medical History Achilles tendinitis of left lower extremity (09/11/15) Diverticulitis was in ER 11/2022 Epicondylitis History of ectopic right Hx of fracture of ankle Hx of hypoglycemia Hx of spina bifida States hx of Spina Bifida Occulta Hx of tension headache 1 time event Hx of transient ischemic attack (TIA) Pt. states she had a TIA when she was 22 that was control related Pt. states she has never had an recurrence, and does not f/u with a neurologist and states she never had to. Left foot pain (08/05/15) Trochanteric bursitis of right hip (09/11/15) bilateral Tubular adenoma Surgical History H/O section x2 History of back surgery Microdisectomy, L5-S1. Pt. states nerves damage with numbness to left foot. History of bilateral tubal ligation History of ectopic History of left hip replacement bilat History of open reduction and internal fixation (ORIF) procedure left ankle with plates and screws present Some hardware was removed History of total right hip replacement Hx of appendectomy Hx of section x 2 Hx of exploratory laparotomy ectopic S/P tonsillectomy Status post arthroscopy of right knee Family History Mother , 54 Uterine cancer Colon cancer Father , 80 Prostate cancer Alcohol abuse Daughter Diabetes Depression Sister No problems noted. Sister No problems noted. Brother No problems noted. Son No problems noted. Brother Depression Social History Smoking/Tobacco Use Status: Never Second Hand Exposure: Yes Smoking risk assessment performed?: Yes Alcohol Intake: current Alcohol Intake frequency: a few times a week Alcohol type: wine Details: Recently stopped ETOH use since Drug use: Rarely Substance use type: marijuana Caregiver/Support person: No Household members: spouse Housing: house Communication Needs: None Do you need help understanding health information?: Never Pets and animals: No Sexually active: Yes Do you think of yourself as: straight/heterosexual Current gender identity: female What is your relationship status?: How often do you talk on the phone with friends or family?: decline to answer How often do you get together with friends or relatives?: decline to answer How often do you attend islam or sabianist services?: decline to answer Do you belong to any clubs or organized social groups?: decline to answer Panel score (0-1 are the most socially isolated patients): 1 What type of physical activity do you participate in: decline to answer Duration: decline to answer Frequency: decline to answer Niru/Mandaeism: Gnosticism Special niru needs: No Seatbelt use: always 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
== END 2023-04-04 14:01 | disposition home or self-care (01) | DRG 331 ==
LOC: PDS 11:30 → ICU 11:31 → MS 04-02 18:05
PROVIDERS: Admitting Provider Surgery; PCP Family Medicine; Visit Provider Surgery
PROC: 0DTF0ZZ Resection of Right Large Intestine, Open Approach (ICD-10-PCS; CPT 44140; principal; 2023-04-01 07:30)
DX: D12.0 Benign neoplasm of cecum (principal); K57.30 Diverticulosis of large intestine without perforation or abscess without bleeding; M54.50 Low back pain, unspecified; E11.9 Type 2 diabetes mellitus without complications; Z96.641 Presence of right artificial hip joint; I10 Essential (primary) hypertension; M16.12 Unilateral primary osteoarthritis, left hip; M17.11 Unilateral primary osteoarthritis, right knee; D50.9 Iron deficiency anemia, unspecified; K74.60 Unspecified cirrhosis of liver; Z86.73 Personal history of transient ischemic attack (TIA), and cerebral infarction without residual deficits; Q76.0 Spina bifida occulta
CPT/HCPCS: 44140; 36415; 80048; 85027; 86140; 88307; 88361; J0690; J1100; J1644; J1885; J2250; J2270; J2405; J2704

== ENCOUNTER → 2023-04-08 12:54 | Outpatient (BNVA) | payer MEDICARE, BC, SELFPAY | PROVIDERS: PCP Family Medicine; Referring Provider Family Medicine; Visit Provider Physical Therapy Assistant | DX: Z48.815 Encounter for surgical aftercare following surgery on the digestive system (principal); Z90.49 Acquired absence of other specified parts of digestive tract ==

== ENCOUNTER → 2023-04-13 07:55 | Outpatient (BNVA) | payer MEDICARE, BC, SELFPAY | PROVIDERS: PCP Family Medicine; Referring Provider Family Medicine; Visit Provider Surgery | DX: Z48.815 Encounter for surgical aftercare following surgery on the digestive system (principal); C18.9 Malignant neoplasm of colon, unspecified ==

== ENCOUNTER 2023-04-22 08:02 | Day surgery (SDC) | payer MEDICARE, BC, SELFPAY ==
--- NOTE | 2023-04-21 19:05 | PDOC.DSDIS_ITS ---
Date of service: 04/22/23 Time of Service: 11:49 Discharge Plan Disposition Patient Disposition: Home Condition: Good Discharge Details Reason For Visit: Port-a-cath insertion Attending Provider: Bret Diego Primary Care Provider: Priscilla Brantley Home Meds and New Rx's Prescriptions: Continued losartan 100 mg tablet 50 mg PO DAILY Patient Comments: 04/13/23 pt currently taking 1/2 tab due to low BP, states she has done this in the past. Tl,RN ibuprofen 600 mg tablet 600 mg PO TID PRN (Reason: pain) Qty: 100 1RF Patient Comments: 04/22/23 reports over a week since last taking med Discharge Instructions Instructions: Implanted Venous Access Port (GEN), How to Care for Your Implanted Venous Access Port (GEN) Additional Instructions: Belinda, we were able to insert the Port-A-Cath without any difficulty today. Demi bernardo we discussed in the office, the incisions are dressed with skin glue. You can shower with regular soapy water as soon as tonight if you would like. Your shoulder and chest wall may be a little bit sore over the next 48 to 72 hours, but there are no specific restrictions. Feel free to do what ever you like. Please notify me if you see any changes in the skin like bright red discoloration, or drainage. If you have any questions at all, please do not hesitate to call. Activity:: Activity as Tolerated Shower/Bathe:: 24 hours Diet:: As Tolerated Discharge Orders Discharge Orders: Discharge Order (Routine); Ordered 04/21/23 Ordered By: Bret Diego DS: Diagnosis Discharge Diagnosis (1) Colon cancer: Status: Chronic Asessment and Plan: No Port-A-Cath placed without difficulty. We will follow-up with [facility], and staging CAT scans, with referral to [facility] oncology.
--- NOTE | 2023-04-21 19:06 | W.PM.OP ---
Date of service: 04/22/23 Time of Service: 11:52 Operative Note Operative Note DATE OF PROCEDURE: 04/22/23 PRE-OP DIAGNOSIS: Colon cancer POST-OP DIAGNOSIS: same PROCEDURE: port-a-cath insertion SURGEON: Bret Diego REAL ESTATE PARALEGAL: Dina Tatum ANESTHESIA TYPE: Local By Surgeon and MAC Refer to Anesthesia Record ESTIMATED BLOOD LOSS: 5 PATHOLOGY: none sent COMPLICATIONS: None Patient was transported to: same day Patient's condition: stable Implants: 8 [employer] [employer] PowerPort Indications: Belinda is a 67-year-old woman with a new diagnosis of stage III colon cancer. She is undergoing insertion of a subcutaneous PowerPort for chemotherapy Procedure Description: After the initiation of anesthesia, I prepped and draped the left neck and chest wall in the usual fashion. Next, I anesthetized the trajectory of the left subclavian vein approach. Then, with the assistance of real-time ultrasonography, I advanced the needle into the left axillary vein in the area of the axilla subclavian junction. Guidewire was then advanced through the needle, and position was confirmed with fluoroscopy. Initially, the guidewire appeared to advance into the right subclavian system. Under fluoroscopy, the wire was gently backed out, and then advanced back down to the atriocaval junction. Again, with real-time ultrasonography, I asked the introducer dilator set from a [employer] injectable kit over the guidewire maintaining the appropriate position at the atriocaval junction once this was complete, I estimated the measurement of the Port-A-Cath catheter again with the fluoroscope. Enough length was maintained to ensure appropriate position and a left anterior chest wall pocket. Once this was complete, I anesthetized the left chest wall using local anesthetic to establish field block. Made a small skin incision and dissected out a pocket superficial to the pectoralis muscle. Once this was complete, the catheter was advanced from the pocket site up to the percutaneous access site by way of a tunneling device. The distal end of the catheter was then removed from the tunneler, and it was advanced into the introducer sheath. The peel-away introducer was then removed with gentle pressure on the catheter to ensure appropriate positioning. Once this was complete, the catheter was trimmed to fit, and the Port-A-Cath access device was attached according to the try on baster's instructions. The Port-A-Cath was then accessed with a Mera needle, and withdrew blood without any difficulty. Catheter was flushed with saline followed by instillation of heparin. Once this was complete, the Port-A-Cath access was secured down to the left chest wall with interrupted Prolene sutures. The skin was closed with running subcuticular stitches, and the percutaneous access site, as well as the incision were closed with skin affix. Patient was awoken from her anesthetic and transferred to the recovery unit
[2023-04-22 08:20] VITALS: BP 118/68; PULSE 85; RESP 16; TEMP 36.7; O2SAT 99
[2023-04-22] MEDS: Lactated Ringers 1,000 ML 80 ML IV (09:14)
--- NOTE | 2023-04-22 09:17 | ANES.PREOP_ITS ---
General Info Date of Service Date Performed: 04/22/23 Height: 5 ft 7.5 in Weight: 70 kg Body Mass Index (BMI): 23.8 Surgical Procedure: Operation Date: 04/22/23 09:40 Proposed Procedure Side Surgeon p Port-A-Cath Placement Bret Diego MD Meds Allergies and Home Medications Allergies Allergy/AdvReac Type Severity Reaction Status Date / Time amoxicillin trihydrate AdvReac Intermediate itching Verified 04/22/23 08:28 [From Augmentin] and swelling of palms and soles of feet potassium clavulanate AdvReac Intermediate itching Verified 04/22/23 08:28 [From Augmentin] and swelling of palms and soles of feet Home Medication Medication Instructions Recorded ibuprofen 600 mg tablet 600 mg PO TID PRN pain #100 tabs 08/17/22 losartan 100 mg tablet 50 mg PO DAILY 04/13/23 Current Visit Medications: Current Medications Generic Name Dose Route Start Last Admin Trade Name Freq PRN Reason Stop Dose Admin Acetaminophen 1,000 mg 04/22/23 06:00 Acetaminophen 500 Mg Tab PO 04/22/23 23:59 PREOP [facility] Ringer's Solution 1,000 mls @ 80 mls/hr 04/22/23 06:00 IV 04/22/23 23:59 INFUSION [facility] IV Miscellaneous Supplies 1 each 04/22/23 06:00 Iv Access IV 04/22/23 23:59 DIRECTED REBEKAH Morphine Sulfate 2 mg 04/21/23 19:07 Morphine 4 Mg/Ml Syr IVP 05/21/23 19:06 Q1H PRN PRN Sodium Chloride 0 ml 04/22/23 06:00 Normal Saline Flush 10 Ml Syr IV 04/22/23 23:59 PRN PRN Sodium Chloride 0 ml 04/22/23 06:00 Normal Saline 10 Ml Vial IJ 04/22/23 23:59 DIRECTED PRN Sterile Water 0 ml 04/22/23 06:00 Water,Injection,Sterile 10 Ml Vial IJ 04/22/23 23:59 DIRECTED PRN Tramadol HCl 50 mg 04/21/23 19:07 Tramadol 50 Mg Tab PO 05/21/23 19:06 Q6H PRN PRN Pain PFSH Active Problems Active Problems: Problem Status Onset Code Colon cancer C18.9 S/P right hemicolectomy Z90.49 Alcohol intake above recommended sensible limits 01/07/17 Z72.89 Diverticulosis of colon without diverticulitis K57.30 Elevated LFTs 01/06/17 R94.5 Elevated MCV 01/06/17 R71.8 Lichen planus L43.9 Low back pain radiating to left leg 06/10/16 M54.5, M79.605 Patellofemoral arthritis of right knee 09/12/17 M17.11 Shoulder pain 03/24/15 M25.519 Elevated blood pressure reading R03.0 Diabetes mellitus E11.9 Status post total hip replacement, right Z96.641 Diarrhea R19.7 Encounter for annual physical exam Z00.00 Encounter for screening colonoscopy Z12.11 Hypertension I10 Osteoarthritis of left hip M16.12 Anemia D64.9 Status post total hip replacement, left 08/17/22 Z96.642 Right knee pain M25.561 Degenerative joint disease of right knee M17.11 Anemia D64.9 Chronic iron deficiency anemia D50.9 Fatty liver K76.0 Cirrhosis K74.60 Screening for colon cancer Z12.11 Medical History Medical History Achilles tendinitis of left lower extremity (09/11/15) Diverticulitis was in ER 11/2022 Epicondylitis History of ectopic right Hx of fracture of ankle Hx of hypoglycemia Hx of spina bifida States hx of Spina Bifida Occulta Hx of tension headache 1 time event Hx of transient ischemic attack (TIA) Pt. states she had a TIA when she was 22 that was control related Pt. states she has never had an recurrence, and does not f/u with a neurologist and states she never had to. Left foot pain (08/05/15) Trochanteric bursitis of right hip (09/11/15) bilateral Tubular adenoma Surgical History Surgical History H/O section x2 History of back surgery Microdisectomy, L5-S1. Pt. states nerves damage with numbness to left foot. History of bilateral tubal ligation History of ectopic History of left hip replacement bilat History of open reduction and internal fixation (ORIF) procedure left ankle with plates and screws present Some hardware was removed History of total right hip replacement Hx of appendectomy Hx of section x 2 Hx of exploratory laparotomy ectopic S/P tonsillectomy Status post arthroscopy of right knee Tobacco Smoking/Tobacco Use Status: Never Passive smoking exposure: Yes Second hand exposure: Yes Alcohol Alcohol Intake: former Details: Recently stopped ETOH use since Substance Use Substance use: Rarely Substance use type: marijuana Vital Signs and Lab Results Vital Signs Most Recent Vital Signs in EMR: Most Recent Vital Signs Temp Pulse Resp BP Pulse Ox 36.7 C 85 16 118/68 99 04/22/23 08:20 04/22/23 08:20 04/22/23 08:20 04/22/23 08:20 04/22/23 08:20 Lab Results Blood Type / Crossmatch: Patient ABO/Rh AB Positive 03/30/23 Antibody Screen NEGATIVE 03/30/23 Complete Blood Count: White Blood Count 11.10 10^3/uL (4.4-10.8) H 04/04/23 06:07 Red Blood Count 4.16 10^6/uL (3.93-5.22) 04/04/23 06:07 Hemoglobin 13.4 g/dL (11.2-15.7) 04/04/23 06:07 Hematocrit 39.9 % (36.0-46.0) 04/04/23 06:07 Platelet Count 287 10^3/uL (130-400) 04/04/23 06:07 Complete Metabolic Panel: Sodium 129 mmol/L (136-145) L 04/04/23 06:07 Potassium 4.0 mmol/L (3.5-5.1) 04/04/23 06:07 Chloride 97 mmol/L (98-107) L 04/04/23 06:07 Carbon Dioxide 21.5 mmol/L (21.0-32.0) 04/04/23 06:07 BUN 21 mg/dL (7-18) H 04/04/23 06:07 Creatinine 1.3 mg/dL (0.55-1.02) H 04/04/23 06:07 Est GFR (CKD-EPI 2020) 44.51 (mL/min/1.73m2) 04/04/23 06:07 Calcium 9.7 mg/dL (8.5-10.1) 04/04/23 06:07 Glucose 176 mg/dL (74-106) H 04/04/23 06:07 C-Reactive Protein 4.88 mg/dL (0.0-0.3) H 04/03/23 06:06 Liver Function Panel: No Data to Display Coagulation Panel: No Data to Display Cardiac Panel: No Data to Display Arterial Blood Gas: No Data to Display Venous Blood Gas: No Data to Display Pancreas Panel: No Data to Display Thyroid Panel: No Data to Display Infectious Disease: No Data to Display Blood Cultures: No Data to Display Toxicology Panel: No Data to Display Imaging and Studies Imaging and Studies Study information below may be from another EMR and interpreted by another provider. Please see original notes in EMR for more complete details. EKG Summary: Conclusion Sinus rhythm...normal P axis, V-rate 50- 99 Normal Electrocardiogram 08/16/22 Anesthesia Assessment and Plan Anesthesia History Personal History: No History of Anesthesia Complications Family History: No Family History of Anesthesia Complications Exercise Tolerance Exercise Tolerance: Metabolic Equivalents>4 Pertinent Negatives Pertinent Negatives: No Symptoms of GERD Cardiac & Pulmonary Exam Cardiac Exam: Normal S1/S2 Heart Sounds Pulmonary Exam: Clear Bilateral Breath Sounds Implantable Cardiac Device Does patient have a Pacemaker or an ICD?: No Airway Exam Known Difficult Airway: No Mallampati Class: 2 Mouth Opening: Normal (> 3cm) Thyromental Distance: Greater than 3 cm Neck Range of Motion: Full ROM Neck Circumference: Normal Teeth Condition: Normal Dentition ASA Classification ASA Score: ASA 2 Emergency Case?: No NPO Status NPO Status: NPO Clears >2 hours, Solids >8 hours Anesthesia Plan Resuscitation Status: Full Code Anesthesia Technique: General Anesthesia Airway Planned: Natural Airway Monitors Used: Standard Monitors
[2023-04-22 09:18] VITALS: BMI 23.8
[2023-04-22] MEDS: ceFAZolin 2 GM/50 ML BAG IVPB (11:12)
[2023-04-22] MEDS: Heparin 5,000 UNITS/ML VIAL 5000 UNITS (11:20)
--- NOTE | 2023-04-22 11:25 | DI.RAD_ITS ---
Exam(s) RF LINE PLACEMENT OR EXAM: RF LINE PLACEMENT OR CLINICAL HISTORY: SURGERY TECHNIQUE: 2D and realtime digital imaging was performed. CONTRAST MATERIAL: Refer to procedure report. COMPARISON: No exams were available for comparison FINDINGS: Fluoroscopy was provided for Dr. Bret Diego in the OR. Please refer to the procedure report for co mplete details. Ka,r=1.01 mGy IMPRESSION: RADIATION DOSE DELIVERED:
[2023-04-22 11:51] VITALS: BP 111/60; PULSE 78; RESP 18; TEMP 36.4; O2SAT 98
--- NOTE | 2023-04-22 12:09 | W.ANESPOSTOP ---
Postoperative Evaluation Date, Time and Location Date Performed: 04/22/23 Time Performed: 12:09 Patient Location: Day Surgery Unit Vital Signs Most Recent Imported Vital Signs: Most Recent Vital Signs Temp Pulse Resp BP Pulse Ox 36.7 C 85 16 118/68 99 04/22/23 08:20 04/22/23 08:20 04/22/23 08:20 04/22/23 08:20 04/22/23 08:20 Pain Score Most Recent Pain Score: Most Recent Pain Score Pain Level 1 04/22/23 08:20 Assessment Mental Status: Awake (Alert & Oriented to Patient Baseline) Airway and Respiratory Function: Patent airway with normal (patient baseline) respiratory exam Cardiovascular Function: Hemodynamically Stable Hydration Status: Adequately Hydrated Nausea & Vomiting: No Nausea or Vomiting Pain: Pt. Denies Any Pain Peripheral Nerve Block: Patient did not receive a nerve block
[2023-04-22 12:30] VITALS: BP 102/60; PULSE 78; RESP 17; TEMP 36.5; O2SAT 99
[2023-04-22 12:34] LABS: CREATININE 1.1 mg/dL (0.55-1.02); Estimated GFR 54.39 (mL/min/1.73m2)
[2023-04-25 08:50] LABS: CEA 40.6 ng/mL (See Note)
== END 2023-04-22 13:00 | disposition home or self-care (01) ==
PROVIDERS: PCP Family Medicine; Visit Provider Surgery
PROC: (CPT 36561; principal; 2023-04-22 09:30)
DX: C18.9 Malignant neoplasm of colon, unspecified; E11.9 Type 2 diabetes mellitus without complications; K74.60 Unspecified cirrhosis of liver
CPT/HCPCS: 36561; 36415; 77001; 82378; 82565; C1788; J0690; J1100; J1644; J2001; J2250; J2405; J2704; J3010

== ENCOUNTER → 2023-04-27 09:17 | Outpatient (BNVA) | payer MEDICARE, BC, SELFPAY | PROVIDERS: PCP Family Medicine; Referring Provider Family Medicine; Visit Provider Surgery | DX: Z48.817 Encounter for surgical aftercare following surgery on the skin and subcutaneous tissue (principal) ==

== ENCOUNTER 2023-05-06 02:06 | Outpatient (CLI) | payer MEDICARE, BC, SELFPAY ==
[2023-05-06 12:31] LABS: Abs Immature Grans 0.03 10^3/uL (0.0-0.06); Absolute Basophil Count 0.04 10^3/uL (0.0-0.2); Absolute Lymphocyte Count 2.43 10^3/uL (1.2-3.4); Absolute Monocyte Count 0.89 10^3/uL (0.1-0.8); Absolute Neutrophil Count 4.92 10^3/uL (1.2-6.7); Basophils % 0.5; Eosinophils % 1.2; HCT 35.3 % (36.0-46.0); HGB 11.6 g/dL (11.2-15.7); Immature Grans % 0.4; Lymphocytes % 28.9; MCH 31.2 pg (27.0-33.0); MCHC 32.9 % (32.0-36.0); MCV 95 fL (80-95); MPV 9.3 fL (8.0-11.0); Monocytes % 10.6; Neutrophils % 58.4; Platelet Count 276 10^3/uL (130-400); RBC 3.72 10^6/uL (3.93-5.22); RDW 13.6 % (11.7-14.6); RDW-SD 47.2 fL; WBC 8.41 10^3/uL (4.4-10.8)
[2023-05-06 13:27] LABS: ALT 37 U/L (14-59); AST 27 U/L (15-37); Albumin 3.3 g/dL (3.4-5.0); Alkaline Phosphatase 253 U/L (46-116); Anion Gap 9.4 mmol/L (3-11); BUN 13 mg/dL (7-18); Bilirubin, Total 0.5 mg/dL (0.2-1.0); CO2 26.6 mmol/L (21.0-32.0); Calcium 9.4 mg/dL (8.5-10.1); Chloride 101 mmol/L (98-107); Estimated GFR 60.98 (mL/min/1.73m2); Glucose 134 mg/dL (74-106); Sodium 137 mmol/L (136-145); Total Protein 7.9 g/dL (6.4-8.2)
[2023-05-06 22:27] LABS: CEA 15.2 ng/mL (See Note)
[2023-05-10 09:52] LABS: DPYD Phenotype Normal metabolizer
== END 2023-05-06 02:07 | disposition home or self-care (01) ==
PROVIDERS: PCP Family Medicine; Visit Provider Internal Medicine Hematology & Oncology
DX: C18.2 Malignant neoplasm of ascending colon (principal)
CPT/HCPCS: 36415; 80053; 81232; 82378; 85025

== ENCOUNTER 2023-05-11 02:24 | Outpatient (CLI) | payer MEDICARE, BC, SELFPAY ==
--- NOTE | 2023-05-11 07:30 | DI.CT_ITS ---
Exam(s) CT CHEST/ABD/PEL W EXAM: CT CHEST/ABD/PEL W CLINICAL HISTORY: new colon cancer,c18.9. TECHNIQUE: Imaging Protocol: Axial computed tomography images with coronal and sagittal reformatted images were created and reviewed CONTRAST MATERIAL: Intravenous: Omnipaque 350 Contrast volume:100 ml Oral: None COMPARISON: CT CT ABDOMEN PELVIS W from 12/17/2022 FINDINGS: CHEST: LUNGS: No infiltrates nor pleural effusions. There are no metastatic appearing nodules in either elva g field.. No findings in trachea and mainstem bronchi.. MEDIASTINUM: There is no hilar nor mediastinal adenopathy. Visualized thyroid unremarkable. CARDIAC: Heart size is normal. There is no pericardial effusion.Caliber of the thoracic aorta is wit hin normal limits. OSSEOUS: No significant osseous lesions.No fractures.. ABDOMEN: There is a small amount of perihepatic ascites now evident. LIVER: Liver again appears cirrhotic. Subtle hypodensity in the dome the liver measuring 1 cm by 1 c m is again noted, unchanged. Doubtful for metastatic lesion. There are no dilated intrahepatic duct s. GALLBLADDER/BILIARY: Tiny calcification noted in the gallbladder which may be a calculus. No obvious evidence of acute cholecystitis. CBD is not dilated. PANCREAS: No evidence of pancreatic mass nor dilatation of the pancreatic duct. SPLEEN: Spleen is not enlarged. There are no intrasplenic lesions. Splenic and portal veins are shah nt. ADRENALS: Right adrenal gland unremarkable. There is nodular density in the left adrenal gland, unch anged, measuring 1.2 x 1.3 cm and probably a small adenoma. KIDNEYS: No calculi nor hydronephrosis. No solid renal masses. No cysts evident. ABDOMINAL AORTA: Abdominal aorta is not enlarged. LYMPH NODES: There is no retroperitoneal nor paraaortic adenopathy. ABDOMINAL WALL: No evidence of significant anterior abdominal wall nor inguinal hernia. GI: There is evidence of partial right hemicolectomy. No evidence of small-bowel obstruction. Oral contrast is passed into the remaining colon. There is extensive sigmoid diverticulosis again noted. No evidence of obvious acute diverticulitis. Abundant beam hardening artifact from the bilateral hip prostheses. PELVIS: LYMPH NODES: There is no intrapelvic nor inguinal adenopathy. GI: Appendix surgically absent.Abundant sigmoid diverticulosis. No obvious acute diverticulitis. URINARY BLADDER: Urinary bladder is mostly obscured by beam hardening artifact from bilateral hip pro stheses. REPRODUCTIVE: Endometrium appears thickened for this age group. Should be further studied with ultra sound. No obvious adnexal masses although partially obscured by hip prostheses. No obvious free flu id. OSSEOUS: Bilateral hip prostheses. No fractures. No significant osseous lesions identified. Advanced disc space narrowing L5-S1. IMPRESSION: 1. There is evidence of previous partial right colectomy. There is no bowel obstruction nor evidence of abscess but there is a small amount of ascites. This, however, may be related to the cirrhotic a ppearing liver more so than the right abdominal anastomosis. 2. No intrathoracic metastatic disease evident. 3. Thickened endometrium for this age group. This should be further studied with ultrasound to deter mine if endometrial biopsy is warranted. 4. Urinary bladder and adnexal regions are obscured by beam hardening artifact from the bilateral hip prostheses. 5. Extensive sigmoid diverticulosis but no obvious acute diverticulitis. Other findings as above. RADIATION DOSE DELIVERED: 1,602.49mGy.cm Total DLP DATA REPOSITORY: All CT scans at this facility are submitted to the National Radiology Data Registry (NRDR) Dose Index Registry (DIR) with the [employer] (ACR). RADIATION OPTIMIZATION: All CT scans at this facility use at least one of these dose optimization te chniques: automated exposure control; mA and/or kV adjustment per patient size (includes targeted exa ms where dose is matched to clinical indication); or iterative reconstruction.
[2023-05-11] MEDS: Barium Sulfate 2% W/V-Berry Smoothie 450 ML BTL PO ×2 (08:01→08:02)
[2023-05-11] MEDS: Omnipaque 350 MG/ML 500 ML BTL-Imaging package IJ (09:42)
[2023-05-11] MEDS: Normal Saline - Diluent 50 ML VIAL IJ (09:44)
== END 2023-05-11 02:44 ==
LOC: DI 02:25
PROVIDERS: PCP Family Medicine; Visit Provider Surgery
DX: Z96.643 Presence of artificial hip joint, bilateral; K57.30 Diverticulosis of large intestine without perforation or abscess without bleeding; C18.9 Malignant neoplasm of colon, unspecified; R93.5 Abnormal findings on diagnostic imaging of other abdominal regions, including retroperitoneum
CPT/HCPCS: 74177; 96523; 71260

== ENCOUNTER 2023-05-16 01:23 | Outpatient (CLI) | payer MEDICARE, BC, SELFPAY ==
--- NOTE | 2023-05-16 08:30 | DI.US_ITS ---
Exam(s) US PELVIS TRANSVAGINAL EXAM: US PELVIS TRANSVAGINAL CLINICAL HISTORY: abnl CT - increased endometrial strip, R93.5 TECHNIQUE: Transabdominal and transvaginal imaging was performed using standard protocol. COMPARISON: CT CT ABDOMEN PELVIS W from 12/17/[address] CHEST/ABD/PEL W from 05/11/2023 FINDINGS: UTERUS: Anteverted. 8.5 x 3.5 x 3.7 cm Endometrium: Large amount of fluid within the endometrial and endocervical canals. Exophytic polyp m easuring 5 millimeters. Myometrium: Unremarkable. Cervix: Unremarkable. OVARIES: Right: Cyst or mass: None. Left: Not visualized on this exam. Located directly adjacent to sigmoid colon on CT. CUL-DE-SAC: Free fluid: None. IMPRESSION: Large amount of fluid within the endometrial endocervical canals. 5 millimeter endometrial polyp. Left ovary not visualized. DATA REPOSITORY:
== END 2023-05-16 01:43 ==
LOC: DI 01:24
PROVIDERS: PCP Family Medicine; Visit Provider Family Medicine
DX: M48.02 Spinal stenosis, cervical region (principal); N84.0 Polyp of corpus uteri; R93.5 Abnormal findings on diagnostic imaging of other abdominal regions, including retroperitoneum
CPT/HCPCS: 76830; 76856

== ENCOUNTER 2023-05-27 00:36 | Outpatient (RCR) | payer MEDICARE, BC, SELFPAY ==
[2023-05-11] MEDS: Normal Saline Flush 10 ML SYR IVP (08:34)
[2023-05-11] MEDS: Heparin 500 UNITS/5 ML SYRINGE IV (08:35)
[2023-05-15] MEDS: Normal Saline Flush 10 ML SYR IVP (11:37)
[2023-05-15] MEDS: Heparin 500 UNITS/5 ML SYRINGE IV (11:37)
[2023-05-27] MEDS: Normal Saline Flush 10 ML SYR IVP (08:18)
[2023-05-27 08:28] LABS: Absolute Basophil Count 0.03 10^3/uL (0.0-0.2); Absolute Eosinophil Count 0.08 10^3/uL (0.0-0.7); Absolute Lymphocyte Count 1.52 10^3/uL (1.2-3.4); Absolute Monocyte Count 0.49 10^3/uL (0.1-0.8); Basophils % 1.2; Eosinophils % 3.1; HCT 31.8 % (36.0-46.0); HGB 10.6 g/dL (11.2-15.7); Lymphocytes % 59.8; MCH 31.7 pg (27.0-33.0); MCHC 33.3 % (32.0-36.0); MCV 95 fL (80-95); MPV 9.5 fL (8.0-11.0); Monocytes % 19.3; Neutrophils % 16.6; Platelet Count 174 10^3/uL (130-400); RBC 3.34 10^6/uL (3.93-5.22); RDW 13.5 % (11.7-14.6); RDW-SD 47.2 fL; WBC 2.54 10^3/uL (4.4-10.8)
[2023-05-27 08:33] LABS: Absolute Neutrophil Count 0.42 10^3/uL (1.2-6.7)
[2023-05-27 08:43] LABS: Diff Comment Diff Reviewed
[2023-05-27 08:54] LABS: ALT 39 U/L (14-59); AST 27 U/L (15-37); Albumin 3.1 g/dL (3.4-5.0); Alkaline Phosphatase 196 U/L (46-116); Anion Gap 12.9 mmol/L (3-11); BUN 11 mg/dL (7-18); Bilirubin, Total 0.4 mg/dL (0.2-1.0); CO2 23.1 mmol/L (21.0-32.0); CREATININE 1.2 mg/dL (0.55-1.02); Calcium 8.7 mg/dL (8.5-10.1); Chloride 102 mmol/L (98-107); Glucose 232 mg/dL (74-106); Potassium 3.7 mmol/L (3.5-5.1); Sodium 138 mmol/L (136-145); Total Protein 7.7 g/dL (6.4-8.2)
[2023-05-27 20:42] LABS: CEA 6.3 ng/mL (See Note)
== END 2023-05-27 23:59 | disposition home or self-care (01) ==
LOC: INF 00:36
PROVIDERS: PCP Family Medicine; Visit Provider Internal Medicine Hematology & Oncology
DX: C18.2 Malignant neoplasm of ascending colon (principal); Z45.2 Encounter for adjustment and management of vascular access device
CPT/HCPCS: 36591; 80053; 96523; 82378; 85025

== ENCOUNTER 2023-06-22 03:21 | Outpatient (RCR) | payer MEDICARE, BC, SELFPAY ==
[2023-06-08] MEDS: Normal Saline Flush 10 ML SYR IVP (10:16)
[2023-06-08 10:31] LABS: Abs Immature Grans 0.04 10^3/uL (0.0-0.06); Absolute Basophil Count 0.08 10^3/uL (0.0-0.2); Absolute Lymphocyte Count 2.56 10^3/uL (1.2-3.4); Absolute Monocyte Count 0.79 10^3/uL (0.1-0.8); Absolute Neutrophil Count 4.99 10^3/uL (1.2-6.7); Basophils % 0.9; Eosinophils % 1.2; HCT 33.8 % (36.0-46.0); HGB 11.3 g/dL (11.2-15.7); Immature Grans % 0.5; Lymphocytes % 29.9; MCH 31.5 pg (27.0-33.0); MCHC 33.4 % (32.0-36.0); MCV 94 fL (80-95); MPV 9.4 fL (8.0-11.0); Monocytes % 9.2; Neutrophils % 58.3; Platelet Count 227 10^3/uL (130-400); RBC 3.59 10^6/uL (3.93-5.22); RDW 14.4 % (11.7-14.6); RDW-SD 49.1 fL; WBC 8.56 10^3/uL (4.4-10.8)
[2023-06-08 10:46] LABS: ALT 38 U/L (14-59); AST 29 U/L (15-37); Albumin 3.4 g/dL (3.4-5.0); Alkaline Phosphatase 284 U/L (46-116); Anion Gap 11.2 mmol/L (3-11); BUN 14 mg/dL (7-18); Bilirubin, Total 0.4 mg/dL (0.2-1.0); CO2 22.8 mmol/L (21.0-32.0); CREATININE 1.2 mg/dL (0.55-1.02); Calcium 9.4 mg/dL (8.5-10.1); Chloride 102 mmol/L (98-107); Glucose 129 mg/dL (74-106); Potassium 3.9 mmol/L (3.5-5.1); Sodium 136 mmol/L (136-145); Total Protein 7.9 g/dL (6.4-8.2)
[2023-06-08 10:53] LABS: Hemoglobin A1C 6.9 % (<5.7)
[2023-06-08 20:05] LABS: CEA 3.9 ng/mL (See Note)
[2023-06-22] MEDS: Normal Saline Flush 10 ML SYR IVP (08:41)
[2023-06-22 08:49] LABS: HCT 31.8 % (36.0-46.0); HGB 10.4 g/dL (11.2-15.7); MCH 30.9 pg (27.0-33.0); MCHC 32.7 % (32.0-36.0); MCV 94 fL (80-95); MPV 9.6 fL (8.0-11.0); Platelet Count 223 10^3/uL (130-400); RBC 3.37 10^6/uL (3.93-5.22); RDW 14.6 % (11.7-14.6); RDW-SD 49.8 fL; WBC 12.86 10^3/uL (4.4-10.8)
[2023-06-22 09:09] LABS: ALT 43 U/L (14-59); AST 45 U/L (15-37); Albumin 2.9 g/dL (3.4-5.0); Alkaline Phosphatase 241 U/L (46-116); Anion Gap 9.7 mmol/L (3-11); BUN 14 mg/dL (7-18); Bilirubin, Total 0.4 mg/dL (0.2-1.0); CO2 25.3 mmol/L (21.0-32.0); Calcium 8.7 mg/dL (8.5-10.1); Chloride 103 mmol/L (98-107); Estimated GFR 60.61 (mL/min/1.73m2); Glucose 144 mg/dL (74-106); Potassium 3.4 mmol/L (3.5-5.1); Sodium 138 mmol/L (136-145); Total Protein 7.3 g/dL (6.4-8.2)
[2023-06-22 09:14] LABS: Absolute Eosinophil Count 0.13 10^3/uL (0.0-0.7); Absolute Monocyte Count 1.16 10^3/uL (0.1-0.8); Absolute Neutrophil Count 7.84 10^3/uL (1.2-6.7); Bands % 1; Diff Comment Manual Differential; Metamyelocytes % 1; RBC Morphology Normal
== END 2023-06-27 23:59 | disposition home or self-care (01) ==
LOC: INF 03:21
PROVIDERS: PCP Family Medicine; Visit Provider Internal Medicine Hematology & Oncology
DX: C18.2 Malignant neoplasm of ascending colon (principal); E11.9 Type 2 diabetes mellitus without complications; Z45.2 Encounter for adjustment and management of vascular access device
CPT/HCPCS: 36591; 80053; 82378; 83036; 85025

== ENCOUNTER 2023-06-30 09:03 | Outpatient (CLI) | payer MEDICARE, BC, SELFPAY ==
--- NOTE | 2023-06-30 08:30 | DI.RAD_ITS ---
Exam(s) XR KNEE RT 4V AP,LAT,LELA,PAT EXAM: XR KNEE RT 4V AP,LAT,LELA,PAT CLINICAL HISTORY: R KNEE INJURY. TECHNIQUE: 2D digital imaging was performed. Four views. COMPARISON: CR XR KNEE RT 3V AP,LAT,LELA from 09/27/2022 FINDINGS: BONES: No acute fracture is present. No bony destructive lesion is seen. JOINTS: The femoral tibial joint spaces are maintained. There is spurring at the medial femoral cond yle medial tibial. No joint effusion is seen. There are severe degenerative changes of the lateral patellofemoral joint, with a [id number] appearance. There is prominent spurring laterally as well as lateral subluxation. Chondrocalcinosis faintly visible. SOFT TISSUE: Normal. IMPRESSION: Severe degenerative changes of the lateral patellofemoral joint. No acute abnormality. DATA REPOSITORY: RADIATION DOSE DELIVERED:
== END 2023-06-30 09:04 | disposition home or self-care (01) ==
LOC: DIORS 09:04
PROVIDERS: PCP Family Medicine; Referring Provider Family Medicine; Visit Provider Student in an Organized Health Care Education/Training Program
DX: M17.11 Unilateral primary osteoarthritis, right knee (principal)
CPT/HCPCS: 99213; 73564

== ENCOUNTER 2023-07-13 11:06 | Outpatient (REF) | payer MEDICARE, BC, SELFPAY ==
[2023-07-13 10:37] LABS: Bilirubin Negative (Negative); Blood Negative (Negative); Clarity Cloudy (Clear); Glucose Negative (Negative); Ketones Negative (Negative); Leukocyte Esterase Trace (Negative); Nitrite Positive (Negative); Specific Gravity 1.025 (1.005-1.025); Urobilinogen 0.2 mg/dL (Up to 0.2); pH 5.5 (5-8)
[2023-07-13 10:45] LABS: Bacteria Many HPF (Negative); C & S Indicated? Yes; Casts 0-2 Hyaline LPF (Negative); Crystals Negative HPF (Negative); Epithelial Cells Few HPF (Negative); Mucus Negative (Negative); RBC Negative HPF (0-2); WBC 20-50 HPF (0-5)
== END 2023-07-13 11:07 | disposition home or self-care (01) ==
LOC: LBN 11:06
PROVIDERS: PCP Family Medicine; Visit Provider Family Medicine
DX: N39.0 Urinary tract infection, site not specified (principal); R82.79 Other abnormal findings on microbiological examination of urine; B96.29 Other Escherichia coli [E. coli] as the cause of diseases classified elsewhere
CPT/HCPCS: 87077; 81003; 81015; 87086; 87186

== ENCOUNTER 2023-07-27 01:32 | Outpatient (RCR) | payer MEDICARE, BC, SELFPAY ==
[2023-07-05] MEDS: Normal Saline Flush 10 ML SYR IVP (08:34)
[2023-07-05 08:48] LABS: Abs Immature Grans 1.91 10^3/uL (0.0-0.06); HCT 33.7 % (36.0-46.0); HGB 11.2 g/dL (11.2-15.7); MCH 30.5 pg (27.0-33.0); MCHC 33.2 % (32.0-36.0); MCV 92 fL (80-95); MPV 9.6 fL (8.0-11.0); Platelet Count 214 10^3/uL (130-400); RBC 3.67 10^6/uL (3.93-5.22); RDW 14.9 % (11.7-14.6); RDW-SD 49.5 fL; WBC 18.52 10^3/uL (4.4-10.8)
[2023-07-05 09:03] LABS: ALT 33 U/L (14-59); AST 26 U/L (15-37); Alkaline Phosphatase 241 U/L (46-116); BUN 19 mg/dL (7-18); Bilirubin, Total 0.6 mg/dL (0.2-1.0); CREATININE 1.1 mg/dL (0.55-1.02); Calcium 9.4 mg/dL (8.5-10.1); Chloride 98 mmol/L (98-107); Estimated GFR 54.06 (mL/min/1.73m2); Glucose 157 mg/dL (74-106); Sodium 133 mmol/L (136-145); Total Protein 7.5 g/dL (6.4-8.2)
[2023-07-05 09:08] LABS: Bands % 3
[2023-07-05 09:09] LABS: Absolute Basophil Count 0.19 10^3/uL (0.0-0.2); Absolute Eosinophil Count 0.19 10^3/uL (0.0-0.7); Absolute Lymphocyte Count 4.07 10^3/uL (1.2-3.4); Absolute Monocyte Count 1.48 10^3/uL (0.1-0.8); Absolute Neutrophil Count 12.04 10^3/uL (1.2-6.7); Atypical Lymphocytes % 1; Diff Comment Manual Differential; Metamyelocytes % 2; Myelocytes % 1; Polychromasia Present
[2023-07-05 09:14] LABS: Potassium 2.8 mmol/L (3.5-5.1)
[2023-07-05 19:45] LABS: CEA 3.4 ng/mL (See Note)
[2023-07-13] MEDS: Normal Saline Flush 10 ML SYR IVP (09:37)
[2023-07-13 10:08] LABS: Abs Immature Grans 0.09 10^3/uL (0.0-0.06); Absolute Basophil Count 0.08 10^3/uL (0.0-0.2); Absolute Eosinophil Count 0.06 10^3/uL (0.0-0.7); Absolute Lymphocyte Count 2.69 10^3/uL (1.2-3.4); Absolute Monocyte Count 1.38 10^3/uL (0.1-0.8); Absolute Neutrophil Count 7.07 10^3/uL (1.2-6.7); Basophils % 0.7; Eosinophils % 0.5; HCT 32.2 % (36.0-46.0); HGB 10.8 g/dL (11.2-15.7); Immature Grans % 0.8; Lymphocytes % 23.7; MCH 31.5 pg (27.0-33.0); MCHC 33.5 % (32.0-36.0); MCV 94 fL (80-95); MPV 9.2 fL (8.0-11.0); Monocytes % 12.1; Neutrophils % 62.2; Platelet Count 336 10^3/uL (130-400); RBC 3.43 10^6/uL (3.93-5.22); RDW 17.1 % (11.7-14.6); RDW-SD 56.4 fL; WBC 11.37 10^3/uL (4.4-10.8)
[2023-07-13 10:18] LABS: ALT 22 U/L (14-59); AST 23 U/L (15-37); Albumin 2.7 g/dL (3.4-5.0); Alkaline Phosphatase 246 U/L (46-116); Anion Gap 10.9 mmol/L (3-11); BUN 16 mg/dL (7-18); Bilirubin, Total 0.6 mg/dL (0.2-1.0); CO2 24.1 mmol/L (21.0-32.0); Calcium 8.8 mg/dL (8.5-10.1); Chloride 103 mmol/L (98-107); Estimated GFR 60.61 (mL/min/1.73m2); Glucose 125 mg/dL (74-106); Potassium 3.5 mmol/L (3.5-5.1); Sodium 138 mmol/L (136-145); Total Protein 7.3 g/dL (6.4-8.2)
[2023-07-13 19:12] LABS: CEA 4.9 ng/mL (See Note)
[2023-07-27] MEDS: Normal Saline Flush 10 ML SYR IVP (09:34)
[2023-07-27 10:13] LABS: Abs Immature Grans 0.23 10^3/uL (0.0-0.06); Absolute Eosinophil Count 0.19 10^3/uL (0.0-0.7); Absolute Lymphocyte Count 4.67 10^3/uL (1.2-3.4); Absolute Monocyte Count 1.38 10^3/uL (0.1-0.8); Basophils % 0.8; Eosinophils % 1.3; HCT 33.1 % (36.0-46.0); HGB 10.6 g/dL (11.2-15.7); Immature Grans % 1.6; Lymphocytes % 32.6; MCH 30.7 pg (27.0-33.0); MCV 96 fL (80-95); MPV 10.3 fL (8.0-11.0); Monocytes % 9.6; Neutrophils % 54.1; Nucleated RBC 0.3 % (0.0-0.3); Platelet Count 158 10^3/uL (130-400); RBC 3.45 10^6/uL (3.93-5.22); RDW 18.8 % (11.7-14.6); RDW-SD 64.5 fL; WBC 14.34 10^3/uL (4.4-10.8)
[2023-07-27 10:14] LABS: Absolute Basophil Count 0.11 10^3/uL (0.0-0.2); Absolute Neutrophil Count 7.76 10^3/uL (1.2-6.7)
[2023-07-27 10:22] LABS: ALT 27 U/L (14-59); AST 32 U/L (15-37); Albumin 2.9 g/dL (3.4-5.0); Alkaline Phosphatase 308 U/L (46-116); Anion Gap 12.1 mmol/L (3-11); BUN 12 mg/dL (7-18); Bilirubin, Total 0.6 mg/dL (0.2-1.0); CO2 22.9 mmol/L (21.0-32.0); CREATININE 0.9 mg/dL (0.55-1.02); Chloride 101 mmol/L (98-107); Estimated GFR 68.77 (mL/min/1.73m2); Glucose 140 mg/dL (74-106); Potassium 3.3 mmol/L (3.5-5.1); Sodium 136 mmol/L (136-145); Total Protein 7.2 g/dL (6.4-8.2)
[2023-07-27 19:07] LABS: CEA 5.1 ng/mL (See Note)
== END 2023-07-28 23:59 | disposition home or self-care (01) ==
LOC: INF 01:32
PROVIDERS: PCP Family Medicine; Visit Provider Internal Medicine Hematology & Oncology
DX: C18.2 Malignant neoplasm of ascending colon (principal); Z45.2 Encounter for adjustment and management of vascular access device
CPT/HCPCS: 36591; 80053; 82378; 85025

== ENCOUNTER 2023-07-28 09:21 | Outpatient (REF) | payer MEDICARE, BC, SELFPAY ==
[2023-07-29 13:51] LABS: Campylobacter PCR Negative (Negative); Salmonella PCR Negative (Negative); Shiga Toxin PCR Negative (Negative); Shigella/Enteroinvasive Ecoli Negative (Negative)
== END 2023-07-28 09:22 | disposition home or self-care (01) ==
LOC: LBN 09:21
PROVIDERS: PCP Family Medicine; Visit Provider Nurse Practitioner Family
DX: R19.5 Other fecal abnormalities (principal); R19.7 Diarrhea, unspecified
CPT/HCPCS: 87505

== ENCOUNTER 2023-08-11 16:45 | Outpatient (REF) | payer MEDICARE, BC, SELFPAY ==
[2023-08-13 16:47] LABS: Pancreatic Elastase, F >500 mcg/g
== END 2023-08-11 16:46 | disposition home or self-care (01) ==
LOC: LBN 16:45
PROVIDERS: PCP Family Medicine; Visit Provider Internal Medicine Hematology & Oncology
DX: C18.2 Malignant neoplasm of ascending colon (principal)
CPT/HCPCS: 82656

== ENCOUNTER 2023-08-18 08:43 | Outpatient (CLI) | payer MEDICARE, BC, SELFPAY ==
--- NOTE | 2023-08-18 08:30 | RT.EKG_ITS ---
APPROVED REPORT Exam: Resting ECG Reason for Exam: Hysterectomy scheduled Patient Location: O HR:77 bpm ECG Measurements Heart Rate 77 AXIS WI 142 P 60 QRSd 93 QRS 50 QT 371 T 60 QTc 420 Conclusion Sinus rhythm...normal P axis, V-rate 50- 99 Probable left atrial enlargement...P >50mS, <-0.10mV V1 Otherwise normal ECG
== END 2023-08-18 08:44 | disposition home or self-care (01) ==
LOC: DI.CM 08:44
PROVIDERS: PCP Family Medicine; Visit Provider Family Medicine
DX: Z01.818 Encounter for other preprocedural examination (principal)
CPT/HCPCS: 93010

== ENCOUNTER 2023-08-18 10:06 | Outpatient (CLI) | payer MEDICARE, BC, SELFPAY ==
--- NOTE | 2023-08-18 09:45 | DI.RAD_ITS ---
Exam(s) XR HIP LT AP LAT ONLY EXAM: XR HIP LT AP LAT ONLY CLINICAL HISTORY: HISTORY L WALT. TECHNIQUE: 2D digital imaging was performed of the left hip. Two views were obtained. AP and later al views were obtained. COMPARISON: CR XR HIP LT COMPLETE AP PELVIS from 08/30/2022 FINDINGS: BONES: No acute fracture is present. No bony destructive lesion is seen. JOINTS: No dislocation present. There are stable postsurgical changes of a left total hip replacement . No suspicious lucencies are seen in or about the orthopedic hardware to suggest loosening or infec tion. SOFT TISSUE: Normal. IMPRESSION: Stable left WALT. DATA REPOSITORY: RADIATION DOSE DELIVERED:
== END 2023-08-18 10:07 | disposition home or self-care (01) ==
LOC: DIORS 10:06
PROVIDERS: PCP Family Medicine; Visit Provider Student in an Organized Health Care Education/Training Program
DX: Z47.1 Aftercare following joint replacement surgery (principal); Z96.642 Presence of left artificial hip joint
CPT/HCPCS: 99213; 73502

== ENCOUNTER → 2023-08-22 00:33 | Outpatient (CLI) | payer MEDICARE, BC, SELFPAY ==
--- NOTE | 2023-08-22 | DI.CT_ITS ---
Exam(s) CT CHEST/ABD/PEL W EXAM: CT CHEST/ABD/PEL W CLINICAL HISTORY: NEOPLASM ASCENDING COLON, C18.2, S/P HEMICOLECTOMY, INC CEA. TECHNIQUE: Imaging Protocol: Axial computed tomography images with coronal and sagittal reformatted images were created and reviewed CONTRAST MATERIAL: Intravenous: Omnipaque 350 Contrast volume:100 ml Oral: None COMPARISON: CT CT CHEST/ABD/PEL W from 05/11/2023 FINDINGS: CHEST: Distal tip of the Port-A-Cath is at the SVC-RA junction. LUNGS: Lungs remain clear with no infiltrates nor pleural effusions and no new metastatic lung nodule s. MEDIASTINUM: There is no hilar nor mediastinal adenopathy. Visualized thyroid unremarkable. CARDIAC: Heart size is normal. There is no pericardial effusion.Caliber of the thoracic aorta is wit hin normal limits. OSSEOUS: No significant osseous lesions.No fractures.. ABDOMEN: There is a very small amount of perihepatic ascites, decreased in amount from the scan of 05/11/2023. LIVER: Liver again appears somewhat cirrhotic. Subtle area of hypodensity in the dome of the liver r emains unchanged and doubtful for metastatic disease. There are no new hepatic lesions evident. No dilated intrahepatic ducts. GALLBLADDER/BILIARY: Previously described tiny density in the gallbladder is less evident on the pres ent study. No gallbladder wall edema evident. CBD is not dilated. PANCREAS: No evidence of pancreatic mass nor dilatation of the pancreatic duct. SPLEEN: Spleen is not enlarged. There are no intrasplenic lesions. Splenic and portal veins are shah nt. ADRENALS: Small nodule in left adrenal gland is unchanged and is probably an incidental adenoma. Rig ht adrenal gland remains unremarkable KIDNEYS: Unremarkable. No cysts nor solid masses. No calculi. No hydronephrosis. ABDOMINAL AORTA: Calcified but not enlarged. LYMPH NODES: There is no retroperitoneal nor paraaortic adenopathy. ABDOMINAL WALL: Small fat containing anterior abdominal wall umbilical hernia noted, similar to previ ous. Does not contain bowel loops. GI: Again noted is evidence of partial right hemicolectomy. Small bowel loop diameters are upper nor mal.There is, however, a small amount of abnormal mesenteric fluid subjacent to the right pelvic anas tomosis site, this fluid collection not previously present on the CT scan of 05/11/2023 and measuring approximately 1.6 cm AP by 1.2 cm wide by 1.7 cm cephalocaudal. Does not contain gas bubbles nor ex hibit rim enhancement. PELVIS: LYMPH NODES: There is no intrapelvic nor inguinal adenopathy. GI: Appendix surgically absent.Thickened sigmoid wall over a distance of 5 cm is probably related to diverticulosis URINARY BLADDER: Obscured by beam hardening artifact from bilateral hip prostheses. Not distended. REPRODUCTIVE: Endometrium is thickened and should be further studied with ultrasound. OSSEOUS: No significant osseous lesions. No fractures. IMPRESSION: 1. Again noted is evidence of previous partial right colectomy. Small bowel loop diameters are upper normal with no true obstruction. However, there is a triangular shaped fluid collection in the mese ntery just below the right-side ileocolic anastomosis, this measuring approximately 16 x 12 x 17 mm. Does not contain gas bubbles no rim enhancement. Previously present perihepatic fluid-ascites has d ecreased but not completely resolved 2. Thickened endometrium which should be further study with ultrasound rule out neoplasm. No obvious ovarian masses. 3. Extensive sigmoid diverticulosis. 4. No evidence of intrathoracic metastatic disease. 5. Other findings as above. RADIATION DOSE DELIVERED: 1,340.67mGy.cm Total DLP DATA REPOSITORY: All CT scans at this facility are submitted to the National Radiology Data Registry (NRDR) Dose Index Registry (DIR) with the [employer] (ACR). RADIATION OPTIMIZATION: All CT scans at this facility use at least one of these dose optimization te chniques: automated exposure control; mA and/or kV adjustment per patient size (includes targeted exa ms where dose is matched to clinical indication); or iterative reconstruction.
[2023-08-22] MEDS: Barium Sulfate 2% W/V-Berry Smoothie 450 ML BTL 900 ML PO (09:15)
[2023-08-22] MEDS: Omnipaque 350 MG/ML 500 ML BTL-Imaging package IJ (11:40)
[2023-08-22] MEDS: Normal Saline - Diluent 50 ML VIAL IJ (11:41)
== END ==
PROVIDERS: PCP Family Medicine; Visit Provider Internal Medicine Hematology & Oncology
DX: C18.2 Malignant neoplasm of ascending colon (principal); Z90.49 Acquired absence of other specified parts of digestive tract; K57.30 Diverticulosis of large intestine without perforation or abscess without bleeding
CPT/HCPCS: 36591; 74177; 80053; 71260; 82378; 85025

== ENCOUNTER 2023-08-22 01:55 | Outpatient (RCR) | payer MEDICARE, BC, SELFPAY ==
[2023-08-09] MEDS: Normal Saline Flush 10 ML SYR IVP (07:31)
[2023-08-09 08:05] LABS: Abs Immature Grans 0.01 10^3/uL (0.0-0.06); Absolute Basophil Count 0.02 10^3/uL (0.0-0.2); Absolute Eosinophil Count 0.07 10^3/uL (0.0-0.7); Absolute Lymphocyte Count 3.72 10^3/uL (1.2-3.4); Absolute Monocyte Count 0.56 10^3/uL (0.1-0.8); Absolute Neutrophil Count 1.11 10^3/uL (1.2-6.7); Basophils % 0.4; Eosinophils % 1.3; HCT 31.3 % (36.0-46.0); HGB 10.2 g/dL (11.2-15.7); Immature Grans % 0.2; Lymphocytes % 67.8; MCH 31.7 pg (27.0-33.0); MCHC 32.6 % (32.0-36.0); MCV 97 fL (80-95); MPV 9.5 fL (8.0-11.0); Monocytes % 10.2; Neutrophils % 20.1; RBC 3.22 10^6/uL (3.93-5.22); RDW 18.9 % (11.7-14.6); WBC 5.49 10^3/uL (4.4-10.8)
[2023-08-09 08:17] LABS: ALT 39 U/L (14-59); AST 38 U/L (15-37); Albumin 3.1 g/dL (3.4-5.0); Alkaline Phosphatase 289 U/L (46-116); Anion Gap 11.3 mmol/L (3-11); BUN 12 mg/dL (7-18); Bilirubin, Total 0.8 mg/dL (0.2-1.0); CO2 22.7 mmol/L (21.0-32.0); CREATININE 0.9 mg/dL (0.55-1.02); Chloride 101 mmol/L (98-107); Estimated GFR 68.77 (mL/min/1.73m2); Glucose 149 mg/dL (74-106); Potassium 3.2 mmol/L (3.5-5.1); Sodium 135 mmol/L (136-145); Total Protein 7.6 g/dL (6.4-8.2)
[2023-08-09 08:24] LABS: Platelet Count 99 10^3/uL (130-400)
[2023-08-09 08:25] LABS: Hypochromasia 1+
[2023-08-09 20:17] LABS: CEA 3.8 ng/mL (See Note)
[2023-08-22] MEDS: Normal Saline Flush 10 ML SYR IVP ×2 (09:06→12:02)
[2023-08-22 09:36] LABS: Abs Immature Grans 0.01 10^3/uL (0.0-0.06); Absolute Basophil Count 0.03 10^3/uL (0.0-0.2); Absolute Eosinophil Count 0.03 10^3/uL (0.0-0.7); Absolute Lymphocyte Count 3.88 10^3/uL (1.2-3.4); Absolute Monocyte Count 0.69 10^3/uL (0.1-0.8); Absolute Neutrophil Count 2.11 10^3/uL (1.2-6.7); Basophils % 0.4; Eosinophils % 0.4; HCT 33.6 % (36.0-46.0); HGB 10.8 g/dL (11.2-15.7); Immature Grans % 0.1; Lymphocytes % 57.5; MCHC 32.1 % (32.0-36.0); MCV 99 fL (80-95); MPV 10.6 fL (8.0-11.0); Monocytes % 10.2; Neutrophils % 31.4; Platelet Count 125 10^3/uL (130-400); RBC 3.38 10^6/uL (3.93-5.22); RDW 18.3 % (11.7-14.6); WBC 6.75 10^3/uL (4.4-10.8)
[2023-08-22 09:55] LABS: ALT 40 U/L (14-59); AST 30 U/L (15-37); Albumin 3.2 g/dL (3.4-5.0); Alkaline Phosphatase 242 U/L (46-116); Anion Gap 13.8 mmol/L (3-11); BUN 12 mg/dL (7-18); CO2 23.2 mmol/L (21.0-32.0); CREATININE 0.9 mg/dL (0.55-1.02); Calcium 9.3 mg/dL (8.5-10.1); Chloride 99 mmol/L (98-107); Estimated GFR 68.77 (mL/min/1.73m2); Glucose 145 mg/dL (74-106); Potassium 3.8 mmol/L (3.5-5.1); Sodium 136 mmol/L (136-145); Total Protein 7.5 g/dL (6.4-8.2)
[2023-08-22] MEDS: Heparin 500 UNITS/5 ML SYRINGE IV (12:02)
[2023-08-22 18:27] LABS: CEA 3.5 ng/mL (See Note)
== END 2023-08-27 23:59 | disposition home or self-care (01) ==
LOC: INF 01:55
PROVIDERS: PCP Family Medicine; Visit Provider Internal Medicine Hematology & Oncology
DX: C18.2 Malignant neoplasm of ascending colon (principal); Z45.2 Encounter for adjustment and management of vascular access device
CPT/HCPCS: 36591; 80053; 82378; 85025

== ENCOUNTER 2023-08-28 04:02 | Emergency (ER) | payer MEDICARE, BC, SELFPAY ==
--- NOTE | 2023-08-28 04:04 | ED.GENADUL_ITS ---
Discharge Plan Disposition Patient Disposition: Home Discharge Details Clinical Impression: Left facial pain Primary Care Provider: Priscilla Brantley ED Provider: Ally Groves Home Meds and New Rx's Prescriptions: New diazepam [Valium] 5 mg tablet 5 mg PO TID PRN (Reason: muscle spasm) Qty: 15 0RF Continued ondansetron 4 mg tablet,disintegrating 4 mg PO Q8H PRN prochlorperazine maleate 10 mg tablet 10 mg PO Q8H PRN FOLFOX IV ibuprofen 600 mg tablet 600 mg PO TID PRN (Reason: pain) Qty: 90 1RF Patient Comments: 04/22/23 reports over a week since last taking med prednisone 5 mg tablet 5 mg PO DAILY Qty: 15 0RF Rx Instructions: Take 2 pills (1omg) for 5 days and then 1 pill (5mg) for 5 days. losartan 100 mg tablet 50 mg PO DAILY Hold Instructions: Adverse Reaction Patient Comments: 04/13/23 pt currently taking 1/2 tab due to low BP, states she has done this in the past. TlRN lorazepam 0.5 mg tablet 0.5 mg PO DAILY PRN (Reason: anxiety) Qty: 30 3RF cephalexin 500 mg capsule 500 mg PO TID Qty: 21 4RF potassium chloride 10 mEq tablet extended release 20 meq PO BID Discharge Instructions Instructions: Atypical Facial Pain (ED) Additional Instructions: Try heat to the affected area 20 minutes on and 20 minutes off. Take ibuprofen 600 mg every 6 hours and oral Valium 5 mg every 8 hours as needed for pain and spasm. Call your oncologist Tuesday to be seen Tuesday or Tuesday in follow-up. Return to ED for fever of 100.4 or above, red swollen face, lockjaw, any other concerns. Medical Decision Making Patient told me that it almost felt like she was having spasms. I will try some IV Valium. She also states that Toradol worked for her in the past so we will try that IV as well. 06 patient is sleeping soundly and much more comfortable. We will discharge her home with a small amount of Valium and have her call for her doctor for follow-up appointment on Tuesday. Medical Records Medical records reviewed: Yes I reviewed the patient's medical records. Lab Data Lab results reviewed: Yes I reviewed the patient's lab results. ECG Data Attestation: I personally reviewed and interpreted this ECG (s) as follows: (Normal sinus rhythm at 90, normal intervals and EKG) HPI General Date/Time Provider Initiated Documentation: 08/28/23 04:03 . HPI Narrative: This 68-year-old female patient presents with a chief complaint of left-sided facial pain that began several days ago. The patient reports she is currently being treated for both endometrial and colon cancer. She is on a triple chemotherapy regimen and states that one of the side effects is that it can cause jaw pain. She has not had any chemo for multiple weeks because she is scheduled to have a hysterectomy on Tuesday. She states that a couple of days ago she began having some vague jaw pain. She points to the area of her TMJ. She states that trying to open her mouth wide makes this worse. There is no pain precipitated by wind, cold, or toothbrushing. Palpation of the same area is tender. She says that her ear hurts a little bit on that side as well. She has no dental pain. There is no fever or URI symptoms. She has no swollen glands. There is no chest pain or shortness of breath. There is no redness or rash. She is speaking easily and can in fact open her mouth. There is no locked jaw. Related Data Home Medications Medication Instructions Recorded Confirmed losartan 100 mg tablet 50 mg PO DAILY 04/13/23 08/18/23 lorazepam 0.5 mg tablet 0.5 mg PO DAILY PRN anxiety #30 05/10/23 08/28/23 tabs cephalexin 500 mg capsule 500 mg PO TID #21 caps 06/09/23 08/18/23 ibuprofen 600 mg tablet 600 mg PO TID PRN pain #90 tabs 06/30/23 08/28/23 prednisone 5 mg tablet 5 mg PO DAILY #15 tabs 06/30/23 08/18/23 FOLFOX IV 08/18/23 08/18/23 ondansetron 4 mg disintegrating 4 mg PO Q8H PRN 08/18/23 08/28/23 tablet prochlorperazine maleate 10 mg 10 mg PO Q8H PRN 08/18/23 08/18/23 tablet diazepam 5 mg tablet (Valium) 5 mg PO TID PRN muscle spasm #15 08/28/23 tabs potassium chloride 10 mEq 20 meq PO BID 08/28/23 08/28/23 tablet,extended release Previous Rx's Medication Instructions Recorded lorazepam 0.5 mg tablet 0.5 mg PO DAILY PRN anxiety #30 05/10/23 tabs cephalexin 500 mg capsule 500 mg PO TID #21 caps 06/09/23 ibuprofen 600 mg tablet 600 mg PO TID PRN pain #90 tabs 06/30/23 prednisone 5 mg tablet 5 mg PO DAILY #15 tabs 06/30/23 diazepam 5 mg tablet (Valium) 5 mg PO TID PRN muscle spasm #15 08/28/23 tabs Allergies Allergy/AdvReac Type Severity Reaction Status Date / Time amoxicillin trihydrate AdvReac Intermediate itching Verified 08/28/23 04:13 [From Augmentin] and swelling of palms and soles of feet potassium clavulanate AdvReac Intermediate itching Verified 08/28/23 04:13 [From Augmentin] and swelling of palms and soles of feet General NIRANJAN: 3 Review of Systems Constitutional Constitutional: Denies chills, Denies fever(s), Denies headache(s) and Denies weakness Eyes Eyes: Denies diplopia and Reports other (no redness) ENT Ears, Nose, Mouth, and Throat: Denies otalgia, Reports facial pain (right jaw), Denies headache(s), Denies nasal congestion, Denies nasal discharge, Denies neck pain and Denies sore throat Cardiovascular Cardiovascular: Denies chest pain, Denies palpitations and Denies dyspnea Respiratory Respiratory: Denies cough and Denies dyspnea Gastrointestinal Gastrointestinal: Denies abdominal pain, Denies diarrhea, Denies nausea and Denies vomiting Genitourinary Genitourinary: Denies dysuria Musculoskeletal Musculoskeletal: Denies myalgias, Denies muscle weakness, Denies neck pain, Denies numbness and Reports other (edema) Integumentary/Breasts Skin/Breast: Denies change in pigmentation and Denies rash Neurologic Neurologic: Denies headache(s), Denies numbness and Denies weakness Endocrine Endocrine: Denies palpitations PFSH All Active Problems (Updated 08/28/23 @ 06:06 by Ally Groves MD) Left facial pain (Acute) Abnormal CT of the abdomen (Acute) Colon cancer (Chronic) S/P right hemicolectomy (Acute) Alcohol intake above recommended sensible limits (Chronic 01/07/17) elevated GGT, LFT and MCV Diverticulosis of colon without diverticulitis (Chronic) sigmoid colon Elevated LFTs (Chronic 01/06/17) Elevated MCV (Chronic 01/06/17) Lichen planus (Chronic) Low back pain radiating to left leg (Chronic 06/10/16) Patellofemoral arthritis of right knee (Chronic 09/12/17) Shoulder pain (Chronic 03/24/15) Elevated blood pressure reading (Acute) Diabetes mellitus (Chronic) Status post total hip replacement, right (Acute) Diarrhea (Acute) Encounter for annual physical exam (Acute) Encounter for screening colonoscopy (Acute) Hypertension (Chronic) Osteoarthritis of left hip (Acute) Anemia (Chronic) Right knee pain (Acute) Degenerative joint disease of right knee (Acute) Injection 08/17/2022 Anemia (Chronic) Chronic iron deficiency anemia (Acute) Fatty liver (Acute) Cirrhosis (Acute) Screening for colon cancer (Acute) Medical History Achilles tendinitis of left lower extremity (09/11/15) Diverticulitis was in ER 11/2022 Epicondylitis History of ectopic right Hx of fracture of ankle Hx of hypoglycemia Hx of spina bifida States hx of Spina Bifida Occulta Hx of tension headache 1 time event Hx of transient ischemic attack (TIA) Pt. states she had a TIA when she was 22 that was control related Pt. states she has never had an recurrence, and does not f/u with a neurologist and states she never had to. Left foot pain (08/05/15) Trochanteric bursitis of right hip (09/11/15) bilateral Tubular adenoma Surgical History H/O section x2 History of back surgery Microdisectomy, L5-S1. Pt. states nerves damage with numbness to left foot. History of bilateral tubal ligation History of ectopic History of left hip replacement bilat History of open reduction and internal fixation (ORIF) procedure left ankle with plates and screws present Some hardware was removed History of total right hip replacement Hx of appendectomy Hx of section x 2 Hx of exploratory laparotomy ectopic S/P tonsillectomy Status post arthroscopy of right knee Status post total hip replacement, left (08/17/22) Family History Mother , 54 Uterine cancer Colon cancer Father , 80 Prostate cancer Alcohol abuse Daughter Diabetes Depression Sister No problems noted. Sister No problems noted. Brother No problems noted. Son No problems noted. Brother Depression Social History Smoking/Tobacco Use Status: Never Second Hand Exposure: Yes Smoking risk assessment performed?: Yes Alcohol Intake: former Details: Recently stopped ETOH use since Drug use: Rarely Substance use type: marijuana Caregiver/Support person: No Household members: spouse Housing: house Communication Needs: None Do you need help understanding health information?: Never Pets and animals: No Sexually active: Yes Do you think of yourself as: straight/heterosexual Current gender identity: female What is your relationship status?: How often do you talk on the phone with friends or family?: decline to answer How often do you get together with friends or relatives?: decline to answer How often do you attend mu-ism or pentecostalism services?: decline to answer Do you belong to any clubs or organized social groups?: decline to answer Panel score (0-1 are the most socially isolated patients): 1 What type of physical activity do you participate in: decline to answer Duration: decline to answer Frequency: decline to answer Niru/Pentecostalism: Restorationist Special niru needs: No Seatbelt use: always Drive 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: No Do you feel safe at home: Yes Do you feel safe in your relationship?: Yes Exam Const General: no acute distress, well developed, well groomed and not in acute distress Nutritional Appearance: well nourished Orientation: alert and oriented x3 HENMT Head: normocephalic and atraumatic Ears: external ears normal Face and sinus: normal facial exam, face symmetric, no crepitus, no ecchymosis, no erythema, no edema and other (Patient has TTP just above the angle of jaw on the right) Mouth: oropharynx normal and moist mucous membranes Teeth and gingiva: dentition normal, gingiva normal and other (no TMJ click) Throat: posterior oropharynx normal Eyes Conjunctivae: conjunctivae normal Neck Neck: full ROM, supple and no lymphadenopathy noted Chest Chest: normal inspection of the chest Resp Effort & Inspection: normal respiratory effort Auscultation: clear to auscultation bilaterally Cardio Rate: regular rate Rhythm: regular rhythm Heart Sounds: no murmurs and no rubs GI Inspection: normal to inspection Palpation: soft, nontender and other (non distended) Auscultation: normal bowel sounds Skin General skin exam: no rashes or lesions noted, no ecchymosis, no erythema and other (pink, warm, dry) Neuro General: patient alert, patient awake and patient oriented x3 Speech: speech normal Motor: other (THOMAS) Sensory Exam: no sensory deficits noted Extrem General: normal to inspection, full ROM and pedal edema present Psych Mental Status: mental status grossly normal Speech and Movement: speech and movement normal Affect: normal affect
[2023-08-28 04:07] VITALS: BP 195/91; PULSE 99; RESP 18; TEMP 36.5; O2SAT 100
--- NOTE | 2023-08-28 04:15 | RT.EKG_ITS ---
APPROVED REPORT Exam: Resting ECG Reason for Exam: jaw pain Patient Location: E HR:92 bpm ECG Measurements Heart Rate 92 AXIS ME 144 P 61 QRSd 81 QRS 47 QT 364 T 61 QTc 451 Conclusion Sinus rhythm...normal P axis, V-rate 60- 99
[2023-08-28] MEDS: Normal Saline 1,000 ML 1000 ML IV (05:11)
[2023-08-28] MEDS: diazePAM 10 MG/2 ML SYR 2.5 MG IVP (05:12)
[2023-08-28] MEDS: Ketorolac 15 MG/ML VIAL IVP (05:12)
[2023-08-28 05:13] LABS: Abs Immature Grans 0.02 10^3/uL (0.0-0.06); Absolute Basophil Count 0.03 10^3/uL (0.0-0.2); Absolute Eosinophil Count 0.04 10^3/uL (0.0-0.7); Absolute Lymphocyte Count 1.48 10^3/uL (1.2-3.4); Absolute Monocyte Count 0.78 10^3/uL (0.1-0.8); Absolute Neutrophil Count 1.32 10^3/uL (1.2-6.7); Basophils % 0.8; Eosinophils % 1.1; HCT 32.6 % (36.0-46.0); HGB 10.6 g/dL (11.2-15.7); Immature Grans % 0.5; Lymphocytes % 40.3; MCH 32.4 pg (27.0-33.0); MCHC 32.5 % (32.0-36.0); MCV 100 fL (80-95); MPV 10.5 fL (8.0-11.0); Monocytes % 21.3; Platelet Count 147 10^3/uL (130-400); RBC 3.27 10^6/uL (3.93-5.22); RDW 17.2 % (11.7-14.6); RDW-SD 63.8 fL; WBC 3.67 10^3/uL (4.4-10.8)
[2023-08-28 05:30] LABS: Troponin I < 50 ng/L (<or=60)
[2023-08-28 10:59] LABS: ESR (LRH) 82 mm/hr
== END 2023-08-28 06:21 | disposition home or self-care (01) ==
PROVIDERS: Emergency Provider Emergency Medicine; PCP Family Medicine
DX: R51.9 Headache, unspecified; C54.1 Malignant neoplasm of endometrium; C18.9 Malignant neoplasm of colon, unspecified; Z79.899 Other long term (current) drug therapy; I10 Essential (primary) hypertension; E11.9 Type 2 diabetes mellitus without complications; Z88.1 Allergy status to other antibiotic agents; Z88.8 Allergy status to other drugs, medicaments and biological substances
CPT/HCPCS: 85652; 93005; 96361; 96374; 96375; 99284; 84484; 85025; 93010; 99285; J1885; J3360

== ENCOUNTER 2023-09-07 01:35 | Outpatient (RCR) | payer MEDICARE, BC, SELFPAY ==
[2023-09-07] MEDS: Normal Saline Flush 10 ML SYR IVP (10:30)
[2023-09-07 10:44] LABS: Abs Immature Grans 0.02 10^3/uL (0.0-0.06); Absolute Basophil Count 0.04 10^3/uL (0.0-0.2); Absolute Eosinophil Count 0.17 10^3/uL (0.0-0.7); Absolute Monocyte Count 0.67 10^3/uL (0.1-0.8); Absolute Neutrophil Count 3.24 10^3/uL (1.2-6.7); Basophils % 0.6; Eosinophils % 2.3; HCT 34.2 % (36.0-46.0); HGB 10.9 g/dL (11.2-15.7); Immature Grans % 0.3; Lymphocytes % 42.8; MCH 32.9 pg (27.0-33.0); MCHC 31.9 % (32.0-36.0); MCV 103 fL (80-95); MPV 10.4 fL (8.0-11.0); Monocytes % 9.3; Neutrophils % 44.7; Platelet Count 211 10^3/uL (130-400); RBC 3.31 10^6/uL (3.93-5.22); RDW 16.1 % (11.7-14.6); WBC 7.24 10^3/uL (4.4-10.8)
[2023-09-07 11:01] LABS: ALT 47 U/L (14-59); AST 48 U/L (15-37); Alkaline Phosphatase 300 U/L (46-116); Anion Gap 5.4 mmol/L (3-11); BUN 11 mg/dL (7-18); Bilirubin, Total 0.7 mg/dL (0.2-1.0); CO2 27.6 mmol/L (21.0-32.0); Calcium 9.1 mg/dL (8.5-10.1); Chloride 103 mmol/L (98-107); Estimated GFR 60.61 (mL/min/1.73m2); Glucose 198 mg/dL (74-106); Potassium 4.5 mmol/L (3.5-5.1); Sodium 136 mmol/L (136-145); Total Protein 7.7 g/dL (6.4-8.2)
[2023-09-07 19:27] LABS: CEA 2.6 ng/mL (See Note)
== END 2023-09-27 23:59 | disposition home or self-care (01) ==
LOC: INF 01:35
PROVIDERS: PCP Family Medicine; Visit Provider Internal Medicine Hematology & Oncology
DX: C18.2 Malignant neoplasm of ascending colon (principal); Z45.2 Encounter for adjustment and management of vascular access device
CPT/HCPCS: 36591; 80053; 82378; 85025

== ENCOUNTER 2023-10-13 04:21 | Outpatient (RCR) | payer MEDICARE, BC, SELFPAY ==
[2023-10-13] MEDS: Normal Saline Flush 10 ML SYR IVP (09:15)
[2023-10-13] MEDS: Heparin 500 UNITS/5 ML SYRINGE IV (09:17)
[2023-10-13 09:29] LABS: Abs Immature Grans 0.01 10^3/uL (0.0-0.06); Absolute Basophil Count 0.03 10^3/uL (0.0-0.2); Absolute Eosinophil Count 0.16 10^3/uL (0.0-0.7); Absolute Lymphocyte Count 3.24 10^3/uL (1.2-3.4); Absolute Monocyte Count 0.58 10^3/uL (0.1-0.8); Absolute Neutrophil Count 2.94 10^3/uL (1.2-6.7); Basophils % 0.4; Eosinophils % 2.3; HCT 37.4 % (36.0-46.0); HGB 12.2 g/dL (11.2-15.7); Immature Grans % 0.1; Lymphocytes % 46.6; MCH 32.2 pg (27.0-33.0); MCHC 32.6 % (32.0-36.0); MCV 99 fL (80-95); MPV 10.5 fL (8.0-11.0); Monocytes % 8.3; Neutrophils % 42.3; Platelet Count 160 10^3/uL (130-400); RBC 3.79 10^6/uL (3.93-5.22); RDW 13.7 % (11.7-14.6); RDW-SD 48.8 fL; WBC 6.96 10^3/uL (4.4-10.8)
[2023-10-13 09:45] LABS: ALT 59 U/L (14-59); AST 54 U/L (15-37); Albumin 3.3 g/dL (3.4-5.0); Alkaline Phosphatase 316 U/L (46-116); Anion Gap 9.3 mmol/L (3-11); BUN 12 mg/dL (7-18); Bilirubin, Total 0.7 mg/dL (0.2-1.0); CO2 25.7 mmol/L (21.0-32.0); CREATININE 0.8 mg/dL (0.55-1.02); Calcium 9.2 mg/dL (8.5-10.1); Chloride 101 mmol/L (98-107); Estimated GFR 79.22 (mL/min/1.73m2); Glucose 135 mg/dL (74-106); Potassium 3.8 mmol/L (3.5-5.1); Sodium 136 mmol/L (136-145); Total Protein 7.8 g/dL (6.4-8.2)
[2023-10-13 19:31] LABS: CEA 2.3 ng/mL (See Note)
== END 2023-10-27 23:59 | disposition home or self-care (01) ==
LOC: INF 04:21
PROVIDERS: PCP Family Medicine; Visit Provider Internal Medicine Hematology & Oncology
DX: C18.2 Malignant neoplasm of ascending colon (principal); Z45.2 Encounter for adjustment and management of vascular access device
CPT/HCPCS: 36591; 80053; 82378; 85025

== ENCOUNTER 2023-11-27 02:29 | Outpatient (RCR) | payer MEDICARE, BC, SELFPAY ==
[2023-11-11] MEDS: Normal Saline Flush 10 ML SYR IVP (08:05)
[2023-11-11 08:32] LABS: Absolute Basophil Count 0.03 10^3/uL (0.0-0.2); Absolute Eosinophil Count 0.22 10^3/uL (0.0-0.7); Absolute Lymphocyte Count 2.46 10^3/uL (1.2-3.4); Absolute Neutrophil Count 1.86 10^3/uL (1.2-6.7); Basophils % 0.6; Eosinophils % 4.4; HCT 36.1 % (36.0-46.0); HGB 11.9 g/dL (11.2-15.7); Lymphocytes % 49.5; MCH 31.1 pg (27.0-33.0); MCV 94 fL (80-95); MPV 10.7 fL (8.0-11.0); Neutrophils % 37.5; Platelet Count 127 10^3/uL (130-400); RBC 3.83 10^6/uL (3.93-5.22); RDW 13.5 % (11.7-14.6); RDW-SD 46.3 fL; WBC 4.97 10^3/uL (4.4-10.8)
[2023-11-11 08:46] LABS: ALT 50 U/L (14-59); AST 45 U/L (15-37); Albumin 3.4 g/dL (3.4-5.0); Alkaline Phosphatase 273 U/L (46-116); Anion Gap 9.9 mmol/L (3-11); BUN 13 mg/dL (7-18); Bilirubin, Total 0.7 mg/dL (0.2-1.0); CO2 25.1 mmol/L (21.0-32.0); CREATININE 0.8 mg/dL (0.55-1.02); Chloride 102 mmol/L (98-107); Estimated GFR 79.22 (mL/min/1.73m2); Glucose 147 mg/dL (74-106); Potassium 3.7 mmol/L (3.5-5.1); Sodium 137 mmol/L (136-145); Total Protein 7.8 g/dL (6.4-8.2)
[2023-11-11 21:09] LABS: CEA 2.2 ng/mL (See Note)
[2023-11-13 09:02] VITALS: BP 156/76; PULSE 74; RESP 18; TEMP 36.7; O2SAT 97
[2023-11-13] MEDS: Normal Saline Flush 10 ML SYR IVP (09:15)
[2023-11-13] MEDS: Heparin 500 UNITS/5 ML SYRINGE IV (09:15)
[2023-11-25] MEDS: Normal Saline Flush 10 ML SYR IVP (08:00)
[2023-11-25 08:29] LABS: Abs Immature Grans 0.01 10^3/uL (0.0-0.06); Absolute Basophil Count 0.03 10^3/uL (0.0-0.2); Absolute Eosinophil Count 0.15 10^3/uL (0.0-0.7); Absolute Lymphocyte Count 2.22 10^3/uL (1.2-3.4); Absolute Monocyte Count 0.46 10^3/uL (0.1-0.8); Absolute Neutrophil Count 1.91 10^3/uL (1.2-6.7); Basophils % 0.6; Eosinophils % 3.1; HCT 36.2 % (36.0-46.0); HGB 11.9 g/dL (11.2-15.7); Immature Grans % 0.2; Lymphocytes % 46.4; MCH 30.8 pg (27.0-33.0); MCHC 32.9 % (32.0-36.0); MCV 94 fL (80-95); MPV 10.1 fL (8.0-11.0); Monocytes % 9.6; Neutrophils % 40.1; Platelet Count 112 10^3/uL (130-400); RBC 3.86 10^6/uL (3.93-5.22); RDW 15.2 % (11.7-14.6); RDW-SD 51.2 fL; WBC 4.78 10^3/uL (4.4-10.8)
[2023-11-25 08:57] LABS: ALT 53 U/L (14-59); AST 44 U/L (15-37); Albumin 3.7 g/dL (3.4-5.0); Alkaline Phosphatase 265 U/L (46-116); Anion Gap 11.9 mmol/L (3-11); BUN 13 mg/dL (7-18); Bilirubin, Total 0.6 mg/dL (0.2-1.0); CO2 24.1 mmol/L (21.0-32.0); CREATININE 0.9 mg/dL (0.55-1.02); Calcium 9.2 mg/dL (8.5-10.1); Chloride 104 mmol/L (98-107); Estimated GFR 68.77 (mL/min/1.73m2); Glucose 137 mg/dL (74-106); Potassium 3.5 mmol/L (3.5-5.1); Sodium 140 mmol/L (136-145); Total Protein 7.8 g/dL (6.4-8.2)
[2023-11-26 13:00] LABS: CEA 3.1 ng/mL (See Note)
[2023-11-27 09:09] VITALS: BP 163/73; PULSE 72; RESP 16; TEMP 36.2; O2SAT 96
[2023-11-27] MEDS: Normal Saline Flush 10 ML SYR IVP (09:24)
[2023-11-27] MEDS: Heparin 500 UNITS/5 ML SYRINGE IV (09:24)
== END 2023-11-27 23:59 | disposition home or self-care (01) ==
LOC: INF 02:29
PROVIDERS: PCP Family Medicine; Visit Provider Internal Medicine Hematology & Oncology
DX: C18.2 Malignant neoplasm of ascending colon (principal); C54.1 Malignant neoplasm of endometrium; Z45.2 Encounter for adjustment and management of vascular access device
CPT/HCPCS: 36591; 80053; 96523; 82378; 85025

== ENCOUNTER 2023-12-25 00:07 | Outpatient (RCR) | payer MEDICARE, BC, SELFPAY ==
[2023-11-28 00:09] VITALS: BP 163/73; PULSE 72; RESP 16; TEMP 36.2
[2023-12-08] MEDS: Normal Saline Flush 10 ML SYR IVP (12:46)
[2023-12-08 12:55] LABS: Abs Immature Grans 0.02 10^3/uL (0.0-0.06); Absolute Basophil Count 0.04 10^3/uL (0.0-0.2); Absolute Eosinophil Count 0.12 10^3/uL (0.0-0.7); Absolute Neutrophil Count 2.28 10^3/uL (1.2-6.7); Basophils % 0.6; Eosinophils % 1.9; HGB 12.2 g/dL (11.2-15.7); Immature Grans % 0.3; Lymphocytes % 49.5; MCH 32.2 pg (27.0-33.0); MCHC 33.9 % (32.0-36.0); MCV 95 fL (80-95); Monocytes % 11.2; Neutrophils % 36.5; Platelet Count 120 10^3/uL (130-400); RBC 3.79 10^6/uL (3.93-5.22); RDW 16.6 % (11.7-14.6); RDW-SD 56.9 fL; WBC 6.26 10^3/uL (4.4-10.8)
[2023-12-08 13:15] LABS: ALT 47 U/L (14-59); AST 36 U/L (15-37); Albumin 3.8 g/dL (3.4-5.0); Alkaline Phosphatase 215 U/L (46-116); Anion Gap 6.9 mmol/L (3-11); BUN 17 mg/dL (7-18); CO2 27.1 mmol/L (21.0-32.0); CREATININE 0.9 mg/dL (0.55-1.02); Calcium 9.4 mg/dL (8.5-10.1); Chloride 103 mmol/L (98-107); Estimated GFR 68.77 (mL/min/1.73m2); Glucose 104 mg/dL (74-106); Potassium 3.7 mmol/L (3.5-5.1); Sodium 137 mmol/L (136-145)
[2023-12-09 19:12] LABS: CEA 3.2 ng/mL (See Note)
[2023-12-11] MEDS: Normal Saline Flush 10 ML SYR IVP (12:09)
[2023-12-23 08:20] LABS: Abs Immature Grans 0.02 10^3/uL (0.0-0.06); Absolute Basophil Count 0.03 10^3/uL (0.0-0.2); Absolute Eosinophil Count 0.17 10^3/uL (0.0-0.7); Absolute Lymphocyte Count 2.71 10^3/uL (1.2-3.4); Absolute Monocyte Count 0.64 10^3/uL (0.1-0.8); Absolute Neutrophil Count 3.89 10^3/uL (1.2-6.7); Basophils % 0.4; Eosinophils % 2.3; HCT 35.5 % (36.0-46.0); HGB 11.9 g/dL (11.2-15.7); Immature Grans % 0.3; Lymphocytes % 36.3; MCH 32.2 pg (27.0-33.0); MCHC 33.5 % (32.0-36.0); MCV 96 fL (80-95); MPV 9.8 fL (8.0-11.0); Monocytes % 8.6; Neutrophils % 52.1; Platelet Count 149 10^3/uL (130-400); RDW 17.9 % (11.7-14.6); RDW-SD 62.4 fL; WBC 7.46 10^3/uL (4.4-10.8)
[2023-12-23 08:40] LABS: ALT 37 U/L (14-59); AST 29 U/L (15-37); Albumin 3.4 g/dL (3.4-5.0); Alkaline Phosphatase 201 U/L (46-116); Anion Gap 10.7 mmol/L (3-11); BUN 17 mg/dL (7-18); Bilirubin, Total 0.8 mg/dL (0.2-1.0); CO2 25.3 mmol/L (21.0-32.0); CREATININE 1.1 mg/dL (0.55-1.02); Calcium 9.3 mg/dL (8.5-10.1); Chloride 103 mmol/L (98-107); Estimated GFR 54.06 (mL/min/1.73m2); Glucose 189 mg/dL (74-106); Potassium 3.7 mmol/L (3.5-5.1); Sodium 139 mmol/L (136-145); Total Protein 7.7 g/dL (6.4-8.2)
[2023-12-23] MEDS: Normal Saline Flush 10 ML SYR IVP (09:08)
[2023-12-23 18:02] LABS: CEA 2.7 ng/mL (See Note)
[2023-12-25] MEDS: Normal Saline Flush 10 ML SYR IVP (08:55)
== END 2023-12-28 23:59 | disposition home or self-care (01) ==
LOC: INF 00:07
PROVIDERS: PCP Family Medicine; Visit Provider Internal Medicine Hematology & Oncology
DX: C18.2 Malignant neoplasm of ascending colon (principal); Z45.2 Encounter for adjustment and management of vascular access device
CPT/HCPCS: 36591; 80053; 96523; 82378; 85025

== ENCOUNTER 2024-01-25 02:37 | Outpatient (RCR) | payer MEDICARE, BC, SELFPAY ==
[2023-12-29 00:06] VITALS: BP 163/73; PULSE 72; RESP 16; TEMP 36.2
[2024-01-06] MEDS: Normal Saline Flush 10 ML SYR IVP (09:35)
[2024-01-06 09:59] LABS: Abs Immature Grans 0.01 10^3/uL (0.0-0.06); Absolute Basophil Count 0.04 10^3/uL (0.0-0.2); Absolute Eosinophil Count 0.11 10^3/uL (0.0-0.7); Absolute Lymphocyte Count 2.76 10^3/uL (1.2-3.4); Absolute Monocyte Count 0.47 10^3/uL (0.1-0.8); Absolute Neutrophil Count 1.54 10^3/uL (1.2-6.7); Basophils % 0.8; Eosinophils % 2.2; HCT 35.4 % (36.0-46.0); HGB 11.9 g/dL (11.2-15.7); Immature Grans % 0.2; MCH 33.1 pg (27.0-33.0); MCHC 33.6 % (32.0-36.0); MCV 99 fL (80-95); MPV 9.7 fL (8.0-11.0); Monocytes % 9.5; Neutrophils % 31.3; Platelet Count 111 10^3/uL (130-400); RBC 3.59 10^6/uL (3.93-5.22); RDW 18.5 % (11.7-14.6); RDW-SD 67.1 fL; WBC 4.93 10^3/uL (4.4-10.8)
[2024-01-06 10:24] LABS: ALT 43 U/L (14-59); AST 32 U/L (15-37); Albumin 3.4 g/dL (3.4-5.0); Alkaline Phosphatase 169 U/L (46-116); Anion Gap 10.3 mmol/L (3-11); BUN 15 mg/dL (7-18); Bilirubin, Total 0.9 mg/dL (0.2-1.0); CO2 25.7 mmol/L (21.0-32.0); Calcium 8.8 mg/dL (8.5-10.1); Chloride 105 mmol/L (98-107); Estimated GFR 60.61 (mL/min/1.73m2); Glucose 182 mg/dL (74-106); Potassium 3.8 mmol/L (3.5-5.1); Sodium 141 mmol/L (136-145); Total Protein 7.3 g/dL (6.4-8.2)
[2024-01-06 10:37] LABS: Vitamin D 25 Total 29.9 ng/mL (30-100)
[2024-01-08 12:47] VITALS: BP 137/80; PULSE 63; RESP 18; TEMP 36.1; O2SAT 98
[2024-01-08] MEDS: Normal Saline Flush 10 ML SYR IVP (12:51)
[2024-01-25] MEDS: Normal Saline Flush 10 ML SYR IVP (14:27)
[2024-01-25 14:33] LABS: Abs Immature Grans 0.01 10^3/uL (0.0-0.06); Absolute Basophil Count 0.04 10^3/uL (0.0-0.2); Absolute Eosinophil Count 0.14 10^3/uL (0.0-0.7); Absolute Lymphocyte Count 2.74 10^3/uL (1.2-3.4); Absolute Monocyte Count 0.77 10^3/uL (0.1-0.8); Absolute Neutrophil Count 3.33 10^3/uL (1.2-6.7); Basophils % 0.6; HCT 36.9 % (36.0-46.0); HGB 12.5 g/dL (11.2-15.7); Immature Grans % 0.1; MCH 34.2 pg (27.0-33.0); MCHC 33.9 % (32.0-36.0); MCV 101 fL (80-95); MPV 9.6 fL (8.0-11.0); Neutrophils % 47.3; Platelet Count 196 10^3/uL (130-400); RBC 3.65 10^6/uL (3.93-5.22); WBC 7.03 10^3/uL (4.4-10.8)
[2024-01-25 14:50] LABS: ALT 42 U/L (14-59); AST 26 U/L (15-37); Albumin 3.6 g/dL (3.4-5.0); Alkaline Phosphatase 234 U/L (46-116); Anion Gap 10.5 mmol/L (3-11); BUN 19 mg/dL (7-18); Bilirubin, Total 0.7 mg/dL (0.2-1.0); CO2 26.5 mmol/L (21.0-32.0); CREATININE 1.2 mg/dL (0.55-1.02); Calcium 9.3 mg/dL (8.5-10.1); Chloride 101 mmol/L (98-107); Glucose 115 mg/dL (74-106); Potassium 3.8 mmol/L (3.5-5.1); Sodium 138 mmol/L (136-145); Total Protein 7.8 g/dL (6.4-8.2)
[2024-01-25 22:24] LABS: CEA 3.6 ng/mL (See Note)
[2024-01-25 22:52] LABS: CA 125 8 U/mL (<30)
== END 2024-01-26 23:59 | disposition home or self-care (01) ==
LOC: INF 02:37
PROVIDERS: PCP Family Medicine; Visit Provider Internal Medicine Hematology & Oncology
DX: C54.1 Malignant neoplasm of endometrium (principal); C18.2 Malignant neoplasm of ascending colon; Z79.899 Other long term (current) drug therapy; Z45.2 Encounter for adjustment and management of vascular access device
CPT/HCPCS: 36591; 80053; 82306; 86304; 96523; 82378; 85025

== ENCOUNTER 2024-02-17 00:57 | Outpatient (RCR) | payer MEDICARE, BC, SELFPAY ==
[2024-01-27 00:04] VITALS: BP 163/73; PULSE 72; RESP 16; TEMP 36.2
[2024-02-17] MEDS: Normal Saline Flush 10 ML SYR IVP (10:25)
[2024-02-17 10:45] LABS: Abs Immature Grans 0.01 10^3/uL (0.0-0.06); Absolute Basophil Count 0.01 10^3/uL (0.0-0.2); Absolute Eosinophil Count 0.09 10^3/uL (0.0-0.7); Absolute Lymphocyte Count 2.33 10^3/uL (1.2-3.4); Absolute Monocyte Count 0.44 10^3/uL (0.1-0.8); Basophils % 0.2; Eosinophils % 1.8; HCT 36.5 % (36.0-46.0); HGB 12.4 g/dL (11.2-15.7); Immature Grans % 0.2; Lymphocytes % 47.7; MCH 35.7 pg (27.0-33.0); MPV 9.4 fL (8.0-11.0); Neutrophils % 41.1; Platelet Count 121 10^3/uL (130-400); RBC 3.47 10^6/uL (3.93-5.22); RDW 14.3 % (11.7-14.6); RDW-SD 56.5 fL; WBC 4.88 10^3/uL (4.4-10.8)
[2024-02-17 10:47] LABS: MCV 105 fL (80-95)
[2024-02-17 11:05] LABS: ALT 49 U/L (14-59); AST 30 U/L (15-37); Albumin 3.6 g/dL (3.4-5.0); Alkaline Phosphatase 204 U/L (46-116); Anion Gap 8.3 mmol/L (3-11); BUN 18 mg/dL (7-18); Bilirubin, Total 0.6 mg/dL (0.2-1.0); CO2 28.7 mmol/L (21.0-32.0); CREATININE 0.9 mg/dL (0.55-1.02); Calcium 9.6 mg/dL (8.5-10.1); Chloride 102 mmol/L (98-107); Estimated GFR 68.77 (mL/min/1.73m2); Glucose 168 mg/dL (74-106); Potassium 3.9 mmol/L (3.5-5.1); Sodium 139 mmol/L (136-145); Total Protein 7.7 g/dL (6.4-8.2)
[2024-02-17 18:35] LABS: CA 125 7 U/mL (<30)
== END 2024-02-26 23:59 | disposition home or self-care (01) ==
LOC: INF 00:57
PROVIDERS: PCP Family Medicine; Visit Provider Internal Medicine Hematology & Oncology
DX: C18.2 Malignant neoplasm of ascending colon (principal); C54.1 Malignant neoplasm of endometrium; Z45.2 Encounter for adjustment and management of vascular access device
CPT/HCPCS: 36591; 80053; 86304; 85025

== ENCOUNTER 2024-03-09 00:42 | Outpatient (RCR) | payer MEDICARE, BC, SELFPAY ==
[2024-02-27 00:03] VITALS: BP 163/73; PULSE 72; RESP 16; TEMP 36.2
[2024-03-09] MEDS: Normal Saline Flush 10 ML SYR IVP (10:34)
[2024-03-09 11:01] LABS: Absolute Basophil Count 0.02 10^3/uL (0.0-0.2); Absolute Eosinophil Count 0.04 10^3/uL (0.0-0.7); Absolute Lymphocyte Count 2.17 10^3/uL (1.2-3.4); Absolute Monocyte Count 0.54 10^3/uL (0.1-0.8); Absolute Neutrophil Count 1.99 10^3/uL (1.2-6.7); Basophils % 0.4; Eosinophils % 0.8; HCT 34.8 % (36.0-46.0); HGB 11.9 g/dL (11.2-15.7); Lymphocytes % 45.6; MCH 36.5 pg (27.0-33.0); MCHC 34.2 % (32.0-36.0); MPV 9.7 fL (8.0-11.0); Monocytes % 11.3; Neutrophils % 41.9; Platelet Count 123 10^3/uL (130-400); RBC 3.26 10^6/uL (3.93-5.22); RDW 13.9 % (11.7-14.6); RDW-SD 54.9 fL; WBC 4.76 10^3/uL (4.4-10.8)
[2024-03-09 11:03] LABS: MCV 107 fL (80-95)
[2024-03-09 11:16] LABS: ALT 54 U/L (14-59); AST 30 U/L (15-37); Albumin 3.6 g/dL (3.4-5.0); Alkaline Phosphatase 207 U/L (46-116); Anion Gap 8.5 mmol/L (3-11); BUN 15 mg/dL (7-18); Bilirubin, Total 0.7 mg/dL (0.2-1.0); CO2 26.5 mmol/L (21.0-32.0); CREATININE 0.8 mg/dL (0.55-1.02); Calcium 8.9 mg/dL (8.5-10.1); Chloride 103 mmol/L (98-107); Estimated GFR 79.22 (mL/min/1.73m2); Glucose 112 mg/dL (74-106); Sodium 138 mmol/L (136-145); Total Protein 7.7 g/dL (6.4-8.2)
[2024-03-09 18:28] LABS: CEA 4.3 ng/mL (See Note)
[2024-03-09 19:53] LABS: CA 125 8 U/mL (<30)
[2024-03-15 11:22] LABS: Estradiol, Mass Spectrometry <10 pg/mL; Estrone 30 pg/mL
== END 2024-03-27 23:59 | disposition home or self-care (01) ==
LOC: INF 00:42
PROVIDERS: PCP Family Medicine; Visit Provider Internal Medicine Hematology & Oncology
DX: C18.2 Malignant neoplasm of ascending colon; C54.1 Malignant neoplasm of endometrium; Z45.2 Encounter for adjustment and management of vascular access device
CPT/HCPCS: 36591; 80053; 86304; 82378; 82670; 82679; 85025

== ENCOUNTER 2024-04-12 05:02 | Outpatient (RCR) | payer MEDICARE, BC, SELFPAY ==
[2024-03-28 00:03] VITALS: BP 163/73; PULSE 72; RESP 16; TEMP 36.2
[2024-03-30] MEDS: Normal Saline Flush 10 ML SYR IVP (11:33)
[2024-03-30 11:47] LABS: Abs Immature Grans 0.01 10^3/uL (0.0-0.06); Absolute Basophil Count 0.02 10^3/uL (0.0-0.2); Absolute Eosinophil Count 0.07 10^3/uL (0.0-0.7); Absolute Lymphocyte Count 2.24 10^3/uL (1.2-3.4); Absolute Monocyte Count 0.53 10^3/uL (0.1-0.8); Absolute Neutrophil Count 2.53 10^3/uL (1.2-6.7); Basophils % 0.4 %; Eosinophils % 1.3 %; HCT 36.2 % (36.0-46.0); HGB 12.4 g/dL (11.2-15.7); Immature Grans % 0.2 %; Lymphocytes % 41.5 %; MCH 36.7 pg (27.0-33.0); MCHC 34.3 % (32.0-36.0); MCV 107 fL (80-95); MPV 9.2 fL (8.0-11.0); Monocytes % 9.8 %; Neutrophils % 46.8 %; Platelet Count 160 10^3/uL (130-400); RBC 3.38 10^6/uL (3.93-5.22); RDW 13.2 % (11.7-14.6); RDW-SD 52.3 fL
[2024-03-30 12:05] LABS: ALT 39 U/L (14-59); AST 28 U/L (15-37); Albumin 3.5 g/dL (3.4-5.0); Alkaline Phosphatase 202 U/L (46-116); Anion Gap 8.9 mmol/L (3-11); BUN 13 mg/dL (7-18); Bilirubin, Total 0.5 mg/dL (0.2-1.0); CO2 27.1 mmol/L (21.0-32.0); CREATININE 0.9 mg/dL (0.55-1.02); Chloride 103 mmol/L (98-107); Estimated GFR 68.77 (mL/min/1.73m2); Glucose 138 mg/dL (74-106); Potassium 3.9 mmol/L (3.5-5.1); Sodium 139 mmol/L (136-145); Total Protein 7.9 g/dL (6.4-8.2)
[2024-03-30 22:18] LABS: CEA 4.3 ng/mL (See Note)
[2024-04-12] MEDS: Normal Saline Flush 10 ML SYR IVP (07:37)
[2024-04-12 08:12] LABS: Abs Immature Grans 0.01 10^3/uL (0.0-0.06); Absolute Basophil Count 0.02 10^3/uL (0.0-0.2); Absolute Eosinophil Count 0.08 10^3/uL (0.0-0.7); Absolute Lymphocyte Count 2.28 10^3/uL (1.2-3.4); Absolute Monocyte Count 0.42 10^3/uL (0.1-0.8); Absolute Neutrophil Count 2.08 10^3/uL (1.2-6.7); Basophils % 0.4 %; Eosinophils % 1.6 %; HCT 36.9 % (36.0-46.0); HGB 12.6 g/dL (11.2-15.7); Immature Grans % 0.2 %; Lymphocytes % 46.6 %; MCH 36.2 pg (27.0-33.0); MCHC 34.1 % (32.0-36.0); MCV 106 fL (80-95); MPV 9.7 fL (8.0-11.0); Monocytes % 8.6 %; Neutrophils % 42.6 %; Platelet Count 111 10^3/uL (130-400); RBC 3.48 10^6/uL (3.93-5.22); RDW 12.7 % (11.7-14.6); RDW-SD 49.4 fL; WBC 4.89 10^3/uL (4.4-10.8)
[2024-04-12 08:45] LABS: ALT 47 U/L (14-59); AST 37 U/L (15-37); Albumin 3.7 g/dL (3.4-5.0); Alkaline Phosphatase 208 U/L (46-116); Anion Gap 12.2 mmol/L (3-11); BUN 14 mg/dL (7-18); Bilirubin, Total 0.6 mg/dL (0.2-1.0); CO2 24.8 mmol/L (21.0-32.0); CREATININE 0.9 mg/dL (0.55-1.02); Calcium 9.1 mg/dL (8.5-10.1); Chloride 103 mmol/L (98-107); Estimated GFR 68.77 (mL/min/1.73m2); Glucose 148 mg/dL (74-106); Potassium 3.8 mmol/L (3.5-5.1); Sodium 140 mmol/L (136-145); Total Protein 7.9 g/dL (6.4-8.2)
[2024-04-12 08:54] LABS: Vitamin D 25 Total 39.6 ng/mL (30-100)
[2024-04-12 09:58] LABS: Vitamin B12 289 pg/mL (193-986)
[2024-04-12 21:32] LABS: CA 125 7 U/mL (<30)
== END 2024-04-27 23:59 | disposition home or self-care (01) ==
LOC: INF 05:02
PROVIDERS: PCP Family Medicine; Visit Provider Internal Medicine Hematology & Oncology
DX: C18.2 Malignant neoplasm of ascending colon (principal); E55.9 Vitamin D deficiency, unspecified; C54.1 Malignant neoplasm of endometrium; Z45.2 Encounter for adjustment and management of vascular access device
CPT/HCPCS: 36591; 80053; 82306; 86304; 82378; 82607; 85025

== ENCOUNTER → 2024-04-16 01:43 | Outpatient (CLI) | payer MEDICARE, BC, SELFPAY ==
--- NOTE | 2024-04-16 | DI.DEXA_ITS ---
Exam(s) XR DEXA BONE DENSITY W/WO PORSHA EXAM: XR DEXA BONE DENSITY W/WO PORSHA CLINICAL HISTORY: C54.1,Z79.899,Z78.0 Endometrial CA,High risk Med use, Post menopausal-new TECHNIQUE: Routine DEXA evaluation of the lumbar spine, hip, or forearm. COMPARISON: CR XR DEXA BONE DENSITY W/WO PORSHA from 03/26/2022 FINDINGS: Performed on a [employer] unit. Lateral image: No compression fracture evident. Lumbar Spine total T-score: 1.1. This is identical reading to prior study of 03/26/2022 Hip total T-score:Not done as there are bilateral hip prostheses. Forearm total T-score: -0.4. Prior reading 2021 was -0.6 IMPRESSION: Bone mineral density measures in the normal range. Fracture risk is low. Note: Any spine fracture indicates 5x risk for subsequent spine fracture and 2x risk for subsequent h ip fracture. World Health Organization criteria for BMD interpretation classify patients: Normal...... T- Score at or above -1.0 Osteopenic... T- Score between -1.0 and -2.5 Osteoporosis... T-Score at or below -2.5
== END ==
PROVIDERS: PCP Family Medicine; Visit Provider Internal Medicine Hematology & Oncology
DX: Z78.0 Asymptomatic menopausal state (principal); Z13.820 Encounter for screening for osteoporosis
CPT/HCPCS: 77080

== ENCOUNTER → 2024-05-22 01:42 | Outpatient (CLI) | payer MEDICARE, BC, SELFPAY ==
--- NOTE | 2024-05-22 08:00 | DI.MAMMO_ITS ---
Exam(s) MAMMO SCREENING EXAM: MAMMO SCREENING CLINICAL HISTORY: screening, Z12.39 TECHNIQUE: Mammograms were interpreted according to the usual protocol including computer analysis w [employer] CAD system, tomosynthesis and C-view imaging. COMPARISON: 2014 through 2020 FINDINGS: The breasts are composed of scattered fibroglandular densities, Breast Density category B. No suspicious masses or suspicious microcalcifications are seen. No skin thickening or abnormal axillary lymph nodes are seen. There has been no significant change from prior exams. IMPRESSION: BI-RADS Category 1, Negative mammogram Yearly screening mammography is recommended. Breast Density - Category B, scattered fibroglandular densities. A negative radiographic report should not delay biopsy if a dominant or clinically suspicious mass is present. Up to ten percent of cancers are not identified on mammography. A negative report may reinforce clinical impression. Adenosis and dense breasts may obscure an underlying neoplasm. False positive reports average 6 to 10%. Patient will receive a letter notifying them of these results.
== END ==
PROVIDERS: PCP Family Medicine; Visit Provider Family Medicine
DX: Z12.31 Encounter for screening mammogram for malignant neoplasm of breast (principal)
CPT/HCPCS: 77063; 77067

== ENCOUNTER 2024-05-25 01:11 | Outpatient (RCR) | payer MEDICARE, BC, SELFPAY ==
[2024-04-28 00:18] VITALS: BP 163/73; PULSE 72; RESP 16; TEMP 36.2
[2024-05-11 12:43] LABS: Abs Immature Grans 0.01 10^3/uL (0.0-0.06); Absolute Basophil Count 0.03 10^3/uL (0.0-0.2); Absolute Eosinophil Count 0.06 10^3/uL (0.0-0.7); Absolute Lymphocyte Count 2.28 10^3/uL (1.2-3.4); Absolute Monocyte Count 0.58 10^3/uL (0.1-0.8); Absolute Neutrophil Count 2.96 10^3/uL (1.2-6.7); Basophils % 0.5 %; HCT 37.9 % (36.0-46.0); HGB 13.3 g/dL (11.2-15.7); Immature Grans % 0.2 %; Lymphocytes % 38.5 %; MCH 36.3 pg (27.0-33.0); MCHC 35.1 % (32.0-36.0); MCV 104 fL (80-95); MPV 9.9 fL (8.0-11.0); Monocytes % 9.8 %; Platelet Count 132 10^3/uL (130-400); RBC 3.66 10^6/uL (3.93-5.22); RDW 11.6 % (11.7-14.6); RDW-SD 44.4 fL; WBC 5.92 10^3/uL (4.4-10.8)
[2024-05-11] MEDS: Normal Saline Flush 10 ML SYR IVP (12:45)
[2024-05-11 13:10] LABS: ALT 47 U/L (14-59); AST 35 U/L (15-37); Albumin 3.6 g/dL (3.4-5.0); Alkaline Phosphatase 186 U/L (46-116); Anion Gap 9.2 mmol/L (3-11); BUN 18 mg/dL (7-18); Bilirubin, Total 0.7 mg/dL (0.2-1.0); CO2 26.8 mmol/L (21.0-32.0); CREATININE 1.1 mg/dL (0.55-1.02); Calcium 8.9 mg/dL (8.5-10.1); Chloride 101 mmol/L (98-107); Estimated GFR 54.06 (mL/min/1.73m2); Glucose 141 mg/dL (74-106); Potassium 3.7 mmol/L (3.5-5.1); Sodium 137 mmol/L (136-145); Total Protein 7.9 g/dL (6.4-8.2)
[2024-05-11 23:25] LABS: CEA 8.3 ng/mL (See Note)
[2024-05-25] MEDS: Normal Saline Flush 10 ML SYR IVP (14:02)
== END 2024-05-27 23:59 | disposition home or self-care (01) ==
LOC: INF 01:11
PROVIDERS: Nurse Practitioner Family; PCP Family Medicine; Visit Provider Internal Medicine Hematology & Oncology
DX: C18.2 Malignant neoplasm of ascending colon (principal); C54.1 Malignant neoplasm of endometrium; C76.3 Malignant neoplasm of pelvis; Z45.2 Encounter for adjustment and management of vascular access device
CPT/HCPCS: 36591; 80053; 82378; 85025

== ENCOUNTER → 2024-06-15 08:55 | Outpatient (CLI) | payer MEDICARE, BC, SELFPAY ==
--- NOTE | 2024-06-15 08:43 | DI.RAD_ITS ---
Exam(s) XR CHEST 2V PA LATERAL EXAM: XR CHEST 2V PA LATERAL CLINICAL HISTORY: cough J18.9 PNEUMONIA. TECHNIQUE: 2D digital imaging was performed. COMPARISON: CR XR RIBS RT W PA LAT CHEST from 03/23/2021 FINDINGS: 2 views: The distal tip of the left subclavian Port-A-Cath is below the SVC-RA junction, within the upper righ t atrium. Heart size is normal. The mediastinum is not widened. Lungs are clear. No infiltrates nor pleural effusions. No ominous pulmonary nodules. No abnormal osseous findings. IMPRESSION: No acute pulmonary findings. Distal tip of the left subclavian Port-A-Cath is in the upper right atrium DATA REPOSITORY: RADIATION DOSE DELIVERED:
== END ==
PROVIDERS: PCP Family Medicine; Visit Provider Family Medicine
DX: J18.9 Pneumonia, unspecified organism (principal)
CPT/HCPCS: 71046

== ENCOUNTER 2024-06-21 11:04 | Outpatient (CLI) | payer MEDICARE, BC, SELFPAY ==
--- NOTE | 2024-06-21 11:00 | RT.EKG_ITS ---
APPROVED REPORT Exam: Resting ECG Reason for Exam: Central Line Patient Location: O HR:78 bpm ECG Measurements Heart Rate 78 AXIS RI 150 P 61 QRSd 91 QRS 59 QT 400 T 64 QTc 456 Conclusion Sinus rhythm...normal P axis, V-rate 50- 99 Atrial premature complexes...SV complexes w/ short R-R intvls Probable left atrial enlargement...P >50mS, <-0.10mV V1
== END 2024-06-21 11:05 | disposition home or self-care (01) ==
LOC: DI.CM 11:06
PROVIDERS: PCP Family Medicine; Visit Provider Family Medicine
DX: Z98.890 Other specified postprocedural states (principal); I49.1 Atrial premature depolarization; I51.7 Cardiomegaly; R05.9 Cough, unspecified
CPT/HCPCS: 93010

== ENCOUNTER 2024-07-24 02:35 | Outpatient (RCR) | payer MEDICARE, BC, SELFPAY ==
[2024-05-28 00:22] VITALS: BP 163/73; PULSE 72; RESP 16; TEMP 36.2
[2024-06-29] MEDS: Normal Saline Flush 10 ML SYR IVP (09:32)
[2024-06-29 09:38] LABS: Abs Immature Grans 0.01 10^3/uL (0.0-0.06); Absolute Basophil Count 0.03 10^3/uL (0.0-0.2); Absolute Lymphocyte Count 2.42 10^3/uL (1.2-3.4); Absolute Monocyte Count 0.61 10^3/uL (0.1-0.8); Absolute Neutrophil Count 2.85 10^3/uL (1.2-6.7); Basophils % 0.5 %; Eosinophils % 4.8 %; HCT 38.4 % (36.0-46.0); HGB 13.1 g/dL (11.2-15.7); Immature Grans % 0.2 %; Lymphocytes % 38.9 %; MCH 34.5 pg (27.0-33.0); MCHC 34.1 % (32.0-36.0); MCV 101 fL (80-95); MPV 9.5 fL (8.0-11.0); Monocytes % 9.8 %; Neutrophils % 45.8 %; Platelet Count 130 10^3/uL (130-400); RDW 12.1 % (11.7-14.6); RDW-SD 45.3 fL; WBC 6.22 10^3/uL (4.4-10.8)
[2024-06-29 10:01] LABS: ALT 52 U/L (14-59); AST 34 U/L (15-37); Albumin 3.6 g/dL (3.4-5.0); Alkaline Phosphatase 191 U/L (46-116); Anion Gap 6.4 mmol/L (3-11); BUN 15 mg/dL (7-18); CO2 29.6 mmol/L (21.0-32.0); CREATININE 1.3 mg/dL (0.55-1.02); Calcium 9.1 mg/dL (8.5-10.1); Chloride 102 mmol/L (98-107); Estimated GFR 43.96 (mL/min/1.73m2); Glucose 119 mg/dL (74-106); Potassium 4.2 mmol/L (3.5-5.1); Sodium 138 mmol/L (136-145)
[2024-06-29 18:14] LABS: CEA 13.7 ng/mL (See Note)
[2024-06-29 18:48] LABS: CA 125 7 U/mL (<30)
[2024-07-24] MEDS: Normal Saline Flush 10 ML SYR IVP (14:19)
== END 2024-07-28 23:59 | disposition home or self-care (01) ==
LOC: INF 02:35
PROVIDERS: Nurse Practitioner Family; PCP Family Medicine; Visit Provider Internal Medicine Hematology & Oncology
DX: C54.1 Malignant neoplasm of endometrium (principal); C18.2 Malignant neoplasm of ascending colon; Z45.2 Encounter for adjustment and management of vascular access device; R91.1 Solitary pulmonary nodule
CPT/HCPCS: 36591; 80053; 86304; 96523; 82378; 85025

== ENCOUNTER 2024-09-11 01:59 | Outpatient (RCR) | payer MEDICARE, BC, SELFPAY ==
[2024-07-29 00:18] VITALS: BP 163/73; PULSE 72; RESP 16; TEMP 36.2
[2024-09-11] MEDS: Normal Saline Flush 10 ML SYR IVP (10:09)
[2024-09-11 10:10] LABS: Abs Immature Grans 0.02 10^3/uL (0.0-0.06); Absolute Basophil Count 0.02 10^3/uL (0.0-0.2); Absolute Eosinophil Count 0.09 10^3/uL (0.0-0.7); Absolute Lymphocyte Count 1.52 10^3/uL (1.2-3.4); Absolute Monocyte Count 0.57 10^3/uL (0.1-0.8); Absolute Neutrophil Count 3.24 10^3/uL (1.2-6.7); Basophils % 0.4 %; Eosinophils % 1.6 %; HCT 37.9 % (36.0-46.0); HGB 12.7 g/dL (11.2-15.7); Immature Grans % 0.4 %; Lymphocytes % 27.8 %; MCH 34.2 pg (27.0-33.0); MCHC 33.5 % (32.0-36.0); MCV 102 fL (80-95); MPV 9.7 fL (8.0-11.0); Monocytes % 10.4 %; Neutrophils % 59.4 %; Platelet Count 111 10^3/uL (130-400); RBC 3.71 10^6/uL (3.93-5.22); RDW 12.4 % (11.7-14.6); RDW-SD 46.6 fL; WBC 5.46 10^3/uL (4.4-10.8)
[2024-09-11 10:24] LABS: ALT 61 U/L (14-59); AST 34 U/L (15-37); Albumin 3.6 g/dL (3.4-5.0); Alkaline Phosphatase 188 U/L (46-116); Anion Gap 11.3 mmol/L (3-11); BUN 18 mg/dL (7-18); Bilirubin, Total 0.61 mg/dL (0.2-1.0); CO2 25.7 mmol/L (21.0-32.0); CREATININE 0.9 mg/dL (0.55-1.02); Calcium 9.2 mg/dL (8.5-10.1); Chloride 103 mmol/L (98-107); Estimated GFR 68.35 (mL/min/1.73m2); Glucose 91 mg/dL (74-106); Sodium 140 mmol/L (136-145); Total Protein 7.8 g/dL (6.4-8.2)
[2024-09-11 18:29] LABS: CEA 12.5 ng/mL (See Note)
[2024-09-11 19:09] LABS: CA 125 6 U/mL (<30)
== END 2024-09-27 23:59 | disposition home or self-care (01) ==
LOC: INF 01:59
PROVIDERS: Nurse Practitioner Family; PCP Family Medicine; Visit Provider Internal Medicine Hematology & Oncology
DX: C54.1 Malignant neoplasm of endometrium (principal); C18.2 Malignant neoplasm of ascending colon; R91.1 Solitary pulmonary nodule; Z45.2 Encounter for adjustment and management of vascular access device
CPT/HCPCS: 36591; 80053; 86304; 96523; 82378; 85025

== ENCOUNTER 2024-10-09 03:29 | Outpatient (RCR) | payer MEDICARE, BC, SELFPAY ==
[2024-09-28 00:22] VITALS: BP 163/73; PULSE 72; RESP 16; TEMP 36.2
[2024-10-09] MEDS: Normal Saline Flush 10 ML SYR IVP (09:43)
== END 2024-10-27 23:59 | disposition home or self-care (01) ==
LOC: INF 03:29
PROVIDERS: PCP Family Medicine; Visit Provider Internal Medicine Hematology & Oncology
DX: Z45.2 Encounter for adjustment and management of vascular access device (principal)
CPT/HCPCS: 96523

== ENCOUNTER 2024-11-05 02:01 | Outpatient (RCR) | payer MEDICARE, BC, SELFPAY ==
[2024-10-28 00:25] VITALS: BP 163/73; PULSE 72; RESP 16; TEMP 36.2
[2024-11-05 08:25] LABS: Absolute Basophil Count 0.06 10^3/uL (0.0-0.2); Absolute Eosinophil Count 0.15 10^3/uL (0.0-0.7); Absolute Lymphocyte Count 1.99 10^3/uL (1.2-3.4); Absolute Monocyte Count 0.52 10^3/uL (0.1-0.8); Absolute Neutrophil Count 1.87 10^3/uL (1.2-6.7); Basophils % 1.3 %; Eosinophils % 3.3 %; HCT 37.2 % (36.0-46.0); HGB 12.7 g/dL (11.2-15.7); Lymphocytes % 43.4 %; MCH 34.3 pg (27.0-33.0); MCHC 34.1 % (32.0-36.0); MCV 101 fL (80-95); MPV 9.5 fL (8.0-11.0); Monocytes % 11.3 %; Neutrophils % 40.7 %; Platelet Count 148 10^3/uL (130-400); RDW 11.9 % (11.7-14.6); RDW-SD 43.6 fL; WBC 4.59 10^3/uL (4.4-10.8)
[2024-11-05] MEDS: Normal Saline Flush 10 ML SYR IVP (08:29)
[2024-11-05 08:47] LABS: ALT 61 U/L (14-59); AST 40 U/L (15-37); Albumin 3.6 g/dL (3.4-5.0); Alkaline Phosphatase 187 U/L (46-116); Anion Gap 11.4 mmol/L (3-11); BUN 10 mg/dL (7-18); Bilirubin, Total 0.55 mg/dL (0.2-1.0); CO2 25.6 mmol/L (21.0-32.0); Calcium 9.1 mg/dL (8.5-10.1); Chloride 104 mmol/L (98-107); Estimated GFR 60.23 (mL/min/1.73m2); Glucose 128 mg/dL (74-106); Potassium 3.7 mmol/L (3.5-5.1); Sodium 141 mmol/L (136-145); Total Protein 7.8 g/dL (6.4-8.2)
[2024-11-05 17:41] LABS: CEA 2.6 ng/mL (See Note)
== END 2024-11-27 23:59 | disposition home or self-care (01) ==
LOC: INF 02:01
PROVIDERS: Nurse Practitioner Family; PCP Family Medicine; Visit Provider Internal Medicine Hematology & Oncology
DX: C18.2 Malignant neoplasm of ascending colon (principal); R91.1 Solitary pulmonary nodule; Z45.2 Encounter for adjustment and management of vascular access device
CPT/HCPCS: 36591; 80053; 82378; 85025

== ENCOUNTER 2024-12-19 01:41 | Outpatient (RCR) | payer MEDICARE, BC, SELFPAY ==
[2024-11-28 00:28] VITALS: BP 163/73; PULSE 72; RESP 16; TEMP 36.2
[2024-12-19] MEDS: Normal Saline Flush 10 ML SYR IVP (13:14)
== END 2024-12-28 23:59 | disposition home or self-care (01) ==
LOC: INF 01:41
PROVIDERS: PCP Family Medicine; Visit Provider Internal Medicine Hematology & Oncology
DX: Z45.2 Encounter for adjustment and management of vascular access device (principal)
CPT/HCPCS: 96523

== ENCOUNTER 2025-02-21 01:12 | Outpatient (CLI) | payer MEDICARE, BC, SELFPAY ==
--- NOTE | 2025-02-21 06:15 | DI.MRI_ITS ---
Exam(s) MR BRAIN WO/W EXAM: MR BRAIN WO/W CLINICAL HISTORY: ? mets to brain,colon and lung ca,polyneuropathy TECHNIQUE: Multiplanar multisequence MRI of the brain was performed. Both noninfused and contrast i nfused sequences were performed. IV Contrast injected was 14 cc Dotarem. COMPARISON: CR XR CHEST 2V PA LATERAL from 06/15/2024 FINDINGS: CEREBRAL PARENCHYMA: No evidence of intracranial hemorrhage, mass effect nor shift of midline structu re. No extraaxial fluid collections. Ventricles are not enlarged nor shifted. There is no significant focal signal abnormality in the cerebellar hemispheres nor within the kristin, m idbrain, and thalami. There are multiple small foci of FLAIR bright signal abnormality in the bilateral frontal lobe white matter, ranging up to 6 mm size. These are not associated with hemorrhage, surrounding edema, restri cted diffusion, nor enhancement. There are no ring enhancing lesions in the brain and there is no ab normal meningeal enhancement, focal nor diffuse. SWI: No microhemorrhages evident. PITUITARY GLAND: No mass nor parasellar abnormality. No obvious abnormality in the cavernous sinuses. FLOW VOIDS: The expected flow void are noted. No evidence of obvious aneurysm nor obvious vascular ma lformation. PARANASAL SINUSES: The visualized paranasal sinuses appear unremarkable. ORBITS: No obvious abnormal findings. IMPRESSION: 1. There are multiple small foci of FLAIR bright signal abnormality in the bilateral white matter, pr edominately in the frontal lobes, the largest of these measuring 6 mm (left frontal lobe). However, these are not associated with hemorrhage, surrounding edema, nor enhancement and are unlikely to be m etastatic disease. These are most probably related to chronic small-vessel disease. 2. No abnormal enhancing intracranial findings. There are no ring enhancing lesions in the brain and there is no abnormal meningeal enhancement. DATA REPOSITORY:
[2025-02-21] MEDS: Gadoterate meglumine 20 ML SYRINGE 14 ML IVP (07:33)
[2025-02-21] MEDS: Normal Saline Flush 10 ML SYR IVP (07:33)
== END 2025-02-21 01:32 ==
LOC: DI 01:12
PROVIDERS: PCP Family Medicine; Visit Provider Family Medicine
DX: R29.898 Other symptoms and signs involving the musculoskeletal system (principal); G62.9 Polyneuropathy, unspecified; C18.9 Malignant neoplasm of colon, unspecified; C78.00 Secondary malignant neoplasm of unspecified lung
CPT/HCPCS: 36591; 70553; 82378; 82607; 83036; 84443

== ENCOUNTER 2025-02-21 02:22 | Outpatient (RCR) | payer MEDICARE, BC, SELFPAY ==
[2025-01-29] MEDS: Normal Saline Flush 10 ML SYR IVP (08:54)
[2025-01-29 09:02] LABS: HCT 38.8 % (36.0-46.0); HGB 13.4 g/dL (11.2-15.7); MCH 34.4 pg (27.0-33.0); MCHC 34.5 % (32.0-36.0); MCV 100 fL (80-95); MPV 9.9 fL (8.0-11.0); Platelet Count 133 10^3/uL (130-400); RDW 12.9 % (11.7-14.6); RDW-SD 46.9 fL; WBC 5.95 10^3/uL (4.4-10.8)
[2025-01-29 09:27] LABS: ALT 60 U/L (14-59); AST 35 U/L (15-37); Albumin 3.6 g/dL (3.4-5.0); Alkaline Phosphatase 182 U/L (46-116); BUN 15 mg/dL (7-18); Bilirubin, Total 0.89 mg/dL (0.2-1.0); CREATININE 0.9 mg/dL (0.55-1.02); Calcium 9.1 mg/dL (8.5-10.1); Calculated LDL 133 mg/dL (<100); Chloride 103 mmol/L (98-107); Cholesterol 229 mg/dL (<200); Estimated GFR 68.35 (mL/min/1.73m2); Glucose 133 mg/dL (74-106); HDL Cholesterol 66 mg/dL (>or=50); Sodium 139 mmol/L (136-145); Triglyceride 150 mg/dL (<150)
[2025-01-29 18:29] LABS: CEA 11.1 ng/mL (See Note)
[2025-01-29 18:52] LABS: Abs Immature Grans 0.01 10^3/uL (0.0-0.06); Absolute Basophil Count 0.04 10^3/uL (0.0-0.2); Absolute Lymphocyte Count 1.81 10^3/uL (1.2-3.4); Absolute Monocyte Count 0.55 10^3/uL (0.1-0.8); Absolute Neutrophil Count 3.66 10^3/uL (1.2-6.7); Basophils % 0.6 %; Eosinophils % 1.6 %; Immature Grans % 0.2 %; Lymphocytes % 29.3 %; Monocytes % 8.9 %; Neutrophils % 59.4 %
[2025-01-29 19:01] LABS: CA 125 6 U/mL (<30)
[2025-01-30 14:07] LABS: Albumin 55.4 % (55.8-66.1); Albumin g/dL 4.2 g/dL (3.6-5.2); Total Protein 7.5 g/dL (6.3-8.2)
[2025-02-21] MEDS: Normal Saline Flush 10 ML SYR IVP ×2 (07:38→10:51)
[2025-02-21 07:59] LABS: Hemoglobin A1C 6.1 % (<5.7)
[2025-02-21 08:26] LABS: TSH (W/Ref FT4) 2.74 uIU/mL (0.36-3.74); Vitamin B12 360 pg/mL (193-986)
[2025-02-21 18:06] LABS: CEA 21.6 ng/mL (See Note)
== END 2025-02-25 23:59 | disposition home or self-care (01) ==
LOC: INF 02:22
PROVIDERS: Nurse Practitioner Family; PCP Family Medicine; Visit Provider Internal Medicine Hematology & Oncology
DX: C18.2 Malignant neoplasm of ascending colon (principal); R91.1 Solitary pulmonary nodule; C78.00 Secondary malignant neoplasm of unspecified lung; C54.1 Malignant neoplasm of endometrium; G62.9 Polyneuropathy, unspecified; E03.9 Hypothyroidism, unspecified; E11.9 Type 2 diabetes mellitus without complications
CPT/HCPCS: 36591; 80053; 80061; 85027; 86304; 82378; 82607; 83036; 84165; 84443; 85007

== ENCOUNTER 2025-03-19 03:16 | Outpatient (RCR) | payer MEDICARE, BC, SELFPAY ==
[2025-03-19 13:13] LABS: Abs Immature Grans 0.02 10^3/uL (0.0-0.06); Absolute Basophil Count 0.03 10^3/uL (0.0-0.2); Absolute Eosinophil Count 0.11 10^3/uL (0.0-0.7); Absolute Lymphocyte Count 1.63 10^3/uL (1.2-3.4); Absolute Monocyte Count 0.56 10^3/uL (0.1-0.8); Absolute Neutrophil Count 4.75 10^3/uL (1.2-6.7); Basophils % 0.4 %; Eosinophils % 1.5 %; HCT 39.1 % (36.0-46.0); HGB 13.3 g/dL (11.2-15.7); Immature Grans % 0.3 %; MCH 34.9 pg (27.0-33.0); MCV 103 fL (80-95); MPV 9.7 fL (8.0-11.0); Monocytes % 7.9 %; Neutrophils % 66.9 %; Platelet Count 122 10^3/uL (130-400); RBC 3.81 10^6/uL (3.93-5.22); RDW 12.5 % (11.7-14.6); RDW-SD 47.3 fL
[2025-03-19] MEDS: Normal Saline Flush 10 ML SYR IVP (13:22)
[2025-03-19 13:31] LABS: ALT 61 U/L (14-59); AST 38 U/L (15-37); Albumin 3.5 g/dL (3.4-5.0); Alkaline Phosphatase 201 U/L (46-116); Anion Gap 7.1 mmol/L (3-11); BUN 14 mg/dL (7-18); Bilirubin, Total 0.7 mg/dL (0.2-1.0); CO2 26.9 mmol/L (21.0-32.0); CREATININE 1.1 mg/dL (0.55-1.02); Calcium 8.7 mg/dL (8.5-10.1); Chloride 105 mmol/L (98-107); Estimated GFR 53.72 (mL/min/1.73m2); Glucose 157 mg/dL (74-106); Potassium 3.8 mmol/L (3.5-5.1); Sodium 139 mmol/L (136-145)
[2025-03-19 23:59] LABS: CEA 36.9 ng/mL (See Note)
== END 2025-03-27 23:59 | disposition home or self-care (01) ==
LOC: INF 03:16
PROVIDERS: PCP Family Medicine; Visit Provider Internal Medicine Hematology & Oncology
DX: C18.9 Malignant neoplasm of colon, unspecified (principal); C78.00 Secondary malignant neoplasm of unspecified lung; Z45.2 Encounter for adjustment and management of vascular access device
CPT/HCPCS: 36591; 80053; 82378; 85025

== ENCOUNTER → 2025-03-27 14:26 | Outpatient (BNVA) | payer MEDICARE, BC, SELFPAY | PROVIDERS: PCP Family Medicine; Referring Provider Family Medicine; Visit Provider Surgery | DX: Z12.11 Encounter for screening for malignant neoplasm of colon (principal); Z85.038 Personal history of other malignant neoplasm of large intestine; Z85.42 Personal history of malignant neoplasm of other parts of uterus ==

== ENCOUNTER 2025-04-01 08:01 | Day surgery (SDC) | payer MEDICARE, BC, SELFPAY ==
--- NOTE | 2025-03-31 06:46 | W.PM.DSUDISC ---
Date of service: 04/01/25 Discharge Plan Disposition Patient Disposition: Home Condition: Good Discharge Details Reason For Visit: colonoscopy Attending Provider: Bret Diego Primary Care Provider: Priscilla Brantley Home Meds and New Rx's Prescriptions: Continued latanoprost 0.005 % drops 1 drp ophthalmic (eye) HS Patient Comments: INSTILL ONE DROP IN EACH EYE AT BEDTIME gabapentin 100 mg capsule 100 mg PO TID Qty: 90 5RF lorazepam [Ativan] 0.5 mg tablet 0.5 mg PO DAILY PRN multivitamin Tablet 1 tab PO DAILY ibuprofen 600 mg tablet See Rx Instructions .ROUTE .COMPLEX Qty: 90 1RF Dose Instruction: TAKE ONE TABLET BY MOUTH THREE TIMES A DAY NEEDED FOR PAIN Rx Instructions: TAKE ONE TABLET BY MOUTH THREE TIMES A DAY NEEDED FOR PAIN mecobalamin (vitamin B12) 1,000 mcg lozenge 1,000 mcg PO DAILY Qty: 60 0RF Rx Instructions: allow to dissolve in mouth OR may chew lightly before swallowing Discontinued polyethylene glycol 3350 17 gram/dose powder 238 g PO ONCE Qty: 238 0RF Rx Instructions: take per colonoscopy instructions bisacodyl [Dulcolax (bisacodyl)] 5 mg tablet,delayed release (DR/EC) 5 mg PO ONCE Qty: 4 0RF Rx Instructions: take per colonoscopy instructions Discharge Instructions Additional Instructions: Belinda, I wish you a quick recovery from the procedure today. I hope you feel well this afternoon and that things go smoothly. I did find, and removed 3 abnormalities during your colonoscopy today. The largest of these was about 60 cm beyond the anal verge, and by its overall appearance, I do have some worries that this may be a colon cancer. I resected this today as widely as I could safely do with the colonoscope. It should certainly be enough for a tissue diagnosis, and we will wait to see the pathology result before making any other decisions. The other 2 abnormalities were smaller, and the clinical features more more consistent with traditional polyps. As soon as I have the information from the pathology report, I will call you with those results. If you need anything at all, please do not hesitate to call. 1. If tolerated, consume a soft, low fiber diet for 1-2 days. 2[address] Do not drive, drink alcohol, operate machinery, make critical decisions, or do activities that require coordination or balance for 24 hours. 3. Because air was put into your colon during the procedure, expelling air from your rectum (passing gas or farting) is normal. 4. You may not have a bowel movement for 1-3 days because of the colonoscopy prep. This is normal. 5. Go directly to the emergency room if you notice any of the following: Develop chills (warm to touch), or if you have a thermometer and your temperature is above 101 Difficulty breathing or difficultly swallowing Persistent vomiting Severe abdominal pain, other than gas cramps Severe chest pain Black, tarry stools Any bleeding ? exceeding one tablespoon 6. Call your physician if the site where your intravenous was started becomes red, swollen, painful, and warm to touch. 7. Your physician has reviewed your pre-procedure medications. Please continue to take those medications as previously ordered. You will be given specific information/education regarding any changes to your medications before leaving. Stand Alone Forms: Anesthesia Discharge InstLico, Tracee Peña (DSU) Activity:: Activity as Tolerated Diet:: As Tolerated Discharge Orders Discharge Orders: Discharge Order (Routine); Ordered 03/31/25 Ordered By: Bret Diego DS: Diagnosis Discharge Diagnosis (1) Encounter for colonoscopy due to history of colon cancer: Status: Acute Asessment and Plan: Follow-up on polypectomy results
--- NOTE | 2025-03-31 06:48 | COLE_ITS ---
Date of service: 04/01/25 Time of Service: 11:16 Colonoscopy Report Date of procedure: 04/01/25 Pre-op diagnosis general: abnormal PET CT scan Post-op diagnosis procedure note: other (Diverticulosis, colon polyps) Procedure: colonoscopy with polypectomy Surgeon: Bret Diego Anesthesia Type: General:No Airway Estimated blood loss (mL): 10 Pathology: other (0.75 cm flat polyp at 70 cm beyond the anal verge, 1 cm polyp at 60 cm, 0.25 cm flat polyp at 45 cm) Complications: None Disposition: same day Indications: Belinda is a 69 year old woman with a history of metastatic colon cancer. She has undergone right hemocectomy. During her last surveillance PET CT scan, abnormalities were found in the sigmoid colon and the area of the splenic flexure. SHe is undergoing colonoscopy for direct visualization and tissue sampling. Prep: Miralax/Dulcolax Procedure Start Time: 10:27 Procedure End Time: 10:55 Retraction Time: 13 Findings: Sigmoid diverticulosis; 0.75 cm flat polyp at 70 cm beyond the anal verge, 1 cm polyp at 60 cm, 0.25 cm flat polyp at 45 cm Procedure Description: After the induction of anesthesia, and with Belinda in left lateral decubitus position, I began by performing an external anorectal exam.? The perineum and skin were normal, as was the anal verge.?Next, I performed a digital rectal exam.? I did not appreciate any abnormal findings.? Next, I advanced a colonoscope into the rectal vault.? I performed retroflexion.? This was normal.? Using irrigation, I then advanced the colonoscope beyond the rectal folds and through the sigmoid colon before advancing towards the anastomosis.? The quality of the prep was excellent.? Distal to the splenic flexure, approximately 60 cm of on the anal verge was a ulcerated, slightly pedunculated mass. Tissue was slightly friable. I was able to encircle this with a medium snare, and using a energize snare polypectomy, I was able to excise this. The specimen was too large to evacuate through the colonoscope, so it was removed along the length of the colon. The camera was reinserted, and advanced up to the resection site. There was a small portion of adjacent polypoid tissue which was removed in piecemeal with cold forceps. I believe the resection at the site was complete. Careful attention was paid to measurements from the anal verge. Again, it seems most consistent about 60 cm beyond the verge, which is higher than I would expect for the abnormality seen on the PET CT scan, but it was certainly distal to the splenic flexure. I advanced beyond this, and across the splenic flexure before the advancing into the distal transverse colon, and up to the anastomosis. The anastomosis was widely patent. It was irrigated clean. Tissue all looked healthy, and I did not see any abnormalities here. I began retracting the colonoscope. Around 70 cm from the anal verge, proximal to the splenic flexure was another lesion. This was about 0.75 cm in its largest dimension. This was flat, and clinical features seemed most consistent with a simple polyp. This was removed with a energize snare polypectomy as well. I believe resection of this was complete. I continued withdrawing the colonoscope to the after mentioned polypectomy site. Again, the measurement was right around 60 cm beyond the anal verge. As I brought the camera distally, another lesion was found around 45 cm from the anal verge. This was about 0.25 cm. This was removed with cold forceps without issues. This was in an area of sigmoid diverticulosis. I took several passes from this distance down through the anal verge, and aside from diverticula, I did not appreciate any other abnormalities. The camera was then removed, Belinda was brought back to the day surgery unit for recovery. [place] Bowel Prep [place] Bowel Prep Right Colon: 3 Left Colon: 3 Transverse Colon: 3 Total Score: 9
--- NOTE | 2025-03-31 12:20 | ANES.PREOP_ITS ---
General Info Date of Service Date Performed: 04/01/25 Height: 5 ft 7.5 in Weight: 73.028 kg Body Mass Index (BMI): 24.8 Surgical Procedure: Operation Date: 04/01/25 09:50 Proposed Procedure Side Surgeon andre Diego MD Meds Allergies and Home Medications Allergies Allergy/AdvReac Type Severity Reaction Status Date / Time amoxicillin trihydrate (From AdvReac Intermediate itching Verified 04/01/25 08:41 Augmentin) and swelling of palms and soles of feet potassium clavulanate (From AdvReac Intermediate itching Verified 04/01/25 08:41 Augmentin) and swelling of palms and soles of feet Home Medication ?Medication ?Instructions ?Recorded ibuprofen 600 mg tablet See Rx Instructions .Route 01/18/24 .COMPLEX #90 tabs latanoprost 0.005 % eye drops 1 drp ophthalmic (eye) HS 12/27/24 gabapentin 100 mg capsule 100 mg PO TID #90 caps 02/04/25 mecobalamin (vitamin B12) 1,000 1,000 mcg PO DAILY #60 ea 02/27/25 mcg lozenges lorazepam 0.5 mg tablet (Ativan) 0.5 mg PO DAILY PRN 03/27/25 multivitamin 1 tab PO DAILY 03/27/25 Current Visit Medications: Current Medications Generic Name Dose Route Start Last Admin Trade Name Freq PRN Reason Stop Dose Admin Ringer's Solution 1,000 mls @ 80 mls/hr 04/01/25 06:00 IV 04/01/25 23:59 [facility] IV Miscellaneous Supplies 1 each 04/01/25 06:00 Iv Access IV 04/01/25 23:59 DIRECTED REBEKAH Ondansetron HCl 4 mg 03/31/25 06:50 Ondansetron 4 Mg/2 Ml Vial IVP 04/30/25 06:49 Q4H PRN PRN Nausea / Vomiting Sodium Chloride 0 ml 04/01/25 06:00 Normal Saline Flush 10 Ml Syr IV 04/01/25 23:59 PRN PRN Sodium Chloride 0 ml 04/01/25 06:00 Normal Saline 10 Ml Vial IJ 04/01/25 23:59 DIRECTED PRN Sterile Water 0 ml 04/01/25 06:00 Water,Injection,Sterile 10 Ml Vial IJ 05/05/25 23:59 DIRECTED PRN PFSH Active Problems Active Problems: Problem Status Onset Code Encounter for colonoscopy due to history of colon cancer Acute Z12.11, Z85.038 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 Acute C18.9, C78.00 Bilateral leg weakness Acute R29.898 Neuropathy Acute G62.9 Lung mass Acute R91.8 History of infusaport central venous catheter insertion Acute Z98.890 Cough Acute R05.9 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 H/O bilateral salpingo-oophorectomy Acute ~10/18/23 Z90.79, Z90.722 History of robot-assisted laparoscopic hysterectomy Acute ~10/18/23 Z90.710 Endometrial cancer Acute ~08/[address] of the abdomen Acute R93.5 Colon cancer Chronic C18.9 S/P right hemicolectomy Acute Z90.49 Screening for colon cancer Acute Z12.11 Cirrhosis Acute K74.60 Fatty liver Acute K76.0 Chronic iron deficiency anemia Acute D50.9 Anemia Chronic D64.9 Degenerative joint disease of right knee Acute M17.11 Right knee pain Acute M25.561 Anemia Chronic D64.9 Osteoarthritis of left hip Acute M16.12 Hypertension Chronic I10 Encounter for screening colonoscopy Acute Z12.11 Encounter for annual physical exam Acute Z00.00 Diarrhea Acute R19.7 Status post total hip replacement, right Acute Z96.641 Diabetes mellitus Chronic E11.9 Elevated blood pressure reading Acute R03.0 Shoulder pain Chronic 03/24/15 M25.519 Patellofemoral arthritis of right knee Chronic 09/12/17 M17.11 Low back pain radiating to left leg Chronic 06/10/16 M54.5, M79.605 Lichen planus Chronic L43.9 Elevated MCV Chronic 01/06/17 R71.8 Elevated LFTs Chronic 01/06/17 R94.5 Diverticulosis of colon without diverticulitis Chronic K57.30 Alcohol intake above recommended sensible limits Chronic 01/07/17 Z72.89 Medical History Medical History Hx of colon cancer, stage III with mets to the right middle lung-last had radiation therapy Fall 2023 Pneumonia Tubular adenoma Diverticulitis was in ER 11/2022 Hx of fracture of ankle Hx of spina bifida States hx of Spina Bifida Occulta Hx of hypoglycemia Hx of tension headache 1 time event Hx of transient ischemic attack (TIA) Pt. states she had a TIA when she was 22 that was control related Pt. states she has never had an recurrence, and does not f/u with a neurologist and states she never had to. History of ectopic right Trochanteric bursitis of right hip (09/11/15) bilateral Left foot pain (08/05/15) Epicondylitis Achilles tendinitis of left lower extremity (09/11/15) Surgical History Surgical History History of right hemicolectomy History of left hip replacement bilat Status post total hip replacement, left (08/17/22) Hx of exploratory laparotomy ectopic Hx of section x 2 Status post arthroscopy of right knee S/P tonsillectomy History of total right hip replacement History of open reduction and internal fixation (ORIF) procedure left ankle with plates and screws present Some hardware was removed Hx of appendectomy History of back surgery Microdisectomy, L5-S1. Pt. states nerves damage with numbness to left foot. History of ectopic History of bilateral tubal ligation H/O section x2 Tobacco Smoking/Tobacco Use Status: Never Passive smoking exposure: Yes Second hand exposure: Yes Alcohol Alcohol Intake: current Alcohol intake frequency: holidays/special occasions only Details: Recently stopped ETOH use since Substance Use Substance use: Never Substance use type: does not use Vital Signs and Lab Results Vital Signs Most Recent Vital Signs in EMR: Temp Pulse Resp BP Pulse Ox 36.3 C L 85 17 159/84 H 97 04/01/25 08:36 04/01/25 08:36 04/01/25 08:36 04/01/25 08:36 04/01/25 08:36 Lab Results Blood Type / Crossmatch: No Data to Display Complete Blood Count: White Blood Count 7.10 10^3/uL (4.4-10.8) 03/19/25 13:00 Red Blood Count 3.81 10^6/uL (3.93-5.22) L 03/19/25 13:00 Hemoglobin 13.3 g/dL (11.2-15.7) 03/19/25 13:00 Hematocrit 39.1 % (36.0-46.0) 03/19/25 13:00 Platelet Count 122 10^3/uL (130-400) L 03/19/25 13:00 Complete Metabolic Panel: Sodium 139 mmol/L (136-145) 03/19/25 13:00 Potassium 3.8 mmol/L (3.5-5.1) 03/19/25 13:00 Chloride 105 mmol/L (98-107) 03/19/25 13:00 Carbon Dioxide 26.9 mmol/L (21.0-32.0) 03/19/25 13:00 BUN 14 mg/dL (7-18) 03/19/25 13:00 Creatinine 1.1 mg/dL (0.55-1.02) H 03/19/25 13:00 Est GFR (CKD-EPI 2020) 53.72 (mL/min/1.73m2) 03/19/25 13:00 Calcium 8.7 mg/dL (8.5-10.1) 03/19/25 13:00 Albumin 3.5 g/dL (3.4-5.0) 03/19/25 13:00 Glucose 157 mg/dL (74-106) H 03/19/25 13:00 Liver Function Panel: Alanine Aminotransferase (ALT/SGPT) 61 U/L (14-59) H 03/19/25 1 3:00 Aspartate Amino Transf (AST/SGOT) 38 U/L (15-37) H 03/19/25 13: 00 Coagulation Panel: No Data to Display Cardiac Panel: No Data to Display Arterial Blood Gas: No Data to Display Venous Blood Gas: No Data to Display Pancreas Panel: No Data to Display Thyroid Panel: No Data to Display Infectious Disease: No Data to Display Blood Cultures: No Data to Display Toxicology Panel: No Data to Display Imaging and Studies Imaging and Studies Study information below may be from another EMR and interpreted by another provider. Please see original notes in EMR for more complete details. EKG Summary: Conclusion Sinus rhythm...normal P axis, V-rate 50- 99 Normal Electrocardiogram 08/16/22 Anesthesia Assessment and Plan Anesthesia History Personal History: No History of Anesthesia Complications Family History: No Family History of Anesthesia Complications Exercise Tolerance Exercise Tolerance: Metabolic Equivalents>4 Pertinent Negatives Pertinent Negatives: No Symptoms of GERD Cardiac & Pulmonary Exam Cardiac Exam: Normal S1/S2 Heart Sounds Pulmonary Exam: Clear Bilateral Breath Sounds Implantable Cardiac Device Does patient have a Pacemaker or an ICD?: No Airway Exam Known Difficult Airway: No Mallampati Class: 2 Mouth Opening: Normal (> 3cm) Thyromental Distance: Greater than 3 cm Neck Range of Motion: Full ROM Neck Circumference: Normal Teeth Condition: Normal Dentition ASA Classification ASA Score: ASA 3 Emergency Case?: No NPO Status NPO Status: NPO Clears >2 hours, Solids >8 hours Anesthesia Plan Resuscitation Status: Full Code Anesthesia Technique: General Anesthesia Airway Planned: Natural Airway Monitors Used: Standard Monitors Preoperative Comments:: 69 yo female for colo due to PET scan. Sig PMHx: HTN, lung mass, cirrhosis/fatty liver, s/p right hemicolectomy for CA with mets to lung (radiation), DM, microdiscectomy with nerve injury ECG: sinus, ?LAE Previous Anes: - port placement, midaz, prop, natural airway, no issues. - hemicolec, easy mask, glide 3 grade 1, no issues. - egd/colo, prop, natural airway, no issues. - WALT x 2, spinal, prop sedation, no issues.
[2025-04-01 08:36] VITALS: BP 159/84; PULSE 85; RESP 17; TEMP 36.3; O2SAT 97
[2025-04-01] MEDS: Lactated Ringers 1,000 ML 80 ML IV (09:07)
[2025-04-01 09:47] VITALS: BMI 24.8
--- NOTE | 2025-04-01 10:34 | BOWEL_PTH ---
PATIENT: Jennifer Traore LOC: [facility] U#:[id number] AGE/SX: 69/F ROOM: RE04/01/[address]: Bret Diego MD : [id number] BED: DIS: 04/01/2025 SPEC #: [id number] RECD: 04/01/25 13:30 STATUS: OTTONIEL REChoco #: [id number] BREANNE: 04/01/25 10:[address]: Bret Diego DEPT: Surgical Specimen RECD BY: Conchis Hutson ENTERED: 04/01/25 13:31 SP TYPE: Bowel OTHR DR: Priscilla Brantley MD, DC Tissues: 1 - BIOPSY BOWEL 2 - BIOPSY BOWEL 3 - BIOPSY BOWEL Procedures: GROSS AND MICRO LEVEL 4 IMMUNOPEROXIDASE STAIN Comments: [id number]
[2025-04-01 11:02] VITALS: BP 109/67; PULSE 91; RESP 17; TEMP 36.4; O2SAT 94
[2025-04-01 11:56] VITALS: BP 129/71; PULSE 69; RESP 16; TEMP 36.5; O2SAT 98
--- NOTE | 2025-04-01 12:09 | W.ANESPOSTOP ---
Postoperative Evaluation Date, Time and Location Date Performed: 04/01/25 Time Performed: 12:00 Patient Location: Day Surgery Unit Vital Signs Most Recent Imported Vital Signs: Most Recent Vital Signs Temp Pulse Resp BP Pulse Ox 36.5 C 69 16 129/71 98 04/01/25 11:56 04/01/25 11:56 04/01/25 11:56 04/01/25 11:56 04/01/25 11:56 Pain Score Most Recent Pain Score: Most Recent Pain Score Pain Level 0 04/01/25 11:56 Assessment Mental Status: Awake (Alert & Oriented to Patient Baseline) Airway and Respiratory Function: Patent airway with normal (patient baseline) respiratory exam Cardiovascular Function: Hemodynamically Stable Hydration Status: Adequately Hydrated Nausea & Vomiting: No Nausea or Vomiting Pain: Pt. Denies Any Pain Peripheral Nerve Block: Patient did not receive a nerve block
== END 2025-04-01 12:05 | disposition home or self-care (01) ==
LOC: SUR 08:02
PROVIDERS: PCP Family Medicine; Visit Provider Surgery
PROC: 0DJD8ZZ Inspection of Lower Intestinal Tract, Via Natural or Artificial Opening Endoscopic (ICD-10-PCS; CPT 45378; principal; 2025-04-01 09:45)
DX: Z12.11 Encounter for screening for malignant neoplasm of colon (principal); K57.30 Diverticulosis of large intestine without perforation or abscess without bleeding; D12.4 Benign neoplasm of descending colon; Z85.038 Personal history of other malignant neoplasm of large intestine; C18.9 Malignant neoplasm of colon, unspecified; D12.5 Benign neoplasm of sigmoid colon
CPT/HCPCS: 45385; 45380; 88305; 88361; J2250; J2371; J2704

== ENCOUNTER 2025-04-25 03:00 | Outpatient (RCR) | payer MEDICARE, BC, SELFPAY ==
[2025-04-01] MEDS: Normal Saline Flush 10 ML SYR IVP (09:54)
[2025-04-25] MEDS: Normal Saline Flush 10 ML SYR IVP (10:24)
[2025-04-25 10:37] LABS: Abs Immature Grans 0.01 10^3/uL (0.0-0.06); Absolute Basophil Count 0.04 10^3/uL (0.0-0.2); Absolute Eosinophil Count 0.11 10^3/uL (0.0-0.7); Absolute Lymphocyte Count 1.42 10^3/uL (1.2-3.4); Absolute Monocyte Count 0.51 10^3/uL (0.1-0.8); Absolute Neutrophil Count 2.46 10^3/uL (1.2-6.7); Basophils % 0.9 %; Eosinophils % 2.4 %; HCT 38.5 % (36.0-46.0); HGB 13.2 g/dL (11.2-15.7); Immature Grans % 0.2 %; Lymphocytes % 31.2 %; MCH 34.6 pg (27.0-33.0); MCHC 34.3 % (32.0-36.0); MCV 101 fL (80-95); MPV 9.8 fL (8.0-11.0); Monocytes % 11.2 %; Neutrophils % 54.1 %; Platelet Count 120 10^3/uL (130-400); RBC 3.81 10^6/uL (3.93-5.22); RDW 12.7 % (11.7-14.6); RDW-SD 47.2 fL; WBC 4.55 10^3/uL (4.4-10.8)
[2025-04-25 11:27] LABS: ALT 60 U/L (14-59); AST 42 U/L (15-37); Albumin 3.6 g/dL (3.4-5.0); Alkaline Phosphatase 168 U/L (46-116); Anion Gap 10.2 mmol/L (3-11); BUN 17 mg/dL (7-18); Bilirubin, Total 0.9 mg/dL (0.2-1.0); CO2 26.8 mmol/L (21.0-32.0); CREATININE 0.7 mg/dL (0.55-1.02); Calcium 9.1 mg/dL (8.5-10.1); Chloride 102 mmol/L (98-107); Estimated GFR 92.41 (mL/min/1.73m2); Glucose 143 mg/dL (74-106); Potassium 3.8 mmol/L (3.5-5.1); Sodium 139 mmol/L (136-145)
[2025-04-25 18:37] LABS: CEA 79.9 ng/mL (See Note)
== END 2025-04-27 23:59 | disposition home or self-care (01) ==
LOC: INF 03:00
PROVIDERS: Nurse Practitioner Family; PCP Family Medicine; Visit Provider Internal Medicine Hematology & Oncology
DX: C54.1 Malignant neoplasm of endometrium (principal); C18.2 Malignant neoplasm of ascending colon; Z45.2 Encounter for adjustment and management of vascular access device
CPT/HCPCS: 36591; 80053; 82378; 85025

== ENCOUNTER 2025-04-26 09:37 | Day surgery (SDC) | payer MEDICARE, BC, SELFPAY ==
--- NOTE | 2025-04-25 16:59 | W.PREOPHP ---
Assessment and Plan Assessment and plan (1) Colon cancer: Status: Chronic Assessment and plan: Repeat colonoscopy today with colonoscopic tattooing History of Present Illness History of Present Illness Chief Complaint: Colon cancer Narrative: Belinda is a 69-year-old woman who is already undergone right hemicolectomy for a colon cancer. During routine surveillance, she had a PET CT scan that demonstrated abnormalities, and a follow-up colonoscopy was recommended. Her last colonoscopy was on March 27. During that procedure, a lesion was found around 60 cm from the anal verge in the area of the splenic flexure. 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 She is followed at [facility] for oncology care, and after multidisciplinary meeting regarding approaches to care, I recommended that she undergo another colonoscopy with tattooing of the area or surveillance. Unfortunately, repeat CEA is quite elevated today compared to testing in February. 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 H/O bilateral salpingo-oophorectomy (Acute ~10/18/23) History of robot-assisted laparoscopic hysterectomy (Acute ~10/18/23) omental biopsy and temporary b/l ureteral stents Endometrial cancer (Acute ~08/2023) Abnormal CT of the abdomen (Acute) Colon cancer (Chronic) S/P right hemicolectomy (Acute) Screening for colon cancer (Acute) Cirrhosis (Acute) Fatty liver (Acute) Chronic iron deficiency anemia (Acute) Anemia (Chronic) Degenerative joint disease of right knee (Acute) Injection 08/17/2022 Right knee pain (Acute) Anemia (Chronic) Osteoarthritis of left hip (Acute) Hypertension (Chronic) Encounter for screening colonoscopy (Acute) Encounter for annual physical exam (Acute) Diarrhea (Acute) Status post total hip replacement, right (Acute) Diabetes mellitus (Chronic) Elevated blood pressure reading (Acute) Shoulder pain (Chronic 03/24/15) Patellofemoral arthritis of right knee (Chronic 09/12/17) Low back pain radiating to left leg (Chronic 06/10/16) Lichen planus (Chronic) Elevated MCV (Chronic 01/06/17) Elevated LFTs (Chronic 01/06/17) Diverticulosis of colon without diverticulitis (Chronic) sigmoid colon Alcohol intake above recommended sensible limits (Chronic 01/07/17) elevated GGT, LFT and MCV Medical History Hx of colon cancer, stage III with mets to the right middle lung-last had radiation therapy Fall 2023 Pneumonia Tubular adenoma Diverticulitis was in ER 11/2022 Hx of fracture of ankle Hx of spina bifida States hx of Spina Bifida Occulta Hx of hypoglycemia Hx of tension headache 1 time event Hx of transient ischemic attack (TIA) Pt. states she had a TIA when she was 22 that was control related Pt. states she has never had an recurrence, and does not f/u with a neurologist and states she never had to. History of ectopic right Trochanteric bursitis of right hip (09/11/15) bilateral Left foot pain (08/05/15) Epicondylitis Achilles tendinitis of left lower extremity (09/11/15) Surgical History History of colonoscopy (~03/2025) History of right hemicolectomy History of left hip replacement bilat Status post total hip replacement, left (08/17/22) Hx of exploratory laparotomy ectopic Hx of section x 2 Status post arthroscopy of right knee S/P tonsillectomy History of total right hip replacement History of open reduction and internal fixation (ORIF) procedure left ankle with plates and screws present Some hardware was removed Hx of appendectomy History of back surgery Microdisectomy, L5-S1. Pt. states nerves damage with numbness to left foot. History of ectopic History of bilateral tubal ligation H/O section x2 Family History Mother , 54 Uterine cancer Colon cancer Father , 80 Prostate cancer Alcohol abuse Daughter Diabetes Depression Sister No problems noted. Sister No problems noted. Brother No problems noted. Son No problems noted. Brother Depression Social History Smoking/Tobacco Use Status: Never Second Hand Exposure: Yes Smoking risk assessment performed?: Yes Alcohol Intake: current Alcohol Intake frequency: holidays/special occasions only Details: Recently stopped ETOH use since Drug use: Never Substance use type: does not use Caregiver/Support person: No Household members: spouse Housing: house Communication Needs: None Do you need help understanding health information?: Never Pets and animals: No Sexually active: Yes Do you think of yourself as: straight/heterosexual Current gender identity: female What is your relationship status?: How often do you talk on the phone with friends or family?: decline to answer How often do you get together with friends or relatives?: decline to answer How often do you attend jew or caodaism services?: decline to answer Do you belong to any clubs or organized social groups?: decline to answer Panel score (0-1 are the most socially isolated patients): 1 What type of physical activity do you participate in: decline to answer Duration: decline to answer Frequency: decline to answer Niru/Jewish: Alevism Special niru needs: No Seatbelt use: always 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 Do you feel safe at home: Yes Do you feel safe in your relationship?: Yes Meds Allergies and Home Medications Allergies Allergy/AdvReac Type Severity Reaction Status Date / Time amoxicillin trihydrate (From AdvReac Intermediate itching Verified 04/26/25 10:22 Augmentin) and swelling of palms and soles of feet potassium clavulanate (From AdvReac Intermediate itching Verified 04/26/25 10:22 Augmentin) and swelling of palms and soles of feet Home Medications ?Medication ?Instructions ?Recorded ?Confirmed ?Type ibuprofen 600 mg tablet See Rx Instructions .Route 01/18/24 04/26/25 Rx .COMPLEX #90 tabs latanoprost 0.005 % eye drops 1 drp ophthalmic (eye) HS 12/27/24 04/26/25 History gabapentin 100 mg capsule 100 mg PO TID #90 caps 02/04/25 04/26/25 Rx multivitamin 1 tab PO DAILY 03/27/25 04/26/25 History lorazepam 0.5 mg tablet (Ativan) 0.5 mg PO DAILY PRN anxiety #30 04/08/25 04/26/25 Rx tabs cyanocobalamin (vitamin B-12) 1,000 mcg PO DAILY 04/23/25 04/26/25 History 1,000 mcg tablet (Vitamin B-12) Exam Const General: cooperative, healthy appearing and not in acute distress Neck Neck: normal visual inspection, no lymphadenopathy and supple Resp Effort & Inspection: normal respiratory effort Auscultation: clear to auscultation bilaterally Cardio Jugular venous pressure: no JVD Rate: regular rate Rhythm: regular rhythm Heart Sounds: S1 normal and S2 normal Neuro General: patient alert, patient awake and patient oriented x3 Psych Appearance: grossly normal
--- NOTE | 2025-04-25 17:02 | PDOC.DSDIS_ITS ---
Date of service: 04/26/25 Discharge Plan Disposition Patient Disposition: Home Condition: Good Discharge Details Reason For Visit: Colonoscopy Attending Provider: Bret Diego Primary Care Provider: Priscilla Brantley Home Meds and New Rx's Prescriptions: Continued latanoprost 0.005 % drops 1 drp ophthalmic (eye) HS Patient Comments: INSTILL ONE DROP IN EACH EYE AT BEDTIME gabapentin 100 mg capsule 100 mg PO TID Qty: 90 5RF multivitamin Tablet 1 tab PO DAILY ibuprofen 600 mg tablet See Rx Instructions .ROUTE .COMPLEX Qty: 90 1RF Dose Instruction: TAKE ONE TABLET BY MOUTH THREE TIMES A DAY NEEDED FOR PAIN Rx Instructions: TAKE ONE TABLET BY MOUTH THREE TIMES A DAY NEEDED FOR PAIN lorazepam [Ativan] 0.5 mg tablet 0.5 mg PO DAILY PRN (Reason: anxiety) Qty: 30 1RF cyanocobalamin (vitamin B-12) [Vitamin B-12] 1,000 mcg tablet 1,000 mcg PO DAILY Discharge Instructions Additional Instructions: Belinda, I am so sorry to hear that the CEA levels have risen so dramatically. As we discussed beforehand, I did tattoo the area 60 cm beyond the anal verge, where the previous pathology indicated colon cancer. I did a few biopsies here, as well as the site above this as well. With the rising CEA, and all of the details from the previous PET CT scan, my suspicion is that there is either disease somewhere within the sigmoid segment that is not obvious because of the coexistent diverticulosis, and probably some pelvic scarring from surgery, or that there is some disease on the outside portion of the colon wall as we discussed beforehand. Although I do not want to discourage you from another PET CT scan, I am not sure how much more information I will add. I think the cleanest approach would be surgery with a complete colectomy, and an ileostomy. Or a transition to a more palliative approach focusing on symptom management. We should talk some more after this, and I will try to help streamline as much as I can. Stand Alone Forms: Anesthesia Discharge Inst., Colonoscopy Post Instructions, Tracee Peña (DSU) Activity:: Activity as Tolerated Diet:: As Tolerated Discharge Orders Discharge Orders: Discharge Order (Routine); Ordered 04/25/25 Ordered By: Bret Diego DS: Diagnosis Discharge Diagnosis (1) Colon cancer: Status: Chronic Asessment and Plan: Follow-up on biopsy results, and ongoing discussions with [facility] regarding definitive treatment.
--- NOTE | 2025-04-25 17:02 | W.COLOREPORT ---
Date of service: 04/26/25 Time of Service: 12:29 Colonoscopy Report Date of procedure: 04/26/25 Pre-op diagnosis general: Colon cancer Post-op diagnosis procedure note: same Procedure: Colonoscopy with tattooing Surgeon: Bret Diego Anesthesia Type: General:No Airway Estimated blood loss (mL): 5 Pathology: other (Biopsies of previous polypectomy site at 70 cm, biopsies of colon resection site at 60 cm) Complications: None Disposition: same day Indications: Belinda is a 69-year-old woman with history of colon cancer who is undergoing right hemicolectomy. She has abnormalities on surveillance PET CT scan, and underwent a follow-up colonoscopy with resection of a large polypoid mass 60 cm beyond the anal verge. Pathology on that confirmed the presence of cancer. After multidisciplinary meeting at [facility], we elected to perform another colonoscopy for tattooing of this site to help with appropriate identification, and potential surveillance colonoscopy in the future. Prep: Miralax/Dulcolax Procedure Start Time: 11:38 Procedure End Time: 12:15 Retraction Time: 20 Findings: Previous polypectomy sites are healing Procedure Description: After initiation of anesthesia, and with Belinda in left lateral decubitus position, I began by performing an external anorectal exam.? External exam and digital rectal exam were normal.?Next, I advanced a colonoscope into the rectal vault.? I performed retroflexion.? This was normal.? Using irrigation and insufflation, I then advanced the colonoscope beyond the rectal folds and into the sigmoid colon before advancing towards the ileocolic anastomosis. As noted on previous colonoscopies there is extensive sigmoid diverticulosis. Great care was taken to maintain the true lumen. The anastomosis is encountered around 95 cm from the anal verge. It is patent, and healthy appearing. I am able to advance beyond the anastomosis into the ileum. All of this appears normal. I then brought the camera back into the anastomosis, and with the irrigation began examining the wall of the colon. Small area of scarring is seen around 70 cm beyond the anal verge. This is consistent with previous polypectomy site. Some cold forceps biopsies were performed in this area. But there is certainly not evidence of gross disease here that would account for the rising CEA. I continued backing the camera out, and a mucosal abnormality seen at 60 cm upon the anal verge. Again, this is consistent with the site of a previous polypectomy. The location is consistent with the area that was path proven colon cancer. Narrowband imaging was used to assist with the analysis of the surrounding tissue. With the healing site, it is hard to say what accounts for normal mucosa, and what may represent residual cancer. Cold forceps biopsies were taken around this as a corporate representative sample. Again, it is hard to say with certainty whether or not all disease has been resected. Given the timing of this colonoscopy. After cold forceps biopsies, I did perform colonoscopic tattooing here. 5 mL of ink was used. Staining of the submucosa was appreciated. I then continued withdrawing the colonoscope. Given the findings of the PET CT scan, again, careful attention was paid to everything distal to this. The sigmoid segment is difficult to evaluate because of the extent of diverticulosis and the confirmation of the colon, there are some areas of inflamed mucosa, and given the rising CEA I suppose it is possible that there is disease that I can appreciate on the colonoscope somewhere within the segment. I did not appreciate any other pathology within the rectal vault. The camera was then withdrawn, Belinda was brought back to the day surgery unit for recovery. [place] Bowel Prep [place] Bowel Prep Left Colon: 3 Transverse Colon: 3 Total Score: 6
[2025-04-26 10:17] VITALS: BP 167/82; PULSE 78; RESP 16; TEMP 36.8; O2SAT 97
[2025-04-26] MEDS: Lactated Ringers 1,000 ML 80 ML IV (10:32)
--- NOTE | 2025-04-26 11:14 | ANES.PREOP_ITS ---
General Info Date of Service Date Performed: 04/26/25 Height: 5 ft 7 in Weight: 72 kg Body Mass Index (BMI): 24.8 Surgical Procedure: Operation Date: 04/26/25 11:20 Proposed Procedure Side Surgeon p Colonoscopy w/Tattooing Bret Diego MD Meds Allergies and Home Medications Allergies Allergy/AdvReac Type Severity Reaction Status Date / Time amoxicillin trihydrate (From AdvReac Intermediate itching Verified 04/26/25 10:22 Augmentin) and swelling of palms and soles of feet potassium clavulanate (From AdvReac Intermediate itching Verified 04/26/25 10:22 Augmentin) and swelling of palms and soles of feet Home Medication ?Medication ?Instructions ?Recorded ibuprofen 600 mg tablet See Rx Instructions .Route 01/18/24 .COMPLEX #90 tabs latanoprost 0.005 % eye drops 1 drp ophthalmic (eye) HS 12/27/24 gabapentin 100 mg capsule 100 mg PO TID #90 caps 02/04/25 multivitamin 1 tab PO DAILY 03/27/25 lorazepam 0.5 mg tablet (Ativan) 0.5 mg PO DAILY PRN anxiety #30 04/08/25 tabs cyanocobalamin (vitamin B-12) 1,000 mcg PO DAILY 04/23/25 1,000 mcg tablet (Vitamin B-12) Current Visit Medications: Current Medications Generic Name Dose Route Start Last Admin Trade Name Freq PRN Reason Stop Dose Admin Ringer's Solution 1,000 mls @ 80 mls/hr 04/26/25 06:00 04/26/25 10:32 IV 04/26/25 23:59 80 mls/hr INFUSION REBEKAH Administration IV Miscellaneous Supplies 1 each 04/26/25 06:00 Iv Access IV 04/26/25 23:59 DIRECTED REBEKAH Ondansetron HCl 4 mg 04/25/25 17:04 Ondansetron 4 Mg/2 Ml Vial IVP 05/25/25 17:03 Q4H PRN PRN Nausea / Vomiting Sodium Chloride 0 ml 04/26/25 06:00 Normal Saline Flush 10 Ml Syr IV 04/26/25 23:59 PRN PRN Sodium Chloride 0 ml 04/26/25 06:00 Normal Saline 10 Ml Vial IJ 04/26/25 23:59 DIRECTED PRN Sterile Water 0 ml 04/26/25 06:00 Water,Injection,Sterile 10 Ml Vial IJ 04/26/25 23:59 DIRECTED PRN PFSH Active Problems Active Problems: Problem Status Onset Code 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 Acute C18.9, C78.00 Bilateral leg weakness Acute R29.898 Neuropathy Acute G62.9 Lung mass Acute R91.8 History of infusaport central venous catheter insertion Acute Z98.890 Cough Acute R05.9 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 H/O bilateral salpingo-oophorectomy Acute ~10/18/23 Z90.79, Z90.722 History of robot-assisted laparoscopic hysterectomy Acute ~10/18/23 Z90.710 Endometrial cancer Acute ~08/[address] of the abdomen Acute R93.5 Colon cancer Chronic C18.9 S/P right hemicolectomy Acute Z90.49 Screening for colon cancer Acute Z12.11 Cirrhosis Acute K74.60 Fatty liver Acute K76.0 Chronic iron deficiency anemia Acute D50.9 Anemia Chronic D64.9 Degenerative joint disease of right knee Acute M17.11 Right knee pain Acute M25.561 Anemia Chronic D64.9 Osteoarthritis of left hip Acute M16.12 Hypertension Chronic I10 Encounter for screening colonoscopy Acute Z12.11 Encounter for annual physical exam Acute Z00.00 Diarrhea Acute R19.7 Status post total hip replacement, right Acute Z96.641 Diabetes mellitus Chronic E11.9 Elevated blood pressure reading Acute R03.0 Shoulder pain Chronic 03/24/15 M25.519 Patellofemoral arthritis of right knee Chronic 09/12/17 M17.11 Low back pain radiating to left leg Chronic 06/10/16 M54.5, M79.605 Lichen planus Chronic L43.9 Elevated MCV Chronic 01/06/17 R71.8 Elevated LFTs Chronic 01/06/17 R94.5 Diverticulosis of colon without diverticulitis Chronic K57.30 Alcohol intake above recommended sensible limits Chronic 01/07/17 Z72.89 Medical History Medical History Hx of colon cancer, stage III with mets to the right middle lung-last had radiation therapy Fall 2023 Pneumonia Tubular adenoma Diverticulitis was in ER 11/2022 Hx of fracture of ankle Hx of spina bifida States hx of Spina Bifida Occulta Hx of hypoglycemia Hx of tension headache 1 time event Hx of transient ischemic attack (TIA) Pt. states she had a TIA when she was 22 that was control related Pt. states she has never had an recurrence, and does not f/u with a neurologist and states she never had to. History of ectopic right Trochanteric bursitis of right hip (09/11/15) bilateral Left foot pain (08/05/15) Epicondylitis Achilles tendinitis of left lower extremity (09/11/15) Surgical History Surgical History History of colonoscopy (~03/2025) History of right hemicolectomy History of left hip replacement bilat Status post total hip replacement, left (08/17/22) Hx of exploratory laparotomy ectopic Hx of section x 2 Status post arthroscopy of right knee S/P tonsillectomy History of total right hip replacement History of open reduction and internal fixation (ORIF) procedure left ankle with plates and screws present Some hardware was removed Hx of appendectomy History of back surgery Microdisectomy, L5-S1. Pt. states nerves damage with numbness to left foot. History of ectopic History of bilateral tubal ligation H/O section x2 Tobacco Smoking/Tobacco Use Status: Never Passive smoking exposure: Yes Second hand exposure: Yes Alcohol Alcohol Intake: current Alcohol intake frequency: holidays/special occasions only Details: Recently stopped ETOH use since Substance Use Substance use: Never Substance use type: does not use Vital Signs and Lab Results Vital Signs Most Recent Vital Signs in EMR: Most Recent Vital Signs Temp Pulse Resp BP Pulse Ox 36.8 C 78 16 167/82 H 97 04/26/25 10:17 04/26/25 10:17 04/26/25 10:17 04/26/25 10:17 04/26/25 10:17 Lab Results Blood Type / Crossmatch: No Data to Display Complete Blood Count: White Blood Count 4.55 10^3/uL (4.4-10.8) 04/25/25 10:15 Red Blood Count 3.81 10^6/uL (3.93-5.22) L 04/25/25 10:15 Hemoglobin 13.2 g/dL (11.2-15.7) 04/25/25 10:15 Hematocrit 38.5 % (36.0-46.0) 04/25/25 10:15 Platelet Count 120 10^3/uL (130-400) L 04/25/25 10:15 Complete Metabolic Panel: Sodium 139 mmol/L (136-145) 04/25/25 10:15 Potassium 3.8 mmol/L (3.5-5.1) 04/25/25 10:15 Chloride 102 mmol/L (98-107) 04/25/25 10:15 Carbon Dioxide 26.8 mmol/L (21.0-32.0) 04/25/25 10:15 BUN 17 mg/dL (7-18) 04/25/25 10:15 Creatinine 0.7 mg/dL (0.55-1.02) 04/25/25 10:15 Est GFR (CKD-EPI 2020) 92.41 (mL/min/1.73m2) 04/25/25 10:15 Calcium 9.1 mg/dL (8.5-10.1) 04/25/25 10:15 Albumin 3.6 g/dL (3.4-5.0) 04/25/25 10:15 Glucose 143 mg/dL (74-106) H 04/25/25 10:15 Liver Function Panel: Alanine Aminotransferase (ALT/SGPT) 60 U/L (14-59) H 04/25/25 1 0:15 Aspartate Amino Transf (AST/SGOT) 42 U/L (15-37) H 04/25/25 10: 15 Coagulation Panel: No Data to Display Cardiac Panel: No Data to Display Arterial Blood Gas: No Data to Display Venous Blood Gas: No Data to Display Pancreas Panel: No Data to Display Thyroid Panel: No Data to Display Infectious Disease: No Data to Display Blood Cultures: No Data to Display Toxicology Panel: No Data to Display Imaging and Studies Imaging and Studies Study information below may be from another EMR and interpreted by another provider. Please see original notes in EMR for more complete details. EKG Summary: Conclusion Sinus rhythm...normal P axis, V-rate 50- 99 Normal Electrocardiogram 08/16/22 Anesthesia Assessment and Plan Anesthesia History Personal History: No History of Anesthesia Complications Family History: No Family History of Anesthesia Complications Exercise Tolerance Exercise Tolerance: Metabolic Equivalents>4 Pertinent Negatives Pertinent Negatives: No Symptoms of GERD Cardiac & Pulmonary Exam Cardiac Exam: Normal S1/S2 Heart Sounds Pulmonary Exam: Clear Bilateral Breath Sounds Implantable Cardiac Device Does patient have a Pacemaker or an ICD?: No Airway Exam Known Difficult Airway: No Mallampati Class: 2 Mouth Opening: Normal (> 3cm) Thyromental Distance: Greater than 3 cm Neck Range of Motion: Full ROM Neck Circumference: Normal Teeth Condition: Normal Dentition ASA Classification ASA Score: ASA 3 Emergency Case?: No NPO Status NPO Status: NPO Clears >2 hours, Solids >8 hours Anesthesia Plan Resuscitation Status: Full Code Anesthesia Technique: General Anesthesia Airway Planned: Natural Airway Monitors Used: Standard Monitors
[2025-04-26 11:15] VITALS: BMI 24.8
--- NOTE | 2025-04-26 11:57 | BOWEL_PTH ---
PATIENT: Jennifer Traore LOC: [facility] U#:[id number] AGE/SX: 69/F ROOM: RE04/26/[address]: Bret Diego MD : [id number] BED: DIS: 04/26/2025 SPEC #: [id number] RECD: 04/26/25 12:54 STATUS: [place]ONI[place] REQ #: [id number] BREANNE: 04/26/25 11:[address]: Bret Diego DEPT: Surgical Specimen RECD BY: Conchis Hutson ENTERED: 04/26/25 12:55 SP TYPE: Bowel OTHR DR: Priscilla Brantley MD, DC Tissues: 1 - BIOPSY BOWEL 2 - BIOPSY BOWEL Procedures: GROSS AND MICRO LEVEL 4 Comments: [id number]
[2025-04-26] MEDS: Endoscopic Tattoo 5 ML SYR IJ (12:07)
[2025-04-26 12:26] VITALS: BP 111/65; PULSE 79; RESP 16; TEMP 36.2; O2SAT 96
--- NOTE | 2025-04-26 12:38 | W.ANESPOSTOP ---
Postoperative Evaluation Date, Time and Location Date Performed: 04/26/25 Time Performed: 12:38 Patient Location: Day Surgery Unit Vital Signs Most Recent Imported Vital Signs: Most Recent Vital Signs Temp Pulse Resp BP Pulse Ox 36.2 C L 79 16 111/65 96 04/26/25 12:26 04/26/25 12:26 04/26/25 12:26 04/26/25 12:26 04/26/25 12:26 Pain Score Most Recent Pain Score: Most Recent Pain Score Pain Level 0 04/26/25 12:26 Assessment Mental Status: Awake (Alert & Oriented to Patient Baseline) Airway and Respiratory Function: Patent airway with normal (patient baseline) respiratory exam Cardiovascular Function: Hemodynamically Stable Hydration Status: Adequately Hydrated Nausea & Vomiting: No Nausea or Vomiting Pain: Pt. Denies Any Pain Peripheral Nerve Block: Patient did not receive a nerve block
[2025-04-26 12:54] VITALS: BP 138/66; PULSE 63; RESP 18; TEMP 36.7; O2SAT 95
[2025-04-26] MEDS: Normal Saline Flush 10 ML SYR IV (13:31)
== END 2025-04-26 13:28 | disposition home or self-care (01) ==
PROVIDERS: PCP Family Medicine; Visit Provider Surgery
PROC: 0DJD8ZZ Inspection of Lower Intestinal Tract, Via Natural or Artificial Opening Endoscopic (ICD-10-PCS; CPT 45378; principal; 2025-04-26 11:15)
DX: C18.9 Malignant neoplasm of colon, unspecified (principal); K57.30 Diverticulosis of large intestine without perforation or abscess without bleeding; I10 Essential (primary) hypertension; D37.4 Neoplasm of uncertain behavior of colon; K63.89 Other specified diseases of intestine
CPT/HCPCS: 45380; 45381; 88305; J2250; J2704

== ENCOUNTER 2025-05-23 00:56 | Outpatient (RCR) | payer MEDICARE, BC, SELFPAY ==
[2025-05-23] MEDS: Normal Saline Flush 10 ML SYR IVP (13:49)
[2025-05-23 13:50] LABS: Abs Immature Grans 0.02 10^3/uL (0.0-0.06); Absolute Basophil Count 0.03 10^3/uL (0.0-0.2); Absolute Eosinophil Count 0.15 10^3/uL (0.0-0.7); Absolute Lymphocyte Count 1.93 10^3/uL (1.2-3.4); Absolute Monocyte Count 0.77 10^3/uL (0.1-0.8); Absolute Neutrophil Count 3.37 10^3/uL (1.2-6.7); Basophils % 0.5 %; Eosinophils % 2.4 %; HCT 38.4 % (36.0-46.0); Immature Grans % 0.3 %; Lymphocytes % 30.8 %; MCH 34.2 pg (27.0-33.0); MCHC 33.9 % (32.0-36.0); MCV 101 fL (80-95); MPV 9.9 fL (8.0-11.0); Monocytes % 12.3 %; Neutrophils % 53.7 %; Platelet Count 112 10^3/uL (130-400); RDW 12.3 % (11.7-14.6); RDW-SD 46.2 fL; WBC 6.27 10^3/uL (4.4-10.8)
[2025-05-23 14:26] LABS: ALT 56 U/L (14-59); AST 31 U/L (15-37); Albumin 3.6 g/dL (3.4-5.0); Alkaline Phosphatase 187 U/L (46-116); Anion Gap 9.5 mmol/L (3-11); BUN 20 mg/dL (7-18); Bilirubin, Total 0.6 mg/dL (0.2-1.0); CO2 25.5 mmol/L (21.0-32.0); CREATININE 0.9 mg/dL (0.55-1.02); Chloride 103 mmol/L (98-107); Estimated GFR 68.35 (mL/min/1.73m2); Glucose 138 mg/dL (74-106); Potassium 3.8 mmol/L (3.5-5.1); Sodium 138 mmol/L (136-145)
[2025-05-23 23:21] LABS: CEA 149.6 ng/mL (See Note)
== END 2025-05-27 23:59 | disposition home or self-care (01) ==
LOC: INF 00:56
PROVIDERS: Nurse Practitioner Family; PCP Family Medicine; Visit Provider Internal Medicine Hematology & Oncology
DX: C18.2 Malignant neoplasm of ascending colon (principal); Z45.2 Encounter for adjustment and management of vascular access device
CPT/HCPCS: 36591; 80053; 82378; 85025

== ENCOUNTER 2025-06-20 01:54 | Outpatient (RCR) | payer MEDICARE, BC, SELFPAY ==
[2025-06-20] MEDS: Normal Saline Flush 10 ML SYR IVP (09:37)
[2025-06-20 09:38] LABS: Abs Immature Grans 0.01 10^3/uL (0.0-0.06); HCT 38.4 % (36.0-46.0); HGB 13.2 g/dL (11.2-15.7); Immature Grans % 0.2 %; MCH 34.6 pg (27.0-33.0); MCHC 34.4 % (32.0-36.0); MCV 101 fL (80-95); MPV 9.9 fL (8.0-11.0); Platelet Count 128 10^3/uL (130-400); RBC 3.81 10^6/uL (3.93-5.22); RDW 12.3 % (11.7-14.6); RDW-SD 46.1 fL; WBC 5.11 10^3/uL (4.4-10.8)
[2025-06-20 10:01] LABS: ALT 63 U/L (14-59); AST 42 U/L (15-37); Albumin 3.6 g/dL (3.4-5.0); Alkaline Phosphatase 165 U/L (46-116); Anion Gap 9.9 mmol/L (3-11); BUN 15 mg/dL (7-18); Bilirubin, Total 0.8 mg/dL (0.2-1.0); CO2 26.1 mmol/L (21.0-32.0); Calcium 9.1 mg/dL (8.5-10.1); Chloride 101 mmol/L (98-107); Estimated GFR 59.86 (mL/min/1.73m2); Glucose 158 mg/dL (74-106); Potassium 4.0 mmol/L (3.5-5.1); Sodium 137 mmol/L (136-145); Total Protein 7.9 g/dL (6.4-8.2)
[2025-06-20 18:36] LABS: CA 125 8 U/mL (<30)
[2025-06-20 19:25] LABS: CEA 277.5 ng/mL (See Note)
== END 2025-06-27 23:59 | disposition home or self-care (01) ==
LOC: INF 01:54
PROVIDERS: Nurse Practitioner Family; PCP Family Medicine; Visit Provider Internal Medicine Hematology & Oncology
DX: C54.1 Malignant neoplasm of endometrium (principal); C18.2 Malignant neoplasm of ascending colon; Z45.2 Encounter for adjustment and management of vascular access device
CPT/HCPCS: 36591; 80053; 86304; 82378; 85025

== ENCOUNTER 2025-07-11 03:39 | Outpatient (RCR) | payer MEDICARE, BC, SELFPAY ==
[2025-07-11 07:20] LABS: Abs Immature Grans 0.01 10^3/uL (0.0-0.06); HCT 35.7 % (36.0-46.0); HGB 12.1 g/dL (11.2-15.7); Immature Grans % 0.2 %; MCH 33.7 pg (27.0-33.0); MCHC 33.9 % (32.0-36.0); MCV 99 fL (80-95); MPV 10.0 fL (8.0-11.0); Platelet Count 169 10^3/uL (130-400); RBC 3.59 10^6/uL (3.93-5.22); RDW 11.8 % (11.7-14.6); RDW-SD 43.0 fL; WBC 5.58 10^3/uL (4.4-10.8)
[2025-07-11] MEDS: Normal Saline Flush 10 ML SYR IVP (07:33)
[2025-07-11] MEDS: Bacitracin 1 PACKET (07:33)
[2025-07-11 08:39] LABS: ALT 39 U/L (14-59); AST 29 U/L (15-37); Albumin 3.4 g/dL (3.4-5.0); Alkaline Phosphatase 136 U/L (46-116); Anion Gap 12.3 mmol/L (3-11); BUN 14 mg/dL (7-18); Bilirubin, Total 0.7 mg/dL (0.2-1.0); CO2 22.7 mmol/L (21.0-32.0); Calcium 9.1 mg/dL (8.5-10.1); Chloride 102 mmol/L (98-107); Estimated GFR 59.86 (mL/min/1.73m2); Glucose 228 mg/dL (74-106); Potassium 4.0 mmol/L (3.5-5.1); Sodium 137 mmol/L (136-145); Total Protein 7.5 g/dL (6.4-8.2)
[2025-07-11 09:05] LABS: TSH 2.90 uIU/mL (0.36-3.74)
[2025-07-11 09:23] LABS: Vitamin B12 606 pg/mL (193-986)
[2025-07-11 23:08] LABS: CEA 262.8 ng/mL (See Note)
[2025-07-11 23:15] LABS: CA 125 7 U/mL (<30)
== END 2025-07-28 23:59 | disposition home or self-care (01) ==
LOC: INF 03:39
PROVIDERS: PCP Family Medicine; Visit Provider Internal Medicine Hematology & Oncology
DX: C18.9 Malignant neoplasm of colon, unspecified (principal); C56.9 Malignant neoplasm of unspecified ovary; Z79.899 Other long term (current) drug therapy
CPT/HCPCS: 36591; 80053; 86304; 82378; 82607; 84439; 84443; 85025

== ENCOUNTER 2025-08-05 03:47 | Outpatient (RCR) | payer MEDICARE, BC, SELFPAY ==
[2025-08-05 08:15] LABS: Abs Immature Grans 0.00 10^3/uL (0.0-0.06); HCT 35.0 % (36.0-46.0); HGB 12.2 g/dL (11.2-15.7); Immature Grans % 0.0 %; MCH 34.8 pg (27.0-33.0); MCHC 34.9 % (32.0-36.0); MCV 100 fL (80-95); MPV 9.9 fL (8.0-11.0); Platelet Count 136 10^3/uL (130-400); RBC 3.51 10^6/uL (3.93-5.22); RDW 11.9 % (11.7-14.6); RDW-SD 43.5 fL; WBC 4.81 10^3/uL (4.4-10.8)
[2025-08-05 08:56] LABS: ALT 33 U/L (14-59); AST 26 U/L (15-37); Albumin 3.5 g/dL (3.4-5.0); Alkaline Phosphatase 134 U/L (46-116); Anion Gap 6.7 mmol/L (3-11); BUN 12 mg/dL (7-18); Bilirubin, Total 0.8 mg/dL (0.2-1.0); CO2 27.3 mmol/L (21.0-32.0); Calcium 9.1 mg/dL (8.5-10.1); Chloride 104 mmol/L (98-107); Estimated GFR 78.24 (mL/min/1.73m2); Glucose 154 mg/dL (74-106); Potassium 4.0 mmol/L (3.5-5.1); Sodium 138 mmol/L (136-145); TSH 1.53 uIU/mL (0.36-3.74); Total Protein 7.4 g/dL (6.4-8.2)
[2025-08-05] MEDS: Normal Saline Flush 10 ML SYR IVP (10:41)
[2025-08-05 21:36] LABS: CEA 299.2 ng/mL (See Note)
== END 2025-08-27 23:59 | disposition home or self-care (01) ==
LOC: INF 03:47
PROVIDERS: PCP Family Medicine; Visit Provider Internal Medicine Hematology & Oncology
DX: C18.9 Malignant neoplasm of colon, unspecified (principal); Z79.899 Other long term (current) drug therapy; Z45.2 Encounter for adjustment and management of vascular access device
CPT/HCPCS: 36591; 80053; 82378; 84439; 84443; 85025

== ENCOUNTER 2025-08-19 07:17 | Outpatient (CLI) | payer MEDICARE, BC, SELFPAY ==
--- NOTE | 2025-08-19 12:40 | DI.MRI_ITS ---
Exam(s) MR LOWER JOINT RT WO EXAM: MR LOWER JOINT RT WO CLINICAL HISTORY: achilles injury, ankle pain,m25.571,s86.009a TECHNIQUE: Multiplanar multisequence MRI was performed without intravenous contrast. COMPARISON: No exams were available for comparison FINDINGS: BONES/JOINTS: No fracture or contusion pattern. No bone lesions identified. The talar dome is smooth. The ankle mortise is maintained. No joint effusion is present. LIGAMENTS: The tibiofibular and calcaneofibular ligaments are intact. The talofibular ligaments are intact. The deltoid ligament is intact. The syndesmosis is unremarkable. Sinus tarsi is normal. MUSCULOTENDINOUS STRUCTURES: Achilles tendon: There is thickening and intermediate signal within the medial half of the Achilles tendon, consistent with tendinosis. No focal tear is visible. There is no significant surrounding fluid. Plantar fascia: Unremarkable. Anterior Extensor tendons: Unremarkable. Posterior Tibialis: Unremarkable. Flexor Digitorum longus: Unremarkable. Flexor Hallucis longus: Unremarkable. Peroneus longus: Unremarkable. Peroneus brevis:Unremarkable. SOFT TISSUES: mild soft tissue edema. IMPRESSION: Tendinosis involving the medial half of the Achilles tendon. No focal tear is visible. DATA REPOSITORY:
== END 2025-08-19 07:37 ==
LOC: DI 07:18
PROVIDERS: PCP Family Medicine; Visit Provider Family Medicine
DX: M65.262 Calcific tendinitis, left lower leg (principal)
CPT/HCPCS: 73721

== ENCOUNTER 2025-08-28 03:56 | Outpatient (RCR) | payer MEDICARE, BC, SELFPAY ==
[2025-08-28] MEDS: Normal Saline Flush 10 ML SYR IVP (10:19)
[2025-08-28 10:29] LABS: Abs Immature Grans 0.02 10^3/uL (0.0-0.06); HCT 37.2 % (36.0-46.0); HGB 12.1 g/dL (11.2-15.7); Immature Grans % 0.4 %; MCH 31.7 pg (27.0-33.0); MCHC 32.5 % (32.0-36.0); MCV 97 fL (80-95); MPV 9.7 fL (8.0-11.0); Platelet Count 156 10^3/uL (130-400); RBC 3.82 10^6/uL (3.93-5.22); RDW 12.1 % (11.7-14.6); RDW-SD 43.5 fL; WBC 5.63 10^3/uL (4.4-10.8)
[2025-08-28 10:44] LABS: ALT 29 U/L (14-59); AST 20 U/L (15-37); Albumin 3.6 g/dL (3.4-5.0); Alkaline Phosphatase 135 U/L (46-116); Anion Gap 9.1 mmol/L (3-11); BUN 18 mg/dL (7-18); Bilirubin, Total 0.6 mg/dL (0.2-1.0); CO2 26.9 mmol/L (21.0-32.0); Calcium 8.8 mg/dL (8.5-10.1); Chloride 102 mmol/L (98-107); Glucose 210 mg/dL (74-106); Potassium 3.9 mmol/L (3.5-5.1); Sodium 138 mmol/L (136-145); Total Protein 7.9 g/dL (6.4-8.2)
[2025-08-28 19:46] LABS: CEA 368.8 ng/mL (See Note)
== END 2025-09-27 23:59 | disposition home or self-care (01) ==
LOC: INF 03:56
PROVIDERS: PCP Family Medicine; Visit Provider Internal Medicine Hematology & Oncology
DX: C18.9 Malignant neoplasm of colon, unspecified (principal); Z45.2 Encounter for adjustment and management of vascular access device
CPT/HCPCS: 36591; 80053; 82378; 85025

== ENCOUNTER 2025-11-07 16:43 | Inpatient (IN) | payer MEDICARE, BC, SELFPAY ==
[2025-11-07] VITALS (33 sets, daily range): BP systolic 150–184; BP diastolic 82–103; PULSE 86–125; RESP 13–23; TEMP 36.9–37.3; O2SAT 90–97
--- NOTE | 2025-11-07 16:45 | DI.CT_ITS ---
Exam(s) CT ABDOMEN PELVIS W EXAM: CT ABDOMEN PELVIS W CLINICAL HISTORY: Concern for SBO. TECHNIQUE: Imaging Protocol: Axial computed tomography images with coronal and sagittal reformatted images were created and reviewed CONTRAST MATERIAL: Intravenous: Omnipaque-350 75cc Oral: None COMPARISON: CT CT CHEST/ABD/PEL W from 08/22/2023 FINDINGS: VISUALIZED LUNG BASES: There is a moderate size right pleural effusion now evident. There is some atelectasis in the right lower lobe.. ABDOMEN: GI: Is again noted evidence of previous partial right hemicolectomy. There is now significant dilatation of the large bowel down to what is probably a lesion in the left side of the sigmoid. There are diverticuli below this on the sigmoid. First consideration is for obstructing neoplasm with abnormal mural thickening over a 5 cm length at this level. The colon proximal to this level is dilated to 5 cm. There are also some dilated small bowel loops and what appears to be a probable 2nd transition point in the small bowel in the mid upper pelvis (series 8/images 67-75).. There is no free air. LIVER: Liver is again noted be cirrhotic. There is now a peripheral hypodense subcapsular lesion in the right hepatic lobe which was not evident on the July [address]23 CT scan and does not have the appearance of a typical cyst or hemangioma and given the history here is neoplastic until proven otherwise. This measures approximately 4.5 by 3.5 by 6.5 cm. Correlation with any recent interventional procedure or recent history recommended as this appears to be associated with a small amount of subcapsular fluid in the right hepatic lobe. There are no other focal findings in the cirrhotic liver. No dilated intrahepatic ducts. GALLBLADDER/BILIARY: No obvious gallbladder pathology. CBD is not dilated. PANCREAS: No evidence of pancreatic mass nor dilatation of the pancreatic duct. SPLEEN: Spleen is not enlarged. No obvious intrasplenic lesions. Splenic and portal veins are patent. ADRENALS: Left adrenal nodule is unchanged from 08/22/2023 and probably incidental adenoma. Right adrenal gland pole. KIDNEYS:Kidneys appear unremarkable. No solid renal masses. No calculi nor hydronephrosis.. ABDOMINAL AORTA: Abdominal aorta is calcified but not enlarged. Iliac arteries also calcified but not enlarged. LYMPH NODES:There is no retroperitoneal nor paraaortic adenopathy. ABDOMINAL WALL: There is of small fat only containing umbilical hernia. No significant inguinal hernias. PELVIS: LYMPH NODES: There is no intrapelvic nor inguinal adenopathy. REPRODUCTIVE: Obscured by a beam hardening artifact from bilateral hip prostheses. URINARY BLADDER: Obscured by beam hardening artifact OSSEOUS: There are bilateral hip prostheses. No fractures. No significant osseous lesions evident. IMPRESSION: 1. In this patient who has already had partial right hemicolectomy there is now a high-grade obstruction at the level of the sigmoid where there appears to be a probable neoplastic mass in the sigmoid at this level. There are also sigmoid diverticuli but the main concern here is most probably an obstructing neoplasm. There also appears to be a separate small bowel obstruction transition point in the mid upper pelvis (series 8/images 67-74). There is no evidence of perforation at this time. No ascites. 2. There is an abnormal subcapsular area in the right hepatic lobe measuring 4.5 x 3.5 x 6.5 cm which is probably related to recent interventional procedure. 3. There is also right-sided pleural effusion of moderate size. There are no overlying rib fractures. No nodule seen in the visualized lung bases. 4. Stable left adrenal nodule which is probably an incidental adenoma, unchanged from 08/22/2023. Report called by myself to ER physician 11/07/2025 at 6:22 p.m.xx RADIATION DOSE DELIVERED: 431.99mGy.cm Total DLP DATA REPOSITORY: All CT scans at this facility are submitted to the National Radiology Data Registry (NRDR) Dose Index Registry (DIR) with the [employer] ([employer]). RADIATION OPTIMIZATION: All CT scans at this facility use at least one of these dose optimization techniques: automated exposure control; mA and/or kV adjustment per patient size (includes targeted exams where dose is matched to clinical indication); or iterative reconstruction.
[2025-11-07 17:25] LABS: Abs Immature Grans 0.03 10^3/uL (0.0-0.06); HCT 39.9 % (36.0-46.0); HGB 13.3 g/dL (11.2-15.7); Immature Grans % 0.4 %; MCH 30.7 pg (27.0-33.0); MCHC 33.3 % (32.0-36.0); MCV 92 fL (80-95); MPV 9.2 fL (8.0-11.0); Platelet Count 179 10^3/uL (130-400); RBC 4.33 10^6/uL (3.93-5.22); RDW 13.2 % (11.7-14.6); RDW-SD 45.3 fL; WBC 8.28 10^3/uL (4.4-10.8)
[2025-11-07] MEDS: Ondansetron 4 MG/2 ML VIAL IVP (17:27)
[2025-11-07] MEDS: MORPHine 10 MG/ML VIAL 4 MG IVP ×2 (17:28→22:13)
[2025-11-07] MEDS: Omnipaque 350 MG/ML 100 ML BTL IJ (17:32)
[2025-11-07] MEDS: Normal Saline - Diluent 50 ML VIAL IJ (17:34)
[2025-11-07 17:41] LABS: INR 1.1 (0.9-1.1); PTT Activated 26.3 sec (20.6-30.2); Prothrombin Time 10.8 sec (9.1-11.1)
[2025-11-07 17:51] LABS: Lipase 26 U/L (<53); Magnesium 1.7 mg/dL (1.6-2.6)
[2025-11-07 17:53] LABS: ALT 17 U/L (10-49); AST 21 U/L (<34); Albumin 4.3 g/dL (3.2-5.0); Alkaline Phosphatase 146 U/L (46-116); Anion Gap 10.3 mmol/L (3-11); BUN 15 mg/dL (9-23); Bilirubin, Total 1.0 mg/dL (0.2-1.2); CO2 22.7 mmol/L (20.0-31.0); Calcium 9.1 mg/dL (8.3-10.6); Chloride 104 mmol/L (98-107); Glucose 170 mg/dL (74-106); Potassium 3.6 mmol/L (3.5-5.1); Sodium 137 mmol/L (136-145); Total Protein 8.0 g/dL (5.7-8.2)
[2025-11-07] MEDS: Normal Saline 1,000 ML 1000 ML IV (17:56)
[2025-11-07 17:57] LABS: Troponin I < 3 ng/L (<35)
--- NOTE | 2025-11-07 18:45 | DI.RAD_ITS ---
Exam(s) XR PORTABLE CHEST AP EXAM: XR PORTABLE CHEST AP CLINICAL HISTORY: s/p NG tube placement. TECHNIQUE: 2D digital imaging was performed. COMPARISON: CR XR CHEST 2V PA LATERAL from 06/15/2024 FINDINGS: Single AP portable view. There is a left subclavian Port-A-Cath again noted with distal tip in the right atrium, unchanged. Interval placement of an NG tube. The distal tip is below the hemidiaphragm but beyond the field of view. Heart size is normal. There is a small right pleural effusion. Also some fluid in the minor fissure. The opposite-left lung is clear. No obvious lung nodules evident. IMPRESSION: Small right pleural effusion. No obvious lung nodules. NG tube distal tip is beyond the field of view. Recommend KUB film of the abdomen to better determine the position of the NG tube in the stomach. DATA REPOSITORY: RADIATION DOSE DELIVERED:
--- NOTE | 2025-11-07 18:46 | ED.GENADUL_ITS ---
Discharge Plan Disposition Patient Disposition: Admit to [facility] Discharge Details Clinical Impression: Large bowel obstruction, Small bowel obstruction Primary Care Provider: Priscilla Brantley ED Provider: Isreal Huang Home Meds and New Rx's Prescriptions: No Action latanoprost 0.005 % drops 1 drp ophthalmic (eye) HS Patient Comments: INSTILL ONE DROP IN EACH EYE AT BEDTIME gabapentin 100 mg capsule 100 mg PO TID Qty: 90 5RF letrozole 2.5 mg tablet 2.5 mg PO DAILY multivitamin Tablet 1 tab PO DAILY lorazepam [Ativan] 0.5 mg tablet 0.5 mg PO DAILY PRN (Reason: anxiety) Qty: 30 1RF ibuprofen 600 mg tablet See Rx Instructions .ROUTE .COMPLEX Qty: 90 1RF Dose Instruction: TAKE ONE TABLET BY MOUTH THREE TIMES A DAY NEEDED FOR PAIN Rx Instructions: TAKE ONE TABLET BY MOUTH THREE TIMES A DAY NEEDED FOR PAIN cyanocobalamin (vitamin B-12) [Vitamin B-12] 1,000 mcg tablet 1,000 mcg PO DAILY HPI General Date/Time Provider Initiated Documentation: 11/07/25 16:49 . HPI Narrative: MDM/Narrative: 70-year-old female with past medical history of colon cancer with metastatic lesions, presents for evaluations of nausea vomiting and increasing abdominal pain and distention. Vital signs notable for hypertension and tachycardia. Exam shows a distended abdomen which is tender to palpation with hypoactive bowel sounds concerning for small bowel obstruction. Will obtain screening labs and CT imaging to rule out acute surgical pathology. ED course: Lab evaluation is unremarkable, however CT imaging is concerning for both a small bowel obstruction and a large bowel obstruction. Case discussed with Dr. Diego of general surgery who knows the patient well and agrees to admit her for further management is in agreement with placement of NG tube to decompress the bowel. Disposition: Admit to general surgery HPI: 70-year-old female past medical history of colon cancer with known large sigmoid lesion with metastatic lesions to liver, presenting for evaluation of worsening diffuse abdominal pain, bloating, nausea, several episodes of nonbilious nonbloody vomiting all beginning today. Patient was instructed by her oncologist on the signs of a small bowel obstruction and was instructed to seek emergency evaluation if she were to develop the symptoms. She denies any associated fever, bloody stools, hematemesis or coffee-ground emesis. ROS: Negative besides as mentioned above Exam: Gen: A&O, appears uncomfortable HEENT: NCAT, EOMI, not icteric. External ears normal. No rhinorrhea. Moist mucous membranes. Neck: Supple, full range of motion, no observable masses, No meningeal sign. Lungs: No Respiratory distress. CV: Tachycardia no edema. Abdomen: Distended with tenderness diffusely, hypoactive bowel sounds MSK: No joint swelling, no redness. Skin: No rashes, petechiae, lesions. Normal color per patient. Neuro: Normal Gait, Grossly intact. Psych: Appropriate for situation. Labs: Laboratory Tests Range/Units 11/07/25 11/07/25 11/07/25 17:16 17:31 18:19 WBC (4.4-10.8) 10^3/uL 8.28 RBC (3.93-5.22) 10^6/uL 4.33 Hgb (11.2-15.7) g/dL 13.3 Hct (36.0-46.0) % 39.9 MCV (80-95) fL 92 MCH (27.0-33.0) pg 30.7 MCHC (32.0-36.0) % 33.3 RDW (11.7-14.6) % 13.2 Plt Count (130-400) 10^3/uL 179 MPV (8.0-11.0) fL 9.2 Immature Gran % % 0.4 Neutrophils % % 80.7 Lymphocytes % % 12.4 Monocytes % % 6.0 Eosinophils % % 0.1 Basophils % % 0.4 Nucleated RBC % (0.0-0.3) % 0.0 Absolute Neutrophils (1.2-6.7) 10^3/uL 6.68 Absolute Lymphocytes (1.2-3.4) 10^3/uL 1.03 L Absolute Monocytes (0.1-0.8) 10^3/uL 0.50 Absolute Eosinophils (0.0-0.7) 10^3/uL 0.01 Absolute Basophils (0.0-0.2) 10^3/uL 0.03 PT (9.1-11.1) sec 10.8 INR (0.9-1.1) 1.1 APTT (20.6-30.2) sec 26.3 VBG Lactate (<or=2.0) mmol/L 1.6 Sodium (136-145) mmol/L 137 Potassium (3.5-5.1) mmol/L 3.6 Chloride (98-107) mmol/L 104 Carbon Dioxide (20.0-31.0) mmol/L 22.7 Anion Gap (3-11) mmol/L 10.3 BUN (9-23) mg/dL 15 Creatinine (0.55-1.02) mg/dL 0.80 Est GFR (CKD-EPI 2020) (mL/min/1.73m2) 70.42 Glucose (74-106) mg/dL 170 H Calcium (8.3-10.6) mg/dL 9.1 Magnesium (1.6-2.6) mg/dL 1.7 Total Bilirubin (0.2-1.2) mg/dL 1.0 AST (<34) U/L 21 ALT (10-49) U/L 17 Alkaline Phosphatase (46-116) U/L 146 H Troponin I (<35) ng/L < 3 < 3 Total Protein (5.7-8.2) g/dL 8.0 Albumin (3.2-5.0) g/dL 4.3 Lipase (<53) U/L 26 Urine Color (Yellow) Urine Clarity (Clear) Urine pH (5-8) Ur Specific [place] (1.005-1.025) Urine Protein (Neg-Trace) mg/dL Urine Ketones (Negative) mg/dL Urine Blood (Negative) Urine Nitrite (Negative) Urine Bilirubin (Negative) Urine Urobilinogen (Up to 0.2) mg/dL Ur Leukocyte Esterase (Negative) Urine Glucose (Negative) mg/dL ABO/Rh AB Positive Antibody Screen NEGATIVE Range/Units 11/07/25 18:44 WBC (4.4-10.8) 10^3/uL RBC (3.93-5.22) 10^6/uL Hgb (11.2-15.7) g/dL Hct (36.0-46.0) % MCV (80-95) fL MCH (27.0-33.0) pg MCHC (32.0-36.0) % RDW (11.7-14.6) % Plt Count (130-400) 10^3/uL MPV (8.0-11.0) fL Immature Gran % % Neutrophils % % Lymphocytes % % Monocytes % % Eosinophils % % Basophils % % Nucleated RBC % (0.0-0.3) % Absolute Neutrophils (1.2-6.7) 10^3/uL Absolute Lymphocytes (1.2-3.4) 10^3/uL Absolute Monocytes (0.1-0.8) 10^3/uL Absolute Eosinophils (0.0-0.7) 10^3/uL Absolute Basophils (0.0-0.2) 10^3/uL PT (9.1-11.1) sec INR (0.9-1.1) APTT (20.6-30.2) sec VBG Lactate (<or=2.0) mmol/L Sodium (136-145) mmol/L Potassium (3.5-5.1) mmol/L Chloride (98-107) mmol/L Carbon Dioxide (20.0-31.0) mmol/L Anion Gap (3-11) mmol/L BUN (9-23) mg/dL Creatinine (0.55-1.02) mg/dL Est GFR (CKD-EPI 2020) (mL/min/1.73m2) Glucose (74-106) mg/dL Calcium (8.3-10.6) mg/dL Magnesium (1.6-2.6) mg/dL Total Bilirubin (0.2-1.2) mg/dL AST (<34) U/L ALT (10-49) U/L Alkaline Phosphatase (46-116) U/L Troponin I (<35) ng/L Total Protein (5.7-8.2) g/dL Albumin (3.2-5.0) g/dL Lipase (<53) U/L Urine Color (Yellow) Yellow Urine Clarity (Clear) Clear Urine pH (5-8) 6.5 Ur Specific [place] (1.005-1.025) 1.015 Urine Protein (Neg-Trace) mg/dL Trace Urine Ketones (Negative) mg/dL 40 H Urine Blood (Negative) Negative Urine Nitrite (Negative) Negative Urine Bilirubin (Negative) Negative Urine Urobilinogen (Up to 0.2) mg/dL 1.0 H Ur Leukocyte Esterase (Negative) Negative Urine Glucose (Negative) mg/dL Negative ABO/Rh Antibody Screen Radiology: Accession No. : [id number] Creator : Juan Rodriguez Dictator : Juan Rodriguez Wagon Driver Salesperson : Custodial Services Manager : Juan Rodriguez Approver2 : Report Date : 11/07/2025 18:32:00 Exam(s) CT ABDOMEN PELVIS W EXAM: CT ABDOMEN PELVIS W CLINICAL HISTORY: Concern for SBO. TECHNIQUE: Imaging Protocol: Axial computed tomography images with coronal and sagittal reformatted images were created and reviewed CONTRAST MATERIAL: Intravenous: Omnipaque-350 75cc Oral: None COMPARISON: CT CT CHEST/ABD/PEL W from 08/22/2023 FINDINGS: VISUALIZED LUNG BASES: There is a moderate size right pleural effusion now evident. There is some atelectasis in the right lower lobe.. ABDOMEN: GI: Is again noted evidence of previous partial right hemicolectomy. There is now significant dilatation of the large bowel down to what is probably a lesion in the left side of the sigmoid. There are diverticuli below this on the sigmoid. First consideration is for obstructing neoplasm with abnormal mural thickening over a 5 cm length at this level. The colon proximal to this level is dilated to 5 cm. There are also some dilated small bowel loops and what appears to be a probable 2nd transition point in the small bowel in the mid upper pelvis (series 8/images 67-75).. There is no free air. LIVER: Liver is again noted be cirrhotic. There is now a peripheral hypodense subcapsular lesion in the right hepatic lobe which was not evident on the July [address]23 CT scan and does not have the appearance of a typical cyst or hemangioma and given the history here is neoplastic until proven otherwise. This measures approximately 4.5 by 3.5 by 6.5 cm. Correlation with any recent interventional procedure or recent history recommended as this appears to be associated with a small amount of subcapsular fluid in the right hepatic lobe. There are no other focal findings in the cirrhotic liver. No dilated intrahepatic ducts. GALLBLADDER/BILIARY: No obvious gallbladder pathology. CBD is not dilated. PANCREAS: No evidence of pancreatic mass nor dilatation of the pancreatic duct. SPLEEN: Spleen is not enlarged. No obvious intrasplenic lesions. Splenic and portal veins are patent. ADRENALS: Left adrenal nodule is unchanged from 08/22/2023 and probably inc idental adenoma. Right adrenal gland pole. KIDNEYS:Kidneys appear unremarkable. No solid renal masses. No calculi nor hydronephrosis.. ABDOMINAL AORTA: Abdominal aorta is calcified but not enlarged. Iliac arteries also calcified but not enlarged. LYMPH NODES:There is no retroperitoneal nor paraaortic adenopathy. ABDOMINAL WALL: There is of small fat only containing umbilical hernia. No significant inguinal hernias. PELVIS: LYMPH NODES: There is no intrapelvic nor inguinal adenopathy. REPRODUCTIVE: Obscured by a beam hardening artifact from bilateral hip prostheses. URINARY BLADDER: Obscured by beam hardening artifact OSSEOUS: There are bilateral hip prostheses. No fractures. No significant osseous lesions evident. IMPRESSION: 1. In this patient who has already had partial right hemicolectomy there is now a high-grade obstruction at the level of the sigmoid where there appears to be a probable neoplastic mass in the sigmoid at this level. There are also sigmoid diverticuli but the main concern here is most probably an obstructing neoplasm. There also appears to be a separate small bowel obstruction transition point in the mid upper pelvis (series 8/images 67-74). There is no evidence of perforation at this time. No ascites. 2. There is an abnormal subcapsular area in the right hepatic lobe measuring 4.5 x 3.5 x 6.5 cm which is probably related to recent interventional procedure. 3. There is also right-sided pleural effusion of moderate size. There are no overlying rib fractures. No nodule seen in the visualized lung bases. 4. Stable left adrenal nodule which is probably an incidental adenoma, unchanged from 08/22/2023. Report called by myself to ER physician 11/07/2025 at 6:22 p.m.xx RADIATION DOSE DELIVERED: 431.99mGy.cm Total DLP DATA REPOSITORY: All CT scans at this facility are submitted to the National Radiology Data Registry (NRDR) Dose Index Registry (DIR) with the [employer] (ACR). RADIATION OPTIMIZATION: All CT scans at this facility use at least one of these dose optimization techniques: automated exposure control; mA and/or kV adjustment per patient size (includes targeted exams where dose is matched to clinical indication); or iterative reconstruction. Related Data Home Medications ?Medication ?Instructions ?Recorded ?Confirmed ibuprofen 600 mg tablet See Rx Instructions .Route 0 01/18/24 11/07/25 .COMPLEX #90 tabs latanoprost 0.005 % eye drops 1 drp ophthalmic (eye) H S 12/27/24 11/07/25 gabapentin 100 mg capsule 100 mg PO TID #90 caps 02/0411/07/25 multivitamin 1 tab PO DAILY 03/27/2510/28 cyanocobalamin (vitamin B-12) 1,000 mcg PO DAILY 04/2311/07/25 1,000 mcg tablet (Vitamin B-12) letrozole 2.5 mg tablet 2.5 mg PO DAILY 07/30/2510/22 lorazepam 0.5 mg tablet (Ativan) 0.5 mg PO DAILY PRN a nxiety #30 11/05/25 11/07/25 tabs Previous Rx's ?Medication ?Instructions ?Recorded ibuprofen 600 mg tablet See Rx Instructions .Route 0 01/18/24 .COMPLEX #90 tabs gabapentin 100 mg capsule 100 mg PO TID #90 caps 02/04 lorazepam 0.5 mg tablet (Ativan) 0.5 mg PO DAILY PRN a nxiety #30 11/05/25 tabs Allergies Allergy/AdvReac Type Severity Reaction Status Date / Time amoxicillin trihydrate (From AdvReac Intermediate itching Verified 11/07/25 16:48 Augmentin) and swelling of palms and soles of feet potassium clavulanate (From AdvReac Intermediate itching Verified 11/07/25 16:48 Augmentin) and swelling of palms and soles of feet escitalopram AdvReac Mild GI Bloat Verified 11/07/25 16:48 General Stated Complaint: Abd Prob NIRANJAN: 3 Course Vital Signs Vital signs: Vital Signs Temperature 36.9 C 11/07/25 16:46 Pulse 125 H 11/07/25 16:46 Respiratory Rate 20 11/07/25 16:46 Blood Pressure 174/103 H 11/07/25 16:46 Pulse Oximetry 95 11/07/25 16:46 Temperature 36.9 C 11/07/25 16:48 Pulse 88 11/07/25 18:20 Pulse 88 11/07/25 18:20 Respiratory Rate 16 11/07/25 18:20 Blood Pressure 174/103 H 11/07/25 16:48 Pulse Oximetry 97 11/07/25 18:20 Pain Level 7 11/07/25 17:28 Lab/Test Results Lab/Test Results: Laboratory Tests Range/Units 11/07/25 11/07/25 17:16 17:31 WBC (4.4-10.8) 10^3/uL 8.28 RBC (3.93-5.22) 10^6/uL 4.33 Hgb (11.2-15.7) g/dL 13.3 Hct (36.0-46.0) % 39.9 MCV (80-95) fL 92 MCH (27.0-33.0) pg 30.7 MCHC (32.0-36.0) % 33.3 RDW (11.7-14.6) % 13.2 Plt Count (130-400) 10^3/uL 179 MPV (8.0-11.0) fL 9.2 Immature Gran % % 0.4 Neutrophils % % 80.7 Lymphocytes % % 12.4 Monocytes % % 6.0 Eosinophils % % 0.1 Basophils % % 0.4 Nucleated RBC % (0.0-0.3) % 0.0 Absolute Neutrophils (1.2-6.7) 10^3/uL 6.68 Absolute Lymphocytes (1.2-3.4) 10^3/uL 1.03 L Absolute Monocytes (0.1-0.8) 10^3/uL 0.50 Absolute Eosinophils (0.0-0.7) 10^3/uL 0.01 Absolute Basophils (0.0-0.2) 10^3/uL 0.03 PT (9.1-11.1) sec 10.8 INR (0.9-1.1) 1.1 APTT (20.6-30.2) sec 26.3 VBG Lactate (<or=2.0) mmol/L 1.6 Sodium (136-145) mmol/L 137 Potassium (3.5-5.1) mmol/L 3.6 Chloride (98-107) mmol/L 104 Carbon Dioxide (20.0-31.0) mmol/L 22.7 Anion Gap (3-11) mmol/L 10.3 BUN (9-23) mg/dL 15 Creatinine (0.55-1.02) mg/dL 0.80 Est GFR (CKD-EPI 2020) (mL/min/1.73m2) 70.42 Glucose (74-106) mg/dL 170 H Calcium (8.3-10.6) mg/dL 9.1 Magnesium (1.6-2.6) mg/dL 1.7 Total Bilirubin (0.2-1.2) mg/dL 1.0 AST (<34) U/L 21 ALT (10-49) U/L 17 Alkaline Phosphatase (46-116) U/L 146 H Troponin I (<35) ng/L < 3 Total Protein (5.7-8.2) g/dL 8.0 Albumin (3.2-5.0) g/dL 4.3 Lipase (<53) U/L 26 ABO/Rh AB Positive Antibody Screen NEGATIVE PFSH All Active Problems (Updated 11/07/25 @ 22:15 by Isreal Huang MD) Small bowel obstruction (Acute) Large bowel obstruction (Acute) Metastasis to liver (Acute ~09/09/25) 09/09/25-Liver biopsy done at [facility]. 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 H/O bilateral salpingo-oophorectomy (Acute ~10/18/23) History of robot-assisted laparoscopic hysterectomy (Acute ~10/18/23) omental biopsy and temporary b/l ureteral stents Endometrial cancer (Acute ~08/2023) Abnormal CT of the abdomen (Acute) Colon cancer (Chronic) S/P right hemicolectomy (Acute) Screening for colon cancer (Acute) Cirrhosis (Acute) Fatty liver (Acute) Chronic iron deficiency anemia (Acute) Anemia (Chronic) Degenerative joint disease of right knee (Acute) Injection 08/17/2022 Right knee pain (Acute) Anemia (Chronic) Osteoarthritis of left hip (Acute) Hypertension (Chronic) Encounter for screening colonoscopy (Acute) Encounter for annual physical exam (Acute) Diarrhea (Acute) Status post total hip replacement, right (Acute) Diabetes mellitus (Chronic) Elevated blood pressure reading (Acute) Shoulder pain (Chronic 03/24/15) Patellofemoral arthritis of right knee (Chronic 09/12/17) Low back pain radiating to left leg (Chronic 06/10/16) Lichen planus (Chronic) Elevated MCV (Chronic 01/06/17) Elevated LFTs (Chronic 01/06/17) Diverticulosis of colon without diverticulitis (Chronic) sigmoid colon Medical History (Updated 11/07/25 @ 22:15 by Isreal Huang MD) Alcohol intake above recommended sensible limits (01/07/17) elevated GGT, LFT and MCV Hx of colon cancer, stage III with mets to the right middle lung-last had radiation therapy Fall 2023 Pneumonia Tubular adenoma Diverticulitis was in ER 11/2022 Hx of fracture of ankle Hx of spina bifida States hx of Spina Bifida Occulta Hx of hypoglycemia Hx of tension headache 1 time event Hx of transient ischemic attack (TIA) Pt. states she had a TIA when she was 22 that was control related Pt. states she has never had an recurrence, and does not f/u with a neurologist and states she never had to. History of ectopic right Trochanteric bursitis of right hip (09/11/15) bilateral Left foot pain (08/05/15) Epicondylitis Achilles tendinitis of left lower extremity (09/11/15) Surgical History (Updated 04/29/25 @ 08:45 by Shaneka Kenny) History of colonoscopy (~03/2025) with tat History of right hemicolectomy History of left hip replacement bilat Status post total hip replacement, left (08/17/22) Hx of exploratory laparotomy ectopic Hx of section x 2 Status post arthroscopy of right knee S/P tonsillectomy History of total right hip replacement History of open reduction and internal fixation (ORIF) procedure left ankle with plates and screws present Some hardware was removed Hx of appendectomy History of back surgery Microdisectomy, L5-S1. Pt. states nerves damage with numbness to left foot. History of ectopic History of bilateral tubal ligation H/O section x2 Family History Mother , 54 Uterine cancer Colon cancer Father , 80 Prostate cancer Alcohol abuse Daughter Diabetes Depression Sister No problems noted. Sister No problems noted. Brother No problems noted. Son No problems noted. Brother Depression Social History Smoking/Tobacco Use Status: Never Second Hand Exposure: Yes Smoking risk assessment performed?: Yes Alcohol Intake: current Alcohol Intake frequency: holidays/special occasions only Details: Recently stopped ETOH use since Drug use: Never Substance use type: does not use Caregiver/Support person: No Household members: spouse Housing: house Communication Needs: None Do you need help understanding health information?: Never Pets and animals: No Sexually active: Yes Do you think of yourself as: straight/heterosexual Current gender identity: female What is your relationship status?: How often do you talk on the phone with friends or family?: decline to answer How often do you get together with friends or relatives?: decline to answer How often do you attend yazidi or orthodoxy services?: decline to answer Do you belong to any clubs or organized social groups?: decline to answer Panel score (0-1 are the most socially isolated patients): 1 What type of physical activity do you participate in: decline to answer Duration: decline to answer Frequency: decline to answer Niru/Druze: Spiritism Special niru needs: No Seatbelt use: always Drive intox or ride w/intox 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: No Do you feel safe at home: Yes Do you feel safe in your relationship?: Yes PAWSS Have you Been Recently Intoxicated or Drunk Within the Last 30 days?: No Have you Ever Experienced Previous Episodes of Alcohol Withdrawal?: No Have you ever Experienced Withdrawal Seizures?: No Have you ever Experienced Delirium Tremens(DT)s?: No Have you ever undergone Alcohol Rehabilitation Treatment (i.e, inpt ot outpatient treatment programs)?: No Have you ever Experienced Blackouts?: No Have you ever Combined Alcohol with other Downers within the last 90 days?: No Have you ever Combined Alcohol with any other Substance of Abuse during the last 90 days?: No Positive Blood Alcohol level on Presentation? [PCS.BAL]: No Evidence of Increased Autonomic Activity (i.e. HR>120, tremor, sweating, agitation, nausea)?: No Result: 0
[2025-11-07 18:53] LABS: Troponin I < 3 ng/L (<35)
[2025-11-07] MEDS: Lidocaine 2% Jelly 6 ML SYR (18:56)
[2025-11-07 19:02] LABS: Glucose Negative (Negative)
[2025-11-07] MEDS: LORazepam 2 MG/ML VIAL 1 MG IVP (20:09)
--- NOTE | 2025-11-07 21:12 | W.PM.HP.N ---
Date of service: 11/07/25 Time of Service: 21:12 Assessment and Plan Assessment and plan (1) Colon cancer: Status: Chronic Assessment and plan: The CT scan clearly shows a large bowel obstruction resulting from the malignant tumor in her sigmoid colon. But with the carcinomatosis described on her last operation, the entirety of her small bowel is at significant risk for malignant obstruction. Belinda and I talked at length regarding her history, current diagnoses, prognosis, and her expectations and goals of therapy. I expressed skepticism regarding the efficacy of her treatments with regards to curative intent. In simple language, I do not think the immunotherapy will cure her colon cancer. But I also understand that she does not have any other real options left in terms of curative treatments. At the very least, I can offer procedures to help palliate the discomfort associated with her cancer. We talked about a number of different options, and the risks and benefits of all of those approaches. For now, we will continue the nasogastric tube overnight to help decompress the GI tract proximal to the obstruction. And we can make arrangements for exploratory laparotomy, and creation of a diverting colostomy or ileostomy to treat the obstructing component of her disease process. History of Present Illness History of Present Illness Chief Complaint: Abdominal pain Narrative: Belinda is 70 years old. She required an open right hemicolectomy in March 2023 for a stage III colon adenocarcinoma. Later that year she was also diagnosed with an advanced uterine carcinoma which was treated with hysterectomy and adjuvant therapies. Her treatment was complicated by pulmonary metastases that responded favorably to treatment. More recently, she has had a recrudescence of her CEA level, and a PET CT scan bishop attention to PET avid lesions in the abdomen and pelvis. She underwent another colonoscopy where a biopsy of a lesion in the colon confirmed the presence of what appeared to be a new colon cancer. This lesion was not amenable to complete colonoscopic resection. She was brought to the operating room at [facility], and the lesion in or around the sigmoid colon appeared to be unresectable. She has since undergone secondary and tertiary opinions, most recently at [facility] [place] with regards to alternative neoadjuvant therapies. She has started a new immunotherapy today. Concurrently, she has been experiencing colicky pain that radiates through her abdomen and has recently been associated with nausea and increased abdominal pain. She met with Dr. Hernandez today, who referred her to the emergency department. CT scan in the emergency department demonstrated significant dilation of the descending colon up through the ileocolic anastomosis consistent with a large bowel obstruction from the sigmoid tumor. Review of Systems Constitutional Constitutional: Reports fatigue, Denies fever(s), Reports lethargy, Reports poor appetite and Reports weight loss Eyes Eyes: Reports system reviewed and no additional complaints, except as documented ENT Ears, Nose, Mouth, and Throat: Reports system reviewed and no additional complaints, except as documented Cardiovascular Cardiovascular: Denies chest pain and Denies dyspnea Respiratory Respiratory: Denies chest congestion, Denies cough and Denies dyspnea Gastrointestinal Gastrointestinal: Reports abdominal pain, Reports belching, Reports bloating and Denies change in stool character Genitourinary Genitourinary: Reports system reviewed and no additional complaints, except as documented Neurologic Neurologic: Reports system reviewed and no additional complaints, except as documented Endocrine Endocrine: Reports fatigue Hematologic/Lymphatic Hematologic/Lymphatic: Denies easy bleeding and Denies easy bruising PFSH All Active Problems (Updated 10/01/25 @ 14:34 by Adela Danielle RN) Metastasis to liver (Acute ~09/09/25) 09/09/25-Liver biopsy done at [facility] [place]. 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 H/O bilateral salpingo-oophorectomy (Acute ~10/18/23) History of robot-assisted laparoscopic hysterectomy (Acute ~10/18/23) omental biopsy and temporary b/l ureteral stents Endometrial cancer (Acute ~08/2023) Abnormal CT of the abdomen (Acute) Colon cancer (Chronic) S/P right hemicolectomy (Acute) Screening for colon cancer (Acute) Cirrhosis (Acute) Fatty liver (Acute) Chronic iron deficiency anemia (Acute) Anemia (Chronic) Degenerative joint disease of right knee (Acute) Injection 08/17/2022 Right knee pain (Acute) Anemia (Chronic) Osteoarthritis of left hip (Acute) Hypertension (Chronic) Encounter for screening colonoscopy (Acute) Encounter for annual physical exam (Acute) Diarrhea (Acute) Status post total hip replacement, right (Acute) Diabetes mellitus (Chronic) Elevated blood pressure reading (Acute) Shoulder pain (Chronic 03/24/15) Patellofemoral arthritis of right knee (Chronic 09/12/17) Low back pain radiating to left leg (Chronic 06/10/16) Lichen planus (Chronic) Elevated MCV (Chronic 01/06/17) Elevated LFTs (Chronic 01/06/17) Diverticulosis of colon without diverticulitis (Chronic) sigmoid colon Medical History (Updated 10/01/25 @ 14:34 by Adela Danielle RN) Alcohol intake above recommended sensible limits (01/07/17) elevated GGT, LFT and MCV Hx of colon cancer, stage III with mets to the right middle lung-last had radiation therapy Fall 2023 Pneumonia Tubular adenoma Diverticulitis was in ER 11/2022 Hx of fracture of ankle Hx of spina bifida States hx of Spina Bifida Occulta Hx of hypoglycemia Hx of tension headache 1 time event Hx of transient ischemic attack (TIA) Pt. states she had a TIA when she was 22 that was control related Pt. states she has never had an recurrence, and does not f/u with a neurologist and states she never had to. History of ectopic right Trochanteric bursitis of right hip (09/11/15) bilateral Left foot pain (08/05/15) Epicondylitis Achilles tendinitis of left lower extremity (09/11/15) Surgical History (Updated 04/29/25 @ 08:45 by Shaneka Kenny) History of colonoscopy (~03/2025) with tat History of right hemicolectomy History of left hip replacement bilat Status post total hip replacement, left (08/17/22) Hx of exploratory laparotomy ectopic Hx of section x 2 Status post arthroscopy of right knee S/P tonsillectomy History of total right hip replacement History of open reduction and internal fixation (ORIF) procedure left ankle with plates and screws present Some hardware was removed Hx of appendectomy History of back surgery Microdisectomy, L5-S1. Pt. states nerves damage with numbness to left foot. History of ectopic History of bilateral tubal ligation H/O section x2 Family History Mother , 54 Uterine cancer Colon cancer Father , 80 Prostate cancer Alcohol abuse Daughter Diabetes Depression Sister No problems noted. Sister No problems noted. Brother No problems noted. Son No problems noted. Brother Depression Social History Smoking/Tobacco Use Status: Never Second Hand Exposure: Yes Smoking risk assessment performed?: Yes Alcohol Intake: current Alcohol Intake frequency: holidays/special occasions only Details: Recently stopped ETOH use since Drug use: Never Substance use type: does not use Caregiver/Support person: No Household members: spouse Housing: house Communication Needs: None Do you need help understanding health information?: Never Pets and animals: No Sexually active: Yes Do you think of yourself as: straight/heterosexual Current gender identity: female What is your relationship status?: How often do you talk on the phone with friends or family?: decline to answer How often do you get together with friends or relatives?: decline to answer How often do you attend hoahaoism or taoism services?: decline to answer Do you belong to any clubs or organized social groups?: decline to answer Panel score (0-1 are the most socially isolated patients): 1 What type of physical activity do you participate in: decline to answer Duration: decline to answer Frequency: decline to answer Niru/Nondenominational: Confucianism Special niru needs: No Seatbelt use: always Drive intox or ride w/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: No Do you feel safe at home: Yes Do you feel safe in your relationship?: Yes Meds Allergies and Home Medications Allergies Allergy/AdvReac Type Severity Reaction Status Date / Time amoxicillin trihydrate (From AdvReac Intermediate itching Verified 11/07/25 16:48 Augmentin) and swelling of palms and soles of feet potassium clavulanate (From AdvReac Intermediate itching Verified 11/07/25 16:48 Augmentin) and swelling of palms and soles of feet escitalopram AdvReac Mild GI Bloat Verified 11/07/25 16:48 Home Medications ?Medication ?Instructions ?Recorded ?Confirmed ?Type ibuprofen 600 mg tablet See Rx Instructions .Route 01/18/24 11/07/25 Rx .COMPLEX #90 tabs latanoprost 0.005 % eye drops 1 drp ophthalmic (eye) HS 12/27/24 11/07/25 History gabapentin 100 mg capsule 100 mg PO TID #90 caps 02/04/25 11/07/25 Rx multivitamin 1 tab PO DAILY 03/27/25 11/07/25 History cyanocobalamin (vitamin B-12) 1,000 mcg PO DAILY 04/23/25 11/07/25 History 1,000 mcg tablet (Vitamin B-12) letrozole 2.5 mg tablet 2.5 mg PO DAILY 07/30/25 11/07/25 History lorazepam 0.5 mg tablet (Ativan) 0.5 mg PO DAILY PRN anxiety #30 11/05/25 11/07/25 Rx tabs Exam Const General: cooperative and no acute distress Orientation: alert, awake and oriented x3 HENMT Head: normal to inspection Eyes General: appearance normal, both eyes and all related structures Neck Neck: normal visual inspection, full ROM and no lymphadenopathy Resp Effort & Inspection: normal respiratory effort Auscultation: clear to auscultation bilaterally Cardio Rate: regular rate Rhythm: regular rhythm Heart Sounds: S1 normal and S2 normal GI Inspection: distended Palpation: soft, no guarding and nontender Results Imaging Abdomen CT scan report/results: report reviewed and image reviewed CT scan - pelvis: report reviewed and image reviewed Labs 11/07/25 17:16 11/07/25 17:16 Labs: Laboratory Results - last 24 hr 11/07/25 11/07/25 11/07/25 17:16 17:31 18:19 WBC 8.28 RBC 4.33 Hgb 13.3 Hct 39.9 MCV 92 MCH 30.7 MCHC 33.3 RDW 13.2 Plt Count 179 MPV 9.2 Immature Gran % 0.4 Neutrophils % 80.7 Lymphocytes % 12.4 Monocytes % 6.0 Eosinophils % 0.1 Basophils % 0.4 Nucleated RBC % 0.0 Absolute Neutrophils 6.68 Absolute Lymphocytes 1.03 L Absolute Monocytes 0.50 Absolute Eosinophils 0.01 Absolute Basophils 0.03 PT 10.8 INR 1.1 APTT 26.3 VBG Lactate 1.6 Sodium 137 Potassium 3.6 Chloride 104 Carbon Dioxide 22.7 Anion Gap 10.3 BUN 15 Creatinine 0.80 Est GFR (CKD-EPI 2020) 70.42 Glucose 170 H Calcium 9.1 Magnesium 1.7 Total Bilirubin 1.0 AST 21 ALT 17 Alkaline Phosphatase 146 H Troponin I < 3 < 3 Total Protein 8.0 Albumin 4.3 Lipase 26 Urine Color Urine Clarity Urine pH Ur Specific [place] Urine Protein Urine Ketones Urine Blood Urine Nitrite Urine Bilirubin Urine Urobilinogen Ur Leukocyte Esterase Urine Glucose ABO/Rh AB Positive Antibody Screen NEGATIVE 11/07/25 18:44 WBC RBC Hgb Hct MCV MCH MCHC RDW Plt Count MPV Immature Gran % Neutrophils % Lymphocytes % Monocytes % Eosinophils % Basophils % Nucleated RBC % Absolute Neutrophils Absolute Lymphocytes Absolute Monocytes Absolute Eosinophils Absolute Basophils PT INR APTT VBG Lactate Sodium Potassium Chloride Carbon Dioxide Anion Gap BUN Creatinine Est GFR (CKD-EPI 2020) Glucose Calcium Magnesium Total Bilirubin AST ALT Alkaline Phosphatase Troponin I Total Protein Albumin Lipase Urine Color Yellow Urine Clarity Clear Urine pH 6.5 Ur Specific [place] 1.015 Urine Protein Trace Urine Ketones 40 H Urine Blood Negative Urine Nitrite Negative Urine Bilirubin Negative Urine Urobilinogen 1.0 H Ur Leukocyte Esterase Negative Urine Glucose Negative ABO/Rh Antibody Screen Last Vital Signs Temp 98.4 F 11/07/25 16:48 Pulse 95 H 11/07/25 19:20 Resp 20 11/07/25 19:20 BP 184/90 H 11/07/25 19:01 Pulse Ox 93 11/07/25 19:20 VTE Prohylaxis Risk Level: Moderate/High Risk Contraindications: None and Active bleed/high bleed risk Prophylaxis: Pharmacologic and Mechanical PAWSS Have you Been Recently Intoxicated or Drunk Within the Last 30 days?: No Have you Ever Experienced Previous Episodes of Alcohol Withdrawal?: No Have you ever Experienced Withdrawal Seizures?: No Have you ever Experienced Delirium Tremens(DT)s?: No Have you ever undergone Alcohol Rehabilitation Treatment (i.e, inpt ot outpatient treatment programs)?: No Have you ever Experienced Blackouts?: No Have you ever Combined Alcohol with other Downers within the last 90 days?: No Have you ever Combined Alcohol with any other Substance of Abuse during the last 90 days?: No Positive Blood Alcohol level on Presentation? [PCS.BAL]: No Evidence of Increased Autonomic Activity (i.e. HR>120, tremor, sweating, agitation, nausea)?: No Result: 0 Time Spent Time spent with Patient: >75 minutes Time was spent: preparing to see the patient(eg.review tests), obtaining and/or reviewing separately otained hiistory, ordering medications,tests, procedures, indepentently interpreting results, counseling the patient and care coordination
--- NOTE | 2025-11-07 22:22 | W.PC.ACHO ---
Registration Status: REG ER Primary Language: Preferred Language: Sinhala ED Information & Data Chief Complaint Abd Prob 11/07/25 18:47 Triage Note Pt been treated for an abd 11/07/25 16:46 mass recently. Pt complaining of abd cramping and vomiting Medical / Surgical History (Last Updated 07/09/25 @ 14:45 by Priscilla Brantley MD, DC) Alcohol intake above recommended sensible limits (01/07/17) Hx of colon cancer, stage III Pneumonia Tubular adenoma Diverticulitis Hx of fracture of ankle Hx of spina bifida Hx of hypoglycemia Hx of tension headache Hx of transient ischemic attack (TIA) History of ectopic Trochanteric bursitis of right hip (09/11/15) Left foot pain (08/05/15) Epicondylitis Achilles tendinitis of left lower extremity (09/11/15) (Last Updated 04/29/25 @ 08:45 by Shaneka Kenny) History of colonoscopy (~03/2025) History of right hemicolectomy History of left hip replacement Status post total hip replacement, left (08/17/22) Hx of exploratory laparotomy Hx of section Status post arthroscopy of right knee S/P tonsillectomy History of total right hip replacement History of open reduction and internal fixation (ORIF) procedure Hx of appendectomy History of back surgery History of ectopic History of bilateral tubal ligation H/O section Most Recent Vital Signs Temperature 36.9 C 11/07/25 16:48 Pulse 93 H 11/07/25 21:31 Pulse 94 H 11/07/25 21:31 Respiratory Rate 15 11/07/25 21:31 Blood Pressure 150/85 H 11/07/25 21:31 Blood Pressure Mean 106 11/07/25 21:31 Pulse Oximetry 90 L 11/07/25 21:31 Pain Level 5 11/07/25 22:13 Allergies amoxicillin trihydrate (From Augmentin) Adverse Reaction (Intermediate, Verified 11/07/25 16:48) itching and swelling of palms and soles of feet potassium clavulanate (From Augmentin) Adverse Reaction (Intermediate, Verified 11/07/25 16:48) itching and swelling of palms and soles of feet escitalopram Adverse Reaction (Mild, Verified 11/07/25 16:48) GI Bloat Precautions Isolation Standard precaution 11/07/25 16:49 Active Medications Generic Name Dose Route Start Last Admin Trade Name Abril PRN Reason Stop Dose Admin Iohexol 100 ml 11/07/25 17:45 11/07/25 17:32 Omnipaque 350 Mg/Ml 100 Ml Btl IJ 12/07/25 23:59 75 ml DIRECTED REBEKAH Administration Sodium Chloride 50 ml 11/07/25 17:45 11/07/25 17:34 Normal Saline - Diluent 50 Ml Vial IJ 50 ml DIRECTED REBEKAH Administration IV IV Catheter Type [Left Peripheral IV Antecubital] IV Catheter Gauge [Left 18 Antecubital] Diet Orders Category Date Time Status Nothing Per Oral [DIET] Nutrition 11/08/25 00:01 Ordered Diagnostics 11/07/25 11/07/25 11/07/25 Range/Units 18:44 18:19 17:31 WBC (4.4-10.8) 10^3/uL RBC (3.93-5.22) 10^6/uL Hgb (11.2-15.7) g/dL Hct (36.0-46.0) % MCV (80-95) fL MCH (27.0-33.0) pg MCHC (32.0-36.0) % RDW (11.7-14.6) % Plt Count (130-400) 10^3/uL MPV (8.0-11.0) fL Immature Gran % % Neutrophils % % Lymphocytes % % Monocytes % % Eosinophils % % Basophils % % Nucleated RBC % (0.0-0.3) % Absolute Neutrophils (1.2-6.7) 10^3/uL Absolute Lymphocytes (1.2-3.4) 10^3/uL Absolute Monocytes (0.1-0.8) 10^3/uL Absolute Eosinophils (0.0-0.7) 10^3/uL Absolute Basophils (0.0-0.2) 10^3/uL PT (9.1-11.1) sec INR (0.9-1.1) APTT (20.6-30.2) sec VBG Lactate (<or=2.0) mmol/L Sodium (136-145) mmol/L Potassium (3.5-5.1) mmol/L Chloride (98-107) mmol/L Carbon Dioxide (20.0-31.0) mmol/L Anion Gap (3-11) mmol/L BUN (9-23) mg/dL Creatinine (0.55-1.02) mg/dL Est GFR (CKD-EPI 2020) (mL/min/1.73m2) Glucose (74-106) mg/dL Calcium (8.3-10.6) mg/dL Magnesium (1.6-2.6) mg/dL Total Bilirubin (0.2-1.2) mg/dL AST (<34) U/L ALT (10-49) U/L Alkaline Phosphatase (46-116) U/L Troponin I < 3 (<35) ng/L Total Protein (5.7-8.2) g/dL Albumin (3.2-5.0) g/dL Lipase (<53) U/L Urine Color Yellow (Yellow) Urine Clarity Clear (Clear) Urine pH 6.5 (5-8) Ur Specific [place] 1.015 (1.005-1.025) Urine Protein Trace (Neg-Trace) mg/dL Urine Ketones 40 H (Negative) mg/dL Urine Blood Negative (Negative) Urine Nitrite Negative (Negative) Urine Bilirubin Negative (Negative) Urine Urobilinogen 1.0 H (Up to 0.2) mg/dL Ur Leukocyte Esterase Negative (Negative) Urine Glucose Negative (Negative) mg/dL ABO/Rh AB Positive Antibody Screen NEGATIVE 11/07/25 Range/Units 17:16 WBC 8.28 (4.4-10.8) 10^3/uL RBC 4.33 (3.93-5.22) 10^6/uL Hgb 13.3 (11.2-15.7) g/dL Hct 39.9 (36.0-46.0) % MCV 92 (80-95) fL MCH 30.7 (27.0-33.0) pg MCHC 33.3 (32.0-36.0) % RDW 13.2 (11.7-14.6) % Plt Count 179 (130-400) 10^3/uL MPV 9.2 (8.0-11.0) fL Immature Gran % 0.4 % Neutrophils % 80.7 % Lymphocytes % 12.4 % Monocytes % 6.0 % Eosinophils % 0.1 % Basophils % 0.4 % Nucleated RBC % 0.0 (0.0-0.3) % Absolute Neutrophils 6.68 (1.2-6.7) 10^3/uL Absolute Lymphocytes 1.03 L (1.2-3.4) 10^3/uL Absolute Monocytes 0.50 (0.1-0.8) 10^3/uL Absolute Eosinophils 0.01 (0.0-0.7) 10^3/uL Absolute Basophils 0.03 (0.0-0.2) 10^3/uL PT 10.8 (9.1-11.1) sec INR 1.1 (0.9-1.1) APTT 26.3 (20.6-30.2) sec VBG Lactate 1.6 (<or=2.0) mmol/L Sodium 137 (136-145) mmol/L Potassium 3.6 (3.5-5.1) mmol/L Chloride 104 (98-107) mmol/L Carbon Dioxide 22.7 (20.0-31.0) mmol/L Anion Gap 10.3 (3-11) mmol/L BUN 15 (9-23) mg/dL Creatinine 0.80 (0.55-1.02) mg/dL Est GFR (CKD-EPI 2020) 70.42 (mL/min/1.73m2) Glucose 170 H (74-106) mg/dL Calcium 9.1 (8.3-10.6) mg/dL Magnesium 1.7 (1.6-2.6) mg/dL Total Bilirubin 1.0 (0.2-1.2) mg/dL AST 21 (<34) U/L ALT 17 (10-49) U/L Alkaline Phosphatase 146 H (46-116) U/L Troponin I < 3 (<35) ng/L Total Protein 8.0 (5.7-8.2) g/dL Albumin 4.3 (3.2-5.0) g/dL Lipase 26 (<53) U/L Urine Color (Yellow) Urine Clarity (Clear) Urine pH (5-8) Ur Specific [place] (1.005-1.025) Urine Protein (Neg-Trace) mg/dL Urine Ketones (Negative) mg/dL Urine Blood (Negative) Urine Nitrite (Negative) Urine Bilirubin (Negative) Urine Urobilinogen (Up to 0.2) mg/dL Ur Leukocyte Esterase (Negative) Urine Glucose (Negative) mg/dL ABO/Rh Antibody Screen Intake and Output - 24 Hour Total 11/07/25 16:43 thru 11/07/25 22:03 Intake Total 1000 Output Total 350 Balance 650 Weight 68.492 kg Intake: IV 1000 Output: Gastric Drainage 350 Right Nare 350 Falls Risk Assessment History of Falls No History 11/07/25 17:00 Contributing Factors No Factors 11/07/25 17:00 Ambulatory Aids Independent 11/07/25 17:00 Tubes/Lines None 11/07/25 17:00 Gait Evaluation No gait disturbance 11/07/25 17:00 Cognition No cognitive impairment 11/07/25 17:00 Fall Total Score 0 11/07/25 17:00 Level of Risk Standard/Low Risk 11/07/25 17:00 Problems (Last Updated 07/09/25 @ 14:45 by Priscilla Brantley MD, DC) Small bowel obstruction (Acute) Large bowel obstruction (Acute) Colon cancer (Chronic) Attestation Statement: By documenting the first initial, last name, and credentials of the reporting nurse below, both parties acknowledge that all relevant information regarding the patient handoff has been communicated, and that all questions have been addressed to ensure continuity and safety of care. Additional Patient Information/Comments: Report Received From: reggie WILLAMS
[2025-11-07] MEDS: Lactated Ringers 1,000 ML 75 ML IV (22:49)
[2025-11-07] MEDS: Pantoprazole 40 MG VIAL IVP (22:50)
[2025-11-07] MEDS: CIPROFLOXACIN 400 MG/200 ML BAG 200 MG IVPB (22:50)
[2025-11-07] MEDS: Enoxaparin 40 MG/0.4 ML SYR SC (22:50)
[2025-11-07] MEDS: metroNIDAZOLE 500 MG/100 ML BAG 100 MG IVPB (22:51)
[2025-11-08] MEDS: CIPROFLOXACIN 400 MG/200 ML BAG 200 MG IVPB ×3 (05:50→21:20)
[2025-11-08] MEDS: MORPHine 2 MG/ML SYR IVP ×2 (05:51→11:54)
[2025-11-08 08:09] VITALS: BP 128/74; PULSE 80; RESP 16; TEMP 36.8; O2SAT 94
[2025-11-08] MEDS: metroNIDAZOLE 500 MG/100 ML BAG 100 MG IVPB ×2 (08:22→16:12)
[2025-11-08] MEDS: Normal Saline Flush 10 ML SYR IVP ×2 (08:24→21:19)
--- NOTE | 2025-11-08 10:14 | PDOC.CMIN ---
Date of service: 11/08/25 Time of Service: 10:14 [facility] Assessment Reason for Hospitalization: colon cancer Functional Status/Living Situation Patient Presentation: Belinda lives in a single family home in [place] with her Franklyn. They have a son Tres who lives in [place], [place] and a daughter Val who lives locally. They also have 4 grandsons. 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 She is independent at baseline and does not receive any community services. Belinda was sitting up in bed when CM met with her. She was pleasant in manner and easily engaged with CM. Belinda was admitted with a bowel obstruction caused by what appears to be a large tumor in her colon. She has a history of colon cancer with metastasis. She is currently NPO and has an NG tube. When asked about the plan of care, Belinda reported that she is waiting to hear from Dr. Diego. She almost certainly will have surgery, she is just not sure where that will take place ( vs [facility]) and what procedure will be done. She expects that she will have an ostomy. Belinda informed that her preference would be to remain at [facility] for her surgery, if possible. Town of Residence: [facility] Resides with: Spouse (spouse Franklyn) Significant Other/Family: Local Employment Status: Retired (nurse) Instrumental Activities of Daily Living (ADLs): Independent Medications Medication Management: No Issues/Barriers identified Advance Directives Advance Directives: Do you have an Advance Directive: Y 03/09/23, 11:26 AD On File at [facility]: Y 03/09/23, 11:26 Date Asked 04/09/23 Today, 07:19 AD Date Reviewed 11/07/25 Today, 07:19 COLST On File at [facility] No 04/01/23, 11:30 COLST Date Scanned Code Status Resuscitation Status Full Code Insurance Coverage/Financial Issues Insurance: Medicare BC/ Care Team Visit Care Team Role Provider Type Priscilla Brantley MD, [place] Primary Care Provider , [facility] Isreal Huang MD Emergency Provider [facility] STAFF PHYSICIAN Bret Diego MD Admit Provider [facility] STAFF PHYSICIAN Attending Provider Discharge Potential Discharge Needs: Surgical F/U Appt and Other (Oncology) Anticipated Barriers to Discharge: Medical Status Patient/Family Education Needs: Review discharge instructions, discuss Ask Me Three Transportation: Private vehicle Plan: Anticipate Belinda will be discharged home, possibly with new home health orders for nursing for ostomy care, when medically cleared. She will follow up with her surgeon and Oncology team and transport with family. CM will follow and continue to support discharge planning concerns. Social Determinants of Health Screening Social Determinants of health last assessed in clinic: 11/08/25 Will the Patient Participate in the Screening?: Yes Do you worry about having a steady place to live?: no Problems where you live: no known problems In the past 12 months, have you had to go without electric, gas, oil or water in your home?: no 1. Within the past 12 months, we worried whether our food would run out before we got money to buy more.: Never true 2. Within the past 12 months, the food we bought just didn't last and we didn't have money to get more.: Never true Has lack of transportation kept you from medical appointments or from doing things needed for daily living?: no Has anyone in your life made you feel unsafe or unsupported?: no How hard is it for you to pay for the very basics like food, housing, medical care, and heating? Would you say it is:: Not hard at all Do you want help finding or keeping work or a job?: I do not need or want help If for any reason you need help with day-to-day activities such as bathing, preparing meals, shopping, managing finances, etc., do you get the help you need?: I don?t need any help How often do you feel lonely or isolated from those around you?: Never Do you speak a language other than Yi at home?: No Does the patient want assistance with any of the above?: No PFSH All Active Problems (Updated 11/07/25 @ 22:15 by Isreal Huang MD) Small bowel obstruction (Acute) Large bowel obstruction (Acute) Metastasis to liver (Acute ~09/09/25) 09/09/25-Liver biopsy done [place] [facility]. 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 H/O bilateral salpingo-oophorectomy (Acute ~10/18/23) History of robot-assisted laparoscopic hysterectomy (Acute ~10/18/23) omental biopsy and temporary b/l ureteral stents Endometrial cancer (Acute ~08/2023) Abnormal CT of the abdomen (Acute) Colon cancer (Chronic) S/P right hemicolectomy (Acute) Screening for colon cancer (Acute) Cirrhosis (Acute) Fatty liver (Acute) Chronic iron deficiency anemia (Acute) Anemia (Chronic) Degenerative joint disease of right knee (Acute) Injection 08/17/2022 Right knee pain (Acute) Anemia (Chronic) Osteoarthritis of left hip (Acute) Hypertension (Chronic) Encounter for screening colonoscopy (Acute) Encounter for annual physical exam (Acute) Diarrhea (Acute) Status post total hip replacement, right (Acute) Diabetes mellitus (Chronic) Elevated blood pressure reading (Acute) Shoulder pain (Chronic 03/24/15) Patellofemoral arthritis of right knee (Chronic 09/12/17) Low back pain radiating to left leg (Chronic 06/10/16) Lichen planus (Chronic) Elevated MCV (Chronic 01/06/17) Elevated LFTs (Chronic 01/06/17) Diverticulosis of colon without diverticulitis (Chronic) sigmoid colon Medical History (Updated 11/07/25 @ 22:15 by Isreal Huang MD) Alcohol intake above recommended sensible limits (01/07/17) elevated GGT, LFT and MCV Hx of colon cancer, stage III with mets to the right middle lung-last had radiation therapy Fall 2023 Pneumonia Tubular adenoma Diverticulitis was in ER 11/2022 Hx of fracture of ankle Hx of spina bifida States hx of Spina Bifida Occulta Hx of hypoglycemia Hx of tension headache 1 time event Hx of transient ischemic attack (TIA) Pt. states she had a TIA when she was 22 that was control related Pt. states she has never had an recurrence, and does not f/u with a neurologist and states she never had to. History of ectopic right Trochanteric bursitis of right hip (09/11/15) bilateral Left foot pain (08/05/15) Epicondylitis Achilles tendinitis of left lower extremity (09/11/15) Surgical History (Updated 04/29/25 @ 08:45 by Shaneka Kenny) History of colonoscopy (~03/2025) with tat History of right hemicolectomy History of left hip replacement bilat Status post total hip replacement, left (08/17/22) Hx of exploratory laparotomy ectopic Hx of section x 2 Status post arthroscopy of right knee S/P tonsillectomy History of total right hip replacement History of open reduction and internal fixation (ORIF) procedure left ankle with plates and screws present Some hardware was removed Hx of appendectomy History of back surgery Microdisectomy, L5-S1. Pt. states nerves damage with numbness to left foot. History of ectopic History of bilateral tubal ligation H/O section x2 Family History Mother , 54 Uterine cancer Colon cancer Father , 80 Prostate cancer Alcohol abuse Daughter Diabetes Depression Sister No problems noted. Sister No problems noted. Brother No problems noted. Son No problems noted. Brother Depression Social History Smoking/Tobacco Use Status: Never Second Hand Exposure: Yes Smoking risk assessment performed?: Yes Alcohol Intake: current Alcohol Intake frequency: holidays/special occasions only Details: Recently stopped ETOH use since Drug use: Never Substance use type: does not use Caregiver/Support person: No Household members: spouse Housing: house Communication Needs: None Do you need help understanding health information?: Never Pets and animals: No Sexually active: Yes Do you think of yourself as: straight/heterosexual Current gender identity: female What is your relationship status?: How often do you talk on the phone with friends or family?: decline to answer How often do you get together with friends or relatives?: decline to answer How often do you attend mu-ism or mosque services?: decline to answer Do you belong to any clubs or organized social groups?: decline to answer Panel score (0-1 are the most socially isolated patients): 1 What type of physical activity do you participate in: decline to answer Duration: decline to answer Frequency: decline to answer Niru/Sabianism: Mosque Special niru needs: No Seatbelt use: always Drive intox or ride w/intox tow motor driver: No Do you feel safe at home: Yes Do you feel safe in your relationship?: Yes
[2025-11-08] MEDS: Ondansetron 4 MG/2 ML VIAL IVP (11:54)
--- NOTE | 2025-11-08 12:11 | ANES.PREOP_ITS ---
General Info Height: 5 ft 7 in Weight: 69.9 kg Body Mass Index (BMI): 24.1 Surgical Procedure: Operation Date: 11/08/25 14:50 Proposed Procedure Side Surgeon p Exploratory Laparotomy w/Creation of Colostomy Bret Diego MD Meds Allergies and Home Medications Allergies Allergy/AdvReac Type Severity Reaction Status Date / Time amoxicillin trihydrate (From AdvReac Intermediate itching Verified 11/07/25 16:48 Augmentin) and swelling of palms and soles of feet potassium clavulanate (From AdvReac Intermediate itching Verified 11/07/25 16:48 Augmentin) and swelling of palms and soles of feet escitalopram AdvReac Mild GI Bloat Verified 11/07/25 16:48 Home Medication ?Medication ?Instructions ?Recorded ibuprofen 600 mg tablet See Rx Instructions .Route 0 01/18/24 .COMPLEX #90 tabs latanoprost 0.005 % eye drops 1 drp ophthalmic (eye) H S 12/27/24 gabapentin 100 mg capsule 100 mg PO TID #90 caps 02/04 multivitamin 1 tab PO DAILY 03/27/25 cyanocobalamin (vitamin B-12) 1,000 mcg PO DAILY 04/23 1,000 mcg tablet (Vitamin B-12) letrozole 2.5 mg tablet 2.5 mg PO DAILY 07/30/25 lorazepam 0.5 mg tablet (Ativan) 0.5 mg PO DAILY PRN a nxiety #30 11/05/25 tabs Current Visit Medications: Current Medications Generic Name Dose Route Start Last Admin Trade Name Freq PRN Reason Stop Dose Admin Enoxaparin Sodium 40 mg 11/07/25 22:00 11/07/25 22:50 Enoxaparin 40 Mg/0.4 Ml Syr SC 40 mg Q24H REBEKAH Administration Hydromorphone HCl 1 mg 11/07/25 21:06 Hydromorphone 2 Mg/Ml Syr IVP Q4H PRN PRN Ringer's Solution 1,000 mls @ 75 mls/hr 11/07/25 21:15 11/07/25 22:49 IV 75 mls/hr INFUSION REBEKAH Administration Acetaminophen 1,000 mg in 100 mls @ 400 mls/hr 11/07/25 21:06 Ofirmev IVPB Q8H PRN PRN Ciprofloxacin 400 mg in 200 mls @ 200 mls/hr 11/07/25 22:00 11/08/25 05:50 Cipro I.V. IVPB 200 mls/hr Q8H REBEKAH Administration Metronidazole 500 mg in 100 mls @ 100 mls/hr 11/08/25 00:00 11/08/25 08:22 Flagyl IVPB 100 mls/hr Q8H REBEKAH Administration Morphine Sulfate 2 mg 11/07/25 21:06 11/08/25 11:54 Morphine 2 Mg/Ml Syr IVP 2 mg Q1H PRN PRN Administration Ondansetron HCl 4 mg 11/07/25 21:06 11/08/25 11:54 Ondansetron 4 Mg/2 Ml Vial IVP 4 mg Q4H PRN PRN Administration Pantoprazole Sodium 40 mg 11/08/25 22:00 Pantoprazole 40 Mg Vial IVP Q24H REBEKAH Simethicone 80 mg 11/07/25 21:06 Simethicone 80 Mg Chew PO Q4H PRN PRN Sodium Chloride 0 ml 11/07/25 21:06 Normal Saline Flush 10 Ml Syr IVP PRN PRN Sodium Chloride 0 ml 11/08/25 08:30 11/08/25 08:24 Normal Saline Flush 10 Ml Syr IVP 10 ml BID REBEKAH Administration Sodium Chloride 0 ml 11/07/25 21:06 Normal Saline 10 Ml Vial IJ DIRECTED PRN PFSH Active Problems Active Problems: Problem Status Onset Code Small bowel obstruction Acute K56.609 Large bowel obstruction Acute K56.609 Metastasis to liver Acute ~09/09/25 C78.7 Achilles tendon injury Acute S86.009A Partial Achilles tendon tear Acute S86.019A Ankle pain, right Acute M25.571 B12 deficiency Acute E53.8 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 Acute C18.9, C78.00 Bilateral leg weakness Acute R29.898 Neuropathy Acute G62.9 Lung mass Acute R91.8 History of infusaport central venous catheter insertion Acute Z98.890 Cough Acute R05.9 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 H/O bilateral salpingo-oophorectomy Acute ~10/18/23 Z90.79, Z90.722 History of robot-assisted laparoscopic hysterectomy Acute ~10/18/23 Z90.710 Endometrial cancer Acute ~08/[address] of the abdomen Acute R93.5 Colon cancer Chronic C18.9 S/P right hemicolectomy Acute Z90.49 Screening for colon cancer Acute Z12.11 Cirrhosis Acute K74.60 Fatty liver Acute K76.0 Chronic iron deficiency anemia Acute D50.9 Anemia Chronic D64.9 Degenerative joint disease of right knee Acute M17.11 Right knee pain Acute M25.561 Anemia Chronic D64.9 Osteoarthritis of left hip Acute M16.12 Hypertension Chronic I10 Encounter for screening colonoscopy Acute Z12.11 Encounter for annual physical exam Acute Z00.00 Diarrhea Acute R19.7 Status post total hip replacement, right Acute Z96.641 Diabetes mellitus Chronic E11.9 Elevated blood pressure reading Acute R03.0 Shoulder pain Chronic 03/24/15 M25.519 Patellofemoral arthritis of right knee Chronic 09/12/17 M17.11 Low back pain radiating to left leg Chronic 06/10/16 M54.5, M79.605 Lichen planus Chronic L43.9 Elevated MCV Chronic 01/06/17 R71.8 Elevated LFTs Chronic 01/06/17 R94.5 Diverticulosis of colon without diverticulitis Chronic K57.30 Medical History Medical History (Updated 11/07/25 @ 22:15 by Isreal Huang MD) Alcohol intake above recommended sensible limits (01/07/17) elevated GGT, LFT and MCV Hx of colon cancer, stage III with mets to the right middle lung-last had radiation therapy Fall 2023 Pneumonia Tubular adenoma Diverticulitis was in ER 11/2022 Hx of fracture of ankle Hx of spina bifida States hx of Spina Bifida Occulta Hx of hypoglycemia Hx of tension headache 1 time event Hx of transient ischemic attack (TIA) Pt. states she had a TIA when she was 22 that was control related Pt. states she has never had an recurrence, and does not f/u with a neurologist and states she never had to. History of ectopic right Trochanteric bursitis of right hip (09/11/15) bilateral Left foot pain (08/05/15) Epicondylitis Achilles tendinitis of left lower extremity (09/11/15) Surgical History Surgical History (Updated 04/29/25 @ 08:45 by Shaneka Zoya) History of colonoscopy (~03/2025) with tat History of right hemicolectomy History of left hip replacement bilat Status post total hip replacement, left (08/17/22) Hx of exploratory laparotomy ectopic Hx of section x 2 Status post arthroscopy of right knee S/P tonsillectomy History of total right hip replacement History of open reduction and internal fixation (ORIF) procedure left ankle with plates and screws present Some hardware was removed Hx of appendectomy History of back surgery Microdisectomy, L5-S1. Pt. states nerves damage with numbness to left foot. History of ectopic History of bilateral tubal ligation H/O section x2 Tobacco Smoking/Tobacco Use Status: Never Passive smoking exposure: Yes Second hand exposure: Yes Alcohol Alcohol Intake: current Alcohol intake frequency: holidays/special occasions only Details: Recently stopped ETOH use since Substance Use Substance use: Never Substance use type: does not use Vital Signs and Lab Results Vital Signs Most Recent Vital Signs in EMR: Most Recent Vital Signs Temp Pulse Resp BP Pulse Ox 36.8 C 80 16 128/74 94 11/08/25 08:09 11/08/25 08:09 11/08/25 08:09 11/08/25 08:09 11/08/25 08:09 Point of Care Results Point of Care Results: Finger Stick Blood Glucose 115 11/08/25 06:08 Lab Results 11/07/25 17:16 11/07/25 17:16 Blood Type / Crossmatch: 2 Antibody Screen NEGATIVE 11/07/25 Complete Blood Count: 2 WBC, (4.4-10.8) 8.28 10^3/uL 11/07/25, 17:16 RBC, (3.93-5.22) 4.33 10^6/uL 11/07/25, 17:16 Hgb, (11.2-15.7) 13.3 g/dL 11/07/25, 17:16 Hct, (36.0-46.0) 39.9 % 11/07/25, 17:16 Plt Count, (130-400) 179 10^3/uL 11/07/25, 17:16 VBG Lactate, (<or=2.0) 1.6 mmol/L 11/07/25, 17:16 Complete Metabolic Panel: 2 Sodium, (136-145) 137 mmol/L 11/07/25, 17:16 Potassium, (3.5-5.1) 3.6 mmol/L 11/07/25, 17:16 Chloride, (98-107) 104 mmol/L 11/07/25, 17:16 Carbon Dioxide, (20.0-31.0) 22.7 mmol/L 11/07/25, 17 :16 BUN, (9-23) 15 mg/dL 11/07/25, 17:16 Creatinine, (0.55-1.02) 0.80 mg/dL 11/07/25, 17:16 Est GFR (CKD-EPI 2020), (mL/min/1.73m2) 70.42 11/07/25, 17:16 Magnesium, (1.6-2.6) 1.7 mg/dL 11/07/25, 17:16 Calcium, (8.3-10.6) 9.1 mg/dL 11/07/25, 17:16 Albumin, (3.2-5.0) 4.3 g/dL 11/07/25, 17:16 Glucose, (74-106) 170 mg/dL H 11/07/25, 17:16 Hemoglobin A1c, (<5.7) 6.2 % H 11/07/25, 08:00 Liver Function Panel: 2 ALT, (10-49) 17 U/L 11/07/25, 17:16 AST, (<34) 21 U/L 11/07/25, 17:16 Coagulation Panel: 2 INR, (0.9-1.1) 1.1 11/07/25, 17:16 PT, (9.1-11.1) 10.8 sec 11/07/25, 17:16 APTT, (20.6-30.2) 26.3 sec 11/07/25, 17:16 Cardiac Panel: 2 Troponin I, (<35) < 3 ng/L 11/07/25 Pancreas Panel: 2 Lipase, (<53) 26 U/L 11/07/25, 17:16 Thyroid Panel: 2 TSH, (0.55-4.78) 1.33 uIU/mL 11/07/25, 08:00 Imaging and Studies Imaging and Studies Study information below may be from another EMR and interpreted by another provider. Please see original notes in EMR for more complete details. EKG Summary: Conclusion Sinus rhythm...normal P axis, V-rate 50- 99 Normal Electrocardiogram 08/16/22 Anesthesia Assessment and Plan Anesthesia History Personal History: No History of Anesthesia Complications Family History: No Family History of Anesthesia Complications Exercise Tolerance Exercise Tolerance: Metabolic Equivalents>4 Implantable Cardiac Device Does patient have a Pacemaker or an ICD?: No Airway Exam Known Difficult Airway: No Mallampati Class: 2 Mouth Opening: Normal (> 3cm) Thyromental Distance: Greater than 3 cm Neck Range of Motion: Full ROM Neck Circumference: Normal Teeth Condition: Normal Dentition Preoperative Comments:: 70 yo for exp laparotomy. Sig PMHx: HTN, lung mass, cirrhosis/fatty liver, s/p right hemicolectomy for CA with mets to lung (radiation), DM, microdiscectomy with nerve injury, TIA. ECG: sinus, ?LAE Previous Anes: - port placement, midaz, prop, natural airway, no issues. - hemicolec, easy mask, glide 3 grade 1, no issues. - egd/colo, prop, natural airway, no issues. - WALT x 2, spinal, prop sedation, no issues.
--- NOTE | 2025-11-08 13:05 | PHA.REVIEW2 ---
Pharmacy Admission Review Admission Clinical Review Admission Pharmacy Review: Small bowel obstruction (Acute) Large bowel obstruction (Acute) amoxicillin trihydrate (From Augmentin) Adverse Reaction (Intermediate, Verified 11/07/25 16:48) itching and swelling of palms and soles of feet potassium clavulanate (From Augmentin) Adverse Reaction (Intermediate, Verified 11/07/25 16:48) itching and swelling of palms and soles of feet escitalopram Adverse Reaction (Mild, Verified 11/07/25 16:48) GI Bloat Resuscitation Status Full Code Height 5 ft 7 in Weight 69.9 kg Pharmacy Admission Review Renal Dosing Renal Dosing: BUN 15 mg/dL (9-23) 11/07/25 17:16 Creatinine 0.80 mg/dL (0.55-1.02) 11/07/25 17:16 Medications needing adjustments: Reviewed (CrCl 56.1 mL/min) List of meds needing interventions: Current medications are okay Anticoagulation Anticoagulation: Hgb 13.3 g/dL (11.2-15.7) 11/07/25 17:16 Hct 39.9 % (36.0-46.0) 11/07/25 17:16 Plt Count 179 10^3/uL (130-400) 11/07/25 17:16 INR 1.1 (0.9-1.1) 11/07/25 17:16 Creatinine 0.80 mg/dL (0.55-1.02) 11/07/25 17:16 DVT Prophylaxis: Reviewed Medications: Enoxaparin (40mg daily) Opiate Usage Evaluate Pain Scale/Pains Meds: Reviewed (hydromorphone 1mg IVP q4h PRN - no doses given, morphine 2mg IVP q1h PRN - 12mg/24hrs) Scheduled Bowel Reg ordered if on Opiates?: No Relevant Labs Relevant Labs: Sodium 137 mmol/L (136-145) 11/07/25 17:16 Potassium 3.6 mmol/L (3.5-5.1) 11/07/25 17:16 Chloride 104 mmol/L (98-107) 11/07/25 17:16 Magnesium 1.7 mg/dL (1.6-2.6) 11/07/25 17:16 Electrolytes, C-Reactive P, ESR: Reviewed (No new labs for today) Cardiac Review Cardiac Review: Troponin I < 3 ng/L (<35) 11/07/25 18:19 BP, HR, EF%: Reviewed (HR/BP WNL) QTc Review QTc: Reviewed (456 from 06/21/24 - most recent EKG on file) IV to PO Switch IV Medications: Reviewed (NPO - NG tube) Home Meds Home Med List reviewed: Reviewed Relevent Home Meds Not ordered & why?: vitamin B12, gabapentin, ibuprofen (PRN), latanoprost, letrozole, lorazepam (PRN) and multivitamin Current Meds Current Medication Order Review: Intervened Comments: Changed timing of pantoprazole to be on even hour per pharmacy protocol Pharmacy Antibiotic Review Relevant Labs: WBC 8.28 10^3/uL (4.4-10.8) 11/07/25 17:16 Temperature 36.8 C Pharmacy Antibiotic Activity: C/S review and Reviewed, no change Comments: Patient is on ciprofloxacin and metronidazole, day 1, for malignant bowel obstruction. No cultures pending at this time.
[2025-11-08] MEDS: Lactated Ringers 1,000 ML 75 ML IV (14:39)
--- NOTE | 2025-11-08 16:20 | W.PM.PROGNOT ---
Date of Service Date of service: 11/08/25 Time of Service: 16:20 Assessment and Plan Assessment and plan (1) Large bowel obstruction: Status: Acute Assessment and plan: At the request of Belinda, I did speak with Dr. Leal at [facility], and provided the images as well as the relevant history. There is no other specific interventions that they are able to offer beyond the creation of a diverting stoma to help palliate the nausea, vomiting and abdominal pain. Belinda and I had a chance to talk in more detail, and her son was able to participate in the conversation as well. With regards to the actual large bowel obstruction, I do not see any other treatment options aside from proximal diversion. Absent that, her symptoms will worsen, and I think the complications associate this will ultimately lead to Belinda's . I think she has a very good understanding regarding the nature of a diverting stoma. Obviously, there are some increased operational risk given her history, but there is nothing else that can be done to mitigate that, and she seems to have enough dilated transverse colon and distal small intestine that we should be able to mobilize some portion of bowel sufficient for a loop stoma. Will make arrangements to proceed with surgery in the morning, after her family has had the chance to visit. Subjective Subjective Interval history since last seen: Belinda is feeling a little bit better this morning. She was able to get some sleep last night. Pain has improved with medications. She has had no flatus or bowel movement, and does still have some intermittent nausea. Exam GI Other: Abdomen remains distended, but not very tender. Objective Last Vital Signs Temp 98.2 F 11/08/25 08:09 Pulse 80 11/08/25 08:09 Resp 16 11/08/25 08:09 BP 128/74 11/08/25 08:09 Pulse Ox 94 11/08/25 08:09 Laboratory Results - last 24 hr 11/07/25 11/07/25 11/07/25 17:16 17:31 18:19 WBC 8.28 RBC 4.33 Hgb 13.3 Hct 39.9 MCV 92 MCH 30.7 MCHC 33.3 RDW 13.2 Plt Count 179 MPV 9.2 Immature Gran % 0.4 Neutrophils % 80.7 Lymphocytes % 12.4 Monocytes % 6.0 Eosinophils % 0.1 Basophils % 0.4 Nucleated RBC % 0.0 Absolute Neutrophils 6.68 Absolute Lymphocytes 1.03 L Absolute Monocytes 0.50 Absolute Eosinophils 0.01 Absolute Basophils 0.03 PT 10.8 INR 1.1 APTT 26.3 VBG Lactate 1.6 Sodium 137 Potassium 3.6 Chloride 104 Carbon Dioxide 22.7 Anion Gap 10.3 BUN 15 Creatinine 0.80 Est GFR (CKD-EPI 2020) 70.42 Glucose 170 H Calcium 9.1 Magnesium 1.7 Total Bilirubin 1.0 AST 21 ALT 17 Alkaline Phosphatase 146 H Troponin I < 3 < 3 Total Protein 8.0 Albumin 4.3 Lipase 26 Urine Color Urine Clarity Urine pH Ur Specific [place] Urine Protein Urine Ketones Urine Blood Urine Nitrite Urine Bilirubin Urine Urobilinogen Ur Leukocyte Esterase Urine Glucose ABO/Rh AB Positive Antibody Screen NEGATIVE 11/07/25 18:44 WBC RBC Hgb Hct MCV MCH MCHC RDW Plt Count MPV Immature Gran % Neutrophils % Lymphocytes % Monocytes % Eosinophils % Basophils % Nucleated RBC % Absolute Neutrophils Absolute Lymphocytes Absolute Monocytes Absolute Eosinophils Absolute Basophils PT INR APTT VBG Lactate Sodium Potassium Chloride Carbon Dioxide Anion Gap BUN Creatinine Est GFR (CKD-EPI 2020) Glucose Calcium Magnesium Total Bilirubin AST ALT Alkaline Phosphatase Troponin I Total Protein Albumin Lipase Urine Color Yellow Urine Clarity Clear Urine pH 6.5 Ur Specific [place] 1.015 Urine Protein Trace Urine Ketones 40 H Urine Blood Negative Urine Nitrite Negative Urine Bilirubin Negative Urine Urobilinogen 1.0 H Ur Leukocyte Esterase Negative Urine Glucose Negative ABO/Rh Antibody Screen PAWSS Have you Been Recently Intoxicated or Drunk Within the Last 30 days?: No Have you Ever Experienced Previous Episodes of Alcohol Withdrawal?: No Have you ever Experienced Withdrawal Seizures?: No Have you ever Experienced Delirium Tremens(DT)s?: No Have you ever undergone Alcohol Rehabilitation Treatment (i.e, inpt ot outpatient treatment programs)?: No Have you ever Experienced Blackouts?: No Have you ever Combined Alcohol with other Downers within the last 90 days?: No Have you ever Combined Alcohol with any other Substance of Abuse during the last 90 days?: No Positive Blood Alcohol level on Presentation? [PCS.BAL]: No Evidence of Increased Autonomic Activity (i.e. HR>120, tremor, sweating, agitation, nausea)?: No Result: 0 VTE Prohylaxis Risk Level: Moderate/High Risk Contraindications: None and Active bleed/high bleed risk Prophylaxis: Pharmacologic and Mechanical Time Spent with Patient Time Spent with Patient: >50 minutes Time was spent: preparing to see the patient(eg.review tests), ordering medications,tests, procedures, indepentently interpreting results, counseling the patient and care coordination
[2025-11-08] MEDS: LORazepam 2 MG/ML VIAL 1 MG IVP ×2 (16:45→21:36)
[2025-11-08 19:19] VITALS: BP 128/71; PULSE 83; RESP 16; TEMP 36.2; O2SAT 91
[2025-11-08] MEDS: Enoxaparin 40 MG/0.4 ML SYR SC (21:20)
[2025-11-08] MEDS: Pantoprazole 40 MG VIAL IVP (21:20)
[2025-11-09] VITALS (10 sets, daily range): BP systolic 115–157; BP diastolic 65–86; PULSE 78–94; RESP 11–17; TEMP 36.5–37; O2SAT 91–98; BMI 24.1
[2025-11-09] MEDS: MORPHine 2 MG/ML SYR IVP (00:08)
[2025-11-09] MEDS: metroNIDAZOLE 500 MG/100 ML BAG 100 MG IVPB ×2 (00:12→07:41)
[2025-11-09] MEDS: Lactated Ringers 1,000 ML 75 ML IV ×2 (05:27→19:31)
[2025-11-09] MEDS: CIPROFLOXACIN 400 MG/200 ML BAG 200 MG IVPB (05:30)
[2025-11-09] MEDS: HYDROmorphone 2 MG/ML SYR 1 MG IVP ×3 (05:56→21:21)
[2025-11-09] MEDS: Normal Saline Flush 10 ML SYR IVP ×3 (05:59→20:09)
[2025-11-09 07:11] LABS: HCT 33.4 % (36.0-46.0); HGB 11.1 g/dL (11.2-15.7); MCH 31.4 pg (27.0-33.0); MCHC 33.2 % (32.0-36.0); MCV 95 fL (80-95); MPV 9.9 fL (8.0-11.0); Platelet Count 115 10^3/uL (130-400); RBC 3.53 10^6/uL (3.93-5.22); RDW 13.2 % (11.7-14.6); RDW-SD 45.7 fL; WBC 3.29 10^3/uL (4.4-10.8)
[2025-11-09 07:59] LABS: Anion Gap 7.9 mmol/L (3-11); BUN 12 mg/dL (9-23); CO2 25.1 mmol/L (20.0-31.0); Calcium 8.3 mg/dL (8.3-10.6); Chloride 104 mmol/L (98-107); Glucose 139 mg/dL (74-106); Potassium 3.6 mmol/L (3.5-5.1); Sodium 137 mmol/L (136-145)
--- NOTE | 2025-11-09 08:37 | ANES.PREOP_ITS ---
General Info Date of Service Date Performed: 11/09/25 Height: 5 ft 7 in Weight: 69.9 kg Body Mass Index (BMI): 24.1 Surgical Procedure: Operation Date: 11/08/25 14:50 Proposed Procedure Side Surgeon p Exploratory Laparotomy w/Creation of Colostomy Bret Diego MD Operation Date: 11/09/25 09:00 Proposed Procedure Side Surgeon p Exploratory Laparotomy Bret Diego MD Meds Allergies and Home Medications Allergies Allergy/AdvReac Type Severity Reaction Status Date / Time amoxicillin trihydrate (From AdvReac Intermediate itching Verified 11/07/25 16:48 Augmentin) and swelling of palms and soles of feet potassium clavulanate (From AdvReac Intermediate itching Verified 11/07/25 16:48 Augmentin) and swelling of palms and soles of feet escitalopram AdvReac Mild GI Bloat Verified 11/07/25 16:48 Home Medication ?Medication ?Instructions ?Recorded ibuprofen 600 mg tablet See Rx Instructions .Route 0 01/18/24 .COMPLEX #90 tabs latanoprost 0.005 % eye drops 1 drp ophthalmic (eye) H S 12/27/24 gabapentin 100 mg capsule 100 mg PO TID #90 caps 02/04 multivitamin 1 tab PO DAILY 03/27/25 cyanocobalamin (vitamin B-12) 1,000 mcg PO DAILY 04/23 1,000 mcg tablet (Vitamin B-12) letrozole 2.5 mg tablet 2.5 mg PO DAILY 07/30/25 lorazepam 0.5 mg tablet (Ativan) 0.5 mg PO DAILY PRN a nxiety #30 11/05/25 tabs Current Visit Medications: Current Medications Generic Name Dose Route Start Last Admin Trade Name Freq PRN Reason Stop Dose Admin Enoxaparin Sodium 40 mg 11/07/25 22:00 11/08/25 21:20 Enoxaparin 40 Mg/0.4 Ml Syr SC 40 mg Q24H REBEKAH Administration Hydromorphone HCl 1 mg 11/07/25 21:06 11/09/25 05:56 Hydromorphone 2 Mg/Ml Syr IVP 1 mg Q4H PRN PRN Administration Ringer's Solution 1,000 mls @ 75 mls/hr 11/07/25 21:15 11/09/25 05:27 IV 75 mls/hr INFUSION REBEKAH Administration Acetaminophen 1,000 mg in 100 mls @ 400 mls/hr 11/07/25 21:06 Ofirmev IVPB Q8H PRN PRN Ciprofloxacin 400 mg in 200 mls @ 200 mls/hr 11/07/25 22:00 11/09/25 05:30 Cipro I.V. IVPB 200 mls/hr Q8H REBEKAH Administration Metronidazole 500 mg in 100 mls @ 100 mls/hr 11/08/25 00:00 11/09/25 07:41 Flagyl IVPB 100 mls/hr Q8H REBEKAH Administration Lorazepam 1 mg 11/08/25 16:24 11/08/25 21:36 Lorazepam 2 Mg/Ml Vial IVP 1 mg Q6H PRN PRN Administration Morphine Sulfate 2 mg 11/07/25 21:06 11/09/25 00:08 Morphine 2 Mg/Ml Syr IVP 2 mg Q1H PRN PRN Administration Ondansetron HCl 4 mg 11/07/25 21:06 11/08/25 11:54 Ondansetron 4 Mg/2 Ml Vial IVP 4 mg Q4H PRN PRN Administration Pantoprazole Sodium 40 mg 11/08/25 22:00 11/08/25 21:20 Pantoprazole 40 Mg Vial IVP 40 mg Q24H REBEKAH Administration Simethicone 80 mg 11/07/25 21:06 Simethicone 80 Mg Chew PO Q4H PRN PRN Sodium Chloride 0 ml 11/07/25 21:06 11/09/25 05:59 Normal Saline Flush 10 Ml Syr IVP 10 ml PRN PRN Administration Sodium Chloride 0 ml 11/08/25 08:30 11/09/25 07:42 Normal Saline Flush 10 Ml Syr IVP 10 ml BID REBEKAH Administration Sodium Chloride 0 ml 11/07/25 21:06 Normal Saline 10 Ml Vial IJ DIRECTED PRN PFSH Active Problems Active Problems: Problem Status Onset Code Small bowel obstruction Acute K56.609 Large bowel obstruction Acute K56.609 Metastasis to liver Acute ~09/09/25 C78.7 Achilles tendon injury Acute S86.009A Partial Achilles tendon tear Acute S86.019A Ankle pain, right Acute M25.571 B12 deficiency Acute E53.8 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 Acute C18.9, C78.00 Bilateral leg weakness Acute R29.898 Neuropathy Acute G62.9 Lung mass Acute R91.8 History of infusaport central venous catheter insertion Acute Z98.890 Cough Acute R05.9 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 H/O bilateral salpingo-oophorectomy Acute ~10/18/23 Z90.79, Z90.722 History of robot-assisted laparoscopic hysterectomy Acute ~10/18/23 Z90.710 Endometrial cancer Acute ~08/[address] of the abdomen Acute R93.5 Colon cancer Chronic C18.9 S/P right hemicolectomy Acute Z90.49 Screening for colon cancer Acute Z12.11 Cirrhosis Acute K74.60 Fatty liver Acute K76.0 Chronic iron deficiency anemia Acute D50.9 Anemia Chronic D64.9 Degenerative joint disease of right knee Acute M17.11 Right knee pain Acute M25.561 Anemia Chronic D64.9 Osteoarthritis of left hip Acute M16.12 Hypertension Chronic I10 Encounter for screening colonoscopy Acute Z12.11 Encounter for annual physical exam Acute Z00.00 Diarrhea Acute R19.7 Status post total hip replacement, right Acute Z96.641 Diabetes mellitus Chronic E11.9 Elevated blood pressure reading Acute R03.0 Shoulder pain Chronic 03/24/15 M25.519 Patellofemoral arthritis of right knee Chronic 09/12/17 M17.11 Low back pain radiating to left leg Chronic 06/10/16 M54.5, M79.605 Lichen planus Chronic L43.9 Elevated MCV Chronic 01/06/17 R71.8 Elevated LFTs Chronic 01/06/17 R94.5 Diverticulosis of colon without diverticulitis Chronic K57.30 Medical History Medical History (Updated 11/07/25 @ 22:15 by Isreal Huang MD) Alcohol intake above recommended sensible limits (01/07/17) elevated GGT, LFT and MCV Hx of colon cancer, stage III with mets to the right middle lung-last had radiation therapy Fall 2023 Pneumonia Tubular adenoma Diverticulitis was in ER 11/2022 Hx of fracture of ankle Hx of spina bifida States hx of Spina Bifida Occulta Hx of hypoglycemia Hx of tension headache 1 time event Hx of transient ischemic attack (TIA) Pt. states she had a TIA when she was 22 that was control related Pt. states she has never had an recurrence, and does not f/u with a neurologist and states she never had to. History of ectopic right Trochanteric bursitis of right hip (09/11/15) bilateral Left foot pain (08/05/15) Epicondylitis Achilles tendinitis of left lower extremity (09/11/15) Surgical History Surgical History (Updated 04/29/25 @ 08:45 by Shaneka Kenny) History of colonoscopy (~03/2025) with tat History of right hemicolectomy History of left hip replacement bilat Status post total hip replacement, left (08/17/22) Hx of exploratory laparotomy ectopic Hx of section x 2 Status post arthroscopy of right knee S/P tonsillectomy History of total right hip replacement History of open reduction and internal fixation (ORIF) procedure left ankle with plates and screws present Some hardware was removed Hx of appendectomy History of back surgery Microdisectomy, L5-S1. Pt. states nerves damage with numbness to left foot. History of ectopic History of bilateral tubal ligation H/O section x2 Tobacco Smoking/Tobacco Use Status: Never Passive smoking exposure: Yes Second hand exposure: Yes Alcohol Alcohol Intake: current Alcohol intake frequency: holidays/special occasions only Details: Recently stopped ETOH use since Substance Use Substance use: Never Substance use type: does not use Vital Signs and Lab Results Vital Signs Most Recent Vital Signs in EMR: Most Recent Vital Signs Temp Pulse Resp BP Pulse Ox 36.6 C 80 16 119/70 91 L 11/09/25 07:51 11/09/25 07:51 11/09/25 07:51 11/09/25 07:51 11/09/25 07:51 Point of Care Results Point of Care Results: Finger Stick Blood Glucose 115 11/09/25 05:08 Lab Results 11/09/25 06:35 11/09/25 06:35 Blood Type / Crossmatch: 2 Antibody Screen NEGATIVE 11/07/25 Complete Blood Count: 2 WBC, (4.4-10.8) 3.29 10^3/uL L Today, 06:35 RBC, (3.93-5.22) 3.53 10^6/uL L Today, 06:35 Hgb, (11.2-15.7) 11.1 g/dL L Δ Today, 06:35 Hct, (36.0-46.0) 33.4 % L Today, 06:35 Plt Count, (130-400) 115 10^3/uL L Today, 06:35 VBG Lactate, (<or=2.0) 1.6 mmol/L 11/07/25, 17:16 Complete Metabolic Panel: 2 Sodium, (136-145) 137 mmol/L Today, 06:35 Potassium, (3.5-5.1) 3.6 mmol/L Today, 06:35 Chloride, (98-107) 104 mmol/L Today, 06:35 Carbon Dioxide, (20.0-31.0) 25.1 mmol/L Today, 06:35 BUN, (9-23) 12 mg/dL Today, 06:35 Creatinine, (0.55-1.02) 0.87 mg/dL Today, 06:35 Est GFR (CKD-EPI 2020), (mL/min/1.73m2) 63.92 Today, 06:35 Magnesium, (1.6-2.6) 1.7 mg/dL 11/07/25, 17:16 Calcium, (8.3-10.6) 8.3 mg/dL Today, 06:35 Albumin, (3.2-5.0) 4.3 g/dL 11/07/25, 17:16 Glucose, (74-106) 139 mg/dL H Today, 06:35 Hemoglobin A1c, (<5.7) 6.2 % H 11/07/25, 08:00 Liver Function Panel: 2 ALT, (10-49) 17 U/L 11/07/25, 17:16 AST, (<34) 21 U/L 11/07/25, 17:16 Coagulation Panel: 2 INR, (0.9-1.1) 1.1 11/07/25, 17:16 PT, (9.1-11.1) 10.8 sec 11/07/25, 17:16 APTT, (20.6-30.2) 26.3 sec 11/07/25, 17:16 Cardiac Panel: 2 Troponin I, (<35) < 3 ng/L 11/07/25 Pancreas Panel: 2 Lipase, (<53) 26 U/L 11/07/25, 17:16 Thyroid Panel: 2 TSH, (0.55-4.78) 1.33 uIU/mL 11/07/25, 08:00 Imaging and Studies Imaging and Studies Study information below may be from another EMR and interpreted by another provider. Please see original notes in EMR for more complete details. EKG Summary: Conclusion Sinus rhythm...normal P axis, V-rate 50- 99 Atrial premature complexes...SV complexes w/ short R-R intvls Probable left atrial enlargement...P >50mS, <-0.10mV V1 06/21/24 Conclusion Sinus rhythm...normal P axis, V-rate 50- 99 Normal Electrocardiogram 08/16/22 Anesthesia Assessment and Plan Anesthesia History Personal History: No History of Anesthesia Complications Family History: No Family History of Anesthesia Complications Exercise Tolerance Exercise Tolerance: Metabolic Equivalents>4 Pertinent Negatives Pertinent Negatives: No Symptoms of GERD, No Major Cardiovascular Symptoms or Complaints and No Major Pulmonary Symptoms or Complaints (diminished right side) Cardiac & Pulmonary Exam Cardiac Exam: Normal S1/S2 Heart Sounds Pulmonary Exam: Clear Bilateral Breath Sounds Implantable Cardiac Device Does patient have a Pacemaker or an ICD?: No Airway Exam Known Difficult Airway: No Mallampati Class: 3 Mouth Opening: Normal (> 3cm) Thyromental Distance: Greater than 3 cm Neck Range of Motion: Full ROM Neck Circumference: Normal Teeth Condition: Normal Dentition (small chips, nothing loose) ASA Classification ASA Score: ASA 3 Emergency Case?: Yes NPO Status NPO Status: NPO Clears >2 hours, Solids >8 hours Anesthesia Plan Resuscitation Status: Full Code Anesthesia Technique: General Anesthesia Airway Planned: Endotracheal Tube Monitors Used: Standard Monitors
--- NOTE | 2025-11-09 09:02 | NUR.NOTE ---
Nursing Note: At 8:45am pt sent down to Pacu via stretcher. pt denies pain pt is alert and oriented x 4 pt had [address] in place Rt nares placed at 55cm placemant checked by auscultation minimal output of greenish fluid pt voided prior to transfer pt has HL in place RT AC patent family at bedside report given to Alice WILLAMS
[2025-11-09] MEDS: Bupivacaine 0.25% Pres-Free W/EPI 30 ML VIAL (09:26)
[2025-11-09] MEDS: Bupivacaine LIPOSOME/PF 133 MG/10 ML VIAL IJ (09:58)
[2025-11-09] MEDS: Bupivacaine 0.25% Pres-Free 30 ML VIAL (09:58)
--- NOTE | 2025-11-09 10:25 | ROE_ITS ---
Operative Note Operative Note PRE-OP DIAGNOSIS: Malignant sigmoid colon obstruction POST-OP DIAGNOSIS: same PROCEDURE: Diverting loop ileostomy SURGEON: Bret Diego ASSISTING SURGEON: Akanksha Tello ANESTHESIA TYPE: Local By Surgeon and General LMA/ETT Refer to Anesthesia Record ESTIMATED BLOOD LOSS: 50 PATHOLOGY: none sent COMPLICATIONS: None Patient was transported to: PACU Patient's condition: stable Indications: Belinda is a 70-year-old woman with cancer in the left lower quadrant of her pelvis. She is undergoing immunotherapy. Unfortunately, she has developed signs and symptoms of complete large bowel obstruction with dilation of the descending and transverse colon up to a prior ileocolic anastomosis Findings: Dilated terminal ileum and transverse colon Procedure Description: I met with Belinda in the preoperative area, and we reviewed the plan for the surgery. We then moved back to the operating room, and she was assisted onto the OR table. Care was taken to ensure that she was padded and supported appropriately. General endotracheal anesthesia was initiated. I anesthetized the skin in the midline several centimeters above the umbilicus. I made a longitudinal incision, and dissected down to the fascia. The fascia was incised along the length of the incision and I entered the peritoneum under direct vision. There was some mild adhesions of the greater omentum to the anterior abdominal wall that were bluntly dissected free. I am able to see the transverse colon, but it is not mobile enough to bring up to the incision. There is also dilated small intestine that I am able to eviscerate up to the skin level. In an effort to ensure that everything proximal to this was free of obstruction, I enlarged incision down towards the umbilicus to gain better visualization. At this point, I am able to clearly identify the dilated transverse colon back to her previous ileocolic anastomosis. And with careful manipulation and some basic dissection, I am able to traced the dilated terminal ileum back towards normal-appearing caliber small bowel. There is a gentle transition back to decompressed small intestine. At this point, having ruled out any other small bowel obstruction acutely, it is clear that the dilation extends over to the descending colon, which is consistent with the findings on the CT scan suggesting a malignant sigmoid tumor as the source of the obstruction. Given the previous right hemicolectomy, and what would be quite a bit of dissection and a fairly hostile abdomen to mobilize enough colon for a colostomy, I thought that maturation of a distal loop ileostomy would be most appropriate. Therefore, I located the distalmost portion of ileum that would allow for an appropriate ileostomy. I made a small defect in the mesentery and passed 1/4 inch [place] drain through this. Suitable target for maturation was identified in the right upper quadrant, and I anesthetized the skin and made a horizontal incision dissecting down to the fascia. The fascia was incised transversely, and the underlying rectus muscles were split. The posterior fascia was then incised as well. The Dante drain was then passed through the defect, and the loop of ileum was brought up to the skin level ensuring that it was not at all twisted. The afferent andefferret limbs were clearly identified and appeared patent. I then turned my attention back to the midline. Bilateral transversus abdominis blocks were performed under direct vision using local a nesthetic mixed with Exparel. The fascia was then closed with running 2-0 PDS from the top and bottom, and tied in the middle. The subcutaneous tissues were irrigated, and the skin and subcutaneous fat were also anesthetized. The skin was reapproximated with surgical stapler. The wound was dressed. I then turned my attention back to the ileostomy. A longitudinal incision was made on the antimesenteric border, and the afferent and efferent limbs were gently matured. The mucocutaneous anastomosis was made with interrupted 3-0 Vicryl sutures. The Dante drain was affixed to to the skin with interrupted stitches to serve as a temporary bridge. A stoma bag was tailored to the ileostomy, and secured to the skin. Belinda was then awoken from the anesthetic, extubated, and transferred to the recovery unit. Date of Procedure: 11/09/25
--- NOTE | 2025-11-09 10:50 | W.ANESPOSTOP ---
Postoperative Evaluation Date, Time and Location Date Performed: 11/09/25 Time Performed: 10:50 Patient Location: PACU Vital Signs Most Recent Imported Vital Signs: Most Recent Vital Signs Temp Pulse Resp BP Pulse Ox 36.5 C 83 11 L 157/79 H 96 11/09/25 10:46 11/09/25 10:46 11/09/25 10:46 11/09/25 10:46 11/09/25 10:46 Pain Score Most Recent Pain Score: Most Recent Pain Score Pain Level [Abdomen] 0 11/09/25 09:07 Pain Level 0 11/09/25 10:46 Assessment Mental Status: Awake (Alert & Oriented to Patient Baseline) Airway and Respiratory Function: Patent airway with normal (patient baseline) respiratory exam Cardiovascular Function: Hemodynamically Stable Hydration Status: Adequately Hydrated Nausea & Vomiting: No Nausea or Vomiting Pain: Pt. Denies Any Pain Peripheral Nerve Block: Patient did not receive a nerve block
--- NOTE | 2025-11-09 11:29 | NUR.NOTE ---
Nursing Note: At 11am pt returned from Pacu via stretcher Dr. Diego and Alice RN with the pt pt awake and alert x 4 pt denies pain IVF's running well RT AC pt tolerating clears no complaints of nausea pts Ileostomy intact on the RT side of abdomen there is slight bloody drainage in ostomy bag greg drain in place pt midline DSG CDI pts BS present in all quadrants abdomen puffy family at side report given by Alice WILLAMS call morrison at side safety maintained
[2025-11-09] MEDS: Lactated Ringers 1,000 ML 1000 ML IV (18:35)
[2025-11-09] MEDS: LORazepam 2 MG/ML VIAL 1 MG IVP (20:05)
[2025-11-09] MEDS: Gabapentin 100 MG CAP PO (20:05)
[2025-11-09] MEDS: Enoxaparin 40 MG/0.4 ML SYR SC (21:20)
[2025-11-10] MEDS: HYDROmorphone 2 MG/ML SYR 1 MG IVP ×4 (02:51→20:29)
[2025-11-10 07:44] VITALS: BP 117/66; PULSE 90; RESP 16; TEMP 37; O2SAT 94
[2025-11-10] MEDS: Lactated Ringers 1,000 ML 75 ML IV (08:59)
[2025-11-10] MEDS: Multivitamin TAB 1 TAB PO (09:00)
[2025-11-10] MEDS: Gabapentin 100 MG CAP PO ×3 (09:00→20:29)
--- NOTE | 2025-11-10 10:59 | W.PM.PROGNOT ---
Date of Service Date of service: 11/10/25 Time of Service: 10:59 Assessment and Plan Assessment and plan (1) Large bowel obstruction: Status: Acute (2) Colon cancer: Status: Chronic (3) Ileostomy status: Status: Acute Assessment and plan: POD 1 s/p creation of diverting loop ileostomy for malignant colon obstruction. Doing well. Reports bowel function through the stoma already which is great. Not evident on my exam though there is some gas in the bag. Reported nausea with full liquids, will keep her on current diet and allow her to self advance to full liquids as she progresses. Ileostomy output documented at 250mL since surgery. Continue to monitor output volume. Discussed monitoring and regulating stoma output as a long winder tender part of ileostomy care. Replacing potassium with 40eq PO today. recheck tomorrow. recheck magnesium and phos and replace as needed as stoma output increases. saline lock IV, PO liquid intake has been adequate. Ambulate in halls as a goal for the day. Change dilaudid frequency to q2h to make it more available as needed. Discontinuing tylenol at patients request. locomotive electrician consulted at patients request for education on stoma and diet. Nursing to begin stoma teaching. lovenox for dvt ppx. Subjective Subjective Interval history since last seen: Pt reports she feels well. She has ambulated to the restroom on her own. Pain control is adequate with dilaudid, which lasts about 4 hours. When she is due again, by the tie she gets the dose, the pain is severe in a range of 6-7. Had nausea yesterday, none today and has not used zofran since yesterday. She still feels distended/bloated (though she says softer), and had some discomfort with full liquids which caused her to back off of them. Clear liquids are going down well. Feels she is still belching a lot, but also had gas from the stoma. Says the nurses have emptied bilious fluid from the stoma bag. She will not take tylenol she says because of her liver. I told her I would take it off her MAR so that she didnt have to keep refusing it. Family present and we discussed various topics regarding stoma care, stoma output, nutrition and hydration, post op recovery metabolism and weight changes. They would like to be sure the locomotive electrician will see Belinda while she is here to teach her about nutrition aspects of a stoma. Exam Narrative Exam Narrative: awake, NAD eomi, MMM normal resp effort abdomen softly distended, appropriately tender R peristomal and midline. Midline dressing with minimal strikethrough superiorly. Otherwise c/d. R abdomen stoma is pink and perfused. Medial bruising present. Bag with small amount of air. No fluid in bag at the time of my exam. Objective Last Vital Signs Temp 98.6 F 11/10/25 07:44 Pulse 90 11/10/25 07:44 Resp 16 11/10/25 07:44 BP 117/66 11/10/25 07:44 Pulse Ox 94 11/10/25 07:44 PAWSS Have you Been Recently Intoxicated or Drunk Within the Last 30 days?: No Have you Ever Experienced Previous Episodes of Alcohol Withdrawal?: No Have you ever Experienced Withdrawal Seizures?: No Have you ever Experienced Delirium Tremens(DT)s?: No Have you ever undergone Alcohol Rehabilitation Treatment (i.e, inpt ot outpatient treatment programs)?: No Have you ever Experienced Blackouts?: No Have you ever Combined Alcohol with other Downers within the last 90 days?: No Have you ever Combined Alcohol with any other Substance of Abuse during the last 90 days?: No Positive Blood Alcohol level on Presentation? [PCS.BAL]: No Evidence of Increased Autonomic Activity (i.e. HR>120, tremor, sweating, agitation, nausea)?: No Result: 0 VTE Prohylaxis Risk Level: Moderate/High Risk Contraindications: None and Active bleed/high bleed risk Prophylaxis: Pharmacologic and Mechanical Time Spent with Patient Time Spent with Patient: >50 minutes Time was spent: preparing to see the patient(eg.review tests), ordering medications,tests, procedures and counseling the patient
[2025-11-10] MEDS: Potassium Chloride 20 MEQ TABCR 40 MEQ PO (11:06)
[2025-11-10] MEDS: Normal Saline Flush 10 ML SYR IVP ×2 (11:19→20:30)
[2025-11-10] MEDS: LORazepam 2 MG/ML VIAL 1 MG IVP (13:30)
[2025-11-10 20:17] VITALS: BP 126/68; PULSE 97; RESP 14; TEMP 37.8; O2SAT 92
[2025-11-10] MEDS: Enoxaparin 40 MG/0.4 ML SYR SC (20:28)
[2025-11-11] MEDS: HYDROmorphone 2 MG/ML SYR 1 MG IVP ×2 (00:08→06:13)
[2025-11-11 06:40] LABS: HCT 35.5 % (36.0-46.0); HGB 11.5 g/dL (11.2-15.7); MCH 30.7 pg (27.0-33.0); MCHC 32.4 % (32.0-36.0); MCV 95 fL (80-95); MPV 9.4 fL (8.0-11.0); Platelet Count 140 10^3/uL (130-400); RBC 3.75 10^6/uL (3.93-5.22); RDW 13.3 % (11.7-14.6); RDW-SD 46.3 fL; WBC 6.39 10^3/uL (4.4-10.8)
[2025-11-11 06:59] LABS: Magnesium 1.7 mg/dL (1.6-2.6)
[2025-11-11 07:01] LABS: Anion Gap 8.9 mmol/L (3-11); BUN 10 mg/dL (9-23); CO2 28.5 mmol/L (20.0-31.0); Calcium 8.5 mg/dL (8.3-10.6); Chloride 98 mmol/L (98-107); Glucose 104 mg/dL (74-106); Potassium 3.5 mmol/L (3.5-5.1); Sodium 135 mmol/L (136-145)
[2025-11-11 07:48] VITALS: BP 117/64; PULSE 94; RESP 18; TEMP 37.3; O2SAT 89
[2025-11-11] MEDS: Gabapentin 100 MG CAP PO ×3 (08:10→20:31)
[2025-11-11] MEDS: Multivitamin TAB 1 TAB PO (08:10)
[2025-11-11] MEDS: Normal Saline Flush 10 ML SYR IVP ×2 (08:11→20:23)
[2025-11-11] MEDS: HYDROmorphone 2 MG TAB PO ×4 (10:38→20:22)
[2025-11-11] MEDS: LORazepam 1 MG TAB PO (15:10)
--- NOTE | 2025-11-11 16:51 | W.PM.PROGNOT ---
Date of Service Date of service: 11/11/25 Time of Service: 16:51 Assessment and Plan Assessment and plan (1) Ileostomy status: Status: Acute Assessment and plan: Belinda is making nice recovery from diverting loop ileostomy for a malignant sigmoid colon obstruction from cancer. I have adjusted her medications today, switching back to an oral regimen for everything. I also changed her stoma device today, and gave her some basic educational materials. Will have her try again tomorrow and see if she is comfortable. Will also make arrangements for home health nursing to assist with the first few ileostomy applications at home. Hopefully, she will be suitable for discharge on Tuesday or Tuesday Subjective Subjective Interval history since last seen: Belinda feels much better today, and she has been tolerating some simple diet without any nausea or vomiting. She has had a little more pain today, but overall it has been pretty well-controlled. Exam GI Other: Her abdomen is soft, mildly distended. The ostomy is pink, patent, and producing both gas and succus. Midline incision is clean, and I do not see any signs of erythema or any infection Objective Last Vital Signs Temp 99.1 F 11/11/25 07:48 Pulse 94 H 11/11/25 07:48 Resp 18 11/11/25 07:48 BP 117/64 11/11/25 07:48 Pulse Ox 89 L 11/11/25 07:48 Laboratory Results - last 24 hr 11/11/25 06:28 WBC 6.39 RBC 3.75 L Hgb 11.5 Hct 35.5 L MCV 95 MCH 30.7 MCHC 32.4 RDW 13.3 Plt Count 140 MPV 9.4 Sodium 135 L Potassium 3.5 Chloride 98 Carbon Dioxide 28.5 Anion Gap 8.9 BUN 10 Creatinine 0.88 Est GFR (CKD-EPI 2020) 63.09 Glucose 104 Calcium 8.5 Phosphorus 2.9 Magnesium 1.7 PAWSS Have you Been Recently Intoxicated or Drunk Within the Last 30 days?: No Have you Ever Experienced Previous Episodes of Alcohol Withdrawal?: No Have you ever Experienced Withdrawal Seizures?: No Have you ever Experienced Delirium Tremens(DT)s?: No Have you ever undergone Alcohol Rehabilitation Treatment (i.e, inpt ot outpatient treatment programs)?: No Have you ever Experienced Blackouts?: No Have you ever Combined Alcohol with other Downers within the last 90 days?: No Have you ever Combined Alcohol with any other Substance of Abuse during the last 90 days?: No Positive Blood Alcohol level on Presentation? [PCS.BAL]: No Evidence of Increased Autonomic Activity (i.e. HR>120, tremor, sweating, agitation, nausea)?: No Result: 0 VTE Prohylaxis Risk Level: Moderate/High Risk Contraindications: None and Active bleed/high bleed risk Prophylaxis: Pharmacologic and Mechanical Time Spent with Patient Time Spent with Patient: 35-49 minutes Time was spent: preparing to see the patient(eg.review tests), ordering medications,tests, procedures, referring, communicating with other health post acute care nurse, indepentently interpreting results, counseling the patient and care coordination
--- NOTE | 2025-11-11 17:23 | CMPROGNOTE_ITS ---
Date of service: 11/11/25 Time of Service: 17:23 Care Management Progress Note Progress Note Text Progress Note Text: Belinda was sitting up in bed when CM met with her. She stated that she is doing ok, given the circumstances. She is pleasant and engaged well in conversation. She stated that her biggest concerns currently are that she is taught how to care for her new colostomy by nursing, that she has supplies at home, and that she meets with nutrition prior to discharge. There is a nutrition consult in, and per report, this will happen tomorrow. CM brought her request for education to her RN, who stated that she plans to continue teaching, and will reiterate what has been taught in order for Belinda to have ample practice prior to returning home. CM reached out to to inform them of the pending new referral and asked about supplies; per report, will order ostomy supplies once Belinda is home and evaluated by a RN, and requested that Belinda be sent home with at least 3 days of supplies. requested that Belinda be provided with 4-5 days worth of supplies upon discharge, which is being ordered by nursing. CM will continue to follow. Discharge Potential Discharge Needs: Consult Consult Services Needed: Nutrition, Surgical F/U Appt and Other (coordination of ostomy supplies and new ostomy training) Anticipated Barriers to Discharge: Medical Status Patient/Family Education Needs: Review discharge instructions, discuss Ask Me Three Transportation: Private vehicle Plan: Anticipate Belinda will be discharged home, with new home health orders for nursing for ostomy care, when medically cleared. She will follow up with her surgeon and Oncology team and transport with family. CM will follow and continue to support discharge planning concerns. Social Determinants of Health Screening Social Determinants of health last assessed in clinic: 11/11/25 Will the Patient Participate in the Screening?: Yes Do you worry about having a steady place to live?: no Problems where you live: no known problems In the past 12 months, have you had to go without electric, gas, oil or water in your home?: no 1. Within the past 12 months, we worried whether our food would run out before we got money to buy more.: Don't know/refused 2. Within the past 12 months, the food we bought just didn't last and we didn't have money to get more.: Don't know/refused Has lack of transportation kept you from medical appointments or from doing things needed for daily living?: no Has anyone in your life made you feel unsafe or unsupported?: no How hard is it for you to pay for the very basics like food, housing, medical care, and heating? Would you say it is:: Not hard at all Do you want help finding or keeping work or a job?: I do not need or want help If for any reason you need help with day-to-day activities such as bathing, preparing meals, shopping, managing finances, etc., do you get the help you need?: I don?t need any help How often do you feel lonely or isolated from those around you?: Never Do you speak a language other than Latvian at home?: No Does the patient want assistance with any of the above?: No
[2025-11-11 20:10] VITALS: BP 131/67; PULSE 97; RESP 16; TEMP 36.4; O2SAT 92
[2025-11-11] MEDS: Enoxaparin 40 MG/0.4 ML SYR SC (20:23)
[2025-11-11] MEDS: Ondansetron O.D.T. 4 MG TABEF 8 MG PO (20:27)
[2025-11-12] MEDS: LORazepam 1 MG TAB PO ×3 (01:53→18:29)
[2025-11-12] MEDS: Ondansetron O.D.T. 4 MG TABEF 8 MG PO (01:53)
[2025-11-12] MEDS: Simethicone 80 MG CHEW PO (02:06)
[2025-11-12] MEDS: Normal Saline Flush 10 ML SYR IVP ×2 (03:46→22:07)
--- NOTE | 2025-11-12 07:13 | PDOC.HHF2F ---
Date of service: 11/12/25 Time of Service: 07:13 Home Health Referral Home Health Orders Clinical synopsis of why skilled professionals are needed: Jennifer is 70 years old. She suffered a large bowel obstruction from a sigmoid tumor, and underwent a diverting loop ileostomy. She has a new surgical incision, as well as a new ileostomy Registered Nurse: Check all that apply Instruct on ostomy care: Ordered (Diverting loop ileostomy; assist with drainage and stoma device management) Assess wound for signs and symptoms of infection, instruct on wound care and/or provide skilled wound care consisting of: Evaluate wound for any signs of infection or dehiscence Home Bound Status Assistance of another person (Describe assistance and medical necessity): Jennifer has difficulty ambulating without assistance, and challenges managing her new ileostomy device with a who has dementia Describe why leaving home would require a considerable and taxing effort: Side effects from pain medication (sedation/drowsiness), Incontinence and Safety Concerns: describe (Primary caregiver has dementia) Encounter Date and Reason: I certify that a FTF encounter for this patient was performed on November 12, 2025 and that such encounter was related to the primary reason the patient requires home health services. The encounter was conducted in the following manner: By me as the certifying physician, HANDHOLE MACHINE OPERATOR, PA or By an inpatient physician, HANDHOLE MACHINE OPERATOR or PA during an inpatient stay who communicated findings to me, Certification And Authentication I certify that I composed the above information based on my clinical judgment relating to this patient's medical condition and, if applicable, clinical findings communicated to me by the NPP or inpatient physician who performed the FTF encounter.
[2025-11-12 07:45] VITALS: BP 145/74; PULSE 98; RESP 16; TEMP 36.8; O2SAT 92
[2025-11-12] MEDS: Gabapentin 100 MG CAP PO ×3 (07:57→22:07)
[2025-11-12] MEDS: HYDROmorphone 2 MG TAB PO ×4 (07:57→22:36)
--- NOTE | 2025-11-12 09:33 | PGE_ITS ---
Date of Service Date of service: 11/12/25 Time of Service: 09:33 Assessment and Plan Assessment and plan (1) Ileostomy status: Status: Acute Assessment and plan: Belinda is having some nausea and vomiting overnight and this morning. She has been independent within her room with transfers and mobility. Abdomen is firm and tympanic. Will trial simethicone to help with flatus discomfort. Good output is noted from the ostomy. Stoma is pink/red and healthy appearing. She currently has the educational information regarding ostomy care. She did not have any questions at this time. Encouraged activity OOB and ambulation as tolerated. She has zofran and simethicone ordered, hopefully this will provide her with some relief. Addendum: Patient with vomiting overnight and ongoing nausea. She is tolerating clear liquids without difficulty. Pain well controlled. Exam minimally distended, non- tender to palpation. Liquid stool in ostomy bag. Discussed with her ongoing osto my managment and diet advancement to avoid dehydration. Will continue to monitor tonight and obtain labs in AM. Pending ostomy output and ability to tolerate PO will plan for potential discharge home tomorrow. Subjective Subjective Interval history since last seen: Arrive with Belinda sitting in the chair. She reports that she had a rough night and has been struggling with nausea and vomiting. She states it has continued this morning. She has only been consuming sips of water. Exam Const General: cooperative, healthy appearing and comfortable Orientation: oriented x3 Resp Effort & Inspection: normal respiratory effort, no audible wheezes and no cough GI Inspection: distended Palpation: firm, no guarding and tender Other: Moderate amount of liquid brown stool within the colostomy. Objective Last Vital Signs Temp 36.8 C 11/12/25 07:45 Pulse 98 H 11/12/25 07:45 Resp 16 11/12/25 07:45 BP 145/74 H 11/12/25 07:45 Pulse Ox 92 11/12/25 07:45 PAWSS Have you Been Recently Intoxicated or Drunk Within the Last 30 days?: No Have you Ever Experienced Previous Episodes of Alcohol Withdrawal?: No Have you ever Experienced Withdrawal Seizures?: No Have you ever Experienced Delirium Tremens(DT)s?: No Have you ever undergone Alcohol Rehabilitation Treatment (i.e, inpt ot outpatient treatment programs)?: No Have you ever Experienced Blackouts?: No Have you ever Combined Alcohol with other Downers within the last 90 days?: No Have you ever Combined Alcohol with any other Substance of Abuse during the last 90 days?: No Positive Blood Alcohol level on Presentation? [PCS.BAL]: No Evidence of Increased Autonomic Activity (i.e. HR>120, tremor, sweating, agitation, nausea)?: No Result: 0 VTE Prohylaxis Risk Level: Moderate/High Risk Contraindications: None and Active bleed/high bleed risk Prophylaxis: Pharmacologic and Mechanical Time Spent with Patient Time Spent with Patient: <25 minutes Time was spent: preparing to see the patient(eg.review tests), obtaining and/or reviewing separately otained hiistory, ordering medications,tests, procedures, counseling the patient and care coordination
--- NOTE | 2025-11-12 13:06 | NUR.NOTE ---
Spoke with lianna Estes's . Advised she had an episode of vomiting so she would be staying with us for at least one more night. Advised she would most likely be dc'd tomorrow if she has no major events overnight. I advised I would call him if anything significant changes. verbalized understanding and appreciated the update!
--- NOTE | 2025-11-12 15:03 | CHAPLAIN ---
Belinda was sitting up in bed and on her phone when I stopped in. I explained my role and offered support. 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 She'll likely have surgery for her bowel obstruction but isn't sure if it'll be here or at [facility] [place]
--- NOTE | 2025-11-12 19:39 | CMPROGNOTE_ITS ---
Date of service: 11/12/25 Time of Service: 19:39 Care Management Progress Note Progress Note Text Progress Note Text: Belinda was sitting up in bed when CM met with her. She stated that she had a difficult night and had not been feeling well. She reported feeling better this evening, than earlier, but still not great. Belinda stated that she had more training with ostomy care by Dr. Diego, who changed the device with her, which she appreciated. CM discussed the plan for ostomy supplies, which will be for HH to order upon visiting with her, likely the day after discharge. She will return home with 4-5 days worth of supplies in order to get her through until her supplies arrive. She expressed understanding of this plan. Belinda stated that she has not yet been seen by nutrition; CM followed up on this, and nutrition will plan to meet with her tomorrow. Per MD, she may be ready for discharge tomorrow. Belinda stated that she is looking forward to going home, but she is hoping that she will be feeling much better than today when she discharges. At the time of the meeting, her dinner tray was in front of her, and she only had a couple of sips of soup, and stated that she was not able to eat more at that time. CM will continue to follow. Discharge Potential Discharge Needs: Consult Consult Services Needed: Nutrition, PCP F/U Appt and Surgical F/U Appt Anticipated Barriers to Discharge: Medical Status Patient/Family Education Needs: Review discharge instructions, discuss Ask Me Three Transportation: Private vehicle Plan: Anticipate Belinda will be discharged home, with new home health orders for nursing for ostomy care, when medically cleared. Her new ostomy supplies will be ordered by , and she will be sent home with 4-5 days worth of supplies. She will follow up with her surgeon and Oncology team and transport with family. CM will follow and continue to support discharge planning concerns. Social Determinants of Health Screening Social Determinants of health last assessed in clinic: 11/12/25 Will the Patient Participate in the Screening?: Yes Do you worry about having a steady place to live?: no Problems where you live: no known problems In the past 12 months, have you had to go without electric, gas, oil or water in your home?: no 1. Within the past 12 months, we worried whether our food would run out before we got money to buy more.: Don't know/refused 2. Within the past 12 months, the food we bought just didn't last and we didn't have money to get more.: Don't know/refused Has lack of transportation kept you from medical appointments or from doing things needed for daily living?: no Has anyone in your life made you feel unsafe or unsupported?: no How hard is it for you to pay for the very basics like food, housing, medical care, and heating? Would you say it is:: Not hard at all Do you want help finding or keeping work or a job?: I do not need or want help If for any reason you need help with day-to-day activities such as bathing, preparing meals, shopping, managing finances, etc., do you get the help you need?: I don?t need any help How often do you feel lonely or isolated from those around you?: Never Do you speak a language other than Dominican at home?: No Does the patient want assistance with any of the above?: No
[2025-11-12] MEDS: Enoxaparin 40 MG/0.4 ML SYR SC (22:07)
[2025-11-12 22:32] VITALS: BP 128/73; PULSE 90; RESP 20; TEMP 36.8; O2SAT 93
--- NOTE | 2025-11-12 22:45 | NUR.NOTE ---
At 1900, day jaguar reports [facility] waiting for call back/ update gave # to call to this RN. Reports they have been able to call yet. This RN brings the paper to pt's Rn in room and reports [facility] would like a call. Pt states she will call him herself. Rn offers house phone to PT but pt states she will use her cell phone instead:
[2025-11-13] MEDS: HYDROmorphone 2 MG TAB PO ×3 (02:54→19:21)
[2025-11-13 07:42] LABS: Anion Gap 8.4 mmol/L (3-11); BUN 9 mg/dL (9-23); CO2 30.4 mmol/L (20.0-31.0); Calcium 8.3 mg/dL (8.3-10.6); Chloride 97 mmol/L (98-107); Glucose 92 mg/dL (74-106); Potassium 3.2 mmol/L (3.5-5.1); Sodium 136 mmol/L (136-145)
[2025-11-13 07:51] LABS: Magnesium 1.5 mg/dL (1.6-2.6)
[2025-11-13 08:11] VITALS: BP 104/72; PULSE 89; RESP 14; TEMP 36.8; O2SAT 94
[2025-11-13] MEDS: Gabapentin 100 MG CAP PO ×3 (09:07→19:21)
[2025-11-13] MEDS: Multivitamin TAB 1 TAB PO (09:08)
[2025-11-13] MEDS: Cyanocobalamin 500 MCG TAB 1000 MCG PO (09:08)
[2025-11-13] MEDS: Potassium Chloride 20 MEQ TABCR 40 MEQ PO ×2 (09:08→12:18)
--- NOTE | 2025-11-13 11:30 | PGE_ITS ---
Date of Service Date of service: 11/13/25 Time of Service: 10:00 Assessment and Plan Assessment and plan (1) Ileostomy status: Status: Acute Assessment and plan: She notes she is doing better this morning and nausea is much improved. She would like to would advance her diet further. She notes that she had a lot of liquid stool yesterday but it is beginning to thicken up. Her pain is well- controlled. She does endorse ongoing knee pain and difficulty with mobility. She is worried about discharge home. On exam today her abdomen is soft, minimally distended with liquid stool in the ileostomy bag. She had some hypokalemia this morning which will be repleted, likely in the setting of high ostomy output. Will advance diet slowly today given improvement in nausea and overall status. Will place order for PT evaluation prior to discharge. Plan for likely discharge tomorrow pending PT evaluation and ostomy output. Subjective Subjective Interval history since last seen: She states she is doing better this morning. She does note that her nausea is much improved. She states that she would like to slowly advance her diet. She notes that she had a lot of liquid output from the ostomy yesterday but it seems to be thickening up this morning. She denies any fevers, chills, chest pain, shortness of breath. Her pain is well-controlled. She does note ongoing knee pain and feels like she has lost strength. She is worried about entry into her house and would like to see physical therapy prior to discharge. Exam Narrative Exam Narrative: General: Well appearing, no acute distress. Skin: Good turgor HEENT: Normocephalic, atraumatic CV: Regular rate Lungs: Bilateral equal chest rise, non-labored breathing Abdomen: Soft, non-tender, minimally distended, ostomy pink with liquid stool in bag Extremities: Warm, well perfused Neurologic: No focal deficits Psychiatric: Alert and oriented, normal mood and affect Objective Last Vital Signs Temp 36.8 C 11/13/25 08:11 Pulse 89 11/13/25 08:11 Resp 14 11/13/25 08:11 BP 104/72 11/13/25 08:11 Pulse Ox 94 11/13/25 08:11 Laboratory Results - last 24 hr 11/13/25 06:09 Sodium 136 Potassium 3.2 L Chloride 97 L Carbon Dioxide 30.4 Anion Gap 8.4 BUN 9 Creatinine 0.74 Est GFR (CKD-EPI 2020) 77.05 Glucose 92 Calcium 8.3 Phosphorus 3.5 Magnesium 1.5 L PAWSS Have you Been Recently Intoxicated or Drunk Within the Last 30 days?: No Have you Ever Experienced Previous Episodes of Alcohol Withdrawal?: No Have you ever Experienced Withdrawal Seizures?: No Have you ever Experienced Delirium Tremens(DT)s?: No Have you ever undergone Alcohol Rehabilitation Treatment (i.e, inpt ot outpatient treatment programs)?: No Have you ever Experienced Blackouts?: No Have you ever Combined Alcohol with other Downers within the last 90 days?: No Have you ever Combined Alcohol with any other Substance of Abuse during the last 90 days?: No Positive Blood Alcohol level on Presentation? [PCS.BAL]: No Evidence of Increased Autonomic Activity (i.e. HR>120, tremor, sweating, agitation, nausea)?: No Result: 0 VTE Prohylaxis Risk Level: Moderate/High Risk Contraindications: None and Active bleed/high bleed risk Prophylaxis: Pharmacologic and Mechanical Time Spent with Patient Time Spent with Patient: <25 minutes Time was spent: preparing to see the patient(eg.review tests), obtaining and/or reviewing separately otained hiistory, indepentently interpreting results and counseling the patient
--- NOTE | 2025-11-13 12:23 | W.NUTRFU ---
Date of service: 11/13/25 Time of Service: 12:23 Nutrition Note NOTE: Consult received for Jennifer (Belinda) for new colostomy and diet management. She underwent diverting loop ileostomy surgery on the d/t malignant sigmoid colon obstruction. She is unaware of any significant weight changes, although she assumes she would have lost a few pounds leading up to surgery d/t significant reduction in intake. Her weight history reveals about a 4kg weight loss from last spring (March 2025 was ~73kg). She was upgraded from full liquids to a regular diet at lunch today - is going to try some of the stewed chicken in the cafeteria with soft sides. She was given a handout from the Nutrition Care Manual on Colostomy diet tips and some sample menus/indications of foods to eat and foods to avoid. I offered education on diet considerations: -low fiber diet with goal to increase slowly after ~2 weeks post surgery. -avoid greasy/fatty foods, meats with a lot of connective tissue/fat, raw produce, carbonated bevs, spicy foods and the like -reviewed foods to help thicken output when needed - applesauce, pasta, bananas, peanut butter in small amounts, and offered banatrol supplement to consider as a tool as well. -reviewed bone broth and other collagen protein sources/supplements for help with gut healing and add to her protein intake. -Suggested she avoid straws, eating quickly, chewing gum and other considerations to reduce gas -suggested smaller more frequent meals and suggested food log and output log to identify any odor causing foods for her and how they may affect output consistency. Highlighted hydration and using ORS for help with keeping electrolytes up. suggested MVI in easy to digest form such as powders or chewable. Pt can consider magnesium like Calm drinkable mag when output volume is high. Belinda is going to stay one more night and I plan to follow up today or tomorrow for any questions - she hasn't read through educational handout yet due to some nausea but will come to me with any questions. I gave her my card to contact for any desire for outpatient MNT to help manage as she goes through this new learning period of diet and care of her colostomy. Time Spent in Nutritional Counseling and Treatment: 15 min
--- NOTE | 2025-11-13 17:49 | CMPROGNOTE_ITS ---
Date of service: 11/13/25 Time of Service: 09:00 Care Management Progress Note Progress Note Text Progress Note Text: Belinda was sitting up in the bed, reading some educational material, when CM met with her this morning. She was very pleasant with CM. She said that she is still digesting her new ostomy, but feels that she will be able to handle it. Belinda stated that she has a very supportive , and the nurses have been teaching her how to care for her ostomy. Belinda was ordered for a PT consult today after requesting a knee injection. Discharge Potential Discharge Needs: PT Evaluation, PCP F/U Appt and Surgical F/U Appt Anticipated Barriers to Discharge: None Identified Patient/Family Education Needs: Review discharge instructions, discuss Ask Me Three Transportation: Private vehicle Plan: Anticipate Belinda will be discharged home, with new home health orders for nursing for ostomy care, and possibly PT, when medically cleared. Her new ostomy supplies will be ordered by , and she will be sent home with 4-5 days worth of supplies. She will follow up with her surgeon and Oncology team and transport with family. CM will follow and continue to support discharge planning concerns. Social Determinants of Health Screening Social Determinants of health last assessed in clinic: 11/13/25 Will the Patient Participate in the Screening?: Yes Do you worry about having a steady place to live?: no Problems where you live: no known problems In the past 12 months, have you had to go without electric, gas, oil or water in your home?: no 1. Within the past 12 months, we worried whether our food would run out before we got money to buy more.: Don't know/refused 2. Within the past 12 months, the food we bought just didn't last and we didn't have money to get more.: Don't know/refused Has lack of transportation kept you from medical appointments or from doing things needed for daily living?: no Has anyone in your life made you feel unsafe or unsupported?: no How hard is it for you to pay for the very basics like food, housing, medical care, and heating? Would you say it is:: Not hard at all Do you want help finding or keeping work or a job?: I do not need or want help If for any reason you need help with day-to-day activities such as bathing, preparing meals, shopping, managing finances, etc., do you get the help you need ?: I don?t need any help How often do you feel lonely or isolated from those around you?: Never Do you speak a language other than [place] at home?: No Does the patient want assistance with any of the above?: No
[2025-11-13 19:42] VITALS: BP 110/65; PULSE 102; RESP 16; TEMP 37.5; O2SAT 93
[2025-11-13] MEDS: LORazepam 1 MG TAB PO (22:30)
[2025-11-13] MEDS: Enoxaparin 40 MG/0.4 ML SYR SC (22:31)
[2025-11-14] MEDS: HYDROmorphone 2 MG TAB PO ×2 (02:25→09:00)
[2025-11-14 06:30] VITALS: BP 109/62; PULSE 83; RESP 18; TEMP 36.3; O2SAT 94
[2025-11-14] MEDS: Multivitamin TAB 1 TAB PO (09:00)
[2025-11-14] MEDS: Cyanocobalamin 500 MCG TAB 1000 MCG PO (09:01)
[2025-11-14] MEDS: Gabapentin 100 MG CAP PO ×2 (09:01→14:19)
--- NOTE | 2025-11-14 09:35 | PDOC.CMDIS ---
Date of service: 11/14/25 Time of Service: 09:35 LACE Index Scoring Tool Questions: Length of Stay (in days): 7 - 13 Was the patient admitted via the E.D.?: Yes Comorbidities: Liver or Renal Disease and Metastatic Solid Tumor E.D. Visits: 1 Answers: Total Score: 14 Risk of Readmission: High Risk Care Management Discharge Plan Reason for Hospitalization: Bowel obstruction Discharge Plan: Belinda will be discharged home with new home health orders for nursing for ostomy care, when medically cleared. She will follow up with her surgeon and Oncology team and transport with family. Patient/Family Education Needs: Review discharge instructions, limitations, follow up plan and discuss Ask Me Three Services Needed at Discharge: Home Health Care Services
--- NOTE | 2025-11-14 09:39 | PDOC.CMPRO ---
Date of service: 11/14/25 Time of Service: 09:39 Care Management Progress Note Discharge Potential Discharge Needs: Surgical F/U Appt Anticipated Barriers to Discharge: None Identified Patient/Family Education Needs: Review discharge instructions, discuss Ask Me Three Transportation: Private vehicle Plan: Anticipate Belinda will be discharged home, with new home health orders for nursing for ostomy care, and possibly PT, when medically cleared. Her new ostomy supplies will be ordered by , and she will be sent home with 4-5 days worth of supplies. She will follow up with her surgeon and Oncology team and transport with family. CM will follow and continue to support discharge planning concerns. Social Determinants of Health Screening Social Determinants of health last assessed in clinic: 11/13/25 Will the Patient Participate in the Screening?: Yes Do you worry about having a steady place to live?: no Problems where you live: no known problems In the past 12 months, have you had to go without electric, gas, oil or water in your home?: no Has lack of transportation kept you from medical appointments or from doing things needed for daily living?: no Has anyone in your life made you feel unsafe or unsupported?: no How hard is it for you to pay for the very basics like food, housing, medical care, and heating? Would you say it is:: Not hard at all Do you want help finding or keeping work or a job?: I do not need or want help If for any reason you need help with day-to-day activities such as bathing, preparing meals, shopping, managing finances, etc., do you get the help you need?: I don?t need any help How often do you feel lonely or isolated from those around you?: Never Do you speak a language other than [place] at home?: No Does the patient want assistance with any of the above?: No
[2025-11-14 09:59] LABS: Anion Gap 8.5 mmol/L (3-11); BUN 9 mg/dL (9-23); CO2 30.2 mmol/L (20.0-31.0); Calcium 8.7 mg/dL (8.3-10.6); Chloride 97 mmol/L (98-107); Glucose 104 mg/dL (74-106); Potassium 3.7 mmol/L (3.5-5.1); Sodium 136 mmol/L (136-145)
--- NOTE | 2025-11-14 10:18 | PT.INIE ---
PT Notes Visit Reasons: Malignant Bowel Obstruction Physical Therapy Inpatient Initial Evaluation Date: 11/15/2025 Referring Doctor: Brenda Bhatti MD PT Orders: PT CONSULT: Prior to discharge likely tomorrow Precautions: Fall. Standard. Activity as tolerated. Patient Profile/Admitting Diagnosis: Jennifer is a 70-year-old female with malignant sigmoid colon oobstruction S/P diverting loop ileostomy on postoperative day 5. EBL 50 mL with general endotracheal anesthesia given intraoperatively. PMHX: All Active Problems (Updated 10/01/25 @ 14:34 by Adela Danielle RN) Metastasis to liver (Acute ~09/09/25) 09/09/25-Liver biopsy done at [facility]. 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 H/O bilateral salpingo-oophorectomy (Acute ~10/18/23) History of robot-assisted laparoscopic hysterectomy (Acute ~10/18/23) omental biopsy and temporary b/l ureteral stents Endometrial cancer (Acute ~08/2023) Abnormal CT of the abdomen (Acute) Colon cancer (Chronic) S/P right hemicolectomy (Acute) Screening for colon cancer (Acute) Cirrhosis (Acute) Fatty liver (Acute) Chronic iron deficiency anemia (Acute) Anemia (Chronic) Degenerative joint disease of right knee (Acute) Injection 08/17/2022 Right knee pain (Acute) Anemia (Chronic) Osteoarthritis of left hip (Acute) Hypertension (Chronic) Encounter for screening colonoscopy (Acute) Encounter for annual physical exam (Acute) Diarrhea (Acute) Status post total hip replacement, right (Acute) Diabetes mellitus (Chronic) Elevated blood pressure reading (Acute) Shoulder pain (Chronic 03/24/15) Patellofemoral arthritis of right knee (Chronic 09/12/17) Low back pain radiating to left leg (Chronic 06/10/16) Lichen planus (Chronic) Elevated MCV (Chronic 01/06/17) Elevated LFTs (Chronic 01/06/17) Diverticulosis of colon without diverticulitis (Chronic) sigmoid colon Medical History (Updated 10/01/25 @ 14:34 by Adela Danielle RN) Alcohol intake above recommended sensible limits (01/07/17) elevated GGT, LFT and MCV Hx of colon cancer, stage III with mets to the right middle lung-last had radiation therapy Fall 2023 Pneumonia Tubular adenoma Diverticulitis was in ER 11/2022 Hx of fracture of ankle Hx of spina bifida States hx of Spina Bifida Occulta Hx of hypoglycemia Hx of tension headache 1 time event Hx of transient ischemic attack (TIA) Pt. states she had a TIA when she was 22 that was control related Pt. states she has never had an recurrence, and does not f/u with a neurologist and states she never had History of ectopic right Trochanteric bursitis of right hip (09/11/15) bilateral Left foot pain (08/05/15) Epicondylitis Achilles tendinitis of left lower extremity (09/11/15) Surgical History (Updated 04/29/25 @ 08:45 by Shaneka Kenny) History of colonoscopy (~03/2025) History of right hemicolectomy History of left hip replacement bilat Status post total hip replacement, left (08/17/22) Hx of exploratory laparotomy ectopic Hx of section x 2 Status post arthroscopy of right knee S/P tonsillectomy History of total right hip replacement History of open reduction and internal fixation (ORIF) procedure left ankle with plates and screws present Some hardware was removed Hx of appendectomy History of back surgery Microdisectomy, L5-S1. Pt. states nerves damage with numbness to left foot. History of ectopic History of bilateral tubal ligation H/O section Social History/Home Situation: Lives with viridiana in a private home with 5 steps to enter. Indpeendent with all aspects of ADLs prior to admission. Has a flight of steps to the second floor where the bedroom is. Equipment Owned/DME: None Subjective: Agreeable to PT consult. Denied headache, chest pain, and lightheadedness thoughout session. Objective: General Observation: Resting in bed. Ileostomy bag in place. Mental Status: Alert and oriented as to person, place, time, and purpose. Able to pay attention, focus, and respond appropriately. Pain: None verbalized Vital Signs: Closely monitored by nursing staff ROM: Right Upper Extremity: Shoulder Flexion WFL. Shoulder abduction WFL. Elbow flexion WFL. Wrist flexion WFL. Functional opening and closing of hand WFL. Left Upper Extremity: Shoulder Flexion WFL. Shoulder abduction WFL. Elbow flexion WFL. Wrist flexion WFL. Functional opening and closing of hand WFL. Right Lower Extremity: Hip flexion WFL. Hip abduction WFL. Knee flexion WFL. Ankle dorsiflexion WFL. Ankle plantarflexion WFL. Left Lower Extremity: Hip flexion WFL. Hip abduction WFL. Knee flexion WFL. Ankle dorsiflexion WFL. Ankle plantarflexion WFL. Strength: Right Upper Extremity: Shoulder flexors 5/5. Shoulder abductors 5/5. Elbow flexors 5/5. Elbow extensors 5/5. Spaghetti Press Helper strong. Left Upper Extremity: Shoulder flexors 5/5. Shoulder abductors 5/5. Elbow flexors 5/5. Elbow extensors 5/5. Spaghetti Press Helper strong. Right Lower Extremity: Hip flexors 4/5. Hip abductors 4/5. Knee flexors 5/5. Knee extensors 5/5. Ankle dorsiflexors 5/5. Ankle plantarflexors 5/5. Left Lower Extremity: Hip flexors 4/5. Hip abductors 4/5. Knee flexors 5/5. Knee extensors 5/5. Ankle dorsiflexors 5/5. Ankle plantarflexors 5/5. Bed Mobility/Transfers: Indepednent with all mobility and transfer tasks Gait: 350 feet in [facility] without device. Supervision only. No LOB. No SOB. Denied headcahe, chest pain, and lightheadedness throughout session. Balance: Static Sitting: Normal Dynamic Sitting: Normal Static Standing: Normal Dynamic Standing: Good Special Tests: Mobility Limitations Standardized Measure [facility] AM-PAC 6 clicks Basic Mobility Inpatient Short Form: Raw Score: 24 CMS Score: 0% deficit Informed Consent/Education: Patient was instructed in purpose of PT consult. Assessment: Patient is at baseline mobility level requiring no ambulatory devices. No services are recommended at this time. PT evaluation only. Patient is assessed [place] a 46693 low complexity based on the following: History: 70-year-old female with past medical history as indicated above Examination: As above Presentation: Stable Decision Makin low complexity Goals: N/A. PT evaluation only. Plan of Care/Treatment Plan: N/A. PT evaluation only. DISCHARGE RECOMMENDATIONS: Home when medically cleared by hospitlaist. No services needed. No equipment needed. TREATMENT CODE/TIME: 20944 x 20 minutes for 1 unit (10:18-10:38). Thank you for the opportunity to participate in the care of this patient. Jessie Rush PT, DPT, CLT [facility] [place], [place] x2
[2025-11-14] MEDS: Loperamide 2 MG CAP PO (12:52)
--- NOTE | 2025-11-14 13:23 | PDOC.DSDIS_ITS ---
Date of service: 11/14/25 Discharge Plan Disposition Patient Disposition: Home Condition: Stable Discharge Details Reason For Visit: Malignant Bowel Obstruction Admit Date/Time: 11/07/25 21:06 Admit Provider: Bret Diego Attending Provider: Bret Diego Primary Care Provider: Priscilla Brantley Home Meds and New Rx's Prescriptions: New ondansetron 4 mg tablet,disintegrating 4 mg PO Q8H Qty: 30 0RF Continued latanoprost 0.005 % drops 1 drp ophthalmic (eye) HS Patient Comments: INSTILL ONE DROP IN EACH EYE AT BEDTIME gabapentin 100 mg capsule 100 mg PO TID Qty: 90 5RF letrozole 2.5 mg tablet 2.5 mg PO DAILY multivitamin Tablet 1 tab PO DAILY lorazepam [Ativan] 0.5 mg tablet 0.5 mg PO DAILY PRN (Reason: anxiety) Qty: 30 1RF ibuprofen 600 mg tablet See Rx Instructions .ROUTE .COMPLEX Qty: 90 1RF Dose Instruction: TAKE ONE TABLET BY MOUTH THREE TIMES A DAY NEEDED FOR PAIN Rx Instructions: TAKE ONE TABLET BY MOUTH THREE TIMES A DAY NEEDED FOR PAIN cyanocobalamin (vitamin B-12) [Vitamin B-12] 1,000 mcg tablet 1,000 mcg PO DAILY Discharge Instructions Additional Instructions: * Shower or cleanse skin of your incision daily. Wash the midline incision cj with soapy hands, rinse, and pat dry. Keep them clean, even if it means you have to dress the site with gauze daily. Ok to air the incision out at home to help it dry out. * Dont lift/push or pull >10lb for 4 weeks, or until you see Dr Diego in office. Ask him about activity restrictions he wants for you. Do not vacuum and do not switch the laundry. Ok to walk, climb stairs, and do other activities of daily life. * Do not drive for 2 weeks. * Diet as tolerated. You will learn which foods to eat and which to avoid based on your ostomy output and your preferences. Make sure to get enough protein in your daily diet. Protein energy is what you will need the most of (more than carbohydrate energy or caffeine energy). It will be the most helpful nutrient for regaining your baseline energy levels during this recovery. Fatigue is normal for 6 weeks after surgery. * Take a fiber supplement like metamucil to help get your stool texture to be soft and formed. Fiber helps with constipation and also helps with diarrhea. * IMODIUM: Buy a pack of imodium 2mg tablets and keep them on hand. Watch your daily ileostomy output. If your output is more than 700mL before the end of the day when its time for bed, go ahead and take one tablet of imodium. Aim to keep your output under 800mL per day to avoid dehydration and electrolyte losses. If using the imodium more than once a day on a regular basis, please call the office to let us know. * Use heating pads and ice packs to help with soreness. Stretch gently and stay mobile and active with every day activities to help get yourself back to feeling normal. Call or return for fever or incisional problems. After hours or on weekends, call hospital single pointed operator to reach a surgeon for help. See you at your follow up. Stand Alone Forms: Portal Information Activity:: instructions as written Equipment/Supplies:: No Equipment Needed Diet:: As Tolerated Discharge Orders Discharge Orders: Discharge Order (Routine); Ordered 11/14/25 Ordered By: Akanksha Tello DS: Diagnosis Discharge Diagnosis (1) Ileostomy status: Status: Acute Asessment and Plan: new ileostomy education provided. Pt demonstrated competence in ileostomy management while inpatient. (2) 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: Status: Acute Asessment and Plan: on immunotherapy. follow up with oncology as scheduled. (3) Metastasis to liver: Status: Acute Asessment and Plan: follow up with oncology as scheduled. (4) Large bowel obstruction: Status: Acute Asessment and Plan: diverting ileostomy created this hospitalization to decompress proximally. (5) Hypertension: Status: Chronic Asessment and Plan: continue home meds and follow w PCP for management. (6) Diabetes mellitus: Status: Chronic Asessment and Plan: follow w PCP for management. (7) Chronic iron deficiency anemia: Status: Acute Asessment and Plan: Follow with oncology as planned (8) Degenerative joint disease of right knee: Status: Acute Asessment and Plan: See Dr Ng as outpatient if desired to discuss injections.
--- NOTE | 2025-11-14 14:44 | PDOC.HHF2F_ITS ---
Date of service: 11/14/25 Time of Service: 14:44 Home Health Referral Registered Nurse: Check all that apply Instruct on ostomy care: Ordered (Diverting loop ileostomy; assist with drainage and stoma device management) Physical Therapist: Check all that apply Increase strength & endurance for safe mobility at home: Ordered To design/establish home maintenance program: Ordered Home safety evaluation and teaching/gait training including stair management (if applicable): Ordered Occupational Therapist: Evaluate and treat for patient unable to perform ADL/IADL/self-care: Ordered Upper extremity strengthening, range and motion: Ordered Encounter Date and Reason: I certify that a FTF encounter for this patient was performed on November 14, 2025 and that such encounter was related to the primary reason the patient requires home health services. The encounter was conducted in the following manner: * By me as the certifying physician, HEAD LOFT WORKER, PA or * By an inpatient physician, HEAD LOFT WORKER or PA during an inpatient stay who communicated findings to me, Certification And Authentication I certify that I composed the above information based on my clinical judgment relating to this patient's medical condition and, if applicable, clinical findings communicated to me by the NPP or inpatient physician who performed the FTF encounter. Name of Provider that will be monitoring home health services: Akanksha Tello
== END 2025-11-14 15:45 | disposition home or self-care (01) | DRG 330 ==
LOC: ER 22:15 → MS 11-08 07:14
PROVIDERS: Student in an Organized Health Care Education/Training Program; Surgery; Admitting Provider Surgery; Emergency Provider General Practice; PCP Family Medicine; Visit Provider Surgery
PROC: 0D1B0Z4 Bypass Ileum to Cutaneous, Open Approach (ICD-10-PCS; CPT 49000; principal; 2025-11-09 09:00)
DX: C78.7 Secondary malignant neoplasm of liver and intrahepatic bile duct; I10 Essential (primary) hypertension; E11.9 Type 2 diabetes mellitus without complications; D50.9 Iron deficiency anemia, unspecified; M17.11 Unilateral primary osteoarthritis, right knee; C18.7 Malignant neoplasm of sigmoid colon; C78.01 Secondary malignant neoplasm of right lung; K56.691 Other complete intestinal obstruction; E53.8 Deficiency of other specified B group vitamins; Z85.42 Personal history of malignant neoplasm of other parts of uterus; Z90.49 Acquired absence of other specified parts of digestive tract; K74.60 Unspecified cirrhosis of liver; Z96.641 Presence of right artificial hip joint; E11.40 Type 2 diabetes mellitus with diabetic neuropathy, unspecified; Z79.899 Other long term (current) drug therapy; R11.2 Nausea with vomiting, unspecified
CPT/HCPCS: 44310; 00123; 36415; 80048; 80053; 83690; 85027; 86850; 86900; 86901; 96361; 96374; 96375; 96376; 97161; 99223; 99233; 99285; J1650; 71045; 74177; 81003; 83605; 83735; 84100; 84484; 85025; 85610; 85730; J0131; J0665; J0666; J0744; J1171; J1836; J1885; J2003; J2060; J2270; J2371; J2405; J2470; J2704; J3490

== ENCOUNTER 2025-11-19 01:02 | Outpatient (RCR) | payer MEDICARE, BC, SELFPAY ==
[2025-11-07 08:20] LABS: Abs Immature Grans 0.02 10^3/uL (0.0-0.06); HCT 40.2 % (36.0-46.0); HGB 13.4 g/dL (11.2-15.7); Immature Grans % 0.3 %; MCH 30.7 pg (27.0-33.0); MCHC 33.3 % (32.0-36.0); MCV 92 fL (80-95); MPV 9.5 fL (8.0-11.0); Platelet Count 200 10^3/uL (130-400); RBC 4.36 10^6/uL (3.93-5.22); RDW 13.1 % (11.7-14.6); RDW-SD 44.2 fL; WBC 7.60 10^3/uL (4.4-10.8)
[2025-11-07 08:37] LABS: ALT 18 U/L (10-49); AST 23 U/L (<34); Albumin 4.5 g/dL (3.2-5.0); Alkaline Phosphatase 150 U/L (46-116); Anion Gap 10.6 mmol/L (3-11); BUN 16 mg/dL (9-23); Bilirubin, Total 0.9 mg/dL (0.2-1.2); CO2 24.4 mmol/L (20.0-31.0); Calcium 9.5 mg/dL (8.3-10.6); Chloride 102 mmol/L (98-107); Glucose 176 mg/dL (74-106); Potassium 3.7 mmol/L (3.5-5.1); Sodium 137 mmol/L (136-145); Total Protein 8.4 g/dL (5.7-8.2)
[2025-11-07 08:41] LABS: TSH 1.33 uIU/mL (0.55-4.78)
[2025-11-07 08:46] LABS: Hemoglobin A1C 6.2 % (<5.7)
[2025-11-07] MEDS: Normal Saline Flush 10 ML SYR IVP (13:58)
[2025-11-07 18:50] LABS: CA 125 76 U/mL (<30)
[2025-11-07 20:13] LABS: CEA 613.8 ng/mL (See Note)
[2025-11-19 09:42] LABS: Abs Immature Grans 0.03 10^3/uL (0.0-0.06); HCT 41.4 % (36.0-46.0); HGB 13.7 g/dL (11.2-15.7); Immature Grans % 0.3 %; MCH 30.1 pg (27.0-33.0); MCHC 33.1 % (32.0-36.0); MCV 91 fL (80-95); MPV 9.6 fL (8.0-11.0); Platelet Count 309 10^3/uL (130-400); RBC 4.55 10^6/uL (3.93-5.22); RDW 13.2 % (11.7-14.6); RDW-SD 44.4 fL; WBC 8.89 10^3/uL (4.4-10.8)
[2025-11-19 09:59] LABS: ALT 43 U/L (10-49); AST 51 U/L (<34); Albumin 4.5 g/dL (3.2-5.0); Alkaline Phosphatase 196 U/L (46-116); Anion Gap 10.1 mmol/L (3-11); BUN 15 mg/dL (9-23); Bilirubin, Total 0.8 mg/dL (0.2-1.2); CO2 25.6 mmol/L (20.0-31.0); Calcium 9.6 mg/dL (8.3-10.6); Chloride 97 mmol/L (98-107); Glucose 177 mg/dL (74-106); Potassium 4.0 mmol/L (3.5-5.1); Sodium 133 mmol/L (136-145); Total Protein 8.5 g/dL (5.7-8.2)
[2025-11-19 10:02] LABS: TSH 1.92 uIU/mL (0.55-4.78)
[2025-11-19] MEDS: Normal Saline Flush 10 ML SYR IVP (11:08)
[2025-11-19 19:46] LABS: CA 125 156 U/mL (<30)
[2025-11-19 19:54] LABS: CEA 538.9 ng/mL (See Note)
== END 2025-11-27 23:59 | disposition home or self-care (01) ==
LOC: INF 01:02
PROVIDERS: PCP Family Medicine; Visit Provider Internal Medicine Hematology & Oncology
DX: C18.9 Malignant neoplasm of colon, unspecified (principal); C54.1 Malignant neoplasm of endometrium; Z79.899 Other long term (current) drug therapy; Z45.2 Encounter for adjustment and management of vascular access device
CPT/HCPCS: 36591; 80053; 86304; 82378; 83036; 84439; 84443; 85025